=== PATIENT | female | born 1950 | race Caucasian/White ===

== ENCOUNTER → 2016-11-18 | Outpatient (CLI) | payer OTHER | LOC: FIMAGING 16:21 | PROVIDERS: ATTEND Physician Assistant | DX: J44.9 Chronic obstructive pulmonary disease, unspecified (principal); J40 Bronchitis, not specified as acute or chronic; J98.4 Other disorders of lung; Z87.891 Personal history of nicotine dependence ==

== ENCOUNTER 2017-01-20 05:51 | Inpatient (IN) | payer OTHER ==
[2017-01-20] MEDS ORDERED: PANTOPRAZOLE SODIUM 40 MG TAB PO PRN (05:55)
--- NOTE | 2017-01-20 05:55 | PDHPUP ---
History & Physical Update H&P update statement: This history and physical update is based on an assessment of the patient which was completed after admission or registration (within 24 hours), but prior to the surgery/procedure. H&P update: H&P reviewed & patient examined, no change in patient's condition since H&P completed
[2017-01-20] MEDS ORDERED: ceFAZolin 2 GM/DEXTROSE 100 ML IV ONE (06:00)
[2017-01-20] MEDS ORDERED: morphINE PF 5 MG/10 ML INJ IT ONE (06:00)
[2017-01-20] MEDS ORDERED: fentaNYL 100 MCG/2 ML INJ IT ONE (06:00)
[2017-01-20] MEDS ORDERED: THROMBIN (BOVINE) 5,000 UNIT VIAL TP ONE (06:20)
[2017-01-20] MEDS ORDERED: BUPIVACAINE/EPI 0.25% 30 ML SDV ONE (06:21)
[2017-01-20] MEDS ORDERED: BUPIVACAINE 0.25% 30 ML SDV ONE ×2 (06:21→06:22)
[2017-01-20] MEDS ORDERED: BACITRACIN 50,000 UNITS/10 ML SYR IRR ONE ×4 (06:22→10:28)
--- NOTE | 2017-01-20 06:22 | PDANEPAE ---
ANE History of Present Illness L2-S1 laminectomy and fusion, pain in lower back and legs. numbness in both feet ANE Past Medical History - Cardiovascular History Hx Hypertension: Yes Hx Arrhythmias: No Hx Chest Pain: No Hx Coronary Artery / Peripheral Vascular Disease: No Hx CHF / Valvular Disease: No Hx Palpitations: No - Pulmonary History Hx COPD: Yes Hx Asthma/Reactive Airway Disease: No Hx Recent Upper Respiratory Infection: No Hx Oxygen in Use at Home: No Hx Sleep Apnea: No Sleep Apnea Screening Result - Last Documented: Negative Pulmonary History Comment: MILD COPD DX'D RECENTLY, on Atrovent inhaler, used it last this am,. Bronchitis 2 months ago - Neurologic History Hx Cerebrovascular Accident: No Hx Seizures: No Hx Dementia: No - Endocrine History Hx Diabetes: No - Renal History Hx Renal Disorders: No Renal History Comment: URGENCY, LEAKING - Liver History Hx Hepatic Disorders: No Hepatic History Comment: CHOLECYSTECTOMY - Neurological & Psychiatric Hx Hx Neurological and Psychiatric Disorders: No - Cancer History Hx Cancer: Yes Cancer History Comment: UTERINE LESIONS - Congenital Disorder History Hx Congenital Disorders: No - GI History Hx Gastrointestinal Disorders: Yes Gastrointestinal History Comment: ACID REFLUX, Chron's disease x 5 years - Other Health History Other Health History: BRUISES EASILY - Chronic Pain History Chronic Pain: Yes (BACK PAIN) - Surgical History Prior Surgeries: CHOLECYSTECTOMY. EYE SURGERY. HYSTERECTOMY. TONSILLECTOMY. L ANKLE SURGERY ANE Review of Systems - Exercise capacity METS (RN): 4 METS ANE Patient History - Allergies Allergies/Adverse Reactions: adalimumab [From Humira] Allergy (Verified 01/20/17 06:23) Dyspnea varenicline [From Chantix] Allergy (Verified 01/20/17 06:23) - Home Medications Home Medications: Atenolol [Tenormin 50 mg (*)] 75 mg PO DAILY 01/05/17 [Last Taken Unknown] Budesonide [Budesonide EC] 3 mg PO TID 01/05/17 [Last Taken Unknown] Cholecalciferol Vit D3 [Vitamin D3 (*)] 500 units PO DAILY 01/05/17 [Last Taken Unknown] Etodolac [Etodolac ER] 500 mg PO BID 01/05/17 [Last Taken Unknown] Gabapentin [Neurontin 300 MG (*)] 600 mg PO TID 01/05/17 [Last Taken Unknown] Herbals/Supplements -Info Only 1 each PO DAILY 01/05/17 [Last Taken Unknown] Lisinopril [Zestril 40 mg (*)] 40 mg PO DAILY 01/05/17 [Last Taken Unknown] Pantoprazole Sodium [Protonix 40mg (*)] 40 mg PO DAILY PRN 01/05/17 [Last Taken Unknown] Raloxifene HCl [Evista 60mg (RX)] 60 mg PO DAILY 01/05/17 [Last Taken Unknown] amLODIPine BESYLATE [Norvasc 10 mg (*)] 10 mg PO DAILY 01/05/17 [Last Taken Unknown] traZODone [traZODONE 50MG (*)] 75 mg PO HS 01/05/17 [Last Taken Unknown] - Smoking Hx Smoking Status: Former smoker - Family Anes Hx Family Hx Anesthesia Complications: NEG ANE Labs/Vital Signs - Vital Signs Height: 157.5 cm Weight: 63.957 kg ANE Physical Exam - Airway Neck exam: FROM Mouth exam: dentures - Pulmonary Pulmonary: clear to auscultation - Cardiovascular Cardiovascular: regular rate and rhythym - ASA Status ASA Status: III
[2017-01-20] MEDS ORDERED: LIDOCAINE 1% 2 ML INJ ID PRN (06:25)
[2017-01-20] MEDS ORDERED: LR 1,000 ML IV ONE (06:25)
[2017-01-20] MEDS ORDERED: DEXAMETHASONE 10 MG/ML VIAL IVP ONE (06:48)
[2017-01-20] MEDS ORDERED: CITRATE DEXTROSE SOLN 500 ML BAG ONE (06:57)
[2017-01-20] MEDS ORDERED: CEFAZOLIN 2 GM/DEXTROSE/100 ML BAG IV ONE (07:06)
[2017-01-20] MEDS ORDERED: MIDAZOLAM 2 MG/2 ML VIAL IVP ONE (07:10)
[2017-01-20] MEDS ORDERED: MIDAZOLAM 2 MG/2 ML VIAL ONE (07:12)
[2017-01-20] MEDS ORDERED: fentaNYL 100 MCG/2 ML INJ ONE ×5 (07:13→09:50)
[2017-01-20] MEDS ORDERED: KETAMINE 100 MG/10 ML SYR ONE (07:13)
[2017-01-20] MEDS ORDERED: PROPOFOL/EMULSION 500 MG/50 ML BOTTLE IV ONE ×2 (07:13→08:44)
[2017-01-20] MEDS ORDERED: ROCURONIUM 50 MG/5 ML VIAL ONE (07:15)
[2017-01-20] MEDS ORDERED: PHENYLEPHRINE 10 MG/ML SDV ONE (07:18)
[2017-01-20] MEDS ORDERED: methylPREDNISolone SOD SUCC 125 MG/2 ML VIAL ONE (08:05)
[2017-01-20] MEDS ORDERED: TRANEXAMIC ACID 650 MG in NS 100 ML IV ONE (08:30)
[2017-01-20] MEDS ORDERED: epHEDrine SULFATE 10 MG/ML SYR ONE (08:50)
[2017-01-20] MEDS ORDERED: morphINE PF 5 MG/10 ML INJ ONE (09:50)
[2017-01-20] MEDS ORDERED: diphenhydrAMINE 25 MG CAP PO PRN (11:48)
[2017-01-20] MEDS ORDERED: HYDROmorphONE/DILAUDID 6 MG/30 ML PCA IV PRN (11:48)
[2017-01-20] MEDS ORDERED: LACTULOSE 20 GM/30 ML UDCUP PO PRN (11:48)
[2017-01-20] MEDS ORDERED: METHOCARBAMOL 750 MG TAB PO PRN (11:48)
[2017-01-20] MEDS ORDERED: MAGNESIUM HYDROXIDE 30 ML UDCUP PO PRN (11:48)
[2017-01-20] MEDS ORDERED: BISACODYL 10 MG SUPP PR PRN (11:48)
[2017-01-20] MEDS ORDERED: NALOXONE HCL 0.4 MG/ML INJ IVP PRN (11:48)
[2017-01-20] MEDS ORDERED: ONDANSETRON DISINTEGRATING 4 MG TAB PO PRN (11:48)
[2017-01-20] MEDS ORDERED: ONDANSETRON 4 MG/2 ML VIAL IVP PRN (11:48)
[2017-01-20] MEDS ORDERED: fentaNYL 100 MCG/2 ML INJ IVP PRN (11:55)
--- NOTE | 2017-01-20 11:59 | POSTANESTH ---
Post Anesthetic Evaluation Cardiovascular Status: Similar to Pre-Op Cond Respiratory Status: Similar to Pre-op Cond. Level of Consciousness/Mental Status: Can Participate in Eval Pain Control: Adequate, Prn Tx Ordered Nausea/Vomiting Control: Adequate, Prn Tx Ordered Complications Possibly Related to Anesthesia: None Noted
[2017-01-20] MEDS ORDERED: NS 1,000 ML IV SCH (12:00)
--- NOTE | 2017-01-20 12:18 | SOAPPROG ---
SOAP Progress Note Assessment/Plan: Assessment: 66 yo F sp L2-S1 TLIF Plan: stable PT/OT to 3N Kenny Barajas to fit LSO brace please call with neuro changes SORAIDA to thumbprint suction only. 01/20/17 12:15 Subjective: no back pain, no leg pian, no weakness. Objective: Vital Signs Temp Pulse Resp BP Pulse Ox 36.6 C 64 16 176/93 H 93 01/20/17 06:34 01/20/17 06:34 01/20/17 06:34 01/20/17 06:34 01/20/17 06:34 AAOx4, +FC PERRL, EOMI, no facial droop 5/5 + light touch c/D/I ICD10 Worksheet Patient Problems: Problems Problem Status Onset Fusion of spine of lumbar region Acute - ICD10 Problem Qualifiers (1) Fusion of spine of lumbar region
[2017-01-20] MEDS: LISINOPRIL 40 MG TAB PO SCH (13:02)
[2017-01-20] MEDS: GABAPENTIN 300 MG CAP PO SCH ×3 (13:02→21:15)
[2017-01-20] MEDS: CHOLECALCIFEROL VIT D3 1,000 UNITS TAB PO SCH (13:02)
[2017-01-20] MEDS: BUDESONIDE 3 MG EC CAP PO SCH ×3 (13:02→21:14)
[2017-01-20] MEDS: ATENOLOL 50 MG TAB PO SCH (13:02)
[2017-01-20] MEDS: ACETAMINOPHEN 500 MG TAB PO SCH ×2 (14:51→21:15)
[2017-01-20] MEDS: RALOXIFENE HCL 60 MG TAB PO SCH (14:51)
[2017-01-20] MEDS: POLYETHYLENE GLYCOL 3350 17 GM PKT PO SCH ×2 (15:55→21:28)
[2017-01-20] MEDS: ceFAZolin 2 GM/DEXTROSE 100 ML IV SCH ×2 (16:56→21:14)
[2017-01-20] MEDS: traZODone 50 MG TAB PO SCH (20:07)
[2017-01-20] MEDS: oxyCODONE IR 5 MG TAB PO PRN (20:08)
[2017-01-20] MEDS: SENNOSIDES/DOCUSATE SODIUM TAB PO SCH (20:08)
[2017-01-20] MEDS: morphINE SR 15 MG TAB PO SCH (20:08)
--- NOTE | 2017-01-20 22:38 | GOP ---
[f rep st] OPERATIVE REPORT DATE OF OPERATION: 01/20/2017 SURGEON: Scott Heredia MD NEUROSURGEON: Scott Heredia MD POSTAL SUPERINTENDENT: Rashel Lantigua. ANESTHESIA: General endotracheal. PREOPERATIVE DIAGNOSIS: Severe multilevel lumbar degenerative joint disease with severe degenerativ e lumbar scoliosis with critical spinal stenosis. Severe lateral recess impingement at L2-3, L3-4, L4-5, and L5-S1, as well as spinal central canal stenosis. Intractable low back pain and left great er than right lower extremity radicular and neurogenic claudication symptoms. Failed conservative c are. POSTOPERATIVE DIAGNOSIS: Severe multilevel lumbar degenerative joint disease with severe degenerati ve lumbar scoliosis with critical spinal stenosis. Severe lateral recess impingement at L2-3, L3-4, L4-5, and L5-S1, as well as spinal central canal stenosis. Intractable low back pain and left grea ter than right lower extremity radicular and neurogenic claudication symptoms. Failed conservative care. PROCEDURE PERFORMED: Left-sided L2-3, L3-4, L4-5, and L5-S1 far lateral transpedicular decompressio n with L2 through S1 posterior segmental (pedicle screw and axle device) fixation and posterolateral fusion with local autograft bone morphogenic protein and morselized allograft. L2-3, L3-4, L4-5, a nd L5-S1 posterior/transforaminal lumbar interbody fusion with 2 structural PEEK interbody spacers, local autograft and bone morphogenic protein at each level. Use of intraoperative microscopy, fluor oscopy, and computer volumetric stereotactic navigation, intraoperative neurophysiologic testing. I njection of intrathecal narcotic analgesics and subcutaneous and intramuscular local anesthesia for postoperative pain control. FINDINGS: ESTIMATED BLOOD LOSS: 450 cc. INDICATIONS: The patient is a 66-year-old woman with severe degenerative lumbar scoliosis with spin al stenosis and lateral recess/neural foraminal encroachment. She has intractable low back pain and left greater than right lower extremity radicular and neurogenic claudication symptoms. She has fa iled extensive conservative care and presents now for a multilevel surgical decompression and stabil ization. DESCRIPTION OF PROCEDURE: After informed consent was obtained, the patient was taken to the operati ng room and placed in the prone position on a Zaki table. The lumbosacral area was prepped and d raped in sterile fashion. After fluoroscopic localization of the correct levels, the subcutaneous a nd intramuscular tissues were infiltrated with local anesthesia. A midline linear incision was then created from approximately L2 through S1. This was carried down to the fascial layer, which was in cised using monopolar electrocautery and carried in a subperiosteal plane along the spinous processe s and lamina bilaterally. Intraoperative fluoroscopy was again utilized to verify the correct level . Following this, the dissection was carried out over the facet joints. After carefully dissecting the facet joints and lamina free of soft tissue, a double-action rongeur was utilized to create a f ar lateral trans-facet decompressions at the L2-3, L3-4, L4-5, and L5-S1 levels with complete remova l of the facet joint and unroofing the neural foramen at L2, L3, L4, L5, and S1. Following adequate decompression, the Deskarma neuronavigational system was brought in and 3 reconstructed images obtai tere and sent to the Deskar[facility] station. Using computer volumetric stereotactic navigation, pedicle scr ews were placed at L2, L3, L4, L5, and S1 bilaterally. Each individual screw was tested neurophysio logically with monopolar electric stimulation and interpretation of the potentials by the surgeon. The interspaces were then serially placed under distraction, first at L5-S1, than at L4-5, then at L 3-4, then at L2-3, during which time complete diskectomies were performed with preparation of the en dplates and placement of 2 structural PEEK interbody spacers, local autograft and bone morphogenic p rotein for L2-3, L3-4, L4-5, and L5-S1 posterior/transforaminal lumbar interbody fusions. This was performed with local autograft, bone morphogenic protein and 2 structural PEEKs at each level. The individual rods were then removed, and longer rods placed from L2 to S1 and a slight amount of compr ession placed across the interspaces in order to facilitate bony union and minimize the potential fo r posterior graft migration. The remaining lamina, facet joints, and transverse processes were then extensively decorticated, and the residual local autograft along with bone morphogenic protein and morselized allograft was placed out laterally for posterolateral fusion at the L2 through S1 levels. The wound was copiously irrigated with antibiotic irrigation. Meticulous hemostasis was achieved. 200 mcg of Duramorph along 50 mcg of fentanyl were injected intrathecally. The subcutaneous and i ntramuscular tissues were re-infiltrated with local anesthesia, and the wound was closed in a layere d fashion using interrupted Vicryl sutures followed by Steri-Strips on the skin. COMPLICATIONS: None. DISPOSITION: The patient was extubated and transferred to the recovery room in stable condition. /[id number]/MODL
[2017-01-21] MEDS: ACETAMINOPHEN 500 MG TAB PO SCH ×2 (04:56→13:12)
[2017-01-21] MEDS: oxyCODONE IR 5 MG TAB PO PRN (04:56)
[2017-01-21 05:19] LABS: % IMMATURE GRANULYOCYTES 0.9 % (0.0-1.1); ABSOLUTE IMMATURE GRANULOCYTES 0.16 10^3/uL (0.00-0.10); ADD DIFF? NO; ADD MORPH? NO; ADD SCAN? NO; ATYPICAL LYMPHOCYTE FLAG 10 (0-99); FRAGMENT RBC FLAG 0 (0-99); HEMATOCRIT 28.1 % (38.0-47.0); HEMOGLOBIN 9.1 g/dL (12.6-16.3); LEFT SHIFT FLG 40 (0-99); LIPEMIA HEMOLYSIS FLAG 80 (0-99); MEAN CELL HEMOGLOBIN 33.2 pg (27.9-34.1); MEAN CELL HEMOGLOBIN CONCENTR. 32.4 g/dL (32.4-36.7); MEAN CELL VOLUME 102.6 fL (81.5-99.8); MEAN PLATELET VOLUME 9.7 fL (8.7-11.7); PLATELET CLUMPS FLAG 0 (0-99); PLATELET COUNT 218 10^3/uL (150-400); RED BLOOD CELL COUNT 2.74 10^6/uL (4.18-5.33); RED CELL DISTRIBUTION WIDTH 11.9 % (11.5-15.2)
[2017-01-21 05:30] LABS: ANION GAP 6 mEq/L (8-16); CALCIUM 7.2 mg/dL (8.5-10.4); CARBON DIOXIDE 23 mEq/l (22-31); CHLORIDE 99 mEq/L (97-110); CREATININE 1.2 mg/dL (0.6-1.0); GLOMERULAR FILTRATION RATE 45; GLUCOSE 86 mg/dL (70-100); POTASSIUM 5.3 mEq/L (3.5-5.2); SODIUM 128 mEq/L (134-144)
[2017-01-21] MEDS: NS 500 ML IV SCH ×3 (08:00→14:46)
[2017-01-21] MEDS: GABAPENTIN 300 MG CAP PO SCH ×2 (09:05→17:34)
[2017-01-21] MEDS: BUDESONIDE 3 MG EC CAP PO SCH ×2 (09:05→17:34)
[2017-01-21] MEDS: ENOXAPARIN 40 MG/0.4 ML SYR SC SCH (09:05)
[2017-01-21] MEDS: CHOLECALCIFEROL VIT D3 1,000 UNITS TAB PO SCH (09:05)
[2017-01-21] MEDS: morphINE SR 15 MG TAB PO SCH (09:06)
[2017-01-21] MEDS: ATENOLOL 50 MG TAB PO SCH (09:06)
[2017-01-21] MEDS: LISINOPRIL 40 MG TAB PO SCH (09:07)
[2017-01-21] MEDS: POLYETHYLENE GLYCOL 3350 17 GM PKT PO SCH ×2 (09:07→17:55)
[2017-01-21] MEDS: RALOXIFENE HCL 60 MG TAB PO SCH (09:07)
[2017-01-21] MEDS: SENNOSIDES/DOCUSATE SODIUM TAB PO SCH (09:08)
--- NOTE | 2017-01-21 11:53 | SOAPPROG ---
SOAP Progress Note Assessment/Plan: Assessment: 66 yo female POD #1 s/p L2-S1 TLIF Low BP this AM, being bolused with NS neuro stable with improved sensation in feet Plan: Follow BP, H/H and Na repeat CBC and BMP @ 1400, she may need PRBCs if H/H drops PT/OT as tolerated LSO when out of bed. start salt tabs today Discussed with Dr. Abernathy 01/21/17 11:57 Subjective: Sitting up in bed this AM. Denies pain. States her preop symptoms are improved Does not feel ill or lightheaded Objective: Vital Signs Temp Pulse Resp BP Pulse Ox 36.5 C 55 L 12 78/44 L 92 01/21/17 07:36 01/21/17 07:36 01/21/17 07:36 01/21/17 09:42 01/21/17 07:36 Laboratory Results 01/21/17 04:40 01/21/17 04:40 01/20/17 01/21/17 01/22/17 05:59 05:59 05:59 Intake Total 2900 Output Total 930 100 Balance 1969 - Neuro: WRIGHT, Sens +LT Dressing: CDI SORAIDA: 100ml today ICD10 Worksheet Patient Problems: Problems Problem Status Onset Fusion of spine of lumbar region Acute
[2017-01-21] MEDS: HYDROCODONE/APAP 5/325 TAB PO PRN ×2 (13:09→17:34)
[2017-01-21] MEDS: SODIUM CHLORIDE 1,000 MG TAB PO SCH ×2 (13:09→17:34)
[2017-01-21 13:56] LABS: HEMATOCRIT 27.5 % (38.0-47.0); MEAN CELL HEMOGLOBIN 34.1 pg (27.9-34.1); MEAN CELL HEMOGLOBIN CONCENTR. 32.7 g/dL (32.4-36.7); MEAN CELL VOLUME 104.2 fL (81.5-99.8); RED BLOOD CELL COUNT 2.64 10^6/uL (4.18-5.33); RED CELL DISTRIBUTION WIDTH 12.1 % (11.5-15.2)
[2017-01-21 14:37] LABS: ANION GAP 9 mEq/L (8-16); CARBON DIOXIDE 20 mEq/l (22-31); CHLORIDE 96 mEq/L (97-110); CREATININE 1.6 mg/dL (0.6-1.0); GLOMERULAR FILTRATION RATE 32; GLUCOSE 97 mg/dL (70-100); SODIUM 125 mEq/L (134-144)
[2017-01-21] MEDS ORDERED: NS 1,000 ML IV ONE (16:30)
[2017-01-21] MEDS ORDERED: HYDROCORTISONE 100 MG/2 ML VIAL IVP ONE (16:31)
[2017-01-21 22:00] LABS: % IMMATURE GRANULYOCYTES 0.9 % (0.0-1.1); ABSOLUTE IMMATURE GRANULOCYTES 0.15 10^3/uL (0.00-0.10); ADD DIFF? NO; ADD MORPH? YES; ADD SCAN? NO; ATYPICAL LYMPHOCYTE FLAG 0 (0-99); FRAGMENT RBC FLAG 0 (0-99); HEMATOCRIT 21.3 % (38.0-47.0); LEFT SHIFT FLG 30 (0-99); LIPEMIA HEMOLYSIS FLAG 80 (0-99); MEAN CELL HEMOGLOBIN 33.7 pg (27.9-34.1); MEAN CELL HEMOGLOBIN CONCENTR. 31.5 g/dL (32.4-36.7); MEAN PLATELET VOLUME 9.5 fL (8.7-11.7); PLATELET CLUMPS FLAG 0 (0-99); PLATELET COUNT 148 10^3/uL (150-400); RED BLOOD CELL COUNT 1.99 10^6/uL (4.18-5.33); RED CELL DISTRIBUTION WIDTH 12.1 % (11.5-15.2)
[2017-01-21] MEDS ORDERED: ALTEPLASE 2 MG VIAL IVP PRN (22:00)
[2017-01-21] MEDS ORDERED: HYDROCORTISONE 100 MG/2 ML VIAL IVP SCH (22:00)
[2017-01-21 22:03] LABS: HEMOGLOBIN 6.7 g/dL (12.6-16.3)
[2017-01-21 22:34] LABS: ANION GAP 5 mEq/L (8-16); CREATININE 1.1 mg/dL (0.6-1.0); GLOMERULAR FILTRATION RATE 50; GLUCOSE 84 mg/dL (70-100); POTASSIUM 3.2 mEq/L (3.5-5.2); SODIUM 131 mEq/L (134-144)
[2017-01-21 22:36] LABS: MACROCYTES 1+; PLATELET ESTIMATE ADEQUATE (ADEQ)
[2017-01-21 22:37] LABS: CARBON DIOXIDE 14 mEq/l (22-31); CHLORIDE 112 mEq/L (97-110)
[2017-01-21 22:38] LABS: CALCIUM 4.2 mg/dL (8.5-10.4)
--- NOTE | 2017-01-21 22:51 | GCON ---
[f rep st] CONSULTATION INTERNAL MEDICINE CONSULTATION DATE OF CONSULTATION: 01/21/2017 REFERRING PHYSICIAN: Scott Heredia MD REASON FOR CONSULTATION: Hypotension. HISTORY OF PRESENT ILLNESS: This is a 66-year-old female, who has a history of a degenerative disk disease, with several epidural injections, but with worsening pain, who underwent decompression and fusion L2-S1. There was an estimated 450 cc of blood loss. She was doing well in the immediate pos toperative period, but yesterday afternoon started developing low blood pressures. This has continu ed until today. She has received 1500 cc of IV fluids so far, but blood pressure is still in the 70 s systolic. The patient herself is not having significant complaints. She says she is a little bit dizzy when she walks, but otherwise she is mostly complaining of back pain from the surgery. She d enies any chest pain or shortness of breath. The patient does have a history of Crohn disease and has been on oral budesonide for a very long mehul e. She has not taken systemic steroids recently. She has had 3 epidural injections in the past. REVIEW OF SYSTEMS: A 10-point review of systems was obtained, and other than as stated above was yomaira cowart. PAST MEDICAL HISTORY: 1. Crohn disease. 2. Degenerative disk disease status post recent surgery. 3. Hypertension, for which she is on 3 medications. 4. Osteoporosis. 5. GERD. MEDICATIONS: Reviewed. She has not received her antihypertensives today. SOCIAL HISTORY: She is a smoker, but quit 2 months ago for the surgery. FAMILY HISTORY: Reviewed. Noncontributory. PHYSICAL EXAMINATION: VITAL SIGNS: Afebrile. Blood pressure has been running in the 70s, with bird e blood pressures in the 60s systolic, essentially since yesterday afternoon. Heart rates in the 50 s. Oxygen saturation 92% on 3 L. GENERAL: The patient is well developed, in no apparent distress. HEENT: Nonicteric sclerae. Extraocular muscles intact. Slightly dry mucous membranes. NECK: S upple. No thyromegaly. LUNGS: Good effort. Clear to auscultation bilaterally. CARDIOVASCULAR: Regular rate and rhythm. No murmurs, gallops. ABDOMEN: Positive bowel sounds. Soft, nontender, n ondistended. No hepatosplenomegaly. EXTREMITIES: No clubbing, cyanosis, or edema. SKIN: Without rash. Warm, dry, and intact. NEURO: Alert and oriented x3. Moving all 4 extremities equally. P SYCH: Normal mood and affect. LABS: White blood cell count this morning 17 with a hemoglobin of 9. Hemoglobin has remained stabl e at 9 this afternoon. Interestingly, the white blood cell count was elevated prior to surgery on 0 01/17 at 18. Creatinine prior surgery was 0.7. This morning was 1.2 and is now 1.6. Sodium initial ly was 129 and now has come down to 125. ASSESSMENT: This is a 66-year-old female who is postoperative day #1, status post lumbar decompress ion and fusion, presenting with hypotension and worsening renal failure plan. 1. Hypotension. Probably multifactorial in causes. I am not sure if she took her antihypertensive yesterday morning, but she is on significant ones. There is probably an element of volume depletio n, but I am also considering adrenal insufficiency. She has been on budesonide for a long time, mina n though it is supposedly not absorbed. Although though budesonide is given as a topical therapy fo r Crohn disease, it is absorbed. The plan will be to give her a fluid bolus right now and a dose of hydrocortisone and see what her blood pressure does. Other considerations would be anemia secondar y to acute blood loss, but a repeat H and H seems to be stable. She is not exhibiting signs of seps is, although her white count is elevated, but interestingly it was elevated prior to her surgery. T his may be due to some systemic effects of her budesonide. However, we will get blood cultures and check a lactate to evaluate for sepsis. 2. Acute renal failure. The patient is not making much urine currently. I think this is due to he r hypotension. Will give another 1 L bolus right now and keep her on maintenance fluid. I am gerry monaco that with the steroids her blood pressure comes up and she begins to make urine. We will continue to monitor this very closely. She did have a Lozano early in the morning and then it has been remov ed. Her bladder scans have been not been showing any urinary retention currently. 3. Hyponatremia. Patient did have evidence of this prior to her surgery. Will check a urine sodiu m to further evaluate and continue to monitor as we hydrate. 4. History of hypertension. Will hold all of her medications. 5. History of Crohn's. The patient appears to be in remission. 6. Previous smoker, who quit 2 months ago. The patient is not on any home oxygen. Will continue w atch her oxygen status. The patient probably has an element of chronic obstructive pulmonary disease . Thank you for this consultation. We will follow along with you. /[id number]/MODL
[2017-01-21] MEDS ORDERED: PROTOCOL CALCIUM 1 DOSE IV PRN (23:14)
[2017-01-21] MEDS: NS 1,000 ML IV SCH (23:30)
[2017-01-21 23:49] LABS: HEMOGLOBIN 9.5 g/dL (12.6-16.3); MEAN CELL HEMOGLOBIN 34.1 pg (27.9-34.1); MEAN CELL HEMOGLOBIN CONCENTR. 32.8 g/dL (32.4-36.7); MEAN CELL VOLUME 103.9 fL (81.5-99.8); RED BLOOD CELL COUNT 2.79 10^6/uL (4.18-5.33); RED CELL DISTRIBUTION WIDTH 12.1 % (11.5-15.2)
[2017-01-22 00:05] LABS: ANION GAP 8 mEq/L (8-16); CALCIUM 6.5 mg/dL (8.5-10.4); CARBON DIOXIDE 18 mEq/l (22-31); CHLORIDE 100 mEq/L (97-110); CREATININE 1.5 mg/dL (0.6-1.0); GLOMERULAR FILTRATION RATE 35; GLUCOSE 123 mg/dL (70-100); POTASSIUM 5.1 mEq/L (3.5-5.2); SODIUM 126 mEq/L (134-144)
[2017-01-22] MEDS ORDERED: IOPAMIDOL (ISOVUE 370) 100 ML BTL IV ONE ×2 (00:30→00:55)
--- NOTE | 2017-01-22 00:32 | CPEKG ---
Heart Rate: 56 RR Interval: 1071 P-R Interval: 224 QRSD Interval: 80 QT Interval: 448 QTC Interval: 433 P Pringle: 69 QRS Pringle: 48 T Wave Pringle: 50 EKG Severity - ABNORMAL ECG - EKG Impression: SINUS RHYTHM EKG Impression: FIRST DEGREE AV BLOCK EKG Impression: agree with above Electronically Signed By: Gerardo Zuleta 22-Jan-2017 08:27:46
[2017-01-22] MEDS: NOREPINEPHRINE/NS 500 ML IV SCH ×3 (00:41→16:38)
[2017-01-22] MEDS ORDERED: NS 1,000 ML IV ONE (00:46)
[2017-01-22] MEDS: traZODone 50 MG TAB PO SCH ×2 (00:59→21:27)
[2017-01-22] MEDS: POLYETHYLENE GLYCOL 3350 17 GM PKT PO SCH ×4 (01:00→21:17)
[2017-01-22] MEDS: BUDESONIDE 3 MG EC CAP PO SCH (01:03)
[2017-01-22] MEDS: SENNOSIDES/DOCUSATE SODIUM TAB PO SCH ×3 (01:03→21:20)
[2017-01-22] MEDS: morphINE SR 15 MG TAB PO SCH ×3 (01:03→21:17)
[2017-01-22] MEDS: GABAPENTIN 300 MG CAP PO SCH ×4 (01:06→21:19)
[2017-01-22] MEDS: HYDROCORTISONE 100 MG/2 ML VIAL IVP SCH ×4 (01:06→21:28)
[2017-01-22] MEDS: ACETAMINOPHEN 500 MG TAB PO SCH ×4 (01:06→21:18)
[2017-01-22 02:57] LABS: COLOR YELLOW; LEUKOCYTE ESTERASE,URINE NEGATIVE (NEGATIVE); NITRITE,URINE NEGATIVE (NEGATIVE)
[2017-01-22 03:10] LABS: BACTERIA TRACE /hpf (NONE SEEN); MUCUS TRACE /lpf (NONE-1+)
[2017-01-22] MEDS ORDERED: VANCOMYCIN HCL/NORMAL SALINE 250 ML IV ONE (04:34)
[2017-01-22] MEDS ORDERED: NALOXONE HCL 0.4 MG/ML INJ IVP PRN (04:59)
--- NOTE | 2017-01-22 05:29 | HOSPPROG ---
Hospitalist Progress Note Assessment/Plan: Sign out regarding unstable patient transferring to ICU received from Dr. Carmichael. After arrival to ICU she became more hypoxic, sats only 89% on 15L. Pressors started for ongoing hypotension. Throughout all this, patient awake and alert with minimal complaints. Lungs CTA bilaterally. IV hydrocortisone given by Dr. Carmichael given chronic steroid use, but no improvement in BP. Initially my concern for acute PE was very high given her severe hypoxia with negative CXR. This would have been a very difficult problem given her recent spine surgery. CTA chest ordered STAT due to her unstable status. Concern for renal function with IV contrast as creatinine borderline. [place]berry risk/benefit ratio in favor of proceeding with CTA as definitive diagnosis of PE necessary given high risk nature of IV heparin or lytics in this patient. Given 1L bolus in conjunction with contrast. CTA negative for PE. Upper lobe ground glass - differential pulm edema vs. PNA. Patient making good urine after exam. Patient now persistently hypotensive and hypoxic. On levophed 9mcg. Etiology of decline remains unclear. Possible sepsis but seems atypical. No source obvious. Cultures sent and will start empiric abx, IV Vanco x1 and IV meropenum. Lactate normal and CVP 10. Check ECHO in am. Troponin negative. CC time 1 hour Objective: Vital Signs Temp Pulse Resp BP Pulse Ox 36.3 C 63 10 L 99/72 L 94 01/22/17 04:00 01/22/17 04:00 01/22/17 04:00 01/22/17 04:00 01/22/17 04:00 Laboratory Results 01/21/17 23:35 01/21/17 23:35 01/20/17 01/21/17 01/22/17 05:59 05:59 05:59 Intake Total 2900 5600 Output Total 930 670 Balance 1970 4930 ICD10 Worksheet Patient Problems: Problems Problem Status Onset Fusion of spine of lumbar region Acute
[2017-01-22 05:30] LABS: IONIZED CALCIUM 0.97 MMOL/L (1.12-1.30)
[2017-01-22 05:42] LABS: ADD DIFF? YES; ADD MORPH? NO; ADD SCAN? NO; ATYPICAL LYMPHOCYTE FLAG 0 (0-99); FRAGMENT RBC FLAG 0 (0-99); HEMATOCRIT 26.2 % (38.0-47.0); HEMOGLOBIN 8.5 g/dL (12.6-16.3); LEFT SHIFT FLG 30 (0-99); LIPEMIA HEMOLYSIS FLAG 80 (0-99); MEAN CELL HEMOGLOBIN 33.7 pg (27.9-34.1); MEAN CELL HEMOGLOBIN CONCENTR. 32.4 g/dL (32.4-36.7); MEAN PLATELET VOLUME 10.1 fL (8.7-11.7); PLATELET CLUMPS FLAG 0 (0-99); PLATELET COUNT 239 10^3/uL (150-400); RED BLOOD CELL COUNT 2.52 10^6/uL (4.18-5.33); RED CELL DISTRIBUTION WIDTH 11.9 % (11.5-15.2)
[2017-01-22 05:53] LABS: INR 1.02 (0.83-1.16); PROTIME(PATIENT) 13.3 SEC (12.0-15.0)
[2017-01-22 06:04] LABS: ALANINE AMINOTRANSFERASE 26 IU/L (9-52); ALKALINE PHOSPHATASE 52 IU/L (38-126); ANION GAP 4 mEq/L (8-16); ASPARTATE AMINOTRANSFERASE 42 IU/L (14-46); BILIRUBIN,TOTAL 0.2 mg/dL (0.1-1.4); BILIRUBIN-CONJUGATED 0.2 mg/dL (0.0-0.5); CARBON DIOXIDE 18 mEq/l (22-31); CHLORIDE 110 mEq/L (97-110); CREATININE 1.2 mg/dL (0.6-1.0); GLOMERULAR FILTRATION RATE 45; GLUCOSE 125 mg/dL (70-100); POTASSIUM 4.3 mEq/L (3.5-5.2); SODIUM 132 mEq/L (134-144); TOTAL PROTEIN 3.8 g/dL (6.3-8.2)
[2017-01-22 06:07] LABS: CALCIUM 5.9 mg/dL (8.5-10.4)
[2017-01-22 06:12] LABS: BASE EXCESS -9.9 mEq/L (-2.5-2.5); BICARBONATE 17 mEq/L (22-26); MEASURED OXYGEN SATURATION 95 % (92-95); PCO2 43 mmHg (34-38); PO2 77 mmHg (65-75); TCO2 18 mEq/L (23-27)
[2017-01-22] MEDS: MEROPENEM 1 GM in NS 100 ML IV SCH ×3 (06:34→21:32)
[2017-01-22 07:07] LABS: HYPOCHROMIA 1+; MACROCYTES 2+; PLATELET ESTIMATE ADEQUATE (ADEQ)
[2017-01-22] MEDS: NS 1,000 ML IV SCH (08:03)
[2017-01-22] MEDS ORDERED: CALCIUM GLUCONATE 50 ML IV ONE (08:26)
[2017-01-22] MEDS: CHOLECALCIFEROL VIT D3 1,000 UNITS TAB PO SCH (08:50)
[2017-01-22] MEDS: SODIUM CHLORIDE 1,000 MG TAB PO SCH ×3 (08:50→17:36)
[2017-01-22] MEDS ORDERED: ALBUMIN 5% 250 ML IV ONE (09:56)
--- NOTE | 2017-01-22 10:44 | SOAPPROG ---
SOAP Progress Note Assessment/Plan: SOAP Progress Note Assessment/Plan: Assessment: 66 yo female POD #2 s/p L2-S1 TLIF. Medical management deferred to ICU team. SHe continues on pressors for low BP, but appears quite well, H/H largely stable at 8.5/26 today, sodium 132 improving after several boluses of NS yesterday and salt tabs. WBC 29.05. Started on Merrem and Vanc. Plan: wound redressed today, appears saturated. dressing changes if continues to saturate. Hold in ICU until stable and appropriate for transfer back to floor. Follow BP, H/H and Na PT/OT as tolerated LSO when out of bed. continue SORAIDA drain, 300 out yesterday follow post op films when ready. start salt tabs today Discussed with Dr. Abernathy Subjective: Doing well, no lightheadedness, stable on feet. up in chair eating at time of exam Objective: NAD, VSS on pressors speech clear, cnii-xii grossly intact EOMI, PEARLA MAEx4, BLE 5/5= +LT JPx1 01/22/17 10:51 Objective: Vital Signs Temp Pulse Resp BP Pulse Ox 36.4 C 72 12 111/63 97 01/22/17 07:00 01/22/17 10:00 01/22/17 10:00 01/22/17 10:00 01/22/17 10:00 Laboratory Results 01/22/17 05:15 01/22/17 05:15 01/21/17 01/22/17 01/23/17 05:59 05:59 05:59 Intake Total 2900 6723 Output Total 930 1450 Balance 1970 5273 PT 13.3 SEC (12.0-15.0) 01/22/17 05:15 INR 1.02 (0.83-1.16) 01/22/17 05:15 ICD10 Worksheet Patient Problems: Problems Problem Status Onset Fusion of spine of lumbar region Acute
--- NOTE | 2017-01-22 12:07 | ECHO ---
[id number] + + [address] : : [place] [address] : : [phone] + + Adult Echocardiographic Report + -------+ :Name: CLAUDIO MCCORD LStudy Date: 01/22/2017 10:21 AM : : Hospital Admission Number: [id number] Locati on: 255: :: 1950 Gender: Female Height: 63 in : :Age: 66 yrs Race: WH Weight: 141 lb : :Reason For Study: Hypotension : : BSA: 1.7 meter s2 : :History: No previous : + -------+ MMode/2D Measurements \T\ Calculations IVSd: 0.91 cm LVIDd: 3.4 cm FS: 38.7 % LVOT diam: 1.6 cm LVPWd: 1.1 cm LVIDs: 2.1 cm EDV(Teich): LVOT area: 47.6 ml 2.0 cm2 ESV(Teich): 14.2 ml EF(Teich): 70.2 % LVLd ap4: 7.4 cm SV(MOD-sp4): EDV(MOD-sp4): 60.0 ml 78.0 ml LVLs ap4: 6.0 cm ESV(MOD-sp4): 18.0 ml EF(MOD-sp4): 76.9 % Normal Measurement Values: + + :LVIDd (3.5-5.7cm) IVSd (0.6-1.1cm) LVPWd (0.6-1.1cm) Aortic Root (2.0-3.7cm)Left Atrium (1.5-4.0cm): :LV Vol(d) (76-115ml) LV Vol(s) (29-48ml) Ejec Fraction (50-65%)PV Rick (0.6- 1.2m/s) TV Rick (0.4-1.0m/s) : :MV E Rick (0.8-1.0m/s)MV A Rick (0.3-1.0m/s)LVOT Rick (0.7-1.2m/s) Asc Ao Rick ( 0.9-1.8m/s) : + + Doppler Measurements \T\ Calculations MV E max rick: MV V2 mean: Ao mean PG: LV V1 max: 118.0 cm/sec 87.4 cm/sec 3.6 mmHg 99.7 cm/sec MV A max rick: MV mean PG: Ao V2 mean: LV V1 max P.0 cm/sec 3.4 mmHg 90.5 cm/sec 4.0 mmHg MV E/A: 1.5 MV V2 VTI: 40.0 cmAo V2 VTI: 31.2 cm LV V1 mean PG: MV dec time: MVA(VTI): 1.1 cm2 LORENZA(I,D): 1.4 cm2 1.7 mmHg 0.23 sec LV V1 mean: 58.7 cm/sec LV V1 VTI: 22.1 cm SV(LVOT): 43.3 ml PA V2 max: 84.2 cm/sec PA max P.8 mmHg Left Ventricle The left ventricle is normal in size. There is normal left ventricular wall thickness. Ejection Fraction = 70-75%. No regional wall motion abnormalities noted. Right Ventricle The right ventricle is normal in size and function. Atria The left atrial size is normal. Right atrial size is normal. Mitral Valve The mitral valve is normal. There is no mitral valve stenosis. There is trace mitral regurgitation. Tricuspid Valve The tricuspid valve is normal in structure and function. There is no tricuspid stenosis. There is trace tricuspid regurgitation. Right ventricular systolic pressure is normal. Aortic Valve The aortic valve is not well visualized. Mild Aortic Valve Calcification. There is no aortic stenosis. There is no aortic insufficiency. Pulmonic Valve The pulmonic valve is not well visualized. Pericardium/Pleural There is a fat pad seen. There is no pericardial effusion. Conclusion A complete two-dimensional transthoracic echocardiogram was performed (2D, M-mode, Doppler and color flow Doppler). Ejection Fraction = 70-75%. There is trace mitral regurgitation. There is trace tricuspid regurgitation. Right ventricular systolic pressure is normal. The aortic valve is not well visualized. Mild Aortic Valve Calcification No etiology for hypotension suggested by this study. Final Reading Physician: Diamond Orona signed on 01/22/2017 12:06 PM Ordering Physician: Maria D Cavazos Performed By: Arline Norris
--- NOTE | 2017-01-22 12:36 | HOSPPROG ---
Hospitalist Progress Note Assessment/Plan: # acute Hypotension- patient received fluid resuscitation and pressor support overnight - labs and physiology seem consistent w sepsis however no clear source -? possible aspiration PNA CTA chest(personally reviewed and interpreted) no pulmonary embolism bilateral upper lobe ground-glass attenuation query pneumonia -wean pressor support as able - continue IV fluids - continue empiric antibiotics - continue IV steroids - continue holding home blood pressure medicines # leukocytosis- WBC 29- blood cultures NGTD and urine bland- oxygen saturations 94% on 4 L - continue IV vancomycin and meropenem - monitor cultures # acute kidney injury- presumed secondary to hypoperfusion/hypovolemia- creatinine down to 1.2 this a.m. - continue IV fluids and pressure support # hyponatremia- sodium 125-> 132 with fluids - continue to monitor # prophylaxis- Lovenox on hold continue SCDs # diet as tolerated # disposition greater than 2 midnights the patient remains critically ill requiring IV pressure support Discussed the case with Pulmonary Critical Care will continue empirically treating for sepsis Subjective: Stable overnight Objective: Vital Signs Temp Pulse Resp BP Pulse Ox 36.4 C 72 10 L 115/63 94 01/22/17 07:00 01/22/17 12:00 01/22/17 12:00 01/22/17 12:00 01/22/17 12:00 Laboratory Results 01/22/17 05:15 01/22/17 05:15 01/21/17 01/22/17 01/23/17 05:59 05:59 05:59 Intake Total 2900 6723 Output Total 930 1450 500 Balance 1970 5273 -500 PT 13.3 SEC (12.0-15.0) 01/22/17 05:15 INR 1.02 (0.83-1.16) 01/22/17 05:15 - Physical Exam Constitutional: chronically ill appearing Eyes: anicteric sclera Ears, Nose, Mouth, Throat: moist mucous membranes Cardiovascular: regular rate and rhythym, systolic murmur Respiratory: no respiratory distress, inspiratory crackles Gastrointestinal: normoactive bowel sounds Genitourinary: no bladder fullness Skin: warm, normal color Musculoskeletal: No asymmetric calves Neurologic: AAOx3 Psychiatric: interacting appropriately, not anxious Lymph, Heme, Immunologic: no cervical LAD ICD10 Worksheet Patient Problems: Problems Problem Status Onset Fusion of spine of lumbar region Acute
[2017-01-22] MEDS: RALOXIFENE HCL 60 MG TAB PO SCH (13:15)
--- NOTE | 2017-01-22 13:41 | GCON ---
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 HISTORY OF PRESENT ILLNESS: This patient is an extremely pleasant, 66-year-old, white female with a past medical history of chronic back pain, Crohn disease, hypertension, gastroesophageal reflux dis ease, osteoporosis. She is a day postop after receiving a decompression and fusion of . She had a 450 cc blood loss during surgery. She was initially admitted to the floor and was subsequ ently transferred to the intensive care unit for hypotension. Workup included a CT scan of the ches t and IV fluids. The patient is sitting up in a chair and feeling markedly improved. She denies an y chest pain, pleuritic-type chest pain, or angina equivalent. No fever or night sweats. No nausea , vomiting, or diarrhea. Her pain is well controlled. PAST MEDICAL HISTORY: Significant for Crohn disease, hypertension, osteoporosis, gastroesophageal r eflux disease, and degenerative disk disease and mild COPD. PAST SURGICAL HISTORY: Again, she has recently undergone a decompression and fusion . ALLERGIES: Adalimumab and varenicline. SOCIAL HISTORY: Previous heavy smoker, quit 2 months ago. No significant alcohol use. Work Histor y: She is retired. She has recently moved to the [place] from [place]. She has excelle nt family support. PHYSICAL EXAM: VITAL SIGNS: Blood pressure is 106/74, pulse is 67, respirations are 10, temperatur e is 36.4, oxygen saturation 100% on 4 L. GENERAL: She is a mildly overweight but very pleasant, [age]-year-old, white female who is resting comfortably in no acute distress. HEENT: Eyes are T[place], EO [place]. Throat shows no erythema or tonsillar hypertrophy. NECK: Supple. There is no cervical adenop athy. HEART: Regular rate and rhythm without murmurs, rubs, gallops. LUNGS: Diminished breath so unds and a mild prolongation of expiratory phase but there is no wheeze. ABDOMEN: Soft, nontender. Bowel sounds are present in all 4 quadrants. EXTREMITIES: No clubbing, cyanosis, or edema. LABORATORIES: White count 29,000, hemoglobin of 8.5, hematocrit 26, MCV is 104, platelet count 239. INR 1.02. Arterial blood gas: pH 7.22, pCO2 of 43, pO2 of 77, bicarb 18, oxygen saturation 95%. Sodium 132, potassium 4.3, chloride 110, CO2 is 18, BUN 18, creatinine 1.2, glucose is 125. Urinal ysis is negative. CT angiogram of the chest shows no evidence of PE, but she has patchy ground-glass opacifications co nsistent with pulmonary edema versus pneumonia bilaterally in the upper lobes. Chest x-ray is clear. IMPRESSION: 1. Hypertension, etiology of which is unclear. Likely hypovolemia. Must take into consideration p ossible sepsis. 2. Metabolic acidosis. 3. Elevated white count. 4. Recent spine surgery. 5. History of hypertension. 6. History of Crohn disease. RECOMMENDATIONS: 1. Agree with IV fluids. Will add albumin to the mix to wean off pressors as tolerated. 2. Blood cultures are currently pending. 3. Agree with current antibiotic coverage. Currently on meropenem and she received a dose of vanco mycin. 4. Await cultures. 5. DVT and PE prophylaxis. 6. Stress ulcer prophylaxis. /[id number]/MODL
[2017-01-23 05:04] LABS: IONIZED CALCIUM 1.14 MMOL/L (1.12-1.30)
[2017-01-23 05:06] LABS: ADD DIFF? YES; ADD MORPH? NO; ADD SCAN? NO; ATYPICAL LYMPHOCYTE FLAG 0 (0-99); FRAGMENT RBC FLAG 0 (0-99); HEMOGLOBIN 10.8 g/dL (12.6-16.3); LEFT SHIFT FLG 30 (0-99); LIPEMIA HEMOLYSIS FLAG 80 (0-99); MEAN CELL HEMOGLOBIN 32.2 pg (27.9-34.1); MEAN CELL HEMOGLOBIN CONCENTR. 32.7 g/dL (32.4-36.7); MEAN CELL VOLUME 98.5 fL (81.5-99.8); MEAN PLATELET VOLUME 9.4 fL (8.7-11.7); PLATELET CLUMPS FLAG 10 (0-99); PLATELET COUNT 164 10^3/uL (150-400); RED BLOOD CELL COUNT 3.35 10^6/uL (4.18-5.33); RED CELL DISTRIBUTION WIDTH 15.5 % (11.5-15.2)
[2017-01-23 05:23] LABS: ANION GAP 5 mEq/L (8-16); CALCIUM 7.3 mg/dL (8.5-10.4); CARBON DIOXIDE 20 mEq/l (22-31); CHLORIDE 113 mEq/L (97-110); CREATININE 0.7 mg/dL (0.6-1.0); GLOMERULAR FILTRATION RATE > 60; GLUCOSE 109 mg/dL (70-100); POTASSIUM 4.7 mEq/L (3.5-5.2); SODIUM 138 mEq/L (134-144)
[2017-01-23 05:52] LABS: MACROCYTES 1+; MICROCYTES 1+
[2017-01-23 05:53] LABS: PLATELET ESTIMATE ADEQUATE (ADEQ)
[2017-01-23] MEDS: MEROPENEM 1 GM in NS 100 ML IV SCH ×3 (06:08→21:06)
[2017-01-23] MEDS: HYDROCORTISONE 100 MG/2 ML VIAL IVP SCH (06:09)
[2017-01-23] MEDS: ACETAMINOPHEN 500 MG TAB PO SCH ×3 (06:09→21:06)
[2017-01-23] MEDS ORDERED: IPRATROPIUM/ALBUTEROL 3 ML DEYVIAL IH PRN (08:29)
--- NOTE | 2017-01-23 08:36 | PDINTPN ---
Corporate Account Executive Progress Note Assessment/Plan: Assessment/Plan: * Shock-likely hypovolemic. Resolved * Status post spine surgery * Pain-well controlled * COPD-start patient's home medications * Hypertension * Anemia-status post transfusion * VTE prophylaxis * Stress ulcer prophylaxis * Disposition-okay floor Subjective: Sitting up in chair. Mildly breathless. Pain well controlled. Good appetite Objective: Vital Signs Temp Pulse Resp BP Pulse Ox 36.5 C 76 12 115/89 H 97 01/23/17 07:00 01/23/17 07:00 01/23/17 07:00 01/23/17 07:00 01/23/17 07:00 Laboratory Results 01/23/17 05:00 01/23/17 05:00 01/22/17 01/23/17 01/24/17 05:59 05:59 05:59 Intake Total 6723 4873 Output Total 1450 2130 Balance 5273 2743 PT 13.3 SEC (12.0-15.0) 01/22/17 05:15 INR 1.02 (0.83-1.16) 01/22/17 05:15 Physical Exam - Physical Exam General Appearance: alert, no apparent distress EENT: PERRL/EOMI, normal ENT inspection, pharynx normal, TMs normal Neck: non-tender, full range of motion, supple, normal inspection Respiratory: respiratory distress (Mild), prolonged expiration, No wheezing Cardiac/Chest: normal peripheral pulses, regular rate, rhythm Peripheral Pulses: 2+: carotid (R), carotid (L), femoral (R), femoral (L), dorsalis-pedis (R), dorsalis-pedis (L) Abdomen: normal bowel sounds, non-tender, soft Pelvic Exam: deferred Rectal: deferred Extremities: normal range of motion, non-tender, normal inspection, normal capillary refill, swelling (Upper extremity) Neuro/Psych: no motor/sensory deficits, alert, normal mood/affect, oriented x 3 ICD10 Worksheet Patient Problems: Problems Problem Status Onset Fusion of spine of lumbar region Acute
--- NOTE | 2017-01-23 08:38 | SOAPPROG ---
SOAP Progress Note Assessment/Plan: SOAP Progress Note Assessment/Plan: Assessment: 66 yo female POD #3 s/p L2-S1 TLIF. Medical management deferred to ICU team, however, she is largely improved after fluid resuscitation and 2 units PRBC's. OK for transfer to floor. abx per medical team. dressing is dry today Plan: dressing changes if saturated. OK for transfer to floor today Follow BP, H/H and Na, improved after transfusion and fluid PT/OT as tolerated LSO when out of bed. continue SORAIDA drain, 130 out yesterday follow post op films show hardware in good position. . continue salt tabs Discussed with Dr. Abernathy Subjective: continues to improve. no complaints numbness weakness this am. Objective: NAD, VSS speech clear, cnii-xii grossly intact EOMI, PEARLA MAEx4, BLE 5/5= +LT incision intact and dressed, dressing dry JPx1 01/23/17 08:47 01/23/17 08:50 Objective: Vital Signs Temp Pulse Resp BP Pulse Ox 36.5 C 76 12 115/89 H 97 01/23/17 07:00 01/23/17 07:00 01/23/17 07:00 01/23/17 07:00 01/23/17 07:00 Laboratory Results 01/23/17 05:00 01/23/17 05:00 01/22/17 01/23/17 01/24/17 05:59 05:59 05:59 Intake Total 6723 4873 Output Total 1450 2130 Balance 5273 2743 PT 13.3 SEC (12.0-15.0) 01/22/17 05:15 INR 1.02 (0.83-1.16) 01/22/17 05:15 ICD10 Worksheet Patient Problems: Problems Problem Status Onset Fusion of spine of lumbar region Acute
[2017-01-23] MEDS: GABAPENTIN 300 MG CAP PO SCH ×3 (09:11→21:06)
[2017-01-23] MEDS: SODIUM CHLORIDE 1,000 MG TAB PO SCH ×3 (09:11→17:03)
[2017-01-23] MEDS: CHOLECALCIFEROL VIT D3 1,000 UNITS TAB PO SCH (09:11)
[2017-01-23] MEDS: morphINE SR 15 MG TAB PO SCH ×2 (09:11→19:44)
[2017-01-23] MEDS: RALOXIFENE HCL 60 MG TAB PO SCH (09:11)
[2017-01-23] MEDS: ALBUTEROL 60 PUFFS/8 GM MDI IH PRN (09:13)
[2017-01-23] MEDS: POLYETHYLENE GLYCOL 3350 17 GM PKT PO SCH ×3 (09:16→19:45)
[2017-01-23] MEDS: SENNOSIDES/DOCUSATE SODIUM TAB PO SCH ×2 (09:16→19:44)
[2017-01-23] MEDS: IPRATROPIUM IH SCH ×3 (11:53→21:00)
--- NOTE | 2017-01-23 13:01 | HOSPPROG ---
Hospitalist Progress Note Assessment/Plan: # septic shock presumed 2/2 to pulmonary source- with AHRF and SRAVANTHI -severe hypotension responded well to fluid resuscitation and pressor support - VS now stable off pressors CTA chest-no pulmonary embolism w/ bilateral upper lobe ground-glass attenuation query aspiration pneumonia Telemetry (personally reviewed and interpreted) sinus rhythm 60-80s - weaned pressor support - decrease IVF as PO improves - continue empiric antibiotics - wean IV steroids - continue holding home blood pressure medicines # Acute hypoxic respiratory failure presumed secondary to aspiration pneumonia- patient with leukocytosis and bilateral upper lobe ground-glass infiltrates Oxygen saturation 98% on 4 L - blood cultures NGTD - continue empiric antibiotics # leukocytosis- WBC 29-> 19 - blood cultures NGTD and urine bland- - continue IV meropenem - monitor cultures # acute kidney injury- presumed secondary to hypoperfusion/hypovolemia- creatinine down to 0.7 this a.m. - can DC IV fluids on patient's intake is adequate # hyponatremia- sodium 125-> 138 with fluids - encourage p.o. intake - continue to monitor # bilateral upper lower extremity edema- suspect secondary to aggressive fluid resuscitation - encourage mobilization # L2-S1 TLIF - POD3# -management per Neurosurgery # prophylaxis- Lovenox on hold continue SCDs # diet as tolerated # disposition greater than 2 midnights the patient remains critically ill requiring IV pressure support Discussed the case with Pulmonary Critical Care will continue empirically treating for sepsis Subjective: bilateral arm swelling Objective: Vital Signs Temp Pulse Resp BP Pulse Ox 36.5 C 68 13 116/75 100 01/23/17 07:00 01/23/17 10:00 01/23/17 10:00 01/23/17 10:00 01/23/17 10:00 Laboratory Results 01/23/17 05:00 01/23/17 05:00 01/22/17 01/23/17 01/24/17 05:59 05:59 05:59 Intake Total 6723 4873 Output Total 1450 2130 100 Balance 5273 2743 -100 PT 13.3 SEC (12.0-15.0) 01/22/17 05:15 INR 1.02 (0.83-1.16) 01/22/17 05:15 - Physical Exam Constitutional: appears nourished Eyes: anicteric sclera Ears, Nose, Mouth, Throat: moist mucous membranes Cardiovascular: regular rate and rhythym, systolic murmur Respiratory: no respiratory distress, no rales or rhonchi Gastrointestinal: normoactive bowel sounds, soft, non-tender abdomen Genitourinary: no bladder fullness Skin: warm Musculoskeletal: other (bilateral UE and LE edema) Neurologic: AAOx3 Psychiatric: interacting appropriately, not anxious Lymph, Heme, Immunologic: no cervical LAD ICD10 Worksheet Patient Problems: Problems Problem Status Onset Fusion of spine of lumbar region Acute
[2017-01-23] MEDS: traZODone 50 MG TAB PO SCH (19:44)
[2017-01-24] MEDS: IPRATROPIUM IH SCH ×4 (05:27→21:23)
[2017-01-24] MEDS: MEROPENEM 1 GM in NS 100 ML IV SCH ×3 (06:08→21:27)
[2017-01-24] MEDS: ACETAMINOPHEN 500 MG TAB PO SCH ×3 (06:09→21:25)
[2017-01-24 06:26] LABS: IONIZED CALCIUM 1.17 MMOL/L (1.12-1.30)
[2017-01-24 06:27] LABS: HEMOGLOBIN 11.2 g/dL (12.6-16.3); MEAN CELL HEMOGLOBIN 32.3 pg (27.9-34.1); MEAN CELL HEMOGLOBIN CONCENTR. 32.9 g/dL (32.4-36.7); RED BLOOD CELL COUNT 3.47 10^6/uL (4.18-5.33); RED CELL DISTRIBUTION WIDTH 15.3 % (11.5-15.2)
[2017-01-24 06:42] LABS: ANION GAP 5 mEq/L (8-16); CALCIUM 8.1 mg/dL (8.5-10.4); CARBON DIOXIDE 23 mEq/l (22-31); CHLORIDE 112 mEq/L (97-110); CREATININE 0.5 mg/dL (0.6-1.0); GLOMERULAR FILTRATION RATE > 60; GLUCOSE 73 mg/dL (70-100); POTASSIUM 4.1 mEq/L (3.5-5.2); SODIUM 140 mEq/L (134-144)
--- NOTE | 2017-01-24 07:58 | NEUSURGPN ---
Date of Surgery: 01/20/17 Post Op Day: 4 Assessment/Plan: Assessment: 66 yo female POD #4 s/p L2-S1 TLIF Plan: -medical management deferred to IM team-appreciate their input -largely improved after fluid resuscitation and 2 units PRBC's but still dealing with BP and fluid overload -abx per medical team. -dressing is dry today -dressing changes if saturated. -following BP, H/H () and Na (140), improved after transfusion and fluids -PT/OT as tolerated -LSO when out of bed -ok to remove SORAIDA per Dr Abernathy -follow post op films show hardware in good position. . -continue salt tabs -discussed with Dr. Abernathy Subjective: Awake and alert. NAD. Eating/drinking and voiding. No toscano/neck/chest/abd or gu complaints. No f/c/n/v/d. Objective: NAD, VSS speech clear, cnii-xii grossly intact EOMI, PEARLA MAEx4, BLE 5/5= +LT incision intact and dressed, dressing dry JPx1-to be removed this am Neuro Check Frequency: per routine Urinary Catheter in Place: No - Physician Discussed Patient with DrBaron: Giovanna Neurosurgery Physical Exam - Vitals, I&O, Labs I and O 01/23/17 01/24/17 01/25/17 05:59 05:59 05:59 Intake Total 5873 2122 Output Total 2130 180 Balance 3743 1942 Weight 77.4 kg Intake: Oral (ml) 1200 1400 IV Intake (ml) 1447 50 IV Infused (ml) 1976 672 Meropenem 1 gm In Ns 100 110 ml @ 120 mls/hr IV Q8HRS VANESSA Rx#:[id number] Norepinephrine/Ns 500 ml 850 @ Titrate IV CONT VANESSA Rx# :[id number] Ns 1,000 ml @ 125 mls/hr 1126 562 IV CONT VANESSA Rx#: [id number] Packed Red Blood Cells ( 1250 ml) Output: Urine (ml) 2000 100 Bedside Commode 2000 100 SORAIDA Drain Output (ml) 130 80 Back 130 80 Other: Intake Quantity Yes Yes Sufficient Number of Voids Bedside Commode 1 1 Toilet 1 Number of Stools Bedside Commode 1 Vital Signs Temp Pulse Resp BP Pulse Ox 37 C 66 17 146/77 H 96 01/24/17 00:00 01/24/17 00:00 01/24/17 00:00 01/24/17 00:00 01/24/17 00:00 Laboratory Results 01/24/17 06:10 01/24/17 06:10 ICD10 Worksheet Patient Problems: Problems Problem Status Onset Fusion of spine of lumbar region Acute
[2017-01-24] MEDS: CHOLECALCIFEROL VIT D3 1,000 UNITS TAB PO SCH (08:32)
[2017-01-24] MEDS: GABAPENTIN 300 MG CAP PO SCH ×3 (08:32→21:27)
[2017-01-24] MEDS: RALOXIFENE HCL 60 MG TAB PO SCH (08:32)
[2017-01-24] MEDS: morphINE SR 15 MG TAB PO SCH ×2 (08:32→21:25)
[2017-01-24] MEDS: SODIUM CHLORIDE 1,000 MG TAB PO SCH ×3 (08:32→18:46)
[2017-01-24] MEDS: SENNOSIDES/DOCUSATE SODIUM TAB PO SCH ×2 (09:46→21:25)
[2017-01-24] MEDS: POLYETHYLENE GLYCOL 3350 17 GM PKT PO SCH ×3 (09:46→21:27)
[2017-01-24] MEDS: LISINOPRIL 40 MG TAB PO SCH ×2 (09:46→11:37)
[2017-01-24] MEDS: ALBUTEROL 60 PUFFS/8 GM MDI IH PRN (11:13)
--- NOTE | 2017-01-24 13:25 | HOSPPROG ---
Hospitalist Progress Note Assessment/Plan: # septic shock presumed 2/2 to pulmonary source- with AHRF and SRAVANTHI -severe hypotension responded well to fluid resuscitation and pressor support - VS now stable off pressors CTA chest-no pulmonary embolism w/ bilateral upper lobe ground-glass attenuation query aspiration pneumonia Telemetry (personally reviewed and interpreted) sinus rhythm 60-80s - weaned pressor support - dc IVF - continue empiric antibiotics - dc IV steroids # HTN - blood pressures are beginning to trend back up - SBP in 160's this am - restart lisinopril - will restart meds sequentially to avoid dropping BP again # Acute hypoxic respiratory failure presumed secondary to aspiration pneumonia- patient with leukocytosis and bilateral upper lobe ground-glass infiltrates Oxygen saturation 100% on 3 L - blood cultures NGTD - continue empiric antibiotics - wean O2 as able # leukocytosis- WBC 29-> 15 - blood cultures NGTD and urine bland- - continue IV meropenem - monitor cultures # acute kidney injury- presumed secondary to hypoperfusion/hypovolemia- creatinine down to 0.7 this a.m. - cont to follow # hyponatremia- sodium 125-> 140 with fluids - encourage p.o. intake - continue to monitor # bilateral upper lower extremity edema- suspect secondary to aggressive fluid resuscitation - encourage mobilization # L2-S1 TLIF - POD 3# -management per Neurosurgery # prophylaxis- Lovenox on hold continue SCDs # diet - regular # disposition greater than 2 midnights the patient remains critically ill requiring IV pressure support Discussed the case with RN - will restart BP meds one at a time Subjective: selling improved with mobility Objective: Vital Signs Temp Pulse Resp BP Pulse Ox 36.9 C 79 16 167/60 H 89 L 01/24/17 08:00 01/24/17 08:00 01/24/17 08:00 01/24/17 08:00 01/24/17 08:00 Laboratory Results 01/24/17 06:10 01/24/17 06:10 01/23/17 01/24/17 01/25/17 05:59 05:59 05:59 Intake Total 5873 2122 Output Total 2130 180 Balance 3743 1942 PT 13.3 SEC (12.0-15.0) 01/22/17 05:15 INR 1.02 (0.83-1.16) 01/22/17 05:15 - Physical Exam Constitutional: chronically ill appearing Eyes: anicteric sclera Ears, Nose, Mouth, Throat: moist mucous membranes Cardiovascular: regular rate and rhythym Respiratory: no respiratory distress, no rales or rhonchi Gastrointestinal: normoactive bowel sounds, soft, non-tender abdomen Genitourinary: no bladder fullness Skin: warm, normal color Musculoskeletal: No asymmetric calves Neurologic: AAOx3 Psychiatric: interacting appropriately, not anxious Lymph, Heme, Immunologic: no cervical LAD ICD10 Worksheet Patient Problems: Problems Problem Status Onset Fusion of spine of lumbar region Acute
[2017-01-24] MEDS ORDERED: BACITRACIN 50,000 UNITS/10 ML SYR IRR ONE (15:54)
[2017-01-24] MEDS ORDERED: BUPIVACAINE/EPI 0.25% 30 ML SDV ONE ×2 (15:54→17:28)
[2017-01-24] MEDS ORDERED: MIDAZOLAM 2 MG/2 ML VIAL IVP ONE (16:27)
--- NOTE | 2017-01-24 16:30 | PDANEPAE ---
ANE History of Present Illness s/pTLIF now with retained drained ANE Past Medical History - Cardiovascular History Hx Hypertension: Yes Hx Arrhythmias: No Hx Chest Pain: No Hx Coronary Artery / Peripheral Vascular Disease: No Hx CHF / Valvular Disease: No Hx Palpitations: No - Pulmonary History Hx COPD: Yes Hx Asthma/Reactive Airway Disease: No Hx Recent Upper Respiratory Infection: No Hx Oxygen in Use at Home: No Hx Sleep Apnea: No Sleep Apnea Screening Result - Last Documented: Negative Pulmonary History Comment: MILD COPD DX'D RECENTLY, on Atrovent inhaler, used it last this am,. Bronchitis 2 months ago - Neurologic History Hx Cerebrovascular Accident: No Hx Seizures: No Hx Dementia: No - Endocrine History Hx Diabetes: No - Renal History Hx Renal Disorders: No Renal History Comment: URGENCY, LEAKING - Liver History Hx Hepatic Disorders: No Hepatic History Comment: CHOLECYSTECTOMY - Neurological & Psychiatric Hx Hx Neurological and Psychiatric Disorders: No - Cancer History Hx Cancer: Yes Cancer History Comment: UTERINE LESIONS - Congenital Disorder History Hx Congenital Disorders: No - GI History Hx Gastrointestinal Disorders: Yes Gastrointestinal History Comment: ACID REFLUX, Chron's disease x 5 years - Other Health History Other Health History: BRUISES EASILY - Chronic Pain History Chronic Pain: Yes (BACK PAIN) - Surgical History Prior Surgeries: CHOLECYSTECTOMY. EYE SURGERY. HYSTERECTOMY. TONSILLECTOMY. L ANKLE SURGERY. TLIF ANE Review of Systems - Exercise capacity METS (RN): 4 METS ANE Patient History - Allergies Allergies/Adverse Reactions: adalimumab [From Humira] Allergy (Verified 01/20/17 06:23) Dyspnea varenicline [From Chantix] Allergy (Verified 01/20/17 06:23) - Home Medications Home Medications: Atenolol [Tenormin 50 mg (*)] 75 mg PO DAILY 01/05/17 [Last Taken 01/20/17 04:00 ] Budesonide [Budesonide EC] 3 mg PO TID 01/05/17 [Last Taken 01/19/17] Cholecalciferol Vit D3 [Vitamin D3 (*)] 500 units PO DAILY 01/05/17 [Last Taken 01/19/17] Etodolac [Etodolac ER] 500 mg PO BID 01/05/17 [Last Taken 01/18/17] Gabapentin [Neurontin 300 MG (*)] 600 mg PO TID 01/05/17 [Last Taken 01/19/17] Herbals/Supplements -Info Only 1 each PO DAILY 01/05/17 [Last Taken 01/19/17] Lisinopril [Zestril 40 mg (*)] 40 mg PO DAILY 01/05/17 [Last Taken 01/18/17] Pantoprazole Sodium [Protonix 40mg (*)] 40 mg PO DAILY PRN 01/05/17 [Last Taken 01/19/17] Raloxifene HCl [Evista 60mg (RX)] 60 mg PO DAILY 01/05/17 [Last Taken 01/19/17] amLODIPine BESYLATE [Norvasc 10 mg (*)] 10 mg PO DAILY 01/05/17 [Last Taken 06/26] traZODone [traZODONE 50MG (*)] 75 mg PO HS 01/05/17 [Last Taken 01/18/17] Ipratropium [Atrovent Hfa (*)] 2 puffs IH QID 01/20/17 [Last Taken 01/20/17] Loperamide HCl [Imodium 2 mg (*)] 2 - 4 mg PO DAILY PRN 01/20/17 [Last Taken Unknown] Albuterol [Proventil Inhaler HFA (*)] 1 - 2 puffs IH Q4H PRN 01/23/17 [Last Taken Unknown] - NPO status NPO Since - Liquids (Date): 01/24/17 NPO Since - Liquids (Time): 10:30 NPO Since - Solids (Date): 01/24/17 NPO Since - Solids (Time): 10:30 - Anes Hx Anes Hx: no prior problems - Smoking Hx Smoking Status: Former smoker - Alcohol Use Alcohol Use: Rarely - Family Anes Hx Family Hx Anesthesia Complications: NEG ANE Labs/Vital Signs - Labs Result Diagrams: 01/24/17 06:10 01/24/17 06:10 - Vital Signs Blood Pressure: 165/90 Heart Rate: 110 Respiratory Rate: 18 O2 Sat (%): 98 Height: 160.02 cm Weight: 77.4 kg ANE Physical Exam - Airway Mallampati Score: Class 2 Mouth exam: poor dentition - Pulmonary Pulmonary: no respiratory distress - Cardiovascular Cardiovascular: regular rate and rhythym - ASA Status ASA Status: III ANE Anesthesia Plan Anesthesia Plan: general endotracheal anesthesia (all questions answered)
[2017-01-24] MEDS ORDERED: PROPOFOL/EMULSION 500 MG/50 ML BOTTLE IV ONE (16:51)
[2017-01-24] MEDS ORDERED: REMIFENTANIL HCL 1 MG VIAL ONE (16:51)
[2017-01-24] MEDS ORDERED: LIDOCAINE 2% 100 MG/5 ML SYR ONE (16:54)
[2017-01-24] MEDS ORDERED: LIDOCAINE HCL 160 MG/4 ML LTA KIT TP ONE (16:55)
[2017-01-24] MEDS ORDERED: PHENYLEPHRINE HCL 100 MCG/ML SYR ONE (16:56)
[2017-01-24] MEDS ORDERED: ceFAZolin 1 GM VIAL ONE ×2 (17:17)
[2017-01-24] MEDS ORDERED: ONDANSETRON 4 MG/2 ML VIAL ONE (17:21)
[2017-01-24] MEDS ORDERED: DEXAMETHASONE 4 MG/ML VIAL ONE (17:21)
[2017-01-24] MEDS ORDERED: METOCLOPRAMIDE 10 MG/2 ML VIAL IVP PRN (17:26)
[2017-01-24] MEDS ORDERED: OXYCODONE/APAP 5/325 TAB PO PRN (17:26)
[2017-01-24] MEDS ORDERED: LR 500 ML IV PRN (17:26)
[2017-01-24] MEDS ORDERED: DEXAMETHASONE 4 MG/ML VIAL IVP PRN (17:26)
[2017-01-24] MEDS ORDERED: HYDROCODONE/APAP 5/325 TAB PO PRN (17:26)
[2017-01-24] MEDS ORDERED: PROMETHAZINE HCL 25 MG/ML INJ IVP PRN (17:26)
[2017-01-24] MEDS ORDERED: fentaNYL 100 MCG/2 ML INJ IVP PRN ×2 (17:26)
[2017-01-24] MEDS ORDERED: ACETAMINOPHEN 500 MG TAB PO PRN (17:26)
[2017-01-24] MEDS ORDERED: ONDANSETRON 4 MG/2 ML VIAL IVP PRN (17:26)
[2017-01-24] MEDS ORDERED: NALOXONE HCL 0.4 MG/ML INJ IVP PRN (17:26)
[2017-01-24] MEDS ORDERED: MEPERIDINE 25 MG/ML SYR IVP PRN (17:26)
--- NOTE | 2017-01-24 17:46 | SOAPPROG ---
SOAP Progress Note Assessment/Plan: Assessment: 66 yo F sp removal of retained SORAIDA drain Plan: stable to 3N lso brace when out of bed please call with neuro changes 01/20/17 12:15 01/24/17 17:45 Subjective: + back pain, no leg pain Objective: Vital Signs Temp Pulse Resp BP Pulse Ox 36.8 C 110 H 18 165/90 H 98 01/24/17 14:12 01/24/17 16:30 01/24/17 16:30 01/24/17 16:30 01/24/17 16:30 Laboratory Results 01/24/17 06:10 01/24/17 06:10 01/23/17 01/24/17 01/25/17 05:59 05:59 05:59 Intake Total 5873 2122 Output Total 2130 180 Balance 3743 1942 PT 13.3 SEC (12.0-15.0) 01/22/17 05:15 INR 1.02 (0.83-1.16) 01/22/17 05:15 somnolent PERRL, no facial droop MARCELLO x 4 + light touch ICD10 Worksheet Patient Problems: Problems Problem Status Onset Fusion of spine of lumbar region Acute - ICD10 Problem Qualifiers (1) Fusion of spine of lumbar region
[2017-01-24] MEDS: LABETALOL HCL 50 MG/10 ML SYR IVP PRN ×2 (17:58→18:18)
[2017-01-24] MEDS ORDERED: LABETALOL HCL 50 MG/10 ML SYR ONE (17:58)
--- NOTE | 2017-01-24 18:45 | POSTANESTH ---
Post Anesthetic Evaluation Cardiovascular Status: Normal, Stable Respiratory Status: Similar to Pre-op Cond., Tx Decrease in SpO2 (on O2 NC at 3/ l same as pre-op) Level of Consciousness/Mental Status: Can Participate in Eval Pain Control: Adequate, Prn Tx Ordered Nausea/Vomiting Control: Adequate, Prn Tx Ordered Complications Possibly Related to Anesthesia: None Noted
[2017-01-24] MEDS: oxyCODONE IR 5 MG TAB PO PRN (21:26)
[2017-01-24] MEDS: traZODone 50 MG TAB PO SCH (21:26)
[2017-01-25] MEDS: MEROPENEM 1 GM in NS 100 ML IV SCH (05:46)
[2017-01-25] MEDS: ACETAMINOPHEN 500 MG TAB PO SCH ×3 (05:47→21:57)
[2017-01-25] MEDS: IPRATROPIUM IH SCH ×4 (05:49→22:07)
[2017-01-25 06:01] LABS: HEMATOCRIT 36.2 % (38.0-47.0); MEAN CELL HEMOGLOBIN 32.7 pg (27.9-34.1); MEAN CELL HEMOGLOBIN CONCENTR. 33.1 g/dL (32.4-36.7); MEAN CELL VOLUME 98.6 fL (81.5-99.8); RED BLOOD CELL COUNT 3.67 10^6/uL (4.18-5.33); RED CELL DISTRIBUTION WIDTH 14.7 % (11.5-15.2)
[2017-01-25 06:10] LABS: IONIZED CALCIUM 1.19 MMOL/L (1.12-1.30)
--- NOTE | 2017-01-25 07:41 | NEUSURGPN ---
Date of Surgery: 01/20/17 Post Op Day: 5 Assessment/Plan: Assessment: 66 yo female POD #5 s/p L2-S1 TLIF, POD #1 s/p removal of retained drain tubing Plan: -medical management deferred to IM team-appreciate their input and care -largely improved after fluid resuscitation and 2 units PRBC's but still dealing with BP and fluid overload -abx per medical team -dressing is dry today -dressing changes if saturated -following BP improved after transfusion and fluids -PT/OT as tolerated -LSO when out of bed -SORAIDA in place -follow post op films show hardware in good position -continue salt tabs -discussed with Dr. Abernathy Subjective: No new complaints or concerns. No toscano/neck/chest/abd or gu complaints. No f/c/n /v/d. Pt states legs feel good. Objective: NAD, VSS speech clear, cnii-xii grossly intact EOMI, PEARLA MAEx4, BLE 5/5= +LT incision intact and dressed, dressing dry SORAIDA x [address] Neuro Check Frequency: per routine Urinary Catheter in Place: No - Physician Discussed Patient with DrBaron: Giovanna Neurosurgery Physical Exam - Vitals, I&O, Labs I and O 01/24/17 01/25/17 01/26/17 05:59 05:59 05:59 Intake Total 2122 1200 Output Total 180 1385 Balance 1942 -185 Weight 77.4 kg Intake: Oral (ml) 1400 350 IV Intake (ml) 50 700 IV Infused (ml) 672 150 Meropenem 1 gm In Ns 100 110 100 ml @ 120 mls/hr IV Q8HRS VANESSA Rx#:[id number] Ns 1,000 ml @ 125 mls/hr 562 IV CONT VANESSA Rx#: [id number] ceFAZolin 1 GM/DEXTROSE 50 50 ml @ 200 mls/hr IV Q8HRS VANESSA Rx#:[id number] Output: Urine (ml) 100 1200 Bedside Commode 100 1200 Estimated Blood Loss (ml) 5 SORAIDA Drain Output (ml) 80 180 Back 80 180 Other: Intake Quantity Yes Sufficient Number of Voids Bedside Commode 1 1 Toilet 1 Number of Stools Bedside Commode 1 Vital Signs Temp Pulse Resp BP Pulse Ox 36.9 C 88 16 143/97 H 94 01/25/17 04:00 01/25/17 04:00 01/25/17 05:53 01/25/17 06:18 01/25/17 05:53 Laboratory Results 01/25/17 05:45 01/24/17 06:10 ICD10 Worksheet Patient Problems: Problems Problem Status Onset Fusion of spine of lumbar region Acute
[2017-01-25] MEDS: SODIUM CHLORIDE 1,000 MG TAB PO SCH ×3 (08:11→16:16)
[2017-01-25] MEDS: morphINE SR 15 MG TAB PO SCH (08:11)
[2017-01-25] MEDS: CHOLECALCIFEROL VIT D3 1,000 UNITS TAB PO SCH (08:11)
[2017-01-25] MEDS: SENNOSIDES/DOCUSATE SODIUM TAB PO SCH ×2 (08:11→21:56)
[2017-01-25] MEDS: RALOXIFENE HCL 60 MG TAB PO SCH (08:11)
[2017-01-25] MEDS: POLYETHYLENE GLYCOL 3350 17 GM PKT PO SCH ×3 (08:11→21:43)
[2017-01-25] MEDS: GABAPENTIN 300 MG CAP PO SCH ×3 (08:11→21:56)
[2017-01-25] MEDS: LISINOPRIL 40 MG TAB PO SCH (08:11)
--- NOTE | 2017-01-25 10:31 | GOP ---
[f rep st] OPERATIVE REPORT DATE OF OPERATION: 01/24/2017 SURGEON: Scott Heredia MD PROCESS MECHANIC: Rashel Lantigua PA-C. ANESTHESIA: General endotracheal with local. PREOPERATIVE DIAGNOSIS: Retained drain fragment in lumbar wound. POSTOPERATIVE DIAGNOSIS: Retained drain fragment in lumbar wound. PROCEDURE PERFORMED: Removal of foreign body/retained piece of Zaki-Hudson drain. FINDINGS: ESTIMATED BLOOD LOSS: Trace. INDICATIONS: The patient is a 66-year-old woman, who underwent an extensive multilevel lumbar decom pression and fusion approximately 4 days ago, who was getting ready to be transferred to rehab, when the nurse pulled her drain and it broke off. She presents now for removal. DESCRIPTION OF PROCEDURE: After informed consent was obtained, patient was taken to the operating r oom and placed in the prone position on the Zaki table. The lumbosacral area was prepped and luis ped in a sterile fashion. After prior fluoroscopic localization of the drain fragment, the wound wa s carefully opened down to the fascial layer,, which was incised with scissors, and the drain was ea sily identified and removed. The wound was copiously irrigated with antibiotic irrigation and reclo sed in a layered fashion using interrupted Vicryl sutures, followed by Steri-Strips on the skin. No te, that a new drain was placed temporarily for drainage of any serosanguineous fluid build up that occurs from the surgery. COMPLICATIONS: None. DISPOSITION: The patient is currently in the process of being repositioned for extubation. /[id number]/MODL
--- NOTE | 2017-01-25 13:22 | HOSPPROG ---
Hospitalist Progress Note Assessment/Plan: # L2-S1 TLIF - POD 5# -retained drain piece removed surgically yesterday - patient without worsening sx post procedure patient is very groggy this am - cont IV abx - cont pain meds prn - recommend decrease/dc of scheduled MS Contin # HTN - blood pressures are back up - SBP in 170's this am - cont lisinopril - restart norvasc and atenolol today # Acute hypoxic respiratory failure presumed secondary to aspiration pneumonia- patient with leukocytosis and bilateral upper lobe ground-glass infiltrates Oxygen saturation 100% on 3 L - blood cultures NGTD - continue empiric antibiotics (meropenem # 4 days -now cefazolin day /) - wean O2 as able # leukocytosis- WBC 29-> 14 - blood cultures NGTD and urine bland- - continue IV cefazolin - monitor cultures # acute kidney injury- presumed secondary to hypoperfusion/hypovolemia- creatinine down to 0.5 this a.m. - cont to follow # hyponatremia- sodium 125-> 140 with fluids - encourage p.o. intake - continue to monitor # bilateral upper lower extremity edema- suspect secondary to aggressive fluid resuscitation - encourage mobilization # septic shock presumed 2/2 to pulmonary source- with AHRF and SRAVANTHI -severe hypotension responded well to fluid resuscitation and pressor support - VS now stable off pressors CTA chest-no pulmonary embolism w/ bilateral upper lobe ground-glass attenuation query aspiration pneumonia - weaned pressor support - stable # prophylaxis- cont Lovenox # diet - regular # disposition greater than 2 midnights the patient remains critically ill requiring IV pressure support Discussed the case with NSG will dc long acting Ms Contin 2/2 sedation Subjective: no pain Objective: Vital Signs Temp Pulse Resp BP Pulse Ox 36.9 C 79 15 173/111 H 93 01/25/17 11:40 01/25/17 12:14 01/25/17 12:14 01/25/17 11:40 01/25/17 12:14 Laboratory Results 01/25/17 05:45 01/24/17 06:10 01/24/17 01/25/17 01/26/17 05:59 05:59 05:59 Intake Total 2122 1200 Output Total 180 1385 Balance 1942 -185 PT 13.3 SEC (12.0-15.0) 01/22/17 05:15 INR 1.02 (0.83-1.16) 01/22/17 05:15 - Physical Exam Constitutional: appears nourished Eyes: anicteric sclera Ears, Nose, Mouth, Throat: moist mucous membranes Cardiovascular: regular rate and rhythym Respiratory: no respiratory distress Gastrointestinal: normoactive bowel sounds, soft, non-tender abdomen Genitourinary: no bladder fullness Skin: warm Musculoskeletal: No asymmetric calves Neurologic: other (sedated) Psychiatric: No agitated Lymph, Heme, Immunologic: no cervical LAD ICD10 Worksheet Patient Problems: Problems Problem Status Onset Fusion of spine of lumbar region Acute
[2017-01-25] MEDS: ATENOLOL 50 MG TAB PO SCH (13:41)
[2017-01-25] MEDS ORDERED: morphINE SR 30 MG TAB PO SCH (21:00)
[2017-01-25] MEDS: traZODone 50 MG TAB PO SCH (21:56)
[2017-01-25] MEDS: oxyCODONE IR 5 MG TAB PO PRN (21:57)
[2017-01-26] MEDS: oxyCODONE IR 5 MG TAB PO PRN ×2 (05:19→22:14)
[2017-01-26] MEDS: ACETAMINOPHEN 500 MG TAB PO SCH ×3 (05:22→22:17)
[2017-01-26] MEDS: IPRATROPIUM IH SCH (06:20)
--- NOTE | 2017-01-26 07:55 | SOAPPROG ---
SOAP Progress Note Assessment/Plan: Assessment: 66 yo female s/p L2-S1 TLIF on 01/20 doing well hiral functional Plan: activity as tolerated with assistance DC planning continue HIRAL drain 01/21/17 11:57 01/26/17 07:49 Subjective: asleep, wakes easily and states pain is well controlled denies weakness/tingling. Objective: Vital Signs Temp Pulse Resp BP Pulse Ox 36.5 C 78 14 148/84 H 93 01/26/17 07:43 01/26/17 07:43 01/26/17 07:43 01/26/17 07:43 01/26/17 07:43 Laboratory Results 01/25/17 05:45 01/24/17 06:10 01/25/17 01/26/17 01/27/17 05:59 05:59 05:59 Intake Total 1200 200 Output Total 1385 145 Balance -185 55 PT 13.3 SEC (12.0-15.0) 01/22/17 05:15 INR 1.02 (0.83-1.16) 01/22/17 05:15 Neuro: WRIGHT, Sens +Lt FC x4 dressing: CDI HIRAL: serosang with 30ml in bulb this AM ICD10 Worksheet Patient Problems: Problems Problem Status Onset Fusion of spine of lumbar region Acute
[2017-01-26] MEDS: RALOXIFENE HCL 60 MG TAB PO SCH (08:28)
[2017-01-26] MEDS: CHOLECALCIFEROL VIT D3 1,000 UNITS TAB PO SCH (08:28)
[2017-01-26] MEDS: GABAPENTIN 300 MG CAP PO SCH ×3 (08:28→22:13)
[2017-01-26] MEDS: ENOXAPARIN 40 MG/0.4 ML SYR SC SCH (08:28)
[2017-01-26] MEDS: ATENOLOL 50 MG TAB PO SCH (08:29)
[2017-01-26] MEDS: LISINOPRIL 40 MG TAB PO SCH (08:29)
[2017-01-26] MEDS: SODIUM CHLORIDE 1,000 MG TAB PO SCH ×3 (08:29→18:09)
[2017-01-26] MEDS: SENNOSIDES/DOCUSATE SODIUM TAB PO SCH ×2 (09:11→22:18)
[2017-01-26] MEDS: POLYETHYLENE GLYCOL 3350 17 GM PKT PO SCH ×3 (09:11→23:50)
--- NOTE | 2017-01-26 09:19 | HOSPPROG ---
Hospitalist Progress Note Assessment/Plan: Patient is a 66-year-old female who has a history of degenerative disc disease. She has had epidural injections in the past but presented with worsening pain. She subsequently underwent a decompression and fusion of L2-S1. Postoperatively she developed low blood pressures. She was seen evaluated by the hospitalist team to treat her hypotension. Today is my 1st encounter with the patient. Chart reviewed. # degenerative disc disease/ L2-S1 TLIF fusion on 01/20 -status post removal of drain fragment in lumbar wound on 01/24 - cont IV abx/Ancef - cont pain meds prn - long acting MS Contin discontinued due to sedation # acute blood loss anemia Was transfused 2 units of packed red blood cells during her hospital stay Hemoglobin and hematocrit are stable # HTN -blood pressure is 148/84 - lisinopril, Norvasc and atenolol #low TSH will need to get this f/u in OP setting when not acutely ill # metabolic acidosis Resolved # Acute hypoxic respiratory failure presumed secondary to aspiration pneumonia- -patient has COPD in addition/ scheduled duonebs -had been treated w Meropenem x 4 days/ on Cefazolin started on -Blood cx no growth -will get a chest xray for further evaluation # leukocytosis- WBC 29-> 14 - - continue IV cefazolin - blood cultures no growth # acute kidney injury- - cont to follow -creat is o.5 # hyponatremia- sodium 125-> 140 with fluids - salt tabs # bilateral upper lower extremity edema- -resolving # sepsis w septic shock presumed 2/2 to pulmonary source- with AHRF and SRAVANTHI - severe hypotension -CTA no PE -had been on pressors & fluid resusitation # prophylaxis- cont Lovenox # diet - regular # disposition per neurosurgery Subjective: Nallely is feeling well/ no complaints. Objective: Vital Signs Temp Pulse Resp BP Pulse Ox 36.5 C 78 14 148/84 H 93 01/26/17 07:43 01/26/17 07:43 01/26/17 07:43 01/26/17 07:43 01/26/17 07:43 Laboratory Results 01/25/17 05:45 01/24/17 06:10 01/25/17 01/26/17 01/27/17 05:59 05:59 05:59 Intake Total 1200 200 Output Total 1385 145 Balance -185 55 PT 13.3 SEC (12.0-15.0) 01/22/17 05:15 INR 1.02 (0.83-1.16) 01/22/17 05:15 - Physical Exam Constitutional: no apparent distress, appears nourished, not in pain Eyes: PERRL Ears, Nose, Mouth, Throat: hearing normal Cardiovascular: regular rate and rhythym Respiratory: no respiratory distress, reduced air movement Gastrointestinal: normoactive bowel sounds Skin: warm, No normal color (pale) Musculoskeletal: generalized weakness Neurologic: AAOx3 Psychiatric: interacting appropriately ICD10 Worksheet Patient Problems: Problems Problem Status Onset Fusion of spine of lumbar region Acute
[2017-01-26] MEDS: IPRATROPIUM/ALBUTEROL 3 ML DEYVIAL IH SCH ×2 (12:14→17:55)
[2017-01-26] MEDS: traZODone 50 MG TAB PO SCH (22:13)
[2017-01-27] MEDS: ACETAMINOPHEN 500 MG TAB PO SCH ×3 (05:43→21:52)
[2017-01-27] MEDS: IPRATROPIUM/ALBUTEROL 3 ML DEYVIAL IH SCH ×4 (06:00→17:03)
[2017-01-27 06:32] LABS: % IMMATURE GRANULYOCYTES 1.4 % (0.0-1.1); ABSOLUTE IMMATURE GRANULOCYTES 0.19 10^3/uL (0.00-0.10); ADD DIFF? NO; ADD MORPH? NO; ADD SCAN? NO; ATYPICAL LYMPHOCYTE FLAG 0 (0-99); FRAGMENT RBC FLAG 0 (0-99); HEMATOCRIT 35.3 % (38.0-47.0); HEMOGLOBIN 11.8 g/dL (12.6-16.3); LEFT SHIFT FLG 10 (0-99); LIPEMIA HEMOLYSIS FLAG 80 (0-99); MEAN CELL HEMOGLOBIN 32.1 pg (27.9-34.1); MEAN CELL HEMOGLOBIN CONCENTR. 33.4 g/dL (32.4-36.7); MEAN CELL VOLUME 95.9 fL (81.5-99.8); MEAN PLATELET VOLUME 9.5 fL (8.7-11.7); PLATELET CLUMPS FLAG 0 (0-99); PLATELET COUNT 172 10^3/uL (150-400); RED BLOOD CELL COUNT 3.68 10^6/uL (4.18-5.33); RED CELL DISTRIBUTION WIDTH 13.9 % (11.5-15.2)
[2017-01-27 06:36] LABS: ALANINE AMINOTRANSFERASE 28 IU/L (9-52); ALBUMIN 2.3 g/dL (3.5-5.0); ALKALINE PHOSPHATASE 67 IU/L (38-126); ANION GAP 7 mEq/L (8-16); ASPARTATE AMINOTRANSFERASE 25 IU/L (14-46); BILIRUBIN,TOTAL 0.6 mg/dL (0.1-1.4); CALCIUM 8.3 mg/dL (8.5-10.4); CARBON DIOXIDE 32 mEq/l (22-31); CHLORIDE 94 mEq/L (97-110); CREATININE 0.5 mg/dL (0.6-1.0); GLOMERULAR FILTRATION RATE > 60; GLUCOSE 65 mg/dL (70-100); POTASSIUM 3.3 mEq/L (3.5-5.2); SODIUM 133 mEq/L (134-144); TOTAL PROTEIN 4.4 g/dL (6.3-8.2)
[2017-01-27] MEDS: oxyCODONE IR 5 MG TAB PO PRN ×3 (06:36→20:38)
--- NOTE | 2017-01-27 07:38 | SOAPPROG ---
SOAP Progress Note Assessment/Plan: Assessment: 66 yo F POD #3 removal of retained SORAIDA drain and POD #7 L2-S1 TLIF Plan: stable and doing well overall PT/OT, patient may need rehab lso brace when out of bed will remove SORAIDA today scd/nhi/lovenox for dvt prophylaxis appreciate IM input with medical issues, getting lasix today for peripheral edema please call with neuro changes discussed with Dr Abernathy 01/20/17 12:15 01/24/17 17:45 01/27/17 07:34 01/27/17 07:38 Subjective: back pain improving, no leg pain, no headaches Objective: Vital Signs Temp Pulse Resp BP Pulse Ox 36.9 C 82 17 177/100 H 95 01/27/17 03:34 01/27/17 03:34 01/27/17 03:34 01/27/17 03:34 01/27/17 03:34 Microbiology 01/21/17 18:06 Blood Culture - Final Blood 01/21/17 17:50 Blood Culture - Final Blood Laboratory Results 01/27/17 06:00 01/27/17 06:00 01/26/17 01/27/17 01/28/17 05:59 05:59 05:59 Intake Total 200 100 Output Total 145 Balance 55 100 PT 13.3 SEC (12.0-15.0) 01/22/17 05:15 INR 1.02 (0.83-1.16) 01/22/17 05:15 AAOX4, +FC PERRL, EOMI, no facial droop 5/5 + light touch C/D/I ICD10 Worksheet Patient Problems: Problems Problem Status Onset Fusion of spine of lumbar region Acute - ICD10 Problem Qualifiers (1) Fusion of spine of lumbar region
[2017-01-27] MEDS ORDERED: FUROSEMIDE 20 MG/2 ML VIAL IVP ONE (08:00)
[2017-01-27] MEDS: GABAPENTIN 300 MG CAP PO SCH ×3 (08:56→21:52)
[2017-01-27] MEDS: SODIUM CHLORIDE 1,000 MG TAB PO SCH ×2 (08:56→14:03)
[2017-01-27] MEDS: CHOLECALCIFEROL VIT D3 1,000 UNITS TAB PO SCH (08:58)
[2017-01-27] MEDS: ENOXAPARIN 40 MG/0.4 ML SYR SC SCH (09:00)
[2017-01-27] MEDS: ATENOLOL 50 MG TAB PO SCH ×2 (09:00→20:37)
[2017-01-27] MEDS: LISINOPRIL 40 MG TAB PO SCH (10:26)
[2017-01-27] MEDS: SENNOSIDES/DOCUSATE SODIUM TAB PO SCH ×2 (10:28→20:39)
[2017-01-27] MEDS: POLYETHYLENE GLYCOL 3350 17 GM PKT PO SCH ×3 (10:28→21:53)
[2017-01-27] MEDS: RALOXIFENE HCL 60 MG TAB PO SCH (10:28)
[2017-01-27] MEDS ORDERED: PROTOCOL POTASSIUM 1 DOSE MISC PRN (11:02)
--- NOTE | 2017-01-27 11:12 | HOSPPROG ---
Hospitalist Progress Note Assessment/Plan: Patient is a 66-year-old female who has a history of degenerative disc disease. She has had epidural injections in the past but presented with worsening pain. She subsequently underwent a decompression and fusion of L2-S1. Postoperatively she developed low blood pressures. She was seen evaluated by the hospitalist team to treat her hypotension. # degenerative disc disease/ L2-S1 TLIF fusion on 01/20 -status post removal of drain fragment in lumbar wound on 01/24 - cont IV abx/Ancef - cont pain meds prn - long acting MS Contin discontinued due to sedation # acute blood loss anemia Was transfused 2 units of packed red blood cells during her hospital stay Hemoglobin and hematocrit are stable # HTN -blood pressure is 164/93 - lisinopril, Norvasc and atenolol #low TSH will need to get this f/u in OP setting when not acutely ill # metabolic acidosis Resolved #hypokalemia added k protocol # Acute hypoxic respiratory failure initially presumed secondary to aspiration pneumonia- -this is likely r/t being fluid overloaded -patient has COPD in addition/ scheduled duonebs -had been treated w Meropenem x 4 days/ on Cefazolin started on -Blood cx no growth -given dose of lasix this a.m. with significant improvement -now on room air # leukocytosis- WBC 29-> 14 - - continue IV cefazolin - blood cultures no growth -patient said she has chronic high wbc counts due to Crohns -reviewed her labs prior to this admit/ and wbc was elevated # acute kidney injury- - cont to follow -creat is o.5 # hyponatremia- sodium 125-> 140 with fluids - salt tabs - these should be dc as soon as possible due to ongoing edema - will add ensure /encouraged her to avoid water and to drink this instead # bilateral upper lower extremity edema- -resolving # sepsis w septic shock presumed 2/2 to pulmonary source- with AHRF and SRAVANTHI - severe hypotension -CTA no PE -had been on pressors & fluid resusitation # prophylaxis- cont Lovenox # diet - regular # disposition per neurosurgery Subjective: Nallely is feeling much improved today. Objective: Vital Signs Temp Pulse Resp BP Pulse Ox 36.3 C 87 14 164/93 H 92 01/27/17 07:56 01/27/17 10:39 01/27/17 10:39 01/27/17 07:56 01/27/17 10:39 Microbiology 01/21/17 18:06 Blood Culture - Final Blood 01/21/17 17:50 Blood Culture - Final Blood Laboratory Results 01/27/17 06:00 01/27/17 06:00 01/26/17 01/27/17 01/28/17 05:59 05:59 05:59 Intake Total 200 100 Output Total 145 Balance 55 100 PT 13.3 SEC (12.0-15.0) 01/22/17 05:15 INR 1.02 (0.83-1.16) 01/22/17 05:15 - Physical Exam Constitutional: no apparent distress, appears nourished, not in pain Eyes: PERRL Ears, Nose, Mouth, Throat: hearing normal Cardiovascular: regular rate and rhythym Respiratory: no respiratory distress, reduced air movement (bibasilar) Gastrointestinal: normoactive bowel sounds Skin: warm, No normal color (pale) Musculoskeletal: generalized weakness Neurologic: AAOx3 Psychiatric: interacting appropriately, not anxious ICD10 Worksheet Patient Problems: Problems Problem Status Onset Fusion of spine of lumbar region Acute
[2017-01-27] MEDS ORDERED: POTASSIUM CL 10 MEQ TAB PO ONE ×2 (12:42→20:16)
[2017-01-27] MEDS: METHOCARBAMOL 750 MG TAB PO PRN (13:13)
[2017-01-27 19:53] LABS: POTASSIUM 3.3 mEq/L (3.5-5.2)
[2017-01-27] MEDS: traZODone 50 MG TAB PO SCH (20:38)
[2017-01-27] MEDS ORDERED: RALOXIFENE HCL 60 MG TAB PO SCH (21:00)
[2017-01-27] MEDS ORDERED: LISINOPRIL 40 MG TAB PO SCH (21:00)
[2017-01-28] MEDS: oxyCODONE IR 5 MG TAB PO PRN ×3 (04:21→13:01)
[2017-01-28] MEDS: IPRATROPIUM/ALBUTEROL 3 ML DEYVIAL IH SCH ×3 (04:27→09:20)
[2017-01-28 04:50] LABS: ANION GAP 8 mEq/L (8-16); CARBON DIOXIDE 33 mEq/l (22-31); CHLORIDE 93 mEq/L (97-110); CREATININE 0.5 mg/dL (0.6-1.0); GLOMERULAR FILTRATION RATE > 60; GLUCOSE 82 mg/dL (70-100); POTASSIUM 3.6 mEq/L (3.5-5.2); SODIUM 134 mEq/L (134-144)
[2017-01-28] MEDS: ACETAMINOPHEN 500 MG TAB PO SCH ×2 (05:58→12:55)
--- NOTE | 2017-01-28 08:06 | SOAPPROG ---
SOAP Progress Note Assessment/Plan: Assessment: 66 yo female s/p L2-S1 TLIF on 01/20 doing well Plan: activity as tolerated with assistance transfer to rehab today if medicine agrees 01/28/17 08:06 Subjective: awake, alert, pain well controlled, Pt is mobile and doing very well Objective: Vital Signs Temp Pulse Resp BP Pulse Ox 36.9 C 74 16 162/95 H 89 L 01/28/17 03:59 01/28/17 03:59 01/28/17 03:59 01/28/17 03:59 01/28/17 03:59 Laboratory Results 01/27/17 06:00 01/28/17 04:15 01/27/17 01/28/17 01/29/17 05:59 05:59 05:59 Intake Total 100 381 Output Total 600 Balance 100 -219 PT 13.3 SEC (12.0-15.0) 01/22/17 05:15 INR 1.02 (0.83-1.16) 01/22/17 05:15 Neuro: WRIGHT, sens +LT ambulatory incision: CDI ICD10 Worksheet Patient Problems: Problems Problem Status Onset Fusion of spine of lumbar region Acute
--- NOTE | 2017-01-28 08:09 | PDIAF ---
- Diagnosis Diagnosis: lumar DJD/stenosis Code Status: Full Code - Medication Management Discharge Medications: Medications to Continue on Transfer Atenolol [Tenormin 50 mg (*)] 75 mg PO BID 01/05/17 [Last Taken 01/20/17 04:00] Budesonide [Budesonide EC] 3 mg PO TID 01/05/17 [Last Taken 01/19/17] Cholecalciferol Vit D3 [Vitamin D3 (*)] 500 units PO DAILY 01/05/17 [Last Taken 01/19/17] Gabapentin [Neurontin 300 MG (*)] 600 mg PO TID 01/05/17 [Last Taken 01/19/17] Herbals/Supplements -Info Only 1 each PO DAILY 01/05/17 [Last Taken 01/19/17] Lisinopril [Zestril 40 mg (*)] 40 mg PO HS 01/05/17 [Last Taken 01/18/17] Pantoprazole Sodium [Protonix 40mg (*)] 40 mg PO DAILY PRN 01/05/17 [Last Taken 01/19/17] Raloxifene HCl [Evista 60mg (RX)] 60 mg PO HS 01/05/17 [Last Taken 01/19/17] amLODIPine BESYLATE [Norvasc 10 mg (*)] 10 mg PO DAILY 01/05/17 [Last Taken 06/26] traZODone [traZODONE 50MG (*)] 75 mg PO HS 01/05/17 [Last Taken 01/18/17] Ipratropium [Atrovent Hfa (*)] 2 puffs IH QID 01/20/17 [Last Taken 01/20/17] Loperamide HCl [Imodium 2 mg (*)] 2 - 4 mg PO DAILY PRN 01/20/17 [Last Taken Unknown] Albuterol [Proventil Inhaler HFA (*)] 1 - 2 puffs IH Q4H PRN 01/23/17 [Last Taken Unknown] Etodolac [ETODOLAC] 500 mg PO BIDMEAL 01/27/17 [Last Taken Unknown] Discharge Medications: Refer to the Discharge Home Medication list for PRN reason. - Orders Services needed: Physical Therapy, Occupational Therapy [place]: Not applicable Wound Care Instructions: check incision daily, notify [facility] of any drainage, redness or increased pain, signs/symptoms of infection Sutures/Selena Site: steri strips in place. Activity/Weight Bearing Restrictions: No bending, twisting or lifting over 10lbs. Wear LSO when out of bed - Follow Up Care Current Providers and Referrals: Benita Redman PA [Primary Care Provider] - Scott Heredia MD [Medical Doctor] -
[2017-01-28 08:21] VITALS: BP 166/90; TEMP 98.6
[2017-01-28] MEDS: ENOXAPARIN 40 MG/0.4 ML SYR SC SCH (08:59)
[2017-01-28] MEDS: GABAPENTIN 300 MG CAP PO SCH (08:59)
[2017-01-28] MEDS: CHOLECALCIFEROL VIT D3 1,000 UNITS TAB PO SCH (08:59)
[2017-01-28] MEDS: METHOCARBAMOL 750 MG TAB PO PRN (08:59)
[2017-01-28] MEDS: ATENOLOL 50 MG TAB PO SCH (09:00)
[2017-01-28] MEDS: POLYETHYLENE GLYCOL 3350 17 GM PKT PO SCH (09:09)
[2017-01-28] MEDS: SENNOSIDES/DOCUSATE SODIUM TAB PO SCH (09:09)
[2017-01-28 09:29] VITALS: PULSE 77; RESP 16; O2SAT 95
[2017-01-28] MEDS ORDERED: POTASSIUM CL 10 MEQ TAB PO ONE ×2 (09:32→13:00)
--- NOTE | 2017-01-28 12:25 | PDIAF ---
- Diagnosis Diagnosis: lumar DJD/stenosis Code Status: Full Code - Medication Management Discharge Medications: Medications to Continue on Transfer Atenolol [Tenormin 50 mg (*)] 75 mg PO BID 01/05/17 [Last Taken 01/20/17 04:00] Budesonide [Budesonide EC] 3 mg PO TID 01/05/17 [Last Taken 01/19/17] Cholecalciferol Vit D3 [Vitamin D3 (*)] 500 units PO DAILY 01/05/17 [Last Taken 01/19/17] Gabapentin [Neurontin 300 MG (*)] 600 mg PO TID 01/05/17 [Last Taken 01/19/17] Herbals/Supplements -Info Only 1 each PO DAILY 01/05/17 [Last Taken 01/19/17] Lisinopril [Zestril 40 mg (*)] 40 mg PO HS 01/05/17 [Last Taken 01/18/17] Pantoprazole Sodium [Protonix 40mg (*)] 40 mg PO DAILY PRN 01/05/17 [Last Taken 01/19/17] Raloxifene HCl [Evista 60mg (RX)] 60 mg PO HS 01/05/17 [Last Taken 01/19/17] amLODIPine BESYLATE [Norvasc 10 mg (*)] 10 mg PO DAILY 01/05/17 [Last Taken 06/26] traZODone [traZODONE 50MG (*)] 75 mg PO HS 01/05/17 [Last Taken 01/18/17] Ipratropium [Atrovent Hfa (*)] 2 puffs IH QID 01/20/17 [Last Taken 01/20/17] Loperamide HCl [Imodium 2 mg (*)] 2 - 4 mg PO DAILY PRN 01/20/17 [Last Taken Unknown] Albuterol [Proventil Inhaler HFA (*)] 1 - 2 puffs IH Q4H PRN 01/23/17 [Last Taken Unknown] Etodolac [ETODOLAC] 500 mg PO BIDMEAL 01/27/17 [Last Taken Unknown] Discharge Medications: Refer to the Discharge Home Medication list for PRN reason. - Orders Services needed: Physical Therapy, Occupational Therapy [place]: Not applicable Wound Care Instructions: check incision daily, notify [facility] of any drainage, redness or increased pain, signs/symptoms of infection Sutures/Selena Site: steri strips in place. Activity/Weight Bearing Restrictions: No bending, twisting or lifting over 10lbs. Wear LSO when out of bed - Labs/Radiology BMP Date: 01/31/17 - Follow Up Care Current Providers and Referrals: Benita Redman PA [Primary Care Provider] - Scott Heredia MD [Medical Doctor] -
--- NOTE | 2017-01-28 12:35 | HOSPPROG ---
Hospitalist Progress Note Assessment/Plan: Patient having swelling/ will hold salt tabs/ recheck Na in a.m. Original Note: Hospitalist Progress Note Assessment/Plan: Patient is a 66-year-old female who has a history of degenerative disc disease. She has had epidural injections in the past but presented with worsening pain. She subsequently underwent a decompression and fusion of L2-S1. Postoperatively she developed low blood pressures. She was seen evaluated by the hospitalist team to treat her hypotension. First encounter, chart reviewed. D/W Philipp Burrell. # degenerative disc disease/ L2-S1 TLIF fusion on 01/20 -status post removal of drain fragment in lumbar wound on 01/24 - cont IV abx/Ancef - cont pain meds prn - long acting MS Contin discontinued due to sedation # acute blood loss anemia Was transfused 2 units of packed red blood cells during her hospital stay Hemoglobin and hematocrit are stable # HTN -blood pressure is 164/93 - lisinopril, Norvasc and atenolol #low TSH will need to get this f/u in OP setting when not acutely ill # metabolic acidosis Resolved #hypokalemia replaced # Acute hypoxic respiratory failure initially presumed secondary to aspiration pneumonia- -this is likely r/t being fluid overloaded -patient has COPD in addition/ scheduled duonebs -had been treated w Meropenem x 4 days/ then Cefazolin started on 01/24/17 -Blood cx no growth -given lasix with significant improvement -now on room air # leukocytosis- WBC 29-> 14 - - DC IV cefazolin - blood cultures no growth -patient said she has chronic high wbc counts due to Crohns -reviewed her labs prior to this admit/ and wbc was elevated # acute kidney injury- - cont to follow -creat is o.5 # hyponatremia- sodium 125-> 140 with fluids - salt tabs DC - recheck NA at [facility] - ensure /encouraged her to avoid water and to drink this instead # bilateral upper lower extremity edema- -resolving # sepsis w septic shock presumed 2/2 to pulmonary source- with AHRF and SRAVANTHI - severe hypotension -CTA no PE -had been on pressors & fluid resusitation # prophylaxis- cont Lovenox # diet - regular # disposition to [facility] Subjective: Up in the chair. Feels well. Pain controlled. Less swelling today. Objective: Vital Signs Temp Pulse Resp BP Pulse Ox 37.0 C 77 16 166/90 H 95 01/28/17 08:00 01/28/17 09:24 01/28/17 09:24 01/28/17 09:00 01/28/17 09:24 Laboratory Results 01/27/17 06:00 01/28/17 04:15 01/27/17 01/28/17 01/29/17 05:59 05:59 05:59 Intake Total 100 381 Output Total 600 Balance 100 -219 PT 13.3 SEC (12.0-15.0) 01/22/17 05:15 INR 1.02 (0.83-1.16) 01/22/17 05:15 - Physical Exam Constitutional: no apparent distress, appears nourished, not in pain Eyes: PERRL, anicteric sclera, EOMI Ears, Nose, Mouth, Throat: moist mucous membranes, hearing normal, ears appear normal Cardiovascular: regular rate and rhythym, edema, No JVD Respiratory: no respiratory distress, no rales or rhonchi, reduced air movement Gastrointestinal: normoactive bowel sounds, No tenderness, No ascites Skin: warm, normal color, No erythema Musculoskeletal: pain with ROM, muscular tenderness, generalized weakness Neurologic: AAOx3 Psychiatric: interacting appropriately, not anxious, not encephalopathic, thought process linear ICD10 Worksheet Patient Problems: Problems Problem Status Onset Fusion of spine of lumbar region Acute
== END 2017-01-28 14:49 | DRG 459 ==
LOC: F3N 05:51 → F2N 01-21 22:48 → F3N 01-24 01:21
PROVIDERS: ADMIT Neurological Surgery; ATTEND Neurological Surgery
PROC: 8E0WXBZ Computer Assisted Procedure of Trunk Region (ICD-10-PCS; principal; 2017-01-20 07:15)
PROC: 0SG10AJ Fusion of 2 or more Lumbar Vertebral Joints with Interbody Fusion Device, Posterior Approach, Anterior Column, Open Approach (ICD-10-PCS; principal; 2017-01-20 07:15)
PROC: 0SG30AJ Fusion of Lumbosacral Joint with Interbody Fusion Device, Posterior Approach, Anterior Column, Open Approach (ICD-10-PCS; principal; 2017-01-20 07:15)
PROC: 4A1004G Monitoring of Central Nervous Electrical Activity, Intraoperative, Open Approach (ICD-10-PCS; principal; 2017-01-20 07:15)
PROC: 0ST20ZZ Resection of Lumbar Vertebral Disc, Open Approach (ICD-10-PCS; principal; 2017-01-20 07:15)
PROC: 02HV33Z Insertion of Infusion Device into Superior Vena Cava, Percutaneous Approach (ICD-10-PCS; 2017-01-21)
PROC: 30233N1 Transfusion of Nonautologous Red Blood Cells into Peripheral Vein, Percutaneous Approach (ICD-10-PCS; 2017-01-22)
PROC: 0JC70ZZ Extirpation of Matter from Back Subcutaneous Tissue and Fascia, Open Approach (ICD-10-PCS; 2017-01-24)
DX: M51.36 Other intervertebral disc degeneration, lumbar region (principal); T85.698A Other mechanical complication of other specified internal prosthetic devices, implants and grafts, initial encounter; A41.9 Sepsis, unspecified organism; J69.0 Pneumonitis due to inhalation of food and vomit; J96.01 Acute respiratory failure with hypoxia; R65.21 Severe sepsis with septic shock; E87.2 Acidosis; E87.1 Hypo-osmolality and hyponatremia; N17.9 Acute kidney failure, unspecified; D62 Acute posthemorrhagic anemia; M41.86 Other forms of scoliosis, lumbar region; M48.06 Spinal stenosis, lumbar region; I10 Essential (primary) hypertension; K21.9 Gastro-esophageal reflux disease without esophagitis; M81.0 Age-related osteoporosis without current pathological fracture; J44.9 Chronic obstructive pulmonary disease, unspecified; I95.81 Postprocedural hypotension; Z87.891 Personal history of nicotine dependence
CPT/HCPCS: 97110-GP; 97116-GP; 97161-GP; 97165-GO; 97530-GP; 97535-GO; C1713; C1751; C1762; G8978-GP-CK; G8979-GP-CI; G8987-GO-CK; G8988-GO-CI; G8989-GO-CI; J0610; J0690; J1100; J1650; J1940; J2001; J2185; J2250; J2274; J2370; J2405; J2704; J2997; J3010; J3370; J7060; P9016; P9041; Q9967

== ENCOUNTER 2017-02-27 06:58 | Inpatient (IN) | payer OTHER ==
--- NOTE | 2017-02-27 07:17 | EDPHY ---
HPI/HX/ROS/PE/MDM Narrative: CHIEF COMPLAINT: Somnolence, Hearing Loss. HPI: The patient is a 66 y/o female arriving with her son for evaluation of somnolence onset 2 days ago and worsening hearing loss in the past 24 hours. She has a medical history that includes Crohn's, arthritis, and a spinal fusion 01/25/2017, for which she is currently taking pain medication. Over the last 2 days her son noticed increasing sleepiness, difficulty waking up, and a lack of appetite. Her son reports that she has been somewhat incoherent for the last day and was short of breath this morning. She has continued to complain of lower back pain at home and upon assessment. Her son denies vomiting, recent trauma, fever, or coughing. History primarily obtained from son, the patient did not remark on medical history. REVIEW OF SYSTEMS: Aside from elements discussed in the HPI, a comprehensive 10-point review of systems was reviewed and is negative. PMH: Crohn's, hearing loss, arthritis, hysterectomy, spinal fusion surgery. Neurologist is Dr. Heredia. SOCIAL HISTORY: Son is at bedside. Quit smoking 3 months ago per son. Retired and lives in [facility]. PHYSICAL EXAM: General:Patient is somnolent, in no acute distress, SpO2 61% in triage. ENT:Eyes are normal to inspection. ENT inspection normal. Neck: Normal inspection. Full range of motion. Respiratory:No respiratory distress. Bilateral rales. Cardiovascular: Regular rate and rhythm. Strong peripheral pulses. Normal cap refill. Abdomen:The abdomen is nontender to palpation. There are no peritoneal signs. Back: Normal to inspection. No tenderness to palpation. Skin: Normal color. No rash. Warm and dry. Extremities: 2+ pedal edema bilaterally otherwise extremities are normal in appearance. Neuro: Somnolent but able to sit up with assistance. Moving all extremities. ED Course: 66y/o female presents with a 2 day history of somnolence and developed apparent shortness of breath this morning. She awakes to loud verbal stimuli on exam and has bilateral rales upon auscultation. Bilateral pedal edema noted. She is afebrile, and has an SpO2 of 82% on room air during exam. Plan for IV, labs, EKG , head CT, and chest X-ray. The 12 lead EKG was interpreted by myself. Sinus rhythm, rate 92. First degree AV block. See hard copy and/or "tracemaster" electronic copy for interpretation. Troponin elevated at 0.341. BNP elevated at 8610. Chest X-ray shows CHF. Head CT negative per Dr. Sommer, Radiologist. 0822: Spoke with Dr. Moody, hospitalist. She accepts admission for CHF. MDM: This patient presents with increased somnolence and hypoxia. Her labs and physical exam are consistent with new-onset severe CHF. As such she requires admission for further workup and treatment. I see no signs of ACS, PTX, PE, PNA or sepsis. - Data Points Imaging Results: Imaging Impressions Head CT 02/27/17 07:25 Impression: There is no acute intracranial abnormality identified on this unenhanced CT evaluation. If there is further clinical concern regarding the patient's symptoms, MR imaging is suggested, if not otherwise contraindicated. Findings were discussed with Moses Dalton MD at 8:10, on 02/27/2017. Chest X-Ray 02/27/17 08:01 Impression: Cardiomegaly with pulmonary vascular congestion and mild interstitial edema with left lower lobe pleural-parenchymal consolidation. Imaging: Discussed imaging studies w/ call circuit worker Radiologist, I viewed and interpreted images myself Laboratory Results: Laboratory Results 02/27/17 07:20 02/27/17 07:20 02/27/17 02/27/17 07:20 07:20 WBC 16.31 10^3/uL H 10^3/uL (3.80-9.50) RBC 3.62 10^6/uL L 10^6/uL (4.18-5.33) Hgb 11.4 g/dL L g/dL (12.6-16.3) Hct 34.9 % L % (38.0-47.0) MCV 96.4 fL fL (81.5-99.8) MCH 31.5 pg pg (27.9-34.1) MCHC 32.7 g/dL g/dL (32.4-36.7) RDW 14.4 % % (11.5-15.2) Plt Count 262 10^3/uL 10^3/uL (150-400) MPV 9.6 fL fL (8.7-11.7) Neut % (Auto) 81.3 % H % (39.3-74.2) Lymph % (Auto) 10.8 % L % (15.0-45.0) [place] % (Auto) 4.6 % % (4.5-13.0) Eos % (Auto) 2.3 % % (0.6-7.6) Baso % (Auto) 0.4 % % (0.3-1.7) Nucleat RBC Rel Count 0.0 % % (0.0-0.2) Absolute Neuts (auto) 13.26 10^3/uL H 10^3/uL (1.70-6.50) Absolute Lymphs (auto) 1.76 10^3/uL 10^3/uL (1.00-3.00) Absolute Monos (auto) 0.75 10^3/uL 10^3/uL (0.30-0.80) Absolute Eos (auto) 0.38 10^3/uL 10^3/uL (0.03-0.40) Absolute Basos (auto) 0.07 10^3/uL 10^3/uL (0.02-0.10) Absolute Nucleated RBC 0.00 10^3/uL 10^3/uL (0-0.01) Immature Gran % 0.6 % % (0.0-1.1) Immature Gran # 0.09 10^3/uL 10^3/uL (0.00-0.10) Sodium 130 mEq/L L mEq/L (134-144) Potassium 3.8 mEq/L mEq/L (3.5-5.2) Chloride 91 mEq/L L mEq/L (97-110) Carbon Dioxide 28 mEq/l mEq/l (22-31) Anion Gap 11 mEq/L mEq/L (8-16) BUN 17 mg/dL mg/dL (7-23) Creatinine 0.9 mg/dL mg/dL (0.6-1.0) Estimated GFR > 60 Glucose 88 mg/dL mg/dL (70-100) Calcium 8.6 mg/dL mg/dL (8.5-10.4) Total Bilirubin 0.7 mg/dL mg/dL (0.1-1.4) Conjugated Bilirubin 0.5 mg/dL mg/dL (0.0-0.5) Unconjugated Bilirubin 0.2 mg/dL mg/dL (0.0-1.1) AST 20 IU/L IU/L (14-46) ALT 31 IU/L IU/L (9-52) Alkaline Phosphatase 114 IU/L IU/L (38-126) Troponin I 0.341 ng/mL H ng/mL (0.000-0.034) NT-Pro-B Natriuret Pep 8610 pg/mL H pg/mL (0-125) Total Protein 5.6 g/dL L g/dL (6.3-8.2) Albumin 3.2 g/dL L g/dL (3.5-5.0) General Time Seen by Provider: 02/27/17 07:09 Initial Vital Signs: Initial Vital Signs Temperature (C) 36.8 C 02/27/17 07:03 Heart Rate 81 02/27/17 07:03 Respiratory Rate 18 02/27/17 07:03 Blood Pressure 149/83 H 02/27/17 07:03 O2 Sat (%) 82 L 02/27/17 07:03 O2 Delivery Mode Room Air O2 (L/minute) 5 Allergies/Adverse Reactions: adalimumab [From Humira] Allergy (Verified 02/27/17 07:02) Dyspnea varenicline [From Chantix] Allergy (Verified 02/27/17 07:02) Home Medications: Medication Instructions Recorded Atenolol [Tenormin 50 mg (*)] 75 mg PO BID 01/05/17 Budesonide [Budesonide EC] 3 mg PO TID 01/05/17 Cholecalciferol Vit D3 [Vitamin D3 500 units PO DAILY 01/05/17 (*)] Gabapentin [Neurontin 300 MG (*)] 600 mg PO TID 01/05/17 Herbals/Supplements -Info Only 1 each PO DAILY 01/05/17 Lisinopril [Zestril 40 mg (*)] 40 mg PO HS 01/05/17 Pantoprazole Sodium [Protonix 40mg 40 mg PO DAILY PRN 01/05/17 (*)] Raloxifene HCl [Evista] 60 mg PO HS 01/05/17 amLODIPine BESYLATE [Norvasc 10 mg 10 mg PO DAILY 01/05/17 (*)] Ipratropium [Atrovent Hfa (*)] 2 puffs IH QID 01/20/17 Loperamide HCl [Imodium 2 mg (*)] 2 - 4 mg PO DAILY PRN 01/20/17 Albuterol [Proventil Inhaler HFA 1 - 2 puffs IH Q4H PRN 01/23/17 (*)] Etodolac [ETODOLAC] 500 mg PO BIDMEAL 01/27/17 Methocarbamol [Robaxin 750 mg (*)] 750 mg PO TID PRN #60 tab 01/28/17 oxyCODONE IR [Oxycodone Ir (*)] 5 - 10 mg PO Q4HRS PRN #60 tab 01/28/17 Furosemide [Lasix 20 MG (*)] 20 mg PO BIDDIUR 02/27/17 traZODone [traZODONE 50MG (*)] 50 mg PO HS 02/27/17 Departure - Departure Disposition: [facility] Inpatient Acute Clinical Impression: Somnolence, Hypoxemia CHF (congestive heart failure) Qualifiers: Congestive heart failure type: unspecified congestive heart failure type Congestive heart failure chronicity: unspecified congestive heart failure chronicity Qualified Code(s): I50.9 - Heart failure, unspecified Condition: Fair Report Scribed for: Moses Dalton Report Scribed by: Connie Ho Date of Report: 02/27/17 Time of Report: 07:13 Physician Review and Approval Statement: Portions of this note were transcribed by an ED scribe. I personally performed the history, physical exam, and medical decision making; and confirm the accuracy of the information in the transcribed note.
--- NOTE | 2017-02-27 07:25 | CPEKG ---
Heart Rate: 92 RR Interval: 652 P-R Interval: 244 QRSD Interval: 86 QT Interval: 384 QTC Interval: 476 P [place]: 34 QRS [place]: 54 T Wave [place]: 40 EKG Severity - ABNORMAL ECG - EKG Impression: SINUS RHYTHM EKG Impression: FIRST DEGREE AV BLOCK Preliminary Awaiting MD Review
[2017-02-27 07:30] LABS: % IMMATURE GRANULYOCYTES 0.6 % (0.0-1.1); ABSOLUTE IMMATURE GRANULOCYTES 0.09 10^3/uL (0.00-0.10); ADD DIFF? NO; ADD MORPH? NO; ADD SCAN? NO; ATYPICAL LYMPHOCYTE FLAG 10 (0-99); FRAGMENT RBC FLAG 0 (0-99); HEMATOCRIT 34.9 % (38.0-47.0); HEMOGLOBIN 11.4 g/dL (12.6-16.3); LEFT SHIFT FLG 0 (0-99); LIPEMIA HEMOLYSIS FLAG 80 (0-99); MEAN CELL HEMOGLOBIN 31.5 pg (27.9-34.1); MEAN CELL HEMOGLOBIN CONCENTR. 32.7 g/dL (32.4-36.7); MEAN CELL VOLUME 96.4 fL (81.5-99.8); MEAN PLATELET VOLUME 9.6 fL (8.7-11.7); PLATELET CLUMPS FLAG 10 (0-99); PLATELET COUNT 262 10^3/uL (150-400); RED BLOOD CELL COUNT 3.62 10^6/uL (4.18-5.33); RED CELL DISTRIBUTION WIDTH 14.4 % (11.5-15.2)
[2017-02-27 07:39] LABS: ALANINE AMINOTRANSFERASE 31 IU/L (9-52); ALBUMIN 3.2 g/dL (3.5-5.0); ALKALINE PHOSPHATASE 114 IU/L (38-126); ANION GAP 11 mEq/L (8-16); ASPARTATE AMINOTRANSFERASE 20 IU/L (14-46); BILIRUBIN,TOTAL 0.7 mg/dL (0.1-1.4); BILIRUBIN-CONJUGATED 0.5 mg/dL (0.0-0.5); BILIRUBIN-UNCONJUGATED 0.2 mg/dL (0.0-1.1); CALCIUM 8.6 mg/dL (8.5-10.4); CARBON DIOXIDE 28 mEq/l (22-31); CHLORIDE 91 mEq/L (97-110); CREATININE 0.9 mg/dL (0.6-1.0); GLOMERULAR FILTRATION RATE > 60; GLUCOSE 88 mg/dL (70-100); POTASSIUM 3.8 mEq/L (3.5-5.2); SODIUM 130 mEq/L (134-144); TOTAL PROTEIN 5.6 g/dL (6.3-8.2)
[2017-02-27 07:51] LABS: TROPONIN I 0.341 ng/mL (0.000-0.034)
[2017-02-27] MEDS ORDERED: ACETAMINOPHEN 325 MG TAB PO PRN (08:24)
[2017-02-27] MEDS ORDERED: ONDANSETRON DISINTEGRATING 4 MG TAB PO PRN (08:24)
[2017-02-27] MEDS ORDERED: ONDANSETRON 4 MG/2 ML VIAL IVP PRN (08:24)
[2017-02-27] MEDS ORDERED: oxyCODONE IR 5 MG TAB PO PRN (09:58)
[2017-02-27] MEDS: FUROSEMIDE 40 MG/4 ML VIAL IVP SCH ×2 (10:25→16:14)
--- NOTE | 2017-02-27 11:02 | GHP ---
[f rep st] HISTORY AND PHYSICAL DATE OF ADMISSION: 02/27/2017 CHIEF COMPLAINT: Somnolence, hypoxic respiratory failure, CHF, elevated troponin. HPI: This is a 66-year-old female with profound hearing loss, COPD, former tobacco abuse having quit recently, recent spinal fusion surgery for sciatica who presents today with increased somnolence over the past 2 days and possibly worsening hearing loss. History is obtained from her by writing on a white board. In the ED it was mentioned that her son was present for the interview but currently he is not with her. From speaking with Dr. Dalton, it was reported that she has been bed-bound and somnolent for the past 2 days. On the day of admission, she was very short of breath and somewhat incoherent. She continues to note lower back pain even since her surgery. It was noted that she denied any vomiting, fever, falls or other trauma. She has been noting peripheral edema which she reports has been fairly chronic even prior to her surgery. Her oxygen saturation was 61% on day of admission. Currently it is corrected with of 3-5 L/minute of oxygen by nasal cannula up to 94%. REVIEW OF SYSTEMS: As per HPI. A complete 10-point review of systems was obtained previously. PAST MEDICAL HISTORY: 1. Crohn's. 2. Hearing loss. 3. Osteoarthritis. 4. Osteoporosis. 5. History of hysterectomy. 6. History of spinal fusion L2 through S1 in January. 7. Chronic obstructive pulmonary disease. 8. Hypertension. SOCIAL HISTORY: She quit smoking 3 months ago. It is reported that she has only occasional alcohol intake. She lives in [place]. PHYSICAL EXAMINATION: VITAL SIGNS: BP of 162/86, heart rate 79, respirations 20, O2 saturation 92% on 3 L/minute. Temperature of 98.4. GENERAL: She is a very pleasant female, no apparent distress. HEENT: Eyes are without scleral icterus. Ears without obvious deformity. Mucous membranes moist. HEART: Regular rate and rhythm. Distant heart sounds. LUNGS: Anterior obrien are clear to auscultation. ABDOMEN: Soft, nontender, nondistended. Normoactive bowel sounds. SKIN: Warm and dry. There is 1 to 2+ edema on the peripheral extremities. : No Lozano present. PSYCHIATRIC: The patient appears calm and cooperative throughout exam. NEURO: No focal deficits detected. LAB DATA: CBC with WBC 16.31, hemoglobin 11.4, hematocrit 34.9, platelet count of 262. BMP: Sodium 130, potassium 3.8, chloride 91, CO2 28, BUN 17, creatinine 0.9, glucose of 88. Troponin 0.341 with NT proBNP of 8610. A 12 lead ECG, personally interpreted, demonstrates sinus rhythm with a slow transition, diffuse ST-T wave abnormalities. First degree AV block. Chest x-ray reviewed shows a cardiomegaly with pulmonary vascular congestion, suggestive of CHF. CT noncontrast of head from today shows no evidence of acute injury. I have spoken and reviewed care with Dr. Dalton. IMPRESSION AND PLAN: The patient is a 66-year-old female with a history of degenerative disk disease, COPD, hearing loss, who was recently admitted to [facility] for an L2 through S1 decompression and fusion. She is now being readmitted for profound hypoxia, worsening somnolence and possibly worsening hearing. 1. Somnolence. The patient is awake and alert through this admission. Potentially her somnolence is related to her hypoxia with an O2 saturation of 61 % on arrival versus medications. We will change her Robaxin and narcotics to PRN scheduling. 2. Acute hypoxic respiratory failure. She was treated for possible aspiration pneumonia at her last admission. She was also treated for COPD with scheduled DuoNebs. We will plan for RT evaluation while she is here. Given this profound hypoxia now, a repeat echo is being obtained to rule out a significant wall motion abnormality that could be causing heart failure and therefore the respiratory failure. Dr. Weems of cardiology will also be evaluating patient. 3. Leukocytosis. This was actually present with her last admission. It was as high as 29,000, now has trended to 16,000. 4. Hyponatremia. Likely this is close to her baseline as her sodiums have been between 125 through 140 at her last admission. 5. Bilateral lower extremity edema. Likely due to congestive heart failure. She has been ordered IV Lasix for further treatment of this. 6. Hearing loss. Unclear etiology and also unclear chronicity. This was reviewed with Dr. Cortez. We will add Prednisone. 7. Hypertension. She has known hypertension. Her blood pressure is quite elevated in the emergency setting. We will trend and also continue her home medications. 8. Elevated troponin. Query if this is demand ischemia from profound hypoxia. She certainly has risk factors for CAD. We are awaiting cardiology evaluation. 9. Length of stay: I anticipate that she will be at least greater than 48 hours given the acuity of new issue with hypoxia, heart failure with an elevated BNP and pulmonary edema on her chest x-ray. She also has an elevated troponin concerning for acute coronary syndrome. 9. Deep venous thrombosis prophylaxis. She will be put on mechanical prophylaxis in case invasive cardiology testing needs to be undertaken today. /[id number]/MODL MTDD
[2017-02-27] MEDS ORDERED: ALBUTEROL 60 PUFFS/8 GM MDI IH PRN (11:18)
[2017-02-27] MEDS ORDERED: PANTOPRAZOLE SODIUM 40 MG TAB PO PRN (11:18)
[2017-02-27] MEDS ORDERED: ALBUTEROL 200 PUFFS/18 GM MDI IH PRN (12:03)
[2017-02-27] MEDS: IPRATROPIUM HFA INHALER IH SCH ×4 (12:14→21:53)
--- NOTE | 2017-02-27 12:36 | ECHO ---
[id number] + + [address] : : [place] [address] : : [phone] + + Adult Echocardiographic Report + -------+ :Name: CLAUDIO MCCORD LStudy Date: 02/27/2017 11:19 AM : : Hospital Admission Number: [id number] Locati on: 205: :: 1950 Gender: Female Height: 63 in : :Age: 66 yrs Race: WH Weight: 140 lb : :Reason For Study: SOB, elevated BNP, elevated troponin : : BSA: 1.7 meter s2 : + -------+ MMode/2D Measurements \T\ Calculations IVSd: 1.1 cm LVIDd: 3.4 cm FS: 30.8 % LVOT diam: 1.8 cm LVPWd: 0.90 cm LVIDs: 2.3 cm EDV(Teich): LVOT area: 46.5 ml 2.5 cm2 ESV(Teich): 18.8 ml EF(Teich): 59.5 % LVLd ap4: 7.6 cm SV(MOD-sp4): EDV(MOD-sp4): 46.0 ml 63.0 ml LVLs ap4: 5.8 cm ESV(MOD-sp4): 17.0 ml EF(MOD-sp4): 73.0 % Normal Measurement Values: + + :LVIDd (3.5-5.7cm) IVSd (0.6-1.1cm) LVPWd (0.6-1.1cm) Aortic Root (2.0-3.7cm)Left Atrium (1.5-4.0cm): :LV Vol(d) (76-115ml) LV Vol(s) (29-48ml) Ejec Fraction (50-65%)PV Rick (0.6- 1.2m/s) TV Rick (0.4-1.0m/s) : :MV E Rick (0.8-1.0m/s)MV A Rick (0.3-1.0m/s)LVOT Rick (0.7-1.2m/s) Asc Ao Rick ( 0.9-1.8m/s) : + + Doppler Measurements \T\ Calculations MV E max rick: MV V2 max: Ao mean PG: LV V1 mean P.5 cm/sec 121.9 cm/sec 4.4 mmHg 1.8 mmHg MV A max rick: MV max P.9 mmHg Ao V2 mean: LV V1 mean: 85.9 cm/sec MV V2 mean: 98.8 cm/sec 62.8 cm/sec MV E/A: 1.4 67.9 cm/sec Ao V2 VTI: 29.9 cmLV V1 VTI: 19.7 cm MV dec time: MV mean PG: LORENZA(I,D): 1.6 cm2 0.19 sec 2.2 mmHg MV V2 VTI: 30.4 cm MVA(VTI): 1.6 cm2 SV(LVOT): 48.7 ml TR max rick: 270.3 cm/sec TR max P.2 mmHg RAP systole: 15.0 mmHg RVSP(TR): 44.2 mmHg Left Ventricle The left ventricle is normal in size and function. There is normal left ventricular wall thickness. Ejection Fraction = 65-70%. No regional wall motion abnormalities noted. Right Ventricle The right ventricle is mildly dilated. The right ventricular systolic function is mildly reduced. Atria The left atrial size is normal. Right atrial size is normal. The interatrial septum is intact with no evidence for an atrial septal defect. Mitral Valve The mitral valve is normal in structure and function. There is mild mitral annular calcification. There is no mitral valve stenosis. There is trace mitral regurgitation. Tricuspid Valve The tricuspid valve is normal in structure and function. There is no tricuspid stenosis. There is mild tricuspid regurgitation. Right ventricular systolic pressure is 44mmHg. Aortic Valve The aortic valve is normal in structure and function. Mild Aortic Valve Calcification. There is no aortic stenosis. There is no aortic insufficiency. Pulmonic Valve The pulmonic valve is not well visualized. There is no pulmonic valvular regurgitation. Great Vessels The aortic root is normal size. Pericardium/Pleural There is a fat pad seen. There is no pericardial effusion. Conclusion A complete two-dimensional transthoracic echocardiogram was performed (2D, M-mode, Doppler and color flow Doppler). The left ventricle is normal in size and function. Ejection Fraction = 65-70%. The right ventricle is mildly dilated. The right ventricular systolic function is mildly reduced. Mild Aortic Valve Calcification There is mild mitral annular calcification. There is trace mitral regurgitation. There is mild tricuspid regurgitation. Right ventricular systolic pressure is 44mmHg. Final Reading Physician: Diamond Goode signed on 02/27/2017 12:34 PM Ordering Physician: Angelica Thomas Performed By: Arline Norris
[2017-02-27] MEDS: GABAPENTIN 300 MG CAP PO SCH ×3 (12:50→21:09)
[2017-02-27] MEDS ORDERED: METHOCARBAMOL 750 MG TAB PO PRN (13:12)
[2017-02-27] MEDS ORDERED: predniSONE 20 MG TAB PO ONE (14:59)
--- NOTE | 2017-02-27 15:21 | GCON ---
[f rep st] CONSULTATION CARDIOLOGY CONSULTATION DATE OF CONSULTATION: 02/27/2017 REFERRING PHYSICIAN: Celena Moody MD REASON FOR CONSULTATION: 1. Hypoxia. 2. New diagnosis of congestive heart failure. 3. Elevated troponin. HISTORY: The patient is a 66-year-old female with a history of COPD, osteoarthritis, and a recent spinal fusion surgery in January. She was recuperating from her surgery, and it is reported that over the past 2 days she has been very somnolent and occasionally incoherent. She is on opioid pain medications at home. Because of these issues, she was brought to the hospital and was initially found to be markedly hypoxic with an O2 saturation of 61%. This was corrected with nasal cannula oxygen. Of note, she also developed an acute, profound hearing loss, which she reports was present after waking up from a nap on Tuesday. This complicates the history-taking process since all questions have to be written out on a dry erase board. She denies any chest pain or palpitations. She has no prior cardiac history. As part of her initial evaluation, a BNP level was found to be significantly elevated at 8610. Troponin levels have come back at 0.341 and 0.259. Her chest x-ray demonstrated pulmonary vascular congestion and some interstitial edema. She does have a component of mild lower extremity edema which is apparently somewhat chronic. PAST MEDICAL HISTORY: 1. Hypertension. 2. COPD. 3. Osteoporosis and osteoarthritis. 4. Crohn disease. 5. Surgical history including her recent lumbar spine procedure. 6. She has also undergone a hysterectomy. FAMILY HISTORY: Noncontributory. MEDICATIONS: Her home medications consist of oxycodone, furosemide 20 mg twice daily, trazodone, atenolol 75 mg twice daily, lisinopril 40 mg daily, Atrovent, Neurontin, Etodolac, budesonide, Evista, Protonix, Robaxin, Imodium, and amlodipine. ALLERGIES: Humira and Chantix. SOCIAL HISTORY: She is single. She has been a long-time smoker, but stopped approximately 3 months ago to reduce perioperative risks at the time of her spinal surgery in January. Alcohol consumption is not excessive. REVIEW OF SYSTEMS: A 10-point review of systems is reported as negative in the record. PHYSICAL EXAMINATION: VITAL SIGNS: Heart rate in the 70s with sinus rhythm on the monitor. Blood pressure 122/67. GENERAL: A well-developed, well- nourished woman, in no acute distress. She cannot hear and communication is through the use of a dry erase board. HEAD AND NECK: No scleral icterus. Mucous membranes moist. NECK: Carotid pulses 2+ without bruits. There is no JVD. CHEST: Lung obrien with bilateral rales at least 1/3 up. No wheezes. HEART: Regular rate and rhythm with a normal S1 and S2. There is no murmur or gallop. ABDOMEN: Soft, nondistended, nontender with normal bowel sounds. EXTREMITIES: 1 to 2+ pulses. She has 1+ edema. LABORATORY STUDIES: Troponin levels and BNP as outlined in the H and P. Sodium 130 potassium 3.8, BUN and creatinine 17 and 0.9. CBC demonstrates a white blood cell count of 16.3 with hemoglobin and hematocrit of 11.4 and 34.9, platelet count is 262,000. Her ECG demonstrates normal sinus rhythm with a 1st degree A-V block. She has somewhat low voltages in the limb leads. There are no Q-waves or ischemic changes. Her echocardiogram demonstrates normal left ventricular size and function. Ejection fraction is 65-70%. The right ventricle is mildly dilated with slightly reduced systolic function. She has mild aortic valve calcification without stenosis or regurgitation. She has mild mitral annular calcification with trace regurgitation. She has mild tricuspid regurgitation and her estimated PA systolic pressure is 44 mmHg. IMPRESSION: This is a 66-year-old woman who presents with somnolence and altered mental status, who was found to be markedly hypoxic. She does have a history of chronic obstructive pulmonary disease. She also reported some shortness of breath in the days prior to her hospitalization. Her current evaluation reveals evidence for a component of congestive heart failure based on her physical examination, chest x-ray, and BNP. She has normal left ventricular systolic function. Diastolic dysfunction was noted on her echocardiogram. She likely has a component of chronic diastolic congestive heart failure related to her hypertension. I do not know how adequately her blood pressure has been controlled at home. She is on 3 antihypertensive agents and her blood pressure is okay at this time. She is receiving intravenous Lasix in place of her usual oral dosing. Her troponin is mildly elevated, likely secondary to myocardial oxygen supply/demand mismatch in the setting of her congestive heart failure. RECOMMENDATIONS: I would continue with intravenous Lasix for diuresis. Monitor for control of her hypertension. Consideration should be given to an assessment for coronary ischemia prior to discharge. /[id number]/MODL MTDD
[2017-02-27] MEDS ORDERED: METHOCARBAMOL 750 MG TAB PO SCH (16:00)
[2017-02-27] MEDS: BUDESONIDE 3 MG EC CAP PO SCH ×2 (16:22→21:09)
[2017-02-27] MEDS: RALOXIFENE HCL 60 MG TAB PO SCH (21:09)
[2017-02-27] MEDS: traZODone 50 MG TAB PO SCH (21:09)
[2017-02-27] MEDS: LISINOPRIL 40 MG TAB PO SCH (21:09)
[2017-02-27 21:37] LABS: COLOR PALE YELLOW; LEUKOCYTE ESTERASE,URINE NEGATIVE (NEGATIVE); NITRITE,URINE NEGATIVE (NEGATIVE)
[2017-02-28] MEDS: IPRATROPIUM HFA INHALER IH SCH ×4 (05:54→20:21)
[2017-02-28] MEDS: predniSONE 20 MG TAB PO SCH (07:57)
[2017-02-28] MEDS: BUDESONIDE 3 MG EC CAP PO SCH ×3 (07:57→20:15)
[2017-02-28] MEDS: FUROSEMIDE 40 MG/4 ML VIAL IVP SCH ×2 (07:57→15:09)
[2017-02-28] MEDS: GABAPENTIN 300 MG CAP PO SCH ×3 (07:57→20:15)
[2017-02-28] MEDS: CHOLECALCIFEROL VIT D3 1,000 UNITS TAB PO SCH (07:58)
[2017-02-28 10:20] LABS: % IMMATURE GRANULYOCYTES 0.5 % (0.0-1.1); ABSOLUTE IMMATURE GRANULOCYTES 0.05 10^3/uL (0.00-0.10); ADD DIFF? NO; ADD MORPH? NO; ADD SCAN? NO; ATYPICAL LYMPHOCYTE FLAG 10 (0-99); FRAGMENT RBC FLAG 0 (0-99); HEMATOCRIT 34.7 % (38.0-47.0); HEMOGLOBIN 11.5 g/dL (12.6-16.3); LEFT SHIFT FLG 0 (0-99); LIPEMIA HEMOLYSIS FLAG 80 (0-99); MEAN CELL HEMOGLOBIN CONCENTR. 33.1 g/dL (32.4-36.7); MEAN CELL VOLUME 93.5 fL (81.5-99.8); MEAN PLATELET VOLUME 9.5 fL (8.7-11.7); PLATELET CLUMPS FLAG 10 (0-99); PLATELET COUNT 290 10^3/uL (150-400); RED BLOOD CELL COUNT 3.71 10^6/uL (4.18-5.33); RED CELL DISTRIBUTION WIDTH 13.9 % (11.5-15.2)
--- NOTE | 2017-02-28 10:47 | PDCARPN ---
Cardiology Progress Note Chief Complaint: Patient reports shortness of breath continues, but improvement. Reports continued to unable to hear. Assessment/Plan: Assessment: 66-year-old female with significant past history that includes hypertension, COPD, osteoporosis and osteoarthritis, Crohn's disease, recent lumbar spine procedure. Admitted yesterday for confusion lethargy, found to be hypoxic on emergency department admission with initial oxygen saturation of 61%, predicted with oxygen therapy. Patient has been on narcotic therapy for pain management due to recent back surgery. Noted to have elevated BNP on admission of 8610, troponin of 0.341. She has also says suffering from acute hearing loss. Echocardiogram done 02/28/2017 showing normal LV systolic function with EF of 65 % to 70%, RV was mildly dilated, RV systolic function mildly reduced mild aortic valve calcification, mild mitral annular calcification, trace MR mild TR , RVSP was estimated at 44 mm Hg, per Dr. Weems, some diastolic dysfunction was noted. She reports no history of chest pressure or pain. Today, patient's troponins levels have been trending downward to 0.205, she denies of any chest pressure or pain, reports shortness of breath is improved. Physical examination noted rales on both lower lobes. Peripheral edema with her family has improved. She has had close to 3 L output, and 2 kilos weight loss overnight. Continuous cardiac monitoring shows sinus rhythm with occasional PVC, no malignant arrhythmias noted. Patient continue to be dealing with hearing loss, she has been started on prednisone read by hospitalist services yesterday. Plan: 1. Acute on chronic diastolic heart failure: Patient with significant diuresis with Lasix dosage, continue have her rales in the bases, mild JVD, continue on current IV Lasix dose of 40 mg twice daily. No significant elevation of BUN or creatinine done since yesterday, continue to monitor. BMP in AM, daily weight and I and O monitoring 2. Hypertension: Blood pressure mildly elevated but improving on Lasix therapy , she has been resumed on home dose of lisinopril yesterday. Will restart home atenolol. Holding home amlodipine. Continue monitor 3. Acute hypoxia: Noted in setting with narcotic use for pain management post back surgery. improvement oxygen therapy, pulmonary toilet, decrease narcotic intake and diuretic. 4. Hyponatremia: Sodium 130 today, unchanged, continue to monitor. Repeat BMP in am, if worsen consider fluid restriction. 5. Elevated troponin: Patient reports no chest pain, no wall motion abnormalities noted on echocardiogram. Potentially due to demand ischemia from hypoxia on admission. Will plan for her to have a Emi MPI study done tomorrow for further evaluation. Restart home atenolol, start on aspirin therapy. 6. Hearing loss: Patient has history of mild hearing loss, but has became significantly worse the on hospital admission. But she has been started on prednisone by hospitalist services. If no improvement, consideration having ENT evaluation. 02/28/17 10:47 Subjective: Patient denies of any chest pressure or pain, reports shortness of breath has improved peripheral edema has also improved. Denies of any palpitations, lightheadedness. Reports really no significant change in loss of hearing. Patient communicating by rodriguez or. Reviewed/Discussed With: family (Patient son), hospitalist (Dr Ponce), other ( Dr Duarte) Objective: Vital Signs (8 Hrs) Temp Pulse Resp BP Pulse Ox 02/28/17 08:00 37.1 C 70 12 138/90 H 91 L 02/28/17 05:55 75 14 95 02/28/17 04:00 36.8 C 82 18 143/88 H 98 Intake/Output (24 Hrs) 02/27/17 02/28/17 03/01/17 05:59 05:59 05:59 Intake Total 620 Output Total 3175 500 Balance -2555 -500 Intake: Oral (ml) 620 Output: Urine (ml) 3175 500 Toilet 3175 500 Other: Weight 63.9 kg 61.2 kg Result Diagrams: 02/28/17 10:05 02/28/17 10:05 Cardiac Labs: Cardiac Lab Results (72 Hrs) 02/27/17 02/27/17 18:00 12:54 Troponin I 0.205 H 0.259 H - Physical Exam Constitutional: healthy appearing, no apparent distress Ears, Nose, Mouth, Throat: moist mucous membranes Cardiovascular: regular rate and rhythm, no gallops, systolic murmur (1/6 over left sternal border), jugular vein distention (4-5 cm above sternal notch at 45 degree angle), pulses symmetric bilat, No diastolic murmur, No carotid bruit Peripheral Pulses: 1+: dorsalis-pedis (R), dorsalis-pedis (L), 2+: carotid (R), carotid (L) Respiratory: other (Upper lobes clear, rales noted in bases bilateral, no accessory muscle use, no intercostal muscle retraction noted, no wheezing.) Gastrointestinal: normoactive bowel sounds Skin: warm, No no edema (+1 to 2 peripheral edema bilateral lower extremities to knees.) Neurologic: AAOx3 Psychiatric: cooperative, following commands ICD10 Worksheet Patient Problems: Problems Problem Status Onset Fusion of spine of lumbar region Acute CHF (congestive heart failure) Acute Somnolence Acute Hypoxemia Acute
[2017-02-28 11:23] LABS: ALANINE AMINOTRANSFERASE 24 IU/L (9-52); ALBUMIN 2.9 g/dL (3.5-5.0); ALKALINE PHOSPHATASE 108 IU/L (38-126); ANION GAP 9 mEq/L (8-16); ASPARTATE AMINOTRANSFERASE 17 IU/L (14-46); BILIRUBIN,TOTAL 0.6 mg/dL (0.1-1.4); CALCIUM 8.7 mg/dL (8.5-10.4); CARBON DIOXIDE 30 mEq/l (22-31); CHLORIDE 91 mEq/L (97-110); CREATININE 0.7 mg/dL (0.6-1.0); GLOMERULAR FILTRATION RATE > 60; GLUCOSE 97 mg/dL (70-100); SODIUM 130 mEq/L (134-144); TOTAL PROTEIN 5.6 g/dL (6.3-8.2)
[2017-02-28] MEDS: ASPIRIN 81 MG CHEWABLE TAB PO SCH (13:42)
--- NOTE | 2017-02-28 14:17 | HOSPPROG ---
Hospitalist Progress Note Assessment/Plan: Assessment: 66-year-old female presents with acute hypoxic respiratory failure and acute encephalopathy in the setting of acute diastolic congestive heart failure exacerbation Plan: 1. Acute hypoxic respiratory failure. Evidenced by SpO2 of 61% on room air rendering cognitive changes, the setting of shortness of breath, secondary to CHF exacerbation and concomitant narcotic use for back pain -required up to 5 L nasal cannula, currently weaned to 3 L nasal cannula 2. Acute encephalopathy. Evidenced by global brain dysfunction characterized as somnolence for 2 days, which is an acute change from her baseline level of cognitive function, most likely secondary to combination of hypoxia as well as narcotic medications, Robaxin -holding narcotic medications if able -treated hypoxia -currently cognitively intact, using signage board affectively 3. Diastolic congestive heart failure exacerbation. Acute, new problem this provider, further workup is indicated. Evidenced by pulmonary edema on chest x- ray, personally interpreted, elevated BNP of 8600, crackles still present on exam, continues to require 3 L nasal cannula oxygen -elevated troponin levels most likely secondary to cardiac strain, placing patient at high risk of worsening morbidity and/or mortality -discussed with Willie Prabhakar from Cardiology, he recommends ongoing use of IV diuretics, currently on Lasix 40 mg twice daily -echocardiogram demonstrating diastolic dysfunction -continue monitor daily weights and strict I&Os 4. Hypertension. Continue home medications 5. Deafness. Acute, new problem this provider, further workup indicated. Unclear etiology, patient is hard of hearing at baseline, but this has progressed total deafness, improving slightly after receiving prednisone yesterday -continue prednisone -will get otoscope and evaluate patient's ear drums bilaterally -if no easily identifiable cause is identified, will get ear nose and throat consultation 6. Hyponatremia. Acute, most likely secondary to renal hypoperfusion in the setting of CHF, continue diuresis and monitor Diet. Cardiac Prophylaxis. High risk patient, Lovenox 40 Code. Do not resuscitate Disposition. Most likely require assisted facility Subjective: Patient reports that her hearing is slightly improved today Objective: Vital Signs Temp Pulse Resp BP Pulse Ox 37.1 C 70 12 138/90 H 91 L 02/28/17 08:00 02/28/17 08:00 02/28/17 08:00 02/28/17 08:00 02/28/17 08:00 Laboratory Results 02/28/17 10:05 02/28/17 10:05 02/27/17 02/28/17 03/01/17 05:59 05:59 05:59 Intake Total 620 Output Total 8173 500 Balance -2555 -500 - Physical Exam Constitutional: no apparent distress, not in pain, chronically ill appearing, obese, No uncomfortable Ears, Nose, Mouth, Throat: other (Completely deaf) Cardiovascular: regular rate and rhythym, no murmur, rub, or gallop, edema (1+ bilateral lower extremity), No irregularly irregular, No tachycardia Respiratory: reduced air movement (Bilateral bases), inspiratory crackles ( Bilateral bases), No expiratory wheeze, No bronchial breath sounds Gastrointestinal: normoactive bowel sounds, soft, non-tender abdomen, no palpable masses, No guarding, No distension Neurologic: AAOx3, sensation intact bilaterally, No weakness (Motor strength 5/ 5 bilateral lower extremity) Psychiatric: not anxious, thought process linear, flat affect, No agitated ICD10 Worksheet Patient Problems: Problems Problem Status Onset Fusion of spine of lumbar region Acute CHF (congestive heart failure) Acute Somnolence Acute Hypoxemia Acute
[2017-02-28] MEDS: RALOXIFENE HCL 60 MG TAB PO SCH (20:13)
[2017-02-28] MEDS: traZODone 50 MG TAB PO SCH (20:15)
[2017-02-28] MEDS: LISINOPRIL 40 MG TAB PO SCH (20:15)
[2017-02-28] MEDS: ATENOLOL 50 MG TAB PO SCH (20:17)
[2017-03-01 04:10] LABS: % IMMATURE GRANULYOCYTES 0.4 % (0.0-1.1); ABSOLUTE IMMATURE GRANULOCYTES 0.04 10^3/uL (0.00-0.10); ADD DIFF? NO; ADD MORPH? NO; ADD SCAN? NO; ATYPICAL LYMPHOCYTE FLAG 20 (0-99); FRAGMENT RBC FLAG 0 (0-99); HEMATOCRIT 33.5 % (38.0-47.0); HEMOGLOBIN 11.1 g/dL (12.6-16.3); LEFT SHIFT FLG 0 (0-99); LIPEMIA HEMOLYSIS FLAG 80 (0-99); MEAN CELL HEMOGLOBIN 31.4 pg (27.9-34.1); MEAN CELL HEMOGLOBIN CONCENTR. 33.1 g/dL (32.4-36.7); MEAN CELL VOLUME 94.6 fL (81.5-99.8); MEAN PLATELET VOLUME 9.5 fL (8.7-11.7); PLATELET CLUMPS FLAG 0 (0-99); PLATELET COUNT 276 10^3/uL (150-400); RED BLOOD CELL COUNT 3.54 10^6/uL (4.18-5.33); RED CELL DISTRIBUTION WIDTH 13.9 % (11.5-15.2)
[2017-03-01 04:56] LABS: ANION GAP 8 mEq/L (8-16); CALCIUM 8.6 mg/dL (8.5-10.4); CARBON DIOXIDE 32 mEq/l (22-31); CHLORIDE 93 mEq/L (97-110); CREATININE 0.6 mg/dL (0.6-1.0); GLOMERULAR FILTRATION RATE > 60; GLUCOSE 94 mg/dL (70-100); POTASSIUM 3.5 mEq/L (3.5-5.2); SODIUM 133 mEq/L (134-144)
[2017-03-01] MEDS: IPRATROPIUM HFA INHALER IH SCH ×4 (05:06→22:08)
[2017-03-01] MEDS ORDERED: POTASSIUM CL 20 MEQ TAB PO ONE (08:29)
[2017-03-01] MEDS ORDERED: REGADENOSON 0.4 MG/5 ML SYR IVP ONE (09:51)
[2017-03-01] MEDS: predniSONE 20 MG TAB PO SCH ×2 (10:42→10:46)
[2017-03-01] MEDS: FUROSEMIDE 40 MG/4 ML VIAL IVP SCH (10:43)
[2017-03-01] MEDS: ATENOLOL 50 MG TAB PO SCH ×2 (10:43→21:55)
[2017-03-01] MEDS: CHOLECALCIFEROL VIT D3 1,000 UNITS TAB PO SCH (10:43)
[2017-03-01] MEDS: GABAPENTIN 300 MG CAP PO SCH ×3 (10:43→21:55)
[2017-03-01] MEDS: BUDESONIDE 3 MG EC CAP PO SCH ×3 (10:44→21:55)
[2017-03-01] MEDS: ASPIRIN 81 MG CHEWABLE TAB PO SCH (10:44)
[2017-03-01] MEDS: POTASSIUM CL 20 MEQ TAB PO SCH (10:45)
--- NOTE | 2017-03-01 11:23 | CPR ---
[f rep st] NONINVASIVE CARDIAC PROCEDURE REPORT PROCEDURE: Lexiscan injection of Lexiscan myocardial perfusion imaging study. SUPERVISING FIELD MARKETING SPECIALIST: Erwin Duarte MD. INDICATION FOR PROCEDURE: Elevated troponin, hypoxia, diastolic heart failure. PRE: After obtaining informed consent and assuring the patient's n.p.o. status of caffeine for grea ter than 12 hours, the patient was placed on electrocardiogram, initial EKG showing sinus rhythm, no rmal axis, no acute ST or T-wave abnormalities. The patient denied any chest pain, shortness of jaqueline ath, or symptoms suggesting of ischemia. Initial blood pressure 152/84, saturation 98%. INJECTION: The patient was given Lexiscan slow IV push, followed by nuclear isotope. Patient repor nih no symptoms post injection but was noted to have developed first-degree AV block with MN interva l of 212, no other significant EKG changes, mildly dropping blood pressure down to 126/80 within 1 m inute post injection. Saturation remained stable at 98%. Within 5 minutes, EKG remained unchanged, blood pressure returned back to pre injection at 154/80. The patient remained asymptomatic. No ch est pain or symptoms suggestive of ischemia. Vital signs were stable. IMPRESSION: 66-year-old female, admitted to the hospital with diastolic heart failure, hypoxia, and noted elevated troponins that were on downward decline with no history of chest pain or pressure, u ndergoing Lexiscan myocardial perfusion imaging study for evaluation for cardiac ischemia. Tolerate d Lexiscan injection with no significant changes in electrocardiogram, no symptoms post injection, v ital signs stable. She will finish post-stress myocardial perfusion imaging in nuclear medicine at this time. /[id number]/MODL
--- NOTE | 2017-03-01 13:19 | PDCARPN ---
Cardiology Progress Note Chief Complaint: Patient's major complaint today is ongoing lower back pain at recent surgical incision site. Assessment/Plan: Assessment: 66-year-old female with significant past history that includes hypertension, COPD, osteoporosis and osteoarthritis, Crohn's disease, recent lumbar spine procedure. Admitted 02/27 for confusion lethargy, found to be hypoxic on emergency department admission with initial oxygen saturation of 61%, predicted with oxygen therapy. Patient has been on narcotic therapy for pain management due to recent back surgery. Noted to have elevated BNP on admission of 8610, troponin of 0.341. She has also been suffering from acute hearing loss. Echocardiogram done 02/28/2017 showing normal LV systolic function with EF of 65 % to 70%, RV was mildly dilated, RV systolic function mildly reduced mild aortic valve calcification, mild mitral annular calcification, trace MR mild TR , RVSP was estimated at 44 mm Hg, per Dr. Weems, some diastolic dysfunction was noted. She reports no history of chest pressure or pain. Today, patient reports shortness of breath is in improved. Her weight is down a another 1.5 to 2 kilos, a gross output of 1700 in last 24 hours. Blood pressure more elevated today with systolic blood pressure up to 174 mm Hg, patient denies of any chest pressure, pain, or symptoms suggesting ischemia. MPI study done, results are pending. Patient reports hearing loss improved today. Spoke to Dr. Ponce of hospital services, with consideration of ENT seen patient before discharge. Sodium level improved to 133, chloride of 293. Peripheral edema has improved, jugular vein elevation 4 cm above sternal notch at 45 degree angles. Patient does desaturate when taking off of oxygen therapy down to mid 80s. Plan: 1. Acute on chronic diastolic heart failure: Patient's weight is down close to for have to 5 kilos since started on IV diuresis. Peripheral edema improved. Patient reports improvement in shortness of breath. Lungs with no rales at this time. Will transitioned over to oral Lasix, 40 mg PO BID. Blood pressure elevated today. 2. Hypertension: patient's systolic blood pressure up to 170 mm Hg despite being on IV Lasix, lisinopril, and restarting on home dose of atenolol. Will restart her on Norvasc, but with ongoing diuresis, will start a lower dose, 5 mg p.o. q.day. 3. Acute hypoxia: Noted in setting with narcotic use for pain management post back surgery. improvement oxygen therapy, pulmonary toilet, decrease narcotic intake and diuretic. Will continue on oxygen therapy, potentially patient may need at home oxygen. 4. Hyponatremia: Sodium improved to 133 today, continue monitoring with diuresis. 5. Elevated troponin: Patient reports no chest pain, no wall motion abnormalities noted on echocardiogram. Potentially due to demand ischemia from hypoxia on admission. Patient has been restarted on aspirin therapy in beta-rica. She has underwent a Emi MPI study, with no significant EKG changes with injection. Imaging results pending. 6. Hearing loss: Patient has history of mild hearing loss, but has became significantly worse the on hospital admission. Started on prednisone by hospitalist services, today patient reports mild improvement in hearing. Have discussed with Dr. Ponce. Consideration of ENT consultation. 03/01/17 13:11 Subjective: Patient denies of any chest pressure or pain, reports improvement in dyspnea exertion shortness of breath, denies of any palpitations, lightheadedness, orthopnea, near-syncope, or syncopal Reviewed/Discussed With: family (Patient Son), hospitalist (Dr Ponce), other ( Dr Duarte) Objective: Vital Signs (8 Hrs) Temp Pulse Resp BP Pulse Ox 03/01/17 11:46 67 15 92 03/01/17 11:28 36.7 C 68 14 155/88 H 93 03/01/17 08:00 36.7 C 66 16 174/92 H 91 L Intake/Output (24 Hrs) 02/28/17 03/01/17 03/02/17 05:59 05:59 05:59 Intake Total 620 765 Output Total 3175 2500 400 Balance -2555 -1735 -400 Intake: Oral (ml) 620 765 Output: Urine (ml) 3175 2500 400 Toilet 3175 2500 400 Other: Weight 63.9 kg 58.7 kg Intake Quantity Yes Sufficient Number of Voids Toilet 2 1 Result Diagrams: 03/01/17 03:52 03/01/17 03:52 Cardiac Labs: Cardiac Lab Results (72 Hrs) 02/27/17 02/27/17 18:00 12:54 Troponin I 0.205 H 0.259 H - Physical Exam Constitutional: WDWN, no apparent distress Ears, Nose, Mouth, Throat: moist mucous membranes Cardiovascular: regular rate and rhythm, systolic murmur ( 1/6 along left sternal border.), jugular vein distention ( 4 cm above sternal notch at 45 degree angle), pulses symmetric bilat Peripheral Pulses: 1+: dorsalis-pedis (R), dorsalis-pedis (L), 2+: carotid (R), carotid (L) Respiratory: other ( lungs are clear, but diminished in bases bilateral. No rhonchi, rales, or wheezing noted. No accessary muscle use, no intercostal muscle retraction noted.) Gastrointestinal: normoactive bowel sounds Skin: warm, No no edema ( Trace pedal edema bilateral lower extremities) Neurologic: AAOx3 Psychiatric: cooperative, interactive, following commands ICD10 Worksheet Patient Problems: Problems Problem Status Onset Fusion of spine of lumbar region Acute CHF (congestive heart failure) Acute Somnolence Acute Hypoxemia Acute
[2017-03-01] MEDS: FUROSEMIDE 40 MG TAB PO SCH (16:13)
--- NOTE | 2017-03-01 17:10 | SOAPPROG ---
[facility] Progress Note Assessment/Plan: Assessment: Acute SSNHL AU - audio in clinic showed a severe to profound SNHL AU. Type A tymps. Rec prednisone 6o mg taper over 2 weeks, likely should be on GERD mgmt while on this. I typically recommend taking the full day's dose qam with breakfast. Shoudl f/u with me in 2 weeks for new audio. Also rec MRI IAC w/wo contrast. Should do lab work up including ESR, RPR, VDRL, RA, JANIE, HSP-70 antibody. This would potentially indicate an autoimmune cause for her loss. Also has vascular issues which can contribute. Likely will not find a cause. Call with other questions. Full dictation pending Plan: 03/01/17 17:00 Subjective: seen today, full dictation pending Objective: Vital Signs Temp Pulse Resp BP Pulse Ox 36.8 C 61 16 136/82 H 92 03/01/17 16:00 03/01/17 16:00 03/01/17 16:00 03/01/17 16:00 03/01/17 16:00 Laboratory Results 03/01/17 03:52 03/01/17 03:52 02/28/17 03/01/17 03/02/17 05:59 05:59 05:59 Intake Total 620 765 Output Total 9057 6958 556 Balance -2555 -1735 -400 ICD10 Worksheet Patient Problems: Problems Problem Status Onset CHF (congestive heart failure) Acute Hypoxemia Acute Somnolence Acute Fusion of spine of lumbar region Acute
[2017-03-01] MEDS ORDERED: predniSONE 20 MG TAB PO ONE (18:05)
--- NOTE | 2017-03-01 18:11 | HOSPPROG ---
Hospitalist Progress Note Assessment/Plan: Assessment: 66-year-old female presents with acute hypoxic respiratory failure and acute encephalopathy in the setting of acute diastolic congestive heart failure exacerbation c/b acute bilateral hearing loss Plan: 1. Acute hypoxic respiratory failure. Evidenced by SpO2 of 61% on room air rendering cognitive changes, the setting of shortness of breath, secondary to CHF exacerbation and concomitant narcotic use for back pain -required up to 5 L nasal cannula, currently weaned to 3 L nasal cannula, SpO2 85% on room air challenge today 2. Acute encephalopathy. Evidenced by global brain dysfunction characterized as somnolence for 2 days, which is an acute change from her baseline level of cognitive function, most likely secondary to combination of hypoxia as well as narcotic medications, Robaxin -holding narcotic medications if able -treated hypoxia -currently cognitively intact, using signage board affectively 3. Diastolic congestive heart failure exacerbation. Acute, evidenced by pulmonary edema on chest x-ray, personally interpreted, elevated BNP of 8600, crackles still present on exam, continues to require 2 L nasal cannula oxygen -elevated troponin levels most likely secondary to cardiac strain, placing patient at high risk of worsening morbidity and/or mortality -discussed with Willie Prabhakar from Cardiology, we both agree that she is ready for PO lasix trial, will start w/ 40mg bid -continue monitor daily weights and strict I&Os -net neg 5kg LOS 4. Hypertension. Continue home medications, added back norvasc 5 daily 5. Bilateral hearing loss. Acute, new problem this provider, further workup indicated. Elizabeth, d/w Dr. Solomon, she has confirmed loss on auditory testing in clinic today -get MRI IAC -get rheum labs as this could be related to auto-immune condition (Crohn's on budesonide) -increase to pred 60mg and 2 week taper 6. Hyponatremia. Acute, most likely secondary to renal hypoperfusion in the setting of CHF, continue diuresis and monitor Diet. Cardiac Prophylaxis. High risk patient, Lovenox 40 Code. Do not resuscitate Disposition. ADD 03/02, pending stabilization of above Subjective: reports less SOB w/ ambulation Objective: Vital Signs Temp Pulse Resp BP Pulse Ox 36.8 C 61 16 136/82 H 92 03/01/17 16:00 03/01/17 16:00 03/01/17 16:00 03/01/17 16:00 03/01/17 16:00 Laboratory Results 03/01/17 03:52 03/01/17 03:52 02/28/17 03/01/17 03/02/17 05:59 05:59 05:59 Intake Total 620 765 350 Output Total 3178 4214 400 Balance -2555 -1735 -50 - Physical Exam Constitutional: no apparent distress, not in pain, chronically ill appearing, No uncomfortable Ears, Nose, Mouth, Throat: other (deaf) Cardiovascular: systolic murmur (I/ at RSB), No irregularly irregular, No tachycardia, No edema Respiratory: inspiratory crackles (faint in bases), No reduced air movement, No expiratory wheeze, No bronchial breath sounds Gastrointestinal: normoactive bowel sounds, soft, non-tender abdomen, no palpable masses Neurologic: AAOx3, sensation intact bilaterally, No weakness, No facial droop Psychiatric: interacting appropriately, not anxious, not encephalopathic, thought process linear ICD10 Worksheet Patient Problems: Problems Problem Status Onset CHF (congestive heart failure) Acute Hypoxemia Acute Somnolence Acute Fusion of spine of lumbar region Acute
--- NOTE | 2017-03-01 20:20 | GCON ---
[f rep st] CONSULTATION DATE OF CONSULTATION: 02/27/2017 CHIEF COMPLAINT: Hearing loss. HISTORY OF PRESENT ILLNESS: This is a pleasant 66-year-old woman, who has a history of COPD, former tobacco abuse, and recent spinal fusion surgery, who presented on Tuesday with some somnolence and what sounds like hearing loss since waking up on Tuesday. Her son states that she went to bed Tuesday night and when he woke her up on Tuesday, she seemed somewhat confused and could not really hear her. They brought her to the ER and she was somewhat short of breath as well as slightly incoherent. She had low oxygen saturation of 61% on the day of admission, and it was corrected with 3-5 L of oxygen by nasal cannula up to the mid s. She is currently being worked up for potential CHF. She also had an elevated troponin and has been working with RT. From my standpoint, it sounds like she had some hearing loss initially when she woke up. Her son states that she might have had a little bit of mild hearing loss prior to this, but nothing like she has right now. She was started on 40 mg of prednisone on Tuesday and has had 2 doses, and they state that it may be a little bit better today but it is still significantly worse than it has been in the past. She denies any vertigo. She denies any true constant tinnitus but does state that she has a little bit of sound in her ears intermittently. She also complains of a fullness or pressure on both sides like she needs to get them unplugged. She has not had any recent colds. No head trauma, recent falls , or other significant events. She did have spinal fusion surgery about a month ago. She also has a history of rheumatoid arthritis as well as Crohn disease, COPD, and hypertension. SOCIAL HISTORY: She quit smoking 3 months ago prior to her spinal surgery. PHYSICAL EXAM: AFVSS GENERAL: She is awake, alert, in no apparent distress. She is having obvious difficulty hearing and most of the communication is via a white board, which we can write on. HEENT: Exam of the ear canal shows a clear ear canal bilaterally with an intact TM and no overt middle ear effusion. Nose is clear, although has a lot of crusting and dryness. She has a nasal cannula in place. Tongue is mobile and midline. Palate elevates symmetrically. She has had a previous tonsillectomy. NECK: No lymphadenopathy or masses. NEUROLOGIC: Shows cranial nerves 2-12 that are grossly intact, House-Brackmann grade 1 bilaterally and symmetric, and sensation intact bilaterally as well. Eyes show pupils that are equal, round, and reactive to light. Extraocular movements are intact bilaterally. RESPIRATORY: She is saturating in the mid 90s on nasal cannula. AUDIO: Severe to profound SNHL AU, asymmetry, wosre on the L. WRS poor R, CNT L. Type A tymps. ASSESSMENT AND PLAN: This is a patient with a slightly odd history of some somnolence and acute hypoxic respiratory failure and an acute loss of hearing bilaterally. I explained to the patient that it is not uncommon to have a sudden sensorineural hearing loss on 1 side, but it is significantly uncommon to have it on both sides. Sometimes, this can be related to an autoimmune issue and per her report she does have rheumatoid arthritis, so potentially this could be related. Either way, the treatment would be to start with a 60 mg dose of prednisone and taper this down over 2 weeks. I would like to repeat her hearing test 2 weeks from today. She was able to come over the clinic today for a hearing test and this showed a severe hearing loss on the right and a fyfsma-na-yojiwjgn hearing loss on the left side. She had type A tympanograms bilaterally and word recognition score was 4% on the right and it was not able to be tested on the left. Although, when I talked to her through the headphone, she was able to understand me more than I would expect. Speech awareness threshold was 65 dB for the right and 70 for the left. I also think that doing some other lab workup would be beneficial as well as doing an MRI of her internal auditory canals. Lab workup should include a full autoimmune panel , rheumatoid factor, JANIE, CRP and ESR, and HSP-70. I also think she needs the MRI of the IACs with and without contrast, prior to going home if possible. At this point, if there is no other overt or significant changes, she is welcome to go home from my standpoint with the steroids. She was given our card to follow up with me in 2 weeks as well as to get a hearing test at the same time. Thank you for the consultation and call if you have any other questions. /[id number]/MODL MTDD
[2017-03-01] MEDS ORDERED: GADOBUTROL 10 ML VIAL IVP ONE (20:32)
[2017-03-01] MEDS: RALOXIFENE HCL 60 MG TAB PO SCH (21:55)
[2017-03-01] MEDS: LISINOPRIL 40 MG TAB PO SCH (21:55)
[2017-03-01] MEDS: traZODone 50 MG TAB PO SCH (21:55)
[2017-03-02 05:04] LABS: % IMMATURE GRANULYOCYTES 0.6 % (0.0-1.1); ABSOLUTE IMMATURE GRANULOCYTES 0.04 10^3/uL (0.00-0.10); ADD DIFF? NO; ADD MORPH? NO; ADD SCAN? NO; ATYPICAL LYMPHOCYTE FLAG 20 (0-99); FRAGMENT RBC FLAG 0 (0-99); HEMATOCRIT 37.5 % (38.0-47.0); HEMOGLOBIN 12.2 g/dL (12.6-16.3); LEFT SHIFT FLG 0 (0-99); LIPEMIA HEMOLYSIS FLAG 80 (0-99); MEAN CELL HEMOGLOBIN 31.1 pg (27.9-34.1); MEAN CELL HEMOGLOBIN CONCENTR. 32.5 g/dL (32.4-36.7); MEAN CELL VOLUME 95.7 fL (81.5-99.8); MEAN PLATELET VOLUME 9.7 fL (8.7-11.7); PLATELET CLUMPS FLAG 0 (0-99); PLATELET COUNT 314 10^3/uL (150-400); RED BLOOD CELL COUNT 3.92 10^6/uL (4.18-5.33)
[2017-03-02 05:17] LABS: ANION GAP 11 mEq/L (8-16); CALCIUM 8.7 mg/dL (8.5-10.4); CARBON DIOXIDE 31 mEq/l (22-31); CHLORIDE 94 mEq/L (97-110); CREATININE 0.7 mg/dL (0.6-1.0); GLOMERULAR FILTRATION RATE > 60; GLUCOSE 103 mg/dL (70-100); POTASSIUM 4.2 mEq/L (3.5-5.2); SODIUM 136 mEq/L (134-144)
[2017-03-02] MEDS: IPRATROPIUM HFA INHALER IH SCH ×2 (05:27→11:52)
[2017-03-02] MEDS: BUDESONIDE 3 MG EC CAP PO SCH (07:38)
[2017-03-02] MEDS: ATENOLOL 50 MG TAB PO SCH (07:39)
[2017-03-02] MEDS: GABAPENTIN 300 MG CAP PO SCH (07:39)
[2017-03-02] MEDS: POTASSIUM CL 20 MEQ TAB PO SCH (07:39)
[2017-03-02] MEDS: FUROSEMIDE 40 MG TAB PO SCH (07:39)
[2017-03-02] MEDS: ASPIRIN 81 MG CHEWABLE TAB PO SCH (07:40)
[2017-03-02] MEDS: CHOLECALCIFEROL VIT D3 1,000 UNITS TAB PO SCH (07:40)
[2017-03-02] MEDS ORDERED: amLODIPine BESYLATE 5 MG TAB PO SCH (09:00)
[2017-03-02] MEDS ORDERED: predniSONE 20 MG TAB PO SCH (09:00)
[2017-03-02 09:18] VITALS: BP 172/87; TEMP 98.3
--- NOTE | 2017-03-02 11:46 | PDHOMEO2F ---
Home Oxygen Face to Face Home Orders: I certify that a physician or a nurse practitioner or physician's assistant pastry chef has had a [id number] encounter with this patient on the date of this order due to the diagnosis listed, which relates to the primary reason the patient requires home oxygen. Alternative treatments have been tried, or considered, and deemed ineffective. It is anticipated that supplemental oxygen will result in improvement with treatment. Home oxygen qualifying diagnosis: Diastolic Congestive Heart Failure SpO2 on room air (%): 82% Frequency of home oxygen needed: continuous Home oxygen liters per minute: 3 Home oxygen delivery device: nasal cannula Concentrator: Yes E-tanks for mobility and back up: Yes If ordering portable O2, is the patient mobile in the home?: Yes I certify that, based on these findings, the home oxygen is medically necessary for this patient for the following length of time. Length of time home oxygen needed: 1 month
[2017-03-02 11:51] VITALS: PULSE 62; RESP 15; O2SAT 84
--- NOTE | 2017-03-02 11:57 | PDIAF ---
- Diagnosis Diagnosis: Diastolic CHF, Bilateral Hearing Loss Code Status: Do Not Resuscitate - Medication Management Discharge Medications: Medications to Continue on Transfer Atenolol [Tenormin 50 mg (*)] 75 mg PO BID 01/05/17 [Last Taken 01/20/17 04:00] Budesonide [Budesonide EC] 3 mg PO TID 01/05/17 [Last Taken 01/19/17] Cholecalciferol Vit D3 [Vitamin D3 (*)] 500 units PO DAILY 01/05/17 [Last Taken 01/19/17] Gabapentin [Neurontin 300 MG (*)] 600 mg PO TID 01/05/17 [Last Taken 01/19/17] Herbals/Supplements -Info Only 1 each PO DAILY 01/05/17 [Last Taken 01/19/17] Lisinopril [Zestril 40 mg (*)] 40 mg PO HS 01/05/17 [Last Taken 01/18/17] Pantoprazole Sodium [Protonix 40mg (*)] 40 mg PO DAILY PRN 01/05/17 [Last Taken 01/19/17] Raloxifene HCl [Evista] 60 mg PO HS 01/05/17 [Last Taken 01/19/17] Ipratropium [Atrovent Hfa (*)] 2 puffs IH QID 01/20/17 [Last Taken 01/20/17] Loperamide HCl [Imodium 2 mg (*)] 2 - 4 mg PO DAILY PRN 01/20/17 [Last Taken Unknown] Albuterol [Proventil Inhaler HFA (*)] 1 - 2 puffs IH Q4H PRN 01/23/17 [Last Taken Unknown] Etodolac [ETODOLAC] 500 mg PO BIDMEAL 01/27/17 [Last Taken Unknown] Methocarbamol [Robaxin 750 mg (*)] 750 mg PO TID PRN #60 tab 01/28/17 [Last Taken Unknown] traZODone [traZODONE 50MG (*)] 50 mg PO HS 02/27/17 [Last Taken Unknown] Acetaminophen [Tylenol 325mg (*)] 650 mg PO Q4HRS PRN #0 tab 03/02/17 [Last Taken Unknown] Aspirin [Aspirin 81mg (*)] 81 mg PO DAILY #30 tab.chew 03/02/17 [Last Taken Unknown] Furosemide [Lasix 40 MG (*)] 40 mg PO BID@0900,1500 #60 tab 03/02/17 [Last Taken Unknown] Potassium Cl [Klor-Con 10 meq (RX)] 10 meq PO DAILY #30 tab 03/02/17 [Last Taken Unknown] amLODIPine BESYLATE [Norvasc 5 mg (*)] 5 mg PO DAILY #30 tab 03/02/17 [Last Taken Unknown] oxyCODONE IR [Oxycodone Ir (*)] 5 mg PO Q4HRS PRN #60 tab 03/02/17 [Last Taken Unknown] predniSONE 60 mg PO DAILY #30 tablet 03/02/17 [Last Taken Unknown] Storyboard Artist Antibiotics: NA Discharge Medications: Refer to the Discharge Home Medication list for PRN reason. PICC Care - Routine: N/A - Orders Services needed: Home Care, Registered Nurse Home Care Face to Face: I certify that this patient was under my care and that I had the required [id number] encounter meeting the encounter requirements on the discharge day. My findings support the fact that the patient is homebound as defined in CMS Chapter 7 Medicare Benefits Manual 30.1.1, The condition of the patient is such that there exists a normal inability to leave home and consequently, leaving home would require a considerable and taxing effort. Oxygen: 3LPM Diet Recommendation: cardiac -low fat low salt Weigh Patient: daily Lozano: Not applicable Activity/Weight Bearing Restrictions: as tolerated - Labs/Radiology BMP Date: 03/07/17 Call or Fax Lab and Imaging Results to: Dr. Duarte - Follow Up Care Current Providers and Referrals: Benita Redman PA [Primary Care Provider] - As per Instructions Erwin Duarte MD [Medical Doctor] - 3-5 days (please contact for follow-up appointment )
--- NOTE | 2017-03-02 12:06 | PDDCSUM ---
Discharge Summary Discharge Summary: DISCHARGE SUMMARY FOLLOW-UP ITEMS: Repeat creatinine BUN and lytes on Tuesday Rheumatologic labs pending at time of discharge DATE OF ADMISSION: 02/27/2017 DATE OF DISCHARGE: 03/02/2017 DISCHARGE DIAGNOSES: 1. Acute hypoxic respiratory failure 2. Acute encephalopathy 3. Acute diastolic congestive heart failure exacerbation 4. Chronic hypertension 5. Bilateral acute hearing loss 6. Acute hyponatremia CONSULTATIONS: Cardiology, ear nose and throat by Dr. Solomon PROCEDURES / IMAGING: Nuclear medicine stress test demonstrating no evidence of ischemia, MRI demonstrating no evidence of inner ear malignancy CHIEF COMPLAINT: Acute encephalopathy, somnolent SUBJECTIVE: Patient is feeling well at time of discharge, she continues to have difficulty hearing PHYSICAL EXAM ON DISCHARGE: Systolic blood pressure is 120-170, heart rate 60, satting 82% on room air, response 3 L nasal cannula, net even overnight but net-5.5 kg length of stay, no inspiratory crackles in the bilateral bases, no lower extremity edema, patient continues to have significant bilateral deafness, she is able to read and respond verbally appropriately LABS ON DISCHARGE: Creatinine 0.7, potassium 4.2, serum sodium 136, white blood count 7100, hemoglobin 12.2 HOSPITAL COURSE BY PROBLEM: 1. Acute hypoxic respiratory failure. Evidenced by SpO2 of 61% on room air rendering cognitive changes, shortness of breath, secondary to CHF exacerbation and concomitant narcotic use for back pain. She required up to 5 L nasal cannula and was able to be weaned to 3 L nasal cannula prior to discharge. She will require ongoing supplemental oxygen at discharge, reassessment the outpatient setting. 2. Acute encephalopathy. Evidenced by global brain dysfunction characterized as somnolence for 2 days, which was an acute change from her baseline level of cognitive functioning, most likely secondary to a combination of hypoxia as well as narcotic medications and Robaxin. The patient's hypoxia was treated appropriately and her cognitive status improved after treatment. She did receive oxycodone and Robaxin during this hospitalization for symptomatic control of her back pain, and did not experience recurrent encephalopathy. She will continue using his medications at home as needed, but I have recommended dose reduction in the oxycodone 5 mg q.4 hours as needed. 3. Acute diastolic congestive heart failure exacerbation. Evidenced by pulmonary edema on chest x-ray with an elevated BNP of 8600, diastolic dysfunction on echo, and no evidence of myocardial ischemia on nuclear medicine stress test. Her troponin level was elevated on presentation, rendering her high risk for morbidity and/or worsening mortality. Consequently, a low-dose aspirin was recommended and will be continued for CAD prevention. Will utilize IV Lasix for diuresis, we transitioned her to oral Lasix 40 mg twice daily prior to discharge, to ensure that she could remain net even on this dosage. This is an increase from her previous home dosage of 20 mg twice daily. She will be discharged home on 40 twice daily with supplemental potassium 4. Chronic hypertension. Reduced patient's home antihypertensive medications while she is being actively diuresed, resumed them but with Norvasc at a lower dosage, notably 5 mg daily. 5. Bilateral acute hearing loss. Patient was seen in consultation by Ear Nose and Throat physician Dr. Socorro Solomon, and she underwent auditory testing in the clinic which confirmed bilateral deficits. She also had an MRI performed which demonstrated no intra auditory canal pathology. She also had inflammatory lab sent which were pending at time of discharge. Is unclear whether patient's condition is related to her autoimmune condition of Crohn's disease. Dr. Socorro Solomon recommended steroid burst and taper with 60 mg daily tapered over 2 weeks. The patient will follow up in their clinic in 2 weeks for reassessment. The patient is currently interacting well with a writing board DISCHARGE MEDICATIONS: Please see official discharge medication reconciliation sheet in chart , prednisone 60 mg taper over 2 weeks, Lasix 40 mg twice daily, potassium chloride 10 mEq daily, reduction in amlodipine to 5 mg daily. DISCHARGE INSTRUCTIONS: Please follow up with [facility] next week and have labs performed prior to clinic appointment, please follow up with Dr. Socorro Solomon in 2 weeks. TIME SPENT: Greater than 30 minutes were spent on direct patient care, as well as discharge planning and preparation.
--- NOTE | 2017-03-02 12:09 | PDIAF ---
- Diagnosis Diagnosis: Diastolic CHF, Bilateral Hearing Loss Code Status: Do Not Resuscitate - Medication Management Discharge Medications: Medications to Continue on Transfer Atenolol [Tenormin 50 mg (*)] 75 mg PO BID 01/05/17 [Last Taken 01/20/17 04:00] Budesonide [Budesonide EC] 3 mg PO TID 01/05/17 [Last Taken 01/19/17] Cholecalciferol Vit D3 [Vitamin D3 (*)] 500 units PO DAILY 01/05/17 [Last Taken 01/19/17] Gabapentin [Neurontin 300 MG (*)] 600 mg PO TID 01/05/17 [Last Taken 01/19/17] Herbals/Supplements -Info Only 1 each PO DAILY 01/05/17 [Last Taken 01/19/17] Lisinopril [Zestril 40 mg (*)] 40 mg PO HS 01/05/17 [Last Taken 01/18/17] Pantoprazole Sodium [Protonix 40mg (*)] 40 mg PO DAILY PRN 01/05/17 [Last Taken 01/19/17] Raloxifene HCl [Evista] 60 mg PO HS 01/05/17 [Last Taken 01/19/17] Ipratropium [Atrovent Hfa (*)] 2 puffs IH QID 01/20/17 [Last Taken 01/20/17] Loperamide HCl [Imodium 2 mg (*)] 2 - 4 mg PO DAILY PRN 01/20/17 [Last Taken Unknown] Albuterol [Proventil Inhaler HFA (*)] 1 - 2 puffs IH Q4H PRN 01/23/17 [Last Taken Unknown] Etodolac [ETODOLAC] 500 mg PO BIDMEAL 01/27/17 [Last Taken Unknown] Methocarbamol [Robaxin 750 mg (*)] 750 mg PO TID PRN #60 tab 01/28/17 [Last Taken Unknown] traZODone [traZODONE 50MG (*)] 50 mg PO HS 02/27/17 [Last Taken Unknown] Acetaminophen [Tylenol 325mg (*)] 650 mg PO Q4HRS PRN #0 tab 03/02/17 [Last Taken Unknown] Aspirin [Aspirin 81mg (*)] 81 mg PO DAILY #30 tab.chew 03/02/17 [Last Taken Unknown] Furosemide [Lasix 40 MG (*)] 40 mg PO BID@0900,1500 #60 tab 03/02/17 [Last Taken Unknown] Potassium Cl [Klor-Con 10 meq (RX)] 10 meq PO DAILY #30 tab 03/02/17 [Last Taken Unknown] amLODIPine BESYLATE [Norvasc 5 mg (*)] 5 mg PO DAILY #30 tab 03/02/17 [Last Taken Unknown] oxyCODONE IR [Oxycodone Ir (*)] 5 mg PO Q4HRS PRN #60 tab 03/02/17 [Last Taken Unknown] predniSONE 60 mg PO DAILY #30 tablet 03/02/17 [Last Taken Unknown] Dining Car Steward Antibiotics: NA Discharge Medications: Refer to the Discharge Home Medication list for PRN reason. PICC Care - Routine: N/A - Orders Services needed: Home Care, Registered Nurse Home Care Face to Face: I certify that this patient was under my care and that I had the required [id number] encounter meeting the encounter requirements on the discharge day. My findings support the fact that the patient is homebound as defined in CMS Chapter 7 Medicare Benefits Manual 30.1.1, The condition of the patient is such that there exists a normal inability to leave home and consequently, leaving home would require a considerable and taxing effort. Oxygen: 3LPM Diet Recommendation: cardiac -low fat low salt Weigh Patient: daily Lozano: Not applicable Activity/Weight Bearing Restrictions: as tolerated - Labs/Radiology BMP Date: 03/07/17 Call or Fax Lab and Imaging Results to: Dr. Duarte - Follow Up Care Current Providers and Referrals: Benita Redman PA [Primary Care Provider] - As per Instructions Erwin Duarte MD [Medical Doctor] - (Follow up With Janee ARAMBULA on 2016 at 3 pm) Socorro Solomon MD [Medical Doctor] - follow up in 2 weeks
== END 2017-03-02 13:23 | disposition home health service (06) | DRG 291 ==
LOC: F2W 09:36
PROVIDERS: ADMIT Family Medicine; ATTEND Internal Medicine
DX: I11.0 Hypertensive heart disease with heart failure (principal); I50.33 Acute on chronic diastolic (congestive) heart failure; J96.01 Acute respiratory failure with hypoxia; G93.49 Other encephalopathy; E87.1 Hypo-osmolality and hyponatremia; H91.93 Unspecified hearing loss, bilateral; T40.605A Adverse effect of unspecified narcotics, initial encounter; T48.4X5A Adverse effect of expectorants, initial encounter; J44.9 Chronic obstructive pulmonary disease, unspecified; M81.0 Age-related osteoporosis without current pathological fracture; Z98.1 Arthrodesis status; Z87.891 Personal history of nicotine dependence
CPT/HCPCS: A9500; A9585; J1940; J2785

== ENCOUNTER → 2017-05-10 | Outpatient (CLI) | payer OTHER | LOC: FIMAGING 12:35 | PROVIDERS: ATTEND Physician Assistant Surgical | DX: Z98.1 Arthrodesis status (principal) ==

== ENCOUNTER → 2018-03-02 | Outpatient (CLI) | payer OTHER | LOC: FIMAGING 14:00 | PROVIDERS: ATTEND Physician Assistant | DX: J40 Bronchitis, not specified as acute or chronic (principal); J32.9 Chronic sinusitis, unspecified; L08.9 Local infection of the skin and subcutaneous tissue, unspecified ==

== ENCOUNTER → 2018-05-24 | Outpatient (CLI) | payer OTHER | LOC: CIMAGING 12:47 | PROVIDERS: ATTEND Physician Assistant Surgical | DX: R60.0 Localized edema (principal); L97.821 Non-pressure chronic ulcer of other part of left lower leg limited to breakdown of skin | CPT/HCPCS: 93971-PO ==

== ENCOUNTER 2018-07-06 10:42 | Inpatient (IN) | payer OTHER ==
[2018-07-06] MEDS ORDERED: ONDANSETRON 4 MG/2 ML VIAL IVP PRN ×2 (11:08→18:23)
--- NOTE | 2018-07-06 11:18 | PDGENHP ---
History and Physical History and Physical: CC: Sent for admission from the wound Care Clinic by Dr. Lopes because of failure to heal bilateral leg wounds after ongoing care at wound clinic HISTORY: This patient had apparently a fall in February of this year sustaining some skin wounds to both legs. Since that time she has had open ulcerated wounds and has been working with doctors Franck and Moses at the Wound Care Clinic on a regular basis. Despite this she has been having worsening trouble with the wounds which are not healing. For this reason she is sent to the hospital today for admission for ongoing inpatient wound care. She at 1 point was felt to possibly have infection in these wounds and was treated with some antibiotic but she is not on antibiotic at this time. She is not having any fever symptoms and does not notice significant drainage from the wounds. The wounds however quite painful. Because of ongoing pain with these wounds this staff the wound care clinic have prescribed her oxycodone 5 mg to use every 4 hr. She has used these intermittently but has used up her last oxycodone as of yesterday. She has not had any pain medicine since yesterday afternoon and is feeling quite a bit of pain right now. She does have chronic heart and lung issues but has not noticed significant swelling in the legs lately. ROS: Some chronic bowel symptoms are very mild from her Crohn's disease. A comprehensive 10 system review revealed no other significant findings PAST MEDICAL HISTORY: COPD Hypertension Chronic leg wounds Left ankle bone surgery with bone graft and chronic hardware in place CHF Chronic pain Crohn's disease on active therapy with budesonide GERD Uterine cancer Spinal stenosis Hyponatremia Osteoarthritis Tobacco dependence Cholecystectomy Hysterectomy Spine surgery FAMILY MEDICAL HISTORY: No relevant illnesses and relatives that she is aware of SOCIAL HISTORY: Single Former smoker quit in 2017 Minimal alcohol MEDICATIONS: The patients list has been reconciled by our clinical pharmacist in the EMR. I have reviewed the list and ordered appropriate medicines. 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: Examination: General: alert, oriented, good mentation, relaxed Skin: warm, dry, good color, no rash HEENT: normal Neck: no mass or jvd Resps: relaxed Lungs: clear breath sounds Heart: regular, no murmur Abdomen: soft, nondistended, nontender, +BS, no mass Upper Extremities: normal Lower Extremities: no edema, warm No Bleeding or bruising Neurologic: normal speech/language, normal supervisor fitting, no focal weakness IV site: looks normal LABORATORY DATA: I have ordered CBC and chemistry but they are currently pending RADIOLOGY STUDIES: None at this time She did about 6 weeks ago have a Doppler ultrasound of legs with no DVT ASSESSMENT: * ongoing chronic bilateral leg wounds nonhealing in the outpatient setting despite regular care at outpatient wound care clinic * uncontrolled hypertension * I suspect this may be due to uncontrolled pain as she ran out of her oxycodone yesterday and has not taken any pain medicine today * Will treat her pain 1st and see where her blood pressure ends up but may need further blood pressure medication * ongoing intermittent tobacco abuse after formally quitting cigarettes * Cigarettes will clearly aggravate her difficulties healing these wounds and I have reviewed this with her in detail today * Tobacco cessation counseling will need to be ongoing * COPD currently stable * Chronic CHF appears currently stable * chronic Crohn's disease on therapy * chronic pain syndrome * history of uterine cancer PLANS: * Inpatient admission for wound care * Wound care will be directed by Dr. Lopes and the wound care nurses * Resume her oxycodone at this time follow her pain response and her blood pressure response; adjust treatment for these as indicated * Continue her usual medicines for COPD, CHF, Crohn's disease * DVT prophylaxis measures ordered * Tobacco cessation counseling I have reviewed the patient's case in detail with Dawn Bergman of the wound care nursing service I have reviewed the patient's past medical records as part of this assessment, including previous hospital admission records, outpatient wound care records, outpatient imaging
[2018-07-06] MEDS ORDERED: PANTOPRAZOLE SODIUM 40 MG TAB PO PRN (12:36)
[2018-07-06] MEDS ORDERED: ALBUTEROL 60 PUFFS/8 GM MDI IH PRN (12:36)
[2018-07-06] MEDS ORDERED: IPRATROPIUM HFA INHALER IH PRN (12:36)
[2018-07-06] MEDS ORDERED: LOPERAMIDE HCL 2 MG CAP PO PRN (12:36)
[2018-07-06 12:56] LABS: PLATELET COUNT 471 10^3/uL (150-400)
[2018-07-06] MEDS: traMADol 50 MG TAB PO PRN ×2 (12:58→23:44)
[2018-07-06] MEDS: METHOCARBAMOL 750 MG TAB PO PRN (12:58)
[2018-07-06] MEDS: predniSONE 20 MG TAB PO SCH (13:55)
--- NOTE | 2018-07-06 14:08 | WOCRNPDOC ---
JOEL Advanced Assessment Note - Skin Integrity Problem, Advanced Assess Left Lower Lateral Leg Dressing Type: ABD Pad, Steve, Mepitel Dressing Description: Clean/Dry, Intact Exudate Amount: Minimal Exudate Characteristic(s): Serosanguinous Integumentary Issue Intervention: Dressing Changed Stacia Wound Tissue: Erythema, Painful/Tender Wound Bed Color: Brown, Yellow Wound Bed Constitution: Adhered Slough (100%), Loose Slough Wound Edges: Irregular Site Odor: Moderate, Musky, Pungent Site Measurement - Head-to-Toe Length X Width X Depth (cm): 5x6x0.3 Skin Integrity Problem Comment: Cleaned with ns and gauze. Attempted to touch wound bed with q tip but patient could not tolerate any manipulation. Wound bed is a mix of loose and adhered slough. Left mepitel on wound. Covered mepitel with moist gauze and wrapped with kerlix. Foot and ankle have some erythema which patient reports is normal for her. Left Posterior Lower Leg Dressing Type: ABD Pad, Steve, Mepitel Dressing Description: Clean/Dry, Intact Exudate Amount: Minimal Exudate Characteristic(s): Serosanguinous Integumentary Issue Intervention: Dressing Changed Stacia Wound Tissue: Erythema, Painful/Tender Wound Bed Color: Brown, Yellow Wound Bed Constitution: Adhered Slough (100%), Loose Slough Wound Edges: Irregular Site Odor: Moderate, Musky, Pungent Site Measurement - Head-to-Toe Length X Width X Depth (cm): 6.4x6.1x0.3 Right Lower Medial Leg Dressing Type: ABD Pad, Steve, Mepitel Dressing Description: Clean/Dry, Intact Exudate Amount: Minimal Exudate Characteristic(s): Serosanguinous Integumentary Issue Intervention: Dressing Changed Stacia Wound Tissue: Erythema, Painful/Tender Wound Bed Color: Brown, Yellow Wound Bed Constitution: Adhered Slough (100%), Loose Slough Wound Edges: Irregular, Thick Site Odor: Moderate, Musky, Pungent Site Measurement - Head-to-Toe Length X Width X Depth (cm): 6.8x5.4x0.5 Skin Integrity Problem Comment: Deep full thickness wound. Tendon may be exposed when necrosis is removed. Wound is exquisitely painful and no manipulation can be tolerated by patient. Patient is tearful and expresses "I will do anything to fix these wounds. I cant live like this anymore". Wounds need debridement, but patient cannot tolerate bedside debridement. Enzymatic debridement will take too long as the wounds are large and 100% slough. Biologic debridement is an option, and patient is in accord with this, but would prolong patient's stay. There is too much slough for autolytic debridement. Recommend surgical debridement with possible vac placement. Will discuss with Dr. Lopes. Education completed with patient about wound vac. Written education provided as well. Patient verbaizes understanding. Wound care will follow.
--- NOTE | 2018-07-06 15:36 | PDGENHP ---
History and Physical - Chief Complaint BLE ulcers - History of Present Illness Patient well known to me from [facility]. Briefly, has been treated for some time now for BLE injuries. Initially were small and over time have actually gotten larger. Since treating her, I have taken biopsies which were largely under- whelming and have had her on high dose steroids. She comes into the [facility] today c/ o more pain, R>L. Denies fevers but clearly is worse despite the wounds actually looking better. History Information - Allergies/Home Medication List Allergies/Adverse Reactions: adalimumab [From Humira] Allergy (Verified 07/06/18 14:41) Dyspnea varenicline [From Chantix] Allergy (Verified 07/06/18 14:41) Home Medications: Atenolol [Tenormin 50 mg (*)] 75 mg PO BID 01/05/17 [Last Taken 07/06/18] Budesonide [Budesonide EC] 3 mg PO TID 01/05/17 [Last Taken 07/06/18] Cholecalciferol Vit D3 [Vitamin D3 (*)] 1,000 units PO DAILY 01/05/17 [Last Taken 07/06/18] Gabapentin [Neurontin 300 MG (*)] 600 mg PO TID 01/05/17 [Last Taken 07/06/18] Herbals/Supplements -Info Only 1 each PO DAILY 01/05/17 [Last Taken 01/19/17] Lisinopril [Zestril 40 mg (*)] 40 mg PO HS 01/05/17 [Last Taken 07/05/18] Pantoprazole Sodium [Protonix 40mg (*)] 40 mg PO DAILY PRN 01/05/17 [Last Taken 01/19/17] Raloxifene HCl [Evista] 60 mg PO SA 01/05/17 [Last Taken 2 Weeks Ago ~06/22/18] Ipratropium [Atrovent Hfa (*)] 2 puffs IH QID PRN 01/20/17 [Last Taken 01/20/17] Loperamide HCl [Imodium 2 mg (*)] 2 - 4 mg PO DAILY PRN 01/20/17 [Last Taken Unknown] Albuterol [Proventil Inhaler HFA (*)] 1 - 2 puffs IH Q4H PRN 01/23/17 [Last Taken 07/06/18] Etodolac [ETODOLAC] 500 mg PO BIDMEAL 01/27/17 [Last Taken 07/06/18] traZODone [traZODONE 50MG (*)] 75 mg PO HS 02/27/17 [Last Taken 07/05/18] Aspirin [Aspirin 81mg (*)] 81 mg PO HS 07/06/18 [Last Taken 07/05/18] predniSONE 40 mg PO DAILY 07/06/18 [Last Taken 07/05/18] I have personally reviewed and updated: family history, medical history, social history, surgical history Past Medical History: Crohns, 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 - Social History Smoking Status: Current some day smoker Review of Systems Review of Systems: ROS: 10pt was reviewed & negative except for what was stated in HPI & below Physical Exam Physical Exam: Temp Pulse Resp BP Pulse Ox 36.8 C 65 18 180/99 H 91 L 07/06/18 15:23 07/06/18 15:23 07/06/18 15:23 07/06/18 15:23 07/06/18 15:23 Constitutional: appears nourished, not in pain, uncomfortable Eyes: PERRL, anicteric sclera, EOMI Ears, Nose, Mouth, Throat: moist mucous membranes, hearing normal, ears appear normal, no oral mucosal ulcers Cardiovascular: regular rate and rhythym, no murmur, rub, or gallop, No edema Respiratory: no respiratory distress, no rales or rhonchi, clear to auscultation Gastrointestinal: normoactive bowel sounds, soft, non-tender abdomen, no palpable masses Genitourinary: no bladder fullness, no bladder tenderness Skin: other (has ulcers on both lower extremities. Actually has posterior wound on the right along with anterior. Minimal surrounding erythema. ), No mottled Musculoskeletal: full muscle strength, no muscle tenderness, normal joint ROM, no joint effusions Psychiatric: interacting appropriately, not anxious, not encephalopathic, thought process linear Lymph, Heme, Immunologic: no cervical LAD, no supraclavicular LAD Lab Data & Imaging Review 07/06/18 12:42 07/06/18 12:42 WBC 25.92 10^3/uL (3.80-9.50) H 07/06/18 12:42 RBC 4.61 10^6/uL (4.18-5.33) 07/06/18 12:42 Hgb 14.4 g/dL (12.6-16.3) 07/06/18 12:42 Hct 41.3 % (38.0-47.0) 07/06/18 12:42 MCV 89.6 fL (81.5-99.8) 07/06/18 12:42 MCH 31.2 pg (27.9-34.1) 07/06/18 12:42 MCHC 34.9 g/dL (32.4-36.7) 07/06/18 12:42 RDW 14.0 % (11.5-15.2) 07/06/18 12:42 Plt Count 471 10^3/uL (150-400) H 07/06/18 12:42 MPV 8.7 fL (8.7-11.7) 07/06/18 12:42 Neut % (Auto) 82.2 % (39.3-74.2) H 07/06/18 12:42 Lymph % (Auto) 11.4 % (15.0-45.0) L 07/06/18 12:42 Schley % (Auto) 5.5 % (4.5-13.0) 07/06/18 12:42 Eos % (Auto) 0.0 % (0.6-7.6) L 07/06/18 12:42 Baso % (Auto) 0.1 % (0.3-1.7) L 07/06/18 12:42 Nucleat RBC Rel Count 0.0 % (0.0-0.2) 07/06/18 12:42 Absolute Neuts (auto) 21.31 10^3/uL (1.70-6.50) H 07/06/18 12:42 Absolute Lymphs (auto) 2.95 10^3/uL (1.00-3.00) 07/06/18 12:42 Absolute Monos (auto) 1.43 10^3/uL (0.30-0.80) H 07/06/18 12:42 Absolute Eos (auto) 0.00 10^3/uL (0.03-0.40) L 07/06/18 12:42 Absolute Basos (auto) 0.03 10^3/uL (0.02-0.10) 07/06/18 12:42 Absolute Nucleated RBC 0.00 10^3/uL (0-0.01) 07/06/18 12:42 Immature Gran % 0.8 % (0.0-1.1) 07/06/18 12:42 Immature Gran # 0.21 10^3/uL (0.00-0.10) H 07/06/18 12:42 RBC/WBC/PLT Morphology TNP 07/06/18 12:42 Platelet Estimate TNP 07/06/18 12:42 Sodium 128 mEq/L (135-145) L 07/06/18 12:42 Potassium 3.9 mEq/L (3.5-5.2) 07/06/18 12:42 Chloride 92 mEq/L (97-110) L 07/06/18 12:42 Carbon Dioxide 27 mEq/l (22-31) 07/06/18 12:42 Anion Gap 9 mEq/L (6-14) 07/06/18 12:42 BUN 15 mg/dL (7-23) 07/06/18 12:42 Creatinine 0.7 mg/dL (0.6-1.0) 07/06/18 12:42 Estimated GFR > 60 07/06/18 12:42 Glucose 81 mg/dL (70-100) 07/06/18 12:42 Calcium 9.0 mg/dL (8.5-10.4) 07/06/18 12:42 Assessment & Plan Assessment: BLE ulcers, pain Plan: patient really wont tolerate much in the clinic. Every dressing we have applied she has taken off for some reason or another and she cannot tolerate any compression which I think would help immensely. Plan will be for admission, continue steroids, start abx. Will likely need OR for debridement as she cant really tolerate anything else.
--- NOTE | 2018-07-06 16:08 | ASMTCMCOM ---
CM Note CM Note Notes: Pt admitted from wound clinic, she has bilateral leg wounds that are failing to heal. Sx will likely take her to OR for debridement. Dc needs unclear, CM w/f. DC Plan: TBD Date Signed: 07/06/2018 04:07 PM Electronically Signed By:Anu Hawk RN
[2018-07-06] MEDS: GABAPENTIN 300 MG CAP PO SCH ×2 (16:33→20:13)
[2018-07-06] MEDS: BUDESONIDE 3 MG EC CAP PO SCH ×2 (16:33→20:13)
[2018-07-06] MEDS: oxyCODONE IR 5 MG TAB PO PRN ×2 (16:39→20:12)
--- NOTE | 2018-07-06 16:42 | PDMN ---
Medical Necessity Medical necessity: Pt meets IP criteria as of 07/06/2018 per and [facility] ( [facility]); est los > 2 mn for ongoing tx and management of bilateral lower extremity wounds that have failed OP tx; requiring wound care consult, planned surgical debridement, pain control, and IV ABX. Comorbid COPD and CHF.
[2018-07-06] MEDS ORDERED: BUPIVACAINE 0.5% 30 ML SDV ONE (17:04)
[2018-07-06] MEDS ORDERED: POLYMYXIN B SULFATE 500,000 UNIT/10 ML SYR IRR ONE (17:04)
[2018-07-06] MEDS ORDERED: BACITRACIN 50,000 UNITS/10 ML SYR IRR ONE (17:04)
[2018-07-06] MEDS ORDERED: LIDOCAINE HCL 4% TOPICAL SOLN 50ML TP PRN (17:06)
--- NOTE | 2018-07-06 17:07 | PDANEPAE ---
ANE History of Present Illness lower extremity wounds here for debridement ANE Past Medical History - Cardiovascular History Hx Hypertension: Yes Hx Arrhythmias: No Hx Chest Pain: No Hx Coronary Artery / Peripheral Vascular Disease: No Hx CHF / Valvular Disease: Yes Hx Palpitations: No - Pulmonary History Hx COPD: Yes Hx Asthma/Reactive Airway Disease: No Hx Recent Upper Respiratory Infection: No Hx Oxygen in Use at Home: Yes O2 in Use at Home (L/minute): 1 Hx Sleep Apnea: No Sleep Apnea Screening Result - Last Documented: Negative Pulmonary History Comment: MILD COPD DX'D RECENTLY, on Atrovent inhaler, used it last this am,. Bronchitis 2 months ago - Neurologic History Hx Cerebrovascular Accident: No Hx Seizures: No Hx Dementia: No - Endocrine History Hx Diabetes: No - Renal History Hx Renal Disorders: No Renal History Comment: URGENCY, LEAKING - Liver History Hx Hepatic Disorders: No Hepatic History Comment: CHOLECYSTECTOMY - Neurological & Psychiatric Hx Hx Neurological and Psychiatric Disorders: No - Cancer History Hx Cancer: Yes Cancer History Comment: UTERINE LESIONS - Congenital Disorder History Hx Congenital Disorders: No - GI History Hx Gastrointestinal Disorders: Yes Gastrointestinal History Comment: ACID REFLUX, Chron's disease x 5 years - Other Health History Other Health History: BRUISES EASILY - Chronic Pain History Chronic Pain: Yes (BACK PAIN) - Surgical History Prior Surgeries: CHOLECYSTECTOMY. EYE SURGERY. HYSTERECTOMY. TONSILLECTOMY. L ANKLE SURGERY. TLIF ANE Review of Systems Review of Systems: - Exercise capacity METS (RN): 4 METS ANE Patient History - Allergies Allergies/Adverse Reactions: adalimumab [From Humira] Allergy (Verified 07/06/18 14:41) Dyspnea varenicline [From Chantix] Allergy (Verified 07/06/18 14:41) - Home Medications Home Medications: Atenolol [Tenormin 50 mg (*)] 75 mg PO BID 01/05/17 [Last Taken 07/06/18] Budesonide [Budesonide EC] 3 mg PO TID 01/05/17 [Last Taken 07/06/18] Cholecalciferol Vit D3 [Vitamin D3 (*)] 1,000 units PO DAILY 01/05/17 [Last Taken 07/06/18] Gabapentin [Neurontin 300 MG (*)] 600 mg PO TID 01/05/17 [Last Taken 07/06/18] Herbals/Supplements -Info Only 1 each PO DAILY 01/05/17 [Last Taken 01/19/17] Lisinopril [Zestril 40 mg (*)] 40 mg PO HS 01/05/17 [Last Taken 07/05/18] Pantoprazole Sodium [Protonix 40mg (*)] 40 mg PO DAILY PRN 01/05/17 [Last Taken 01/19/17] Raloxifene HCl [Evista] 60 mg PO SA 01/05/17 [Last Taken 2 Weeks Ago ~06/22/18] Ipratropium [Atrovent Hfa (*)] 2 puffs IH QID PRN 01/20/17 [Last Taken 01/20/17] Loperamide HCl [Imodium 2 mg (*)] 2 - 4 mg PO DAILY PRN 01/20/17 [Last Taken Unknown] Albuterol [Proventil Inhaler HFA (*)] 1 - 2 puffs IH Q4H PRN 01/23/17 [Last Taken 07/06/18] Etodolac [ETODOLAC] 500 mg PO BIDMEAL 01/27/17 [Last Taken 07/06/18] traZODone [traZODONE 50MG (*)] 75 mg PO HS 02/27/17 [Last Taken 07/05/18] Aspirin [Aspirin 81mg (*)] 81 mg PO HS 07/06/18 [Last Taken 07/05/18] predniSONE 40 mg PO DAILY 07/06/18 [Last Taken 07/05/18] - NPO status NPO Since - Liquids (Date): 07/06/18 NPO Since - Liquids (Time): 14:00 NPO Since - Solids (Date): 07/06/18 NPO Since - Solids (Time): 10:00 - Anes Hx Anes Hx: no prior problems - Smoking Hx Smoking Status: Current some day smoker - Alcohol Use Alcohol Use: Occasionally - Family Anes Hx Family Anes Hx: none Family Hx Anesthesia Complications: NEG ANE Labs/Vital Signs - Labs Result Diagrams: 07/06/18 12:42 07/06/18 12:42 - Vital Signs Blood Pressure: 180/99 Heart Rate: 65 Respiratory Rate: 18 O2 Sat (%): 91 Height: 162.56 cm Weight: 53.569 kg ANE Physical Exam - Airway Neck exam: FROM Mallampati Score: Class 1 Mouth exam: poor dentition Mouth image: 1 - last remaining teeth - Pulmonary Pulmonary: no respiratory distress - Cardiovascular Cardiovascular: regular rate and rhythym - ASA Status ASA Status: III ANE Anesthesia Plan Anesthesia Plan: GA w LMA
[2018-07-06] MEDS ORDERED: LR 1,000 ML IV ONE (17:09)
[2018-07-06] MEDS ORDERED: MIDAZOLAM 2 MG/2 ML VIAL IVP ONE ×2 (17:13→17:15)
[2018-07-06] MEDS ORDERED: fentaNYL 100 MCG/2 ML INJ ONE ×2 (17:15→18:40)
[2018-07-06] MEDS ORDERED: PROPOFOL 200 MG/20 ML VIAL ONE (17:15)
[2018-07-06] MEDS ORDERED: LIDOCAINE 2% 100 MG/5 ML SYR ONE (17:18)
[2018-07-06] MEDS ORDERED: KETAMINE 200 MG/20 ML VIAL ONE (17:55)
[2018-07-06] MEDS ORDERED: ETODOLAC 500 MG PO SCH (18:00)
[2018-07-06] MEDS ORDERED: DEXAMETHASONE 4 MG/ML VIAL ONE (18:01)
[2018-07-06] MEDS ORDERED: ONDANSETRON 4 MG/2 ML VIAL ONE (18:01)
[2018-07-06] MEDS ORDERED: HYDROmorphONE/DILAUDID 1 MG/ML INJ IVP PRN (18:22)
[2018-07-06] MEDS ORDERED: PROMETHAZINE HCL 25 MG/ML INJ IVP PRN (18:23)
[2018-07-06] MEDS ORDERED: ACETAMINOPHEN 500 MG TAB PO PRN (18:23)
[2018-07-06] MEDS ORDERED: oxyCODONE IR 5 MG TAB PO PRN (18:23)
[2018-07-06] MEDS ORDERED: HYDROmorphONE/DILAUDID 2 MG/ML INJ IVP PRN (18:23)
[2018-07-06] MEDS ORDERED: HYDROCODONE/APAP 5/325 TAB PO PRN (18:23)
[2018-07-06] MEDS ORDERED: NALOXONE HCL 0.4 MG/ML INJ IVP PRN (18:23)
--- NOTE | 2018-07-06 18:27 | POSTOPPROG ---
Post Op Note Date of Operation: 07/06/18 Surgeon: Israel Lopes Anesthesiologist: Velma Anesthesia: GET(General Endotracheal) Pre-op Diagnosis: bilateral lower extremity wounds Post-op Diagnosis: same Procedure: I&D c VAC placement to RLE Findings: see below Inf/Abcess present in the surg proc area at time of surgery?: No EBL: Minimal Drains: Wound Vac Specimen(s): wound measurements RLE anterior: 7x5.5x0.4cm, tracks down to bone LLE anterior: 5x5x0.2cm to soft tissue LLE posterior: 6x3x0.2cm down to tendon
--- NOTE | 2018-07-06 18:29 | POSTANESTH ---
Post Anesthetic Evaluation Cardiovascular Status: Normal, Stable, Similar to Pre-Op Cond Respiratory Status: Normal, Stable, Similar to Pre-op Cond. Level of Consciousness/Mental Status: Moderately Sleepy Pain Control: Adequate, Prn Tx Ordered Nausea/Vomiting Control: Adequate, Prn Tx Ordered Complications Possibly Related to Anesthesia: None Noted
[2018-07-06] MEDS: fentaNYL 100 MCG/2 ML INJ IVP PRN ×2 (18:42→18:52)
[2018-07-06] MEDS ORDERED: LABETALOL HCL 5 MG/ML 20 ML MDV ONE (18:48)
[2018-07-06] MEDS: LABETALOL HCL 5 MG/ML 20 ML MDV IVP PRN ×2 (18:49→19:12)
[2018-07-06] MEDS ORDERED: hydrALAZINE 20 MG/ML VIAL IVP PRN (18:59)
[2018-07-06] MEDS: ASPIRIN 81 MG CHEWABLE TAB PO SCH (20:12)
[2018-07-06] MEDS: LISINOPRIL 40 MG TAB PO SCH (20:12)
[2018-07-06] MEDS: MELATONIN 3 MG TAB PO SCH (20:12)
[2018-07-06] MEDS: traZODone 50 MG TAB PO SCH (20:13)
[2018-07-06] MEDS: ATENOLOL 50 MG TAB PO SCH (20:13)
--- NOTE | 2018-07-07 00:24 | GOP ---
DATE OF OPERATION: 07/06/2018 SURGEON: Israel Lopes MD PC TECH: None. ANESTHESIA: General endotracheal. ANESTHESIOLOGIST: Dr. Junior Carreon. PREOPERATIVE DIAGNOSIS: Bilateral lower extremity chronic wounds. POSTOPERATIVE DIAGNOSIS: Bilateral lower extremity chronic wounds. PROCEDURE PERFORMED: Incision and drainage of bilateral lower extremity wounds with VAC placement to right lower extremity. Right lower extremity anterior wound measured 7 x 5.5 x 0.4 cm and tracked d own to the anterior tibia bone. Left lower extremity anterior wound measured 5 x 5 x 0.2 cm and trac ked down to soft tissue. Left lower extremity posterior wound measured 6 x 3 x 0.2 cm and tracked do wn to tendon. All of the necrotic tissue was successfully debrided. FINDINGS: Again, wound on the right lower extremity tracked down to bone. On the posterior left low er extremity, it tracked down to tendon. All necrotic tissue was removed and a VAC was placed to the deepest wound in the right lower extremity. SPECIMENS: None. ESTIMATED BLOOD LOSS: 10 cc. DESCRIPTION OF PROCEDURE: The patient was greeted in the preoperative suite. Once again, risks, azeb efits, and alternatives were discussed. Consent was signed. She was then brought back to the operat maryanne suite, placed on the OR table in supine position. After all anesthesia machines including SCDs w ere on and functioning, [employer] time-out was performed. After successful induction of general anesthesia, the patient's lower extremities were prepped and draped in typical sterile fa shion. I commenced the procedure by turning my attention first toward the left lower extremity, whic h again tracked down to soft tissue. I sharply debrided this, removing all necrotic tissue down to h ealing subcutaneous tissue. Hemostasis was achieved with electrocautery and direct pressure. I then turned my attention toward the posterior of the left lower extremity just above the ankle. The woun d here tracked down to tendon. Again, all necrotic tissue was debrided. Hemostasis was again achiev ed with gentle pressure. I turned my attention then toward the right lower extremity. This wound wa s the deepest and it tracked down all the way to the tibia bone. Again, all of the necrotic tissue w as debrided sharply. Hemostasis was achieved with gentle pressure. After this was done, I krupa lares shaped and placed a wound VAC to suction on the right lower extremity without any leaks. Prior t o placing the dressings, I did infiltrate the area with 0.5% Marcaine plain for a field block. The l eft lower extremity both wounds were covered with an Adaptic Touch gauze and a gentle pressure dressi ng was placed. The patient was then extubated in the operative suite and taken to the PACU in satisf actory condition. DRAINS: None. COUNTS: All counts were reported as correct x2. /[id number]/MODL
[2018-07-07] MEDS: oxyCODONE IR 5 MG TAB PO PRN ×4 (04:32→20:24)
[2018-07-07] MEDS: KETOROLAC 15 MG/1 ML SDV IVP SCH ×3 (05:45→20:27)
[2018-07-07 06:11] LABS: PLATELET COUNT 377 10^3/uL (150-400)
[2018-07-07] MEDS: ATENOLOL 50 MG TAB PO SCH ×2 (09:17→20:25)
[2018-07-07] MEDS: GABAPENTIN 300 MG CAP PO SCH ×3 (09:18→20:24)
[2018-07-07] MEDS: BUDESONIDE 3 MG EC CAP PO SCH ×3 (09:19→20:24)
[2018-07-07] MEDS: CHOLECALCIFEROL VIT D3 1,000 UNITS TAB PO SCH (09:20)
[2018-07-07] MEDS: predniSONE 20 MG TAB PO SCH (09:20)
[2018-07-07] MEDS: amLODIPine BESYLATE 5 MG TAB PO SCH (09:20)
[2018-07-07] MEDS: ENOXAPARIN 40 MG/0.4 ML SYR SC SCH (09:24)
[2018-07-07] MEDS: HYDROmorphONE/DILAUDID 1 MG/ML INJ IVP PRN ×3 (11:13→16:34)
--- NOTE | 2018-07-07 15:44 | SOAPPROG ---
SOAP Progress Note Assessment/Plan: Assessment: 68yo F s/p BLE debridement - RLE: VAC in place, looks good. pain is minimal - LLE: dressing taken down, tissue is clean and hemostatic. Dressing takedown was quite painful - RN to change daily over the weekend. Will likely need VAC to posterior LLE in future. Plan: 07/07/18 15:42 Subjective: feels better Objective: Vital Signs Temp Pulse Resp BP Pulse Ox 37.1 C 66 18 140/81 H 96 07/07/18 12:00 07/07/18 12:00 07/07/18 12:00 07/07/18 12:00 07/07/18 12:00 Laboratory Results 07/07/18 05:19 07/07/18 05:19 07/06/18 07/07/18 07/08/18 05:59 05:59 05:59 Intake Total 1250 Output Total 125 Balance 1125 ICD10 Worksheet Patient Problems: Problems Problem Status Onset CHF (congestive heart failure) Acute Chronic venous insufficiency Acute Contusion of leg, left Acute Fusion of spine of lumbar region Acute Hypoxemia Acute Laceration of knee, left Acute Skin tear of left lower leg without complication Acute Somnolence Acute
[2018-07-07] MEDS: LIDOCAINE HCL 4% TOPICAL SOLN 50ML TP PRN (16:33)
--- NOTE | 2018-07-07 17:59 | WOCRNPDOC ---
JOEL Advanced Assessment Note - Skin Integrity Problem, Advanced Assess Left Lower Lateral Leg Dressing Type: Adaptic, Coban, Steve Dressing Description: Clean/Dry, Intact Exudate Amount: Minimal Exudate Characteristic(s): Sanguinous Integumentary Issue Intervention: Dressing Changed, Skin Tissue Substitute Application Stacia Wound Tissue: Erythema (stacia wound only), Painful/Tender Wound Bed Color: Red, Yellow, White Wound Bed Constitution: Smooth Tissue (30%), Red/[place] - Non Granular Tissue (20% ), Adhered Slough (10%), Fascia (40%) Wound Edges: Attached, Irregular Site Measurement - Head-to-Toe Length X Width X Depth (cm): 5.2x5.2x0.8 Skin Integrity Problem Comment: Patient has extreme pain with manipulation in both left leg wounds. Lidocaine 4% was used before taking down the dressings and before application of new dressing. Best course of care for this wound and the wound on the back of the leg is a wound vac. Vac to suction without leaks. Discussed this with Dr. Ghosh and Dr. Lopes made aware. Amniofill 250 mg skin tissue substitute applied to wound bed after cleaning wound with ns and gauze. Skin prep and mastisol applied stacia wound and then black foam applied to wound bed. This wound was bridged to posterior wound and the bridge dressing suction was placed in between the two over drape. Trac pad was placed below the patient's left knee. She tolerated the procedure fairly well with 0.5 of dilaudid. Next dressing change for this wound is 07/12. Left Posterior Lower Leg Dressing Type: Adaptic, Coban, Steve Dressing Description: Clean/Dry, Intact Exudate Amount: Minimal Exudate Characteristic(s): Sanguinous Integumentary Issue Intervention: Dressing Changed, Skin Tissue Substitute Application Stacia Wound Tissue: Erythema (stacia wound only) Wound Bed Color: [place], Yellow Wound Bed Constitution: Red/[place] - Non Granular Tissue (50%), Tendon (30%; achilles), Adhered Slough (20%) Wound Edges: Attached, Irregular Site Measurement - Head-to-Toe Length X Width X Depth (cm): 4.9x5.9x1 Skin Integrity Problem Comment: Reviewed patient's history and wound care [facility] Deep full thickness wound with exposed tendon. Patient in tears with pain with any touching or dressing manipulation. Patient seemed surprised at the extent of the wound and the exposure of her tendon. Educated patient on the dire need for her to allow wound care to both debride the wounds mechanically if need be and for the patient to be compliant with all wound care recommendations, including compression for her LEVD. Patient verbalizes understanding. Patient's sister, brother and son were also in room and included in the conversation and education. There is concern for the hardware in her left ankle becoming colonized if infection ensues. Lidocaine 4% was used before taking down the dressings and before application of new dressing. Best course of care for this wound is a wound vac, and although it is difficult to have two machines (with vac on right leg as well) and two sets of tubing there are really no better wound care options. Amniofill 250 mg skin tissue substitute applied to wound bed after cleaning wound with ns and gauze. Skin prep and mastisol applied stacia wound and then mepitel Ag+ was used to cover tendon. Finally black foam was applied to the wound bed. This wound was bridged to lateral wound and the bridge dressing suction was placed in between the two over foam/drape. Patient tolerated the procedure fairly well with 0.5 of dilaudid. Next dressing change for this wound is 07/12. Luli MUNIZ in room and assisted with all care.
--- NOTE | 2018-07-07 18:16 | HOSPPROG ---
Hospitalist Progress Note Assessment/Plan: DIAGNOSES: * ongoing chronic bilateral leg wounds nonhealing in the outpatient setting despite regular care at outpatient wound care clinic * Status post surgical debridement of 2 wounds on right leg in and 1 on left leg today by Dr. Lopes * Needing ongoing wound care, wound vacs being placed today by wound care nurse * Patient has had significant issues with compliance with her wound dressings on appliances at home, encouraged her to have better compliance with the treatment * Has recent ankle brachial index that looks good and currently good bleeding from her wounds, low suspicion for arterial insufficiency as a factor * Pain of her wounds much improved today after surgery * uncontrolled hypertension * Much better with surgery and better pain control after that; suspect this is the cause of the higher blood pressures yesterday * hyponatremia at near euvolemia by exam * Not on any diuretics or other medications that would seem to cause this * Will need urine studies to determine etiology better * Will begin treating this at present * ongoing intermittent tobacco abuse after formally quitting cigarettes * Cigarettes will clearly aggravate her difficulties healing these wounds and I have reviewed this with her in detail today * Tobacco cessation counseling will need to be ongoing * COPD currently stable * Chronic CHF appears currently stable * chronic Crohn's disease on budesonide * history of uterine cancer PLANS: * Ongoing wound care * Follow blood pressures closely * Continued tobacco counseling * Check urine sodium and osmolality * Begin oral fluid restriction until that labs back * Follow sodium here for response I reviewed in detail today with Dr. Israel Lopes and with Margaux Bergman of the wound care service SUBJECTIVE: Patient with much less pain today Eating well No dyspnea, no fever symptoms OBJECTIVE Vitals reviewed: Notably improved blood pressures, no fever otherwise stable Exam: alert oriented skin warm dry color ok resps not labored lungs clear BSs heart regular abd soft nondistended nontender, bowel sounds present limbs warm, no edema I examined the patient's wounds today after surgery with the wound care nurse team. The wounds are very clean without evidence of infection or necrosis. On the right leg the anterior medial Wound is down to bone, the posterior down to Achilles tendon The left leg wound was dressed had wound VAC in place before I had a chance to see it today, but again there is no evidence of cellulitis and photograph shown to me by the nurses shows no evidence of necrosis or other concerning issues other than the depth of the wound iv site ok Lab data: White count improved at 21,000 Sodium slightly lower today at 127 but otherwise stable Chem panel Objective: Vital Signs Temp Pulse Resp BP Pulse Ox 36.5 C 80 18 140/81 H 94 07/07/18 15:48 07/07/18 15:48 07/07/18 15:48 07/07/18 15:48 07/07/18 15:48 Laboratory Results 07/07/18 05:19 07/07/18 05:19 07/06/18 07/07/18 07/08/18 06:59 06:59 06:59 Intake Total 1250 Output Total 125 Balance 1125 - Time Spent With Patient Time Spent with Patient: greater than 35 minutes Time Spent with Patient: Greater than 35 minutes spent on this patients care, greater than 50% of time spent counseling, educating, and coordinating care regarding the above mentioned plan. ICD10 Worksheet Patient Problems: Problems Problem Status Onset CHF (congestive heart failure) Acute Chronic venous insufficiency Acute Contusion of leg, left Acute Fusion of spine of lumbar region Acute Hypoxemia Acute Laceration of knee, left Acute Skin tear of left lower leg without complication Acute Somnolence Acute
[2018-07-07] MEDS ORDERED: SIMETHICONE DROPS 30 ML BOTTLE PO PRN (19:51)
[2018-07-07] MEDS: SIMETHICONE 80 MG TAB CHEW PO PRN (20:24)
[2018-07-07] MEDS: ASPIRIN 81 MG CHEWABLE TAB PO SCH (20:24)
[2018-07-07] MEDS: traZODone 50 MG TAB PO SCH (20:24)
[2018-07-07] MEDS: LISINOPRIL 40 MG TAB PO SCH (20:25)
[2018-07-07] MEDS: MELATONIN 3 MG TAB PO SCH (20:25)
[2018-07-08] MEDS: oxyCODONE IR 5 MG TAB PO PRN ×4 (02:34→20:07)
[2018-07-08] MEDS: HYDROmorphONE/DILAUDID 1 MG/ML INJ IVP PRN (04:21)
[2018-07-08] MEDS: traMADol 50 MG TAB PO PRN ×3 (05:47→18:07)
[2018-07-08] MEDS: KETOROLAC 15 MG/1 ML SDV IVP SCH ×3 (05:47→21:22)
[2018-07-08] MEDS: METHOCARBAMOL 750 MG TAB PO PRN ×3 (07:37→19:32)
[2018-07-08] MEDS: predniSONE 20 MG TAB PO SCH ×2 (08:00→13:37)
[2018-07-08] MEDS: ATENOLOL 50 MG TAB PO SCH ×2 (08:00→21:24)
[2018-07-08] MEDS: CHOLECALCIFEROL VIT D3 1,000 UNITS TAB PO SCH (08:00)
[2018-07-08] MEDS: amLODIPine BESYLATE 5 MG TAB PO SCH (08:00)
[2018-07-08] MEDS: ENOXAPARIN 40 MG/0.4 ML SYR SC SCH (08:01)
[2018-07-08] MEDS: GABAPENTIN 300 MG CAP PO SCH ×3 (08:01→21:23)
[2018-07-08] MEDS: BUDESONIDE 3 MG EC CAP PO SCH ×3 (08:01→21:23)
[2018-07-08] MEDS: SIMETHICONE 80 MG TAB CHEW PO PRN ×2 (10:16→17:24)
[2018-07-08] MEDS: RALOXIFENE HCL 60 MG TAB PO SCH (12:01)
--- NOTE | 2018-07-08 12:32 | SOAPPROG ---
SOAP Progress Note Assessment/Plan: Assessment: s/p debridement lower extremity wounds and vac placement by Dr. Lopes. Vacs to suction I am available if needed Plan: 07/08/18 12:32 Objective: Vital Signs Temp Pulse Resp BP Pulse Ox 36.6 C 64 16 167/77 H 96 07/08/18 12:00 07/08/18 12:00 07/08/18 12:00 07/08/18 12:00 07/08/18 12:00 Laboratory Results 07/07/18 05:19 07/08/18 05:40 07/07/18 07/08/18 07/09/18 05:59 05:59 05:59 Intake Total 1250 320 Output Total 125 300 Balance 1125 320 -300 ICD10 Worksheet Patient Problems: Problems Problem Status Onset CHF (congestive heart failure) Acute Chronic venous insufficiency Acute Contusion of leg, left Acute Fusion of spine of lumbar region Acute Hypoxemia Acute Laceration of knee, left Acute Skin tear of left lower leg without complication Acute Somnolence Acute
--- NOTE | 2018-07-08 12:52 | HOSPPROG ---
Hospitalist Progress Note Assessment/Plan: * ongoing chronic bilateral leg wounds nonhealing in the outpatient setting despite regular care at outpatient wound care clinic * Status post surgical debridement of 2 wounds on right leg in and 1 on left leg by Dr. Lopes * Needing ongoing wound care, wound vacs being placed today by wound care nurse * Patient has had significant issues with compliance with her wound dressings on appliances at home, encouraged her to have better compliance with the treatment * Has recent ankle brachial index that looks good and currently good bleeding from her wounds, low suspicion for arterial insufficiency as a factor * Pain of her wounds much improved today after surgery * uncontrolled hypertension * Much better with surgery and better pain control after that; suspect this is the cause of the higher blood pressures yesterday * hyponatremia at near euvolemia by exam * urine na suggests dry * dc fluid restriction * ongoing intermittent tobacco abuse after formally quitting cigarettes * Cigarettes will clearly aggravate her difficulties healing these wounds and I have reviewed this with her in detail today * Tobacco cessation counseling will need to be ongoing * COPD currently stable * Chronic CHF appears currently stable * chronic Crohn's disease on budesonide * started on prednisone a week ago to help crohn's - mild improvement * will wean down prednisone over 2 dys and stop - in order to optimize wound healing * history of uterine cancer Subjective: no new complaints Objective: Vital Signs Temp Pulse Resp BP Pulse Ox 36.6 C 64 16 167/77 H 96 07/08/18 12:00 07/08/18 12:00 07/08/18 12:00 07/08/18 12:00 07/08/18 12:00 Laboratory Results 07/07/18 05:19 07/08/18 05:40 07/07/18 07/08/18 07/09/18 05:59 05:59 05:59 Intake Total 1250 320 Output Total 125 300 Balance 1125 320 -300 - Physical Exam Constitutional: no apparent distress, appears nourished, not in pain Eyes: anicteric sclera, EOMI Ears, Nose, Mouth, Throat: moist mucous membranes Cardiovascular: regular rate and rhythym Respiratory: no respiratory distress, reduced air movement Skin: warm, other (wound vac in place bilateral shins) Neurologic: AAOx3 ICD10 Worksheet Patient Problems: Problems Problem Status Onset CHF (congestive heart failure) Acute Chronic venous insufficiency Acute Contusion of leg, left Acute Fusion of spine of lumbar region Acute Hypoxemia Acute Laceration of knee, left Acute Skin tear of left lower leg without complication Acute Somnolence Acute
--- NOTE | 2018-07-08 16:55 | ASMTCMCOM ---
CM Note CM Note Notes: Pt has had bilateral wound vacs placed on legs. DC needs unlcear, pt has been independent but unsure how long she will need the wound vacs. Next vac change is scheduled for 07/12/18. CM w/f DC Plan: TBD Date Signed: 07/08/2018 04:55 PM Electronically Signed By:Anu Hawk RN
[2018-07-08] MEDS: LISINOPRIL 40 MG TAB PO SCH (21:23)
[2018-07-08] MEDS: MELATONIN 3 MG TAB PO SCH (21:23)
[2018-07-08] MEDS: ASPIRIN 81 MG CHEWABLE TAB PO SCH (21:23)
[2018-07-08] MEDS: traZODone 50 MG TAB PO SCH (21:23)
[2018-07-09] MEDS: oxyCODONE IR 5 MG TAB PO PRN ×5 (02:29→20:08)
[2018-07-09] MEDS: METHOCARBAMOL 750 MG TAB PO PRN ×4 (02:32→21:15)
[2018-07-09] MEDS: HYDROmorphONE/DILAUDID 1 MG/ML INJ IVP PRN ×3 (03:30→13:51)
[2018-07-09] MEDS: KETOROLAC 15 MG/1 ML SDV IVP SCH ×3 (05:59→21:10)
[2018-07-09] MEDS: SIMETHICONE 80 MG TAB CHEW PO PRN ×2 (06:31→21:14)
[2018-07-09] MEDS: GABAPENTIN 300 MG CAP PO SCH ×3 (09:08→21:10)
[2018-07-09] MEDS: BUDESONIDE 3 MG EC CAP PO SCH ×3 (09:08→21:15)
[2018-07-09] MEDS: ATENOLOL 50 MG TAB PO SCH ×2 (09:08→21:15)
[2018-07-09] MEDS: ENOXAPARIN 40 MG/0.4 ML SYR SC SCH (09:09)
[2018-07-09] MEDS: CHOLECALCIFEROL VIT D3 1,000 UNITS TAB PO SCH (09:09)
[2018-07-09] MEDS: predniSONE 20 MG TAB PO SCH (09:09)
[2018-07-09] MEDS: amLODIPine BESYLATE 5 MG TAB PO SCH (09:09)
--- NOTE | 2018-07-09 10:45 | SOAPPROG ---
SOAP Progress Note Assessment/Plan: Assessment: s/p debridement lower extremity wounds and vac placement by Dr. Lopes. Vacs to suction - will change on Tue - epifix under I removed some dressing where moisture was under the drape I am available if needed Plan: 07/08/18 12:32 07/09/18 10:44 Objective: Vital Signs Temp Pulse Resp BP Pulse Ox 37.2 C 59 L 14 189/87 H 93 07/09/18 07:58 07/09/18 09:08 07/09/18 07:58 07/09/18 09:09 07/09/18 07:58 Laboratory Results 07/07/18 05:19 07/08/18 05:40 07/08/18 07/09/18 07/10/18 05:59 05:59 05:59 Intake Total 320 1075 200 Output Total 900 100 Balance 320 175 100 ICD10 Worksheet Patient Problems: Problems Problem Status Onset CHF (congestive heart failure) Acute Chronic venous insufficiency Acute Contusion of leg, left Acute Fusion of spine of lumbar region Acute Hypoxemia Acute Laceration of knee, left Acute Skin tear of left lower leg without complication Acute Somnolence Acute
--- NOTE | 2018-07-09 11:46 | HOSPPROG ---
Hospitalist Progress Note Assessment/Plan: * ongoing chronic bilateral leg wounds nonhealing in the outpatient setting despite regular care at outpatient wound care clinic * Status post surgical debridement of 2 wounds on right leg in and 1 on left leg by Dr. Lopes * Needing ongoing wound care, wound vacs being placed today by wound care nurse * Patient has had significant issues with compliance with her wound dressings on appliances at home, encouraged her to have better compliance with the treatment * Has recent ankle brachial index that looks good and currently good bleeding from her wounds, low suspicion for arterial insufficiency as a factor * Pain of her wounds much improved today after surgery * uncontrolled hypertension * Much better with surgery and better pain control after that; suspect this is the cause of the higher blood pressures yesterday * hyponatremia at near euvolemia by exam * urine na suggests dry * dc fluid restriction * ongoing intermittent tobacco abuse after formally quitting cigarettes * Cigarettes will clearly aggravate her difficulties healing these wounds and I have reviewed this with her in detail today * Tobacco cessation counseling will need to be ongoing * COPD currently stable * Chronic CHF appears currently stable * chronic Crohn's disease on budesonide * started on prednisone a week ago to help crohn's - mild improvement * will wean down prednisone over 2 days and stop - in order to optimize wound healing * history of uterine cancer Subjective: some pain oernight but no new complaints Objective: Vital Signs Temp Pulse Resp BP Pulse Ox 37.2 C 59 L 14 189/87 H 93 07/09/18 07:58 07/09/18 09:08 07/09/18 07:58 07/09/18 09:09 07/09/18 07:58 Laboratory Results 07/07/18 05:19 07/08/18 05:40 07/08/18 07/09/18 07/10/18 05:59 05:59 05:59 Intake Total 320 1075 200 Output Total 900 100 Balance 320 175 100 - Physical Exam Constitutional: no apparent distress, appears nourished, not in pain Eyes: anicteric sclera, EOMI Ears, Nose, Mouth, Throat: moist mucous membranes Respiratory: no respiratory distress Skin: warm, other (wound vac in place. some erythema around site) Neurologic: AAOx3 ICD10 Worksheet Patient Problems: Problems Problem Status Onset CHF (congestive heart failure) Acute Chronic venous insufficiency Acute Contusion of leg, left Acute Fusion of spine of lumbar region Acute Hypoxemia Acute Laceration of knee, left Acute Skin tear of left lower leg without complication Acute Somnolence Acute
[2018-07-09] MEDS: traMADol 50 MG TAB PO PRN (18:30)
[2018-07-09] MEDS: ASPIRIN 81 MG CHEWABLE TAB PO SCH (21:10)
[2018-07-09] MEDS: LISINOPRIL 40 MG TAB PO SCH (21:11)
[2018-07-09] MEDS: MELATONIN 3 MG TAB PO SCH (21:14)
[2018-07-09] MEDS: traZODone 50 MG TAB PO SCH (21:14)
[2018-07-10] MEDS: HYDROmorphONE/DILAUDID 1 MG/ML INJ IVP PRN ×2 (00:23→10:28)
[2018-07-10] MEDS: oxyCODONE IR 5 MG TAB PO PRN ×4 (03:19→17:54)
[2018-07-10 05:03] LABS: PLATELET COUNT 240 10^3/uL (150-400)
[2018-07-10] MEDS: KETOROLAC 15 MG/1 ML SDV IVP SCH ×3 (05:33→20:55)
[2018-07-10] MEDS ORDERED: NS 1,000 ML IV SCH (06:00)
[2018-07-10] MEDS: traMADol 50 MG TAB PO PRN ×3 (06:21→14:41)
[2018-07-10] MEDS: GABAPENTIN 300 MG CAP PO SCH ×3 (09:17→20:56)
[2018-07-10] MEDS: BUDESONIDE 3 MG EC CAP PO SCH ×3 (09:18→20:56)
[2018-07-10] MEDS: ATENOLOL 50 MG TAB PO SCH ×2 (09:18→20:57)
[2018-07-10] MEDS: amLODIPine BESYLATE 5 MG TAB PO SCH (09:20)
[2018-07-10] MEDS: CHOLECALCIFEROL VIT D3 1,000 UNITS TAB PO SCH (09:20)
[2018-07-10] MEDS: ENOXAPARIN 40 MG/0.4 ML SYR SC SCH (09:22)
[2018-07-10] MEDS: METHOCARBAMOL 750 MG TAB PO PRN ×3 (09:33→17:54)
[2018-07-10] MEDS: ACETAMINOPHEN 325 MG TAB PO PRN ×2 (09:34→15:55)
[2018-07-10] MEDS: LIDOCAINE HCL 4% TOPICAL SOLN 50ML TP PRN (10:33)
--- NOTE | 2018-07-10 11:29 | SOAPPROG ---
SOAP Progress Note Assessment/Plan: Assessment: 68yo F s/p BLE debridement - RLE: VAC in place, I was present for takedown today. Site is clean, there is some medial dependent erythema. Good bleeding in the central portion. - LLE: VAC in place to both ant and post, pain much better here, next change - Dispo: discussed issues with going home. Ideally would be candidate for SNF, she is hesitant but wants whats best. Will likely be here until Tuesday for next change. Can make ultimate dispo plans at that time. Depending on how the anterior wounds heal, will likely need skin grafts. for posterior wound where the Achilles is exposed, she may need a tissue flap to heal this, will depend how the wound progresses with VAC Plan: 07/07/18 15:42 07/10/18 11:26 Subjective: feels better, pain is a little better Objective: Vital Signs Temp Pulse Resp BP Pulse Ox 36.8 C 54 L 14 107/60 99 07/10/18 11:18 07/10/18 11:18 07/10/18 11:18 07/10/18 11:18 07/10/18 11:18 Laboratory Results 07/10/18 04:45 07/10/18 09:05 07/09/18 07/10/18 07/11/18 05:59 05:59 05:59 Intake Total 1075 980 250 Output Total 900 425 Balance 175 555 250 ICD10 Worksheet Patient Problems: Problems Problem Status Onset CHF (congestive heart failure) Acute Chronic venous insufficiency Acute Contusion of leg, left Acute Fusion of spine of lumbar region Acute Hypoxemia Acute Laceration of knee, left Acute Skin tear of left lower leg without complication Acute Somnolence Acute
--- NOTE | 2018-07-10 11:38 | WOCRNPDOC ---
WOCRN Advanced Assessment Note - Skin Integrity Problem, Advanced Assess Right Lower Medial Leg Dressing Type: Black Vac Foam, Wound Vac Dressing Description: Clean/Dry, Intact Exudate Amount: Minimal Exudate Characteristic(s): Sanguinous Integumentary Issue Intervention: Dressing Changed Lucy Wound Tissue: Erythema (to 5 cm along inferior wound margin) Wound Bed Constitution: Smooth Tissue (60%), Adhered Slough (40%) Wound Edges: Attached, Irregular Site Odor: None Site Measurement - Head-to-Toe Length X Width X Depth (cm): 6.7x6.5x0.3 Skin Integrity Problem Comment: Patient tolerated procedure exceptionally well with 8 ml of 4% liquid lidocaine in black foam. Patient had IV pain medication as well but possibly will not need that on Tuesday. The wound bed was cleaned with ns and gauze. There was some bleeding but very little granulation was noted. Small are of bone palpable near inferior lateral portion of the wound. Dr. Lopes visualized wound. Skin prep was applied lucy wound and then 100 mg of amniofill skin tissue substitute was applied to wound bed. This was covered with adaptic touch and then small black simplace foam was applied. This was after picture framing of the lucy wound skin with drape. Vac suction was restarted at -125 mm Hg continuous and there were no leaks noted. Next vac change for this wound is Friday 07/14. Norah JIMENEZ was in room for care.
--- NOTE | 2018-07-10 14:45 | HOSPPROG ---
Hospitalist Progress Note Assessment/Plan: Nallely Martinez is a 68 y/o woman who was sent from the wound care clinic due to failure to heal bilateral leg wounds, first encounter, chart reviewed. * ongoing chronic bilateral leg wounds nonhealing in the outpatient setting despite regular care at outpatient wound care clinic * Status post surgical debridement of 2 wounds on right leg in and 1 on left leg by Dr. Lopes * Needing ongoing wound care, wound vacs in place (bilaterally) * Has recent ankle brachial index that looks good and currently good bleeding from her wounds, low suspicion for arterial insufficiency as a factor *pain due to the above * will leave IV Dilaudid for dressing changes * patient request her oxy dose be increased temporally *constipation * bowel protocol * ask issues w gas (simethicone ordered) * uncontrolled hypertension * resolved * hyponatremia at near euvolemia by exam * urine na suggests dry * dc fluid restriction * was getting IV fluids -she is motivated to increase her solute intake * ongoing intermittent tobacco abuse after formally quitting cigarettes * Tobacco cessation recommended * COPD currently stable * Chronic CHF * appears currently stable * chronic Crohn's disease on budesonide * had been treated w prednisone to help crohn's - mild improvement * history of uterine cancer *Plan: bowel protocol, dc fluids, recheck labs in a.m. Subjective: Nallely has no complaints except her pain can get worse at times. Objective: Vital Signs Temp Pulse Resp BP Pulse Ox 36.8 C 54 L 14 107/60 99 07/10/18 11:18 07/10/18 11:18 07/10/18 11:18 07/10/18 11:18 07/10/18 11:18 Laboratory Results 07/10/18 04:45 07/10/18 09:05 07/09/18 07/10/18 07/11/18 05:59 05:59 05:59 Intake Total 1075 980 250 Output Total 900 425 Balance 175 555 250 - Physical Exam Constitutional: chronically ill appearing, uncomfortable Eyes: PERRL Ears, Nose, Mouth, Throat: hard of hearing Cardiovascular: regular rate and rhythym Respiratory: no respiratory distress, reduced air movement (mid lobes down) Skin: warm, other (bilateral wound vacs to lower legs) Musculoskeletal: generalized weakness Neurologic: AAOx3 Psychiatric: interacting appropriately ICD10 Worksheet Patient Problems: Problems Problem Status Onset CHF (congestive heart failure) Acute Chronic venous insufficiency Acute Contusion of leg, left Acute Fusion of spine of lumbar region Acute Hypoxemia Acute Laceration of knee, left Acute Skin tear of left lower leg without complication Acute Somnolence Acute
[2018-07-10] MEDS ORDERED: LACTULOSE 20 GM/30 ML UDCUP PO PRN (16:31)
[2018-07-10] MEDS ORDERED: MAGNESIUM HYDROXIDE 30 ML UDCUP PO PRN (16:31)
[2018-07-10] MEDS ORDERED: BISACODYL 10 MG SUPP PR PRN (16:31)
[2018-07-10] MEDS: ASPIRIN 81 MG CHEWABLE TAB PO SCH (20:56)
[2018-07-10] MEDS: MELATONIN 3 MG TAB PO SCH (20:56)
[2018-07-10] MEDS: traZODone 50 MG TAB PO SCH (20:56)
[2018-07-10] MEDS: LISINOPRIL 40 MG TAB PO SCH (20:56)
[2018-07-10] MEDS: SENNOSIDES/DOCUSATE SODIUM TAB PO SCH (20:57)
[2018-07-11] MEDS: oxyCODONE IR 5 MG TAB PO PRN ×5 (03:51→22:58)
[2018-07-11] MEDS: METHOCARBAMOL 750 MG TAB PO PRN (04:57)
[2018-07-11] MEDS: KETOROLAC 15 MG/1 ML SDV IVP SCH ×2 (04:57→14:26)
[2018-07-11] MEDS: GABAPENTIN 300 MG CAP PO SCH ×3 (08:35→21:11)
[2018-07-11] MEDS: ATENOLOL 50 MG TAB PO SCH ×2 (08:36→23:49)
[2018-07-11] MEDS: BUDESONIDE 3 MG EC CAP PO SCH ×3 (08:37→21:11)
[2018-07-11] MEDS: CHOLECALCIFEROL VIT D3 1,000 UNITS TAB PO SCH (08:37)
[2018-07-11] MEDS: amLODIPine BESYLATE 5 MG TAB PO SCH (08:39)
[2018-07-11] MEDS: SENNOSIDES/DOCUSATE SODIUM TAB PO SCH ×2 (08:39→23:49)
[2018-07-11] MEDS: ENOXAPARIN 40 MG/0.4 ML SYR SC SCH (08:40)
[2018-07-11] MEDS: POLYETHYLENE GLYCOL 3350 17 GM PKT PO SCH (08:41)
--- NOTE | 2018-07-11 12:12 | ASMTCMCOM ---
CM Note CM Note Notes: CM met w/ pt and sister Thien (P#: [phone]) for dispo planning. Pt is confused today. PT is recommending SNF. CM provided Thien w/ the senior blue book. Thien reports that pt has been to a SNF in the past but could not recall the name. Thien would like a referral sent to [facility]. Thien reports that pts son Eamon (P#: [phone]) is very involved in pts care. CM called Eamon and he reports that she was previously at [facility] and had a good experience. Eamon would like a referral sent there. CM to follow. Plan: SNF Date Signed: 07/11/2018 12:12 PM Electronically Signed By:FELIPE Degroot
[2018-07-11 13:23] LABS: PLATELET COUNT 283 10^3/uL (150-400)
[2018-07-11] MEDS: PANTOPRAZOLE SODIUM 40 MG VIAL IVP SCH (14:22)
--- NOTE | 2018-07-11 15:47 | HOSPPROG ---
Hospitalist Progress Note Assessment/Plan: 68 year old female with pmh of crohns, chronic lower extremity wounds, admitted for wound care. Today had large black bowel movement and H/H dropped 10 points since admission. * ongoing chronic bilateral leg wounds nonhealing in the outpatient setting despite regular care at outpatient wound care clinic Status post surgical debridement of 2 wounds on right leg in and 1 on left leg by Dr. Lopes Needing ongoing wound care, wound vacs being placed today by wound care nurse Patient has had significant issues with compliance with her wound dressings on appliances at home, encouraged her to have better compliance with the treatment * uncontrolled hypertension Much better with surgery and better pain control after that; suspect this is the cause of the higher blood pressures yesterday *Hyponatremia- Fluids discontinued yesterday, and Na dropped back down. Patient looks hypovolemic, and is not taking adequate pO -restart IV sodiun GI bleed- Patient has history of crohsn and had a large black BM this morning. H /H dropped acute. I discussed her case with the blood donor recruiter supervisor GI doctor who recommneded NPO, IV PPI, and they will plan on EGD in am unless patient acutely worsens. * ongoing intermittent tobacco abuse after formally quitting cigarettes Cigarettes will clearly aggravate her difficulties healing these wounds and I have reviewed this with her in detail today Tobacco cessation counseling will need to be ongoing * COPD currently stable * Chronic CHF appears currently stable * chronic Crohn's disease on budesonide started on prednisone a week ago to help crohn's - mild improvement will wean down prednisone over 2 days and stop - in order to optimize wound healing * history of uterine cancer PPX- No SCDs, No heparin Fluids- restart IV saline Lytes- Hyponatremia Nutrition- NPO Cor- Full Dispo-inpatient for acute GI bleed, lower extremity wounds, hyponatremia Subjective: patient lethargic. No acute complaints. Objective: Vital Signs Temp Pulse Resp BP Pulse Ox 36.6 C 79 18 89/73 L 93 07/11/18 15:33 07/11/18 15:33 07/11/18 15:33 07/11/18 15:33 07/11/18 15:33 Laboratory Results 07/11/18 12:33 07/11/18 05:13 07/10/18 07/11/18 07/12/18 05:59 05:59 05:59 Intake Total 980 1000 Output Total 425 200 Balance 555 800 - Physical Exam Constitutional: no apparent distress, appears nourished, not in pain Eyes: PERRL, anicteric sclera, EOMI Ears, Nose, Mouth, Throat: moist mucous membranes, hearing normal, ears appear normal, no oral mucosal ulcers Cardiovascular: regular rate and rhythym, no murmur, rub, or gallop Respiratory: no respiratory distress, no rales or rhonchi, clear to auscultation Gastrointestinal: normoactive bowel sounds, soft, non-tender abdomen, no palpable masses Genitourinary: no bladder fullness, no bladder tenderness, no renal bruits Skin: no rashes or abrasions, no fluctuance, no induration Musculoskeletal: full muscle strength, no muscle tenderness, normal joint ROM, other Neurologic: AAOx3, sensation intact bilaterally Psychiatric: interacting appropriately, not anxious, not encephalopathic, thought process linear Lymph, Heme, Immunologic: no cervical LAD, no supraclavicular LAD ICD10 Worksheet Patient Problems: Problems Problem Status Onset CHF (congestive heart failure) Acute Chronic venous insufficiency Acute Contusion of leg, left Acute Fusion of spine of lumbar region Acute Hypoxemia Acute Laceration of knee, left Acute Skin tear of left lower leg without complication Acute Somnolence Acute
[2018-07-11] MEDS: NS 1,000 ML IV SCH (19:36)
[2018-07-11] MEDS: traZODone 50 MG TAB PO SCH (21:11)
[2018-07-11] MEDS: MELATONIN 3 MG TAB PO SCH (21:11)
[2018-07-11] MEDS: HYDROmorphONE/DILAUDID 1 MG/ML INJ IVP PRN (21:42)
[2018-07-11] MEDS: LISINOPRIL 40 MG TAB PO SCH (23:49)
[2018-07-12] MEDS: PANTOPRAZOLE SODIUM 40 MG VIAL IVP SCH ×3 (01:37→21:29)
[2018-07-12] MEDS: oxyCODONE IR 5 MG TAB PO PRN ×5 (03:08→22:02)
[2018-07-12] MEDS: NS 1,000 ML IV SCH (03:10)
--- NOTE | 2018-07-12 09:06 | PDANEPAE ---
ANE History of Present Illness here for EGD to f/u on GIB and anemia ANE Past Medical History - Cardiovascular History Hx Hypertension: Yes Hx Arrhythmias: No Hx Chest Pain: No Hx Coronary Artery / Peripheral Vascular Disease: No Hx CHF / Valvular Disease: Yes Hx Palpitations: No - Pulmonary History Hx COPD: Yes Hx Asthma/Reactive Airway Disease: No Hx Recent Upper Respiratory Infection: No Hx Oxygen in Use at Home: Yes O2 in Use at Home (L/minute): 1 Hx Sleep Apnea: No Sleep Apnea Screening Result - Last Documented: Negative Pulmonary History Comment: MILD COPD DX'D RECENTLY, on Atrovent inhaler, used it last this am,. Bronchitis 2 months ago - Neurologic History Hx Cerebrovascular Accident: No Hx Seizures: No Hx Dementia: No - Endocrine History Hx Diabetes: No - Renal History Hx Renal Disorders: No Renal History Comment: URGENCY, LEAKING - Liver History Hx Hepatic Disorders: No Hepatic History Comment: CHOLECYSTECTOMY - Neurological & Psychiatric Hx Hx Neurological and Psychiatric Disorders: No - Cancer History Hx Cancer: Yes Cancer History Comment: UTERINE LESIONS - Congenital Disorder History Hx Congenital Disorders: No - GI History Hx Gastrointestinal Disorders: Yes Gastrointestinal History Comment: ACID REFLUX, Chron's disease x 5 years - Other Health History Other Health History: BRUISES EASILY - Chronic Pain History Chronic Pain: Yes (BACK PAIN) - Surgical History Prior Surgeries: CHOLECYSTECTOMY. EYE SURGERY. HYSTERECTOMY. TONSILLECTOMY. L ANKLE SURGERY. TLIF ANE Review of Systems Review of Systems: - Exercise capacity METS (RN): 4 METS ANE Patient History - Allergies Allergies/Adverse Reactions: adalimumab [From Humira] Allergy (Verified 07/06/18 14:41) Dyspnea varenicline [From Chantix] Allergy (Verified 07/06/18 14:41) - Home Medications Home Medications: Atenolol [Tenormin 50 mg (*)] 75 mg PO BID 01/05/17 [Last Taken 07/06/18] Budesonide [Budesonide EC] 3 mg PO TID 01/05/17 [Last Taken 07/06/18] Cholecalciferol Vit D3 [Vitamin D3 (*)] 1,000 units PO DAILY 01/05/17 [Last Taken 07/06/18] Gabapentin [Neurontin 300 MG (*)] 600 mg PO TID 01/05/17 [Last Taken 07/06/18] Herbals/Supplements -Info Only 1 each PO DAILY 01/05/17 [Last Taken 01/19/17] Lisinopril [Zestril 40 mg (*)] 40 mg PO HS 01/05/17 [Last Taken 07/05/18] Pantoprazole Sodium [Protonix 40mg (*)] 40 mg PO DAILY PRN 01/05/17 [Last Taken 01/19/17] Raloxifene HCl [Evista] 60 mg PO SA 01/05/17 [Last Taken 2 Weeks Ago ~06/22/18] Ipratropium [Atrovent Hfa (*)] 2 puffs IH QID PRN 01/20/17 [Last Taken 01/20/17] Loperamide HCl [Imodium 2 mg (*)] 2 - 4 mg PO DAILY PRN 01/20/17 [Last Taken Unknown] Albuterol [Proventil Inhaler HFA (*)] 1 - 2 puffs IH Q4H PRN 01/23/17 [Last Taken 07/06/18] Etodolac [ETODOLAC] 500 mg PO BIDMEAL 01/27/17 [Last Taken 07/06/18] traZODone [traZODONE 50MG (*)] 75 mg PO HS 02/27/17 [Last Taken 07/05/18] Aspirin [Aspirin 81mg (*)] 81 mg PO HS 07/06/18 [Last Taken 07/05/18] predniSONE 40 mg PO DAILY 07/06/18 [Last Taken 07/05/18] - NPO status NPO Since - Liquids (Date): 07/11/18 NPO Since - Liquids (Time): 12:00 NPO Since - Solids (Date): 07/11/18 NPO Since - Solids (Time): 12:00 - Smoking Hx Smoking Status: Current some day smoker - Alcohol Use Alcohol Use: Occasionally - Family Anes Hx Family Hx Anesthesia Complications: NEG ANE Labs/Vital Signs - Labs Result Diagrams: 07/12/18 04:32 07/12/18 04:32 - Vital Signs Blood Pressure: 134/94 Heart Rate: 98 Respiratory Rate: 14 O2 Sat (%): 97 Height: 162.56 cm Weight: 53.569 kg ANE Physical Exam - Airway Neck exam: FROM Mallampati Score: Class 2 Mouth exam: normal dental/mouth exam - Pulmonary Pulmonary: no respiratory distress - Cardiovascular Cardiovascular: regular rate and rhythym - ASA Status ASA Status: III (mildly sedated with narcotics due to pain, able to consent) ANE Anesthesia Plan Anesthesia Plan: GA with mask Total IV Anesthesia: Yes
[2018-07-12] MEDS ORDERED: HYDROmorphONE/DILAUDID 2 MG/ML INJ ONE (09:37)
[2018-07-12] MEDS ORDERED: LR 1,000 ML IV ONE (09:44)
[2018-07-12] MEDS ORDERED: HYDROmorphONE/DILAUDID 2 MG/ML INJ IVP ONE (09:45)
[2018-07-12] MEDS ORDERED: PROPOFOL 200 MG/20 ML VIAL ONE (09:59)
[2018-07-12] MEDS ORDERED: fentaNYL 100 MCG/2 ML INJ ONE (10:16)
[2018-07-12] MEDS ORDERED: fentaNYL 100 MCG/2 ML INJ IVP PRN (10:21)
[2018-07-12] MEDS ORDERED: LABETALOL HCL 5 MG/ML 20 ML MDV IVP PRN (10:21)
[2018-07-12] MEDS ORDERED: PROMETHAZINE HCL 25 MG/ML INJ IVP PRN (10:21)
[2018-07-12] MEDS ORDERED: MEPERIDINE 25 MG/0.5 ML AMP IVP PRN (10:21)
[2018-07-12] MEDS ORDERED: NALOXONE HCL 0.4 MG/ML INJ IVP PRN (10:21)
[2018-07-12] MEDS ORDERED: LR 500 ML IV PRN (10:21)
[2018-07-12] MEDS ORDERED: HYDROmorphONE/DILAUDID 2 MG/ML INJ IVP PRN (10:21)
--- NOTE | 2018-07-12 10:26 | GIREPORT ---
[facility] Surgical Services - Endoscopy Department Patient Name: Nallely Martinez Procedure Date: 07/12/2018 9:58 AM Patient Type: Inpatient Attending MD/ ER Physician: Mattie Baker MD Procedure: Upper GI endoscopy Indications: Acute post hemorrhagic anemia, Melena Providers: Mattie Baker MD Medicines: See the Anesthesia note for documentation of the administered medicatio ns Complications: No immediate complications. Description of Procedure: After obtaining informed consent, the endoscope was passed under direct vision. Throughout the procedure, the patient's blood pressure, pulse, and oxygen saturations were monitored continuously. The Endoscope was intro duced through the mouth, and advanced to the fourth part of duodenum. The upp er GI endoscopy was accomplished without difficulty. The patient tolerated th e procedure well. Findings: The examined esophagus was normal. Diffuse mild inflammation characterized by congestion (edema) and eryth kimberlee was found in the gastric antrum. Biopsies were taken with a cold forcep s for histology. One non-bleeding cratered gastric ulcer with pigmented material was fou nd in the prepyloric region of the stomach. The lesion was 20 mm in largest dimension. Biopsies were taken with a cold forceps for histology. The examined duodenum was normal. Estimated Blood Loss: Estimated blood loss: none. Post Op Diagnosis: - Normal esophagus. - Gastritis. Biopsied. - Non-bleeding gastric ulcer with pigmented material. Biopsied. No obvi ous source of bleeding to target endoscopic therapy. Entire ulcer bed was inflammed and pigmented. High risk for rebleeding or perforation. - Normal examined duodenum. Recommendation: - Return patient to hospital josue for ongoing care. - Use a proton pump inhibitor IV BID. - Clear liquid diet. - No ibuprofen, naproxen, or other non-steroidal anti-inflammatory drug s. - Stop steroid therapies (ok to continue entocort). - Perform an H. pylori serology. - Rebleed risk high (~25% or more). If has rebleed symptoms would consi myles repeat EGD, although given depth/breadth of ulcer bed surgical (large a nadja to treat endoscopically) or IR guided therapy may be needed. Attending Participation: I personally performed the entire procedure. Mattie Baker MD Mattie Baker MD 07/12/2018 10:25:32 AM This report has been signed electronicallyDaus MD Olivia Number of Addenda: 0 Note Initiated On: 07/12/2018 9:58 AM [email or web address]
--- NOTE | 2018-07-12 10:30 | SUROPNOTE ---
[facility] Operative Report - Surgery BRIEF EGD NOTE Indication: melena, anemia Medication: per anesthesia Complications: none acutely Findings: 1. Normal esophagus 2. Mild gastritis - bx'd 3. 2cm, catered, deep, pre-pyloric ulcer - entire ulcer bed was friable and ominous in appearance - no active bleeding - no clear endoscopic target, and given breadth of ulcer, perforation.bleeding risk to apply therapy to entire bed, no endotherapy was applied - margin of ulcer biopsied 4. normal duodenum IMPRESSION/RECS: 1. MELENA - from gastric ulcer - ulcer is deep, risk of rebleed and perf is high - endoscopically consistent with NSAID induced ulcer, but IBD ulcer also possible given hx of Crohns - STOP all NSAIDs - STOP prednisone (not clearly needed for IBD at this time) - IV PPI BID - check h.pylori status - restrict diet to clears for now, in case of rebleeding - if has evidence of rebleeding, would plan repeat EGD (although fear that surgical or IR guided therapy could be needed in that eventuality) - will follow, call with questions
--- NOTE | 2018-07-12 10:31 | POSTANESTH ---
Post Anesthetic Evaluation Cardiovascular Status: Normal, Stable Respiratory Status: Normal, Stable Level of Consciousness/Mental Status: Can Participate in Eval Pain Control: Adequate, Prn Tx Ordered Nausea/Vomiting Control: Adequate, Prn Tx Ordered Complications Possibly Related to Anesthesia: None Noted (At baseline status and comfortable)
[2018-07-12] MEDS: LIDOCAINE HCL 4% TOPICAL SOLN 50ML TP PRN (12:13)
[2018-07-12] MEDS: HYDROmorphONE/DILAUDID 1 MG/ML INJ IVP PRN (12:13)
--- NOTE | 2018-07-12 13:05 | WOCRNPDOC ---
WOCRN Advanced Assessment Note - Skin Integrity Problem, Advanced Assess Left Lower Lateral Leg Dressing Type: Black Vac Foam, Wound Vac Dressing Description: Clean/Dry, Intact Exudate Amount: Minimal Exudate Characteristic(s): Sanguinous Integumentary Issue Intervention: Dressing Changed Lucy Wound Tissue: Painful/Tender Wound Bed Constitution: Granulation Tissue (10%), Adhered Slough (90%) Wound Edges: Attached, Irregular Skin Integrity Problem Comment: Cleaned with ns and gauze. 4% liquid lidocaine to wound beds. Patient also recieved 0.5 IV dilaudid and was writhing in pain and crying throughout the entire procedure. Wound bed with little improvement/ minimal granulation since previous dressing change. Biopad collagen applied to lateral wound bed then covered with medium simplace black foam. Patient's son is in room for dressing change. This wound was connected with black foam to posterior wound and set to suction below the patient's lateral knee. Left Posterior Lower Leg Dressing Type: Black Vac Foam, Contact Layer, Wound Vac Dressing Description: Clean/Dry, Intact Exudate Amount: Minimal Exudate Characteristic(s): Sanguinous Integumentary Issue Intervention: Dressing Changed Lucy Wound Tissue: Painful/Tender Wound Bed Constitution: Granulation Tissue (35%), Tendon (10%), Adhered Slough ( 55%) Wound Edges: Attached, Irregular Skin Integrity Problem Comment: Tendon appears to have some coverage compared to previous assessment on Tuesday, however in general wound is not healing well. There are small areas of granulation but overall the wound is mostly slough/ necrotic. Cleaned wound bed with ns and gauze. Skin prep and drape to lucy wound skin. Biopad collagen applied to cover tendon, then adaptic touch contact layer placed over the collagen to keep it in place and protect tendon from foam. Entire wound bed covered with medium black simplace foam. The wound was bridged to anterior wound and set to suction at -125 mm Hg continuous with no leaks. Arianna MUNIZ in room for care. Next vac change for all wounds is Friday 07/14. Dr. Lopes notified of findings.
[2018-07-12] MEDS: amLODIPine BESYLATE 5 MG TAB PO SCH (13:08)
[2018-07-12] MEDS: GABAPENTIN 300 MG CAP PO SCH ×3 (13:08→21:30)
[2018-07-12] MEDS: ATENOLOL 50 MG TAB PO SCH ×2 (13:09→21:31)
[2018-07-12] MEDS: CHOLECALCIFEROL VIT D3 1,000 UNITS TAB PO SCH (13:09)
[2018-07-12] MEDS: POLYETHYLENE GLYCOL 3350 17 GM PKT PO SCH (13:37)
[2018-07-12] MEDS: SENNOSIDES/DOCUSATE SODIUM TAB PO SCH ×2 (13:37→21:31)
--- NOTE | 2018-07-12 13:44 | HOSPPROG ---
Hospitalist Progress Note Assessment/Plan: 68 year old female with pmh of crohns, chronic lower extremity wounds, admitted for wound care. Yesterday had large black bowel movement and H/H dropped 10 points since admission. Today to EGD GI bleed- melena yesterday and this morning. Required transfusion overnight. H/ H stable today. Had EGD, with report showing fairly large ulceration. GI recommends IV PPI BID, no more oral steroids, continue entecort. Will monitor H/ H. * ongoing chronic bilateral leg wounds nonhealing in the outpatient setting despite regular care at outpatient wound care clinic Status post surgical debridement of 2 wounds on right leg in and 1 on left leg by Dr. Lopes Needing ongoing wound care, wound vacs being placed today by wound care nurse Patient has had significant issues with compliance with her wound dressings on appliances at home, encouraged her to have better compliance with the treatment * uncontrolled hypertension Normotensive, monitor in setting of bleed. Treat PRN *Hyponatremia- Fluids discontinued and serum sodium dropped. back on IVNS and sodium improving. patient not taking good PO. Will continue IVS and repeat Na in am. * ongoing intermittent tobacco abuse after formally quitting cigarettes Cigarettes will clearly aggravate her difficulties healing these wounds and I have reviewed this with her in detail today Tobacco cessation counseling will need to be ongoing * COPD currently stable * Chronic CHF appears currently stable * chronic Crohn's disease on budesonide started on prednisone a week ago, then developed GI bleed. No more oral steroids , she is high risk of rebleed. * history of uterine cancer PPX- No SCDs, No heparin Fluids- restart IV saline Lytes- Hyponatremia Nutrition- NPO Cor- Full Dispo-inpatient for acute GI bleed, lower extremity wounds, hyponatremia Subjective: patient feeling somewhat better today. No ab pain. small black BM this morning. Legs hurt. Objective: Vital Signs Temp Pulse Resp BP Pulse Ox 36.9 C 91 16 116/70 99 07/12/18 11:27 07/12/18 11:27 07/12/18 11:27 07/12/18 11:27 07/12/18 11:27 Laboratory Results 07/12/18 04:32 07/12/18 04:32 07/11/18 07/12/18 07/13/18 05:59 05:59 05:59 Intake Total 1000 755 Output Total 200 800 Balance 800 -45 - Physical Exam Constitutional: no apparent distress, appears nourished, not in pain Eyes: PERRL, anicteric sclera, EOMI Ears, Nose, Mouth, Throat: moist mucous membranes, hearing normal, ears appear normal, no oral mucosal ulcers Cardiovascular: regular rate and rhythym, no murmur, rub, or gallop Respiratory: no respiratory distress, no rales or rhonchi, clear to auscultation Gastrointestinal: normoactive bowel sounds, soft, non-tender abdomen, no palpable masses Genitourinary: no bladder fullness, no bladder tenderness, no renal bruits Skin: no induration, other (wound vacs in place on legs. ) Musculoskeletal: full muscle strength, no muscle tenderness, normal joint ROM Neurologic: AAOx3, sensation intact bilaterally Psychiatric: interacting appropriately, not anxious, not encephalopathic, thought process linear Lymph, Heme, Immunologic: no cervical LAD, no supraclavicular LAD ICD10 Worksheet Patient Problems: Problems Problem Status Onset CHF (congestive heart failure) Acute Chronic venous insufficiency Acute Contusion of leg, left Acute Fusion of spine of lumbar region Acute Hypoxemia Acute Laceration of knee, left Acute Skin tear of left lower leg without complication Acute Somnolence Acute
[2018-07-12] MEDS: BUDESONIDE 3 MG EC CAP PO SCH ×3 (14:32→21:30)
--- NOTE | 2018-07-12 19:54 | GCON ---
INPATIENT CONSULTATION NOTE REQUESTING PHYSICIAN: REASON FOR CONSULTATION: Melena. HISTORY OF PRESENT ILLNESS: Briefly, the patient is a 68-year-old female who was admitted on July 06 for the evaluation of poorly healing wounds. During her hospital stay, it was noted that her blood counts were gradually falling. Yesterday, she had a large, black bowel movement. Therefore, there was concern about GI bleeding as a source of her trending hematocrits. She reports no prior history of ulcers, although admits to an underlying history of inflammatory bowel disease. She describes having Crohn disease. She admits to having multiple upper and lower endoscopies to the workup of that. She does not recall the details of her disease very well. She is followed by a grocery caddy in [place] and is currently taking budesonide long- term. She cannot recall if she has been on any other Crohn's medicines although does report that she may have had an allergy to one of them. (I note in her allergies an allergy to Humira). She reports no nausea or vomiting. She has had no bright red blood. She reports that during her hospital stay, she has been eating, but with a reduced appetite. She admits to no prior history of acute GI bleeding. She does take nonsteroidal therapies regularly. She is currently also on prednisone. PAST MEDICAL HISTORY: Includes COPD, hypertension, chronic leg wounds, ankle injury, CHF, chronic pain, Crohn disease, heartburn, uterine cancer, spinal stenosis, osteoarthritis, cholecystectomy, hysterectomy, spine surgery. FAMILY HISTORY: Negative for inflammatory bowel disease. SOCIAL HISTORY: She is a former smoker, quit approximately 2 years ago. She drinks alcohol rarely. She does not use drugs. CURRENT MEDICATIONS: Tylenol, albuterol, Norvasc, Tenormin, Dulcolax, Anticort , vitamin D, Neurontin, Dilaudid, Atrovent, lactulose, lidocaine, Zestril, Imodium, Ativan, milk of magnesia, melatonin, Robaxin, Zofran, oxycodone, Protonix, MiraLAX, Evista, Senokot, simethicone, Ultram, trazodone. ALLERGIES: Chantix and Humira. REVIEW OF SYSTEMS: A complete 10-point review was undertaken with the patient and is negative except for those details described in the history of present illness. PHYSICAL EXAM: GENERAL: This is an elderly female in no apparent distress. HEENT: Her pupils are equal, round, reactive to light and accommodation. Her sclerae are nonicteric. Her oropharynx is clear. NECK: Supple without lymphadenopathy. HEART: Regular without murmur. ABDOMEN: Soft, nontender with normoactive bowel sounds. EXTREMITIES: Free of cyanosis, clubbing, and edema. NEURO: Grossly nonfocal. SKIN: Warm and dry. She has bilateral wound VAC's over the lower extremities. PSYCH: Reveals normal mood and affect. MUSCULOSKELETAL: Her joints show no arthritis. LABORATORY TESTING: Hematocrit today of 23.3, on admission it was 41.3. Hemoglobin today of 8.0, on admission it was 14.4. White count today of 26.27, on admission it was 25.92. Of note during this same period of time, she is approximately 1 L positive with regard to hydration. Sodium of 133, potassium of 3.9, chloride of 103, bicarb of 25, BUN of 47, creatinine of 0.7. IMPRESSION/RECOMMENDATIONS: The patient has developed an anemia during her hospital stay. This has been associated with large black stool as well as an elevated BUN over creatinine ratio. Given her longstanding use of nonsteroidal therapies, I am concerned about the possibility of peptic ulcer disease. The differential diagnosis could also include inflammatory bowel disease related bleeding. She has little in the way of diarrhea or abdominal pain, making inflammatory bowel disease flaring somewhat less likely. At this time, I recommend she remain n.p.o. on a proton pump inhibitor. We will proceed with an endoscopic evaluation. Pending the results of upper endoscopy, we could consider colonoscopy or small bowel imaging. Crohn disease. She does not appear to have very significant Crohn disease symptoms. It is reasonable to consider discontinuation of her oral prednisone and continuation of budesonide. A long-term Crohn's management plan may need to be refined. She has a GI doctor in the [facility]. She may need to change to a local GI doctor pending her desire. We can follow up this issue as an outpatient. /[id number]/MODL MTDD
[2018-07-12] MEDS: traZODone 50 MG TAB PO SCH (21:29)
[2018-07-12] MEDS: MELATONIN 3 MG TAB PO SCH (21:30)
[2018-07-12] MEDS: LISINOPRIL 40 MG TAB PO SCH (21:31)
[2018-07-13] MEDS: METHOCARBAMOL 750 MG TAB PO PRN ×3 (00:08→21:24)
[2018-07-13] MEDS: oxyCODONE IR 5 MG TAB PO PRN ×4 (04:32→19:59)
[2018-07-13 05:28] LABS: PLATELET COUNT 217 10^3/uL (150-400)
--- NOTE | 2018-07-13 08:27 | SOAPPROG ---
[facility] Progress Note Assessment/Plan: Assessment: 1. GI BLEED - large gastric ulcer - suspect NSAID induced - h.pylori ab negative - BUN down, H/H stable, but low - somewhat high risk for rebleeding and perforation given endoscopic appearance - would continue IV PPI BID until reliably taking po, and then change to po ppi bid with qhs h2b - NO NSAIDs - if has rebleeding, will need to consider re-EGD vs Ir vs surgery - ok to advance diet 2. Crohns? - ok to continue budesonide 9mg/d, this has only minimal systemic steroid effect (although is also of uncertain maintenance benefit in IBD) - no evidence of active IBD based on symptoms - doubt gastric ulcer is IBD, although this is possible - will need f/u of this issue as oupt - apparently has GI MD already, although has moved to [place] and may need to transition? - will sign off, call with questions 07/13/18 08:27 Subjective: CC: GI bleed S: hungry no fever ongoing leg and hip pain no nausea mild GERD no diarrhea Objective: Vital Signs Temp Pulse Resp BP Pulse Ox 37.1 C 94 18 135/87 H 88 L 07/13/18 04:00 07/13/18 08:00 07/13/18 08:00 07/13/18 04:00 07/13/18 08:00 Laboratory Results 07/13/18 05:20 07/13/18 05:20 07/12/18 07/13/18 07/14/18 05:59 05:59 05:59 Intake Total 1255 Output Total 800 Balance 455 Laboratory Tests 07/10/18 07/11/18 07/11/18 04:45 05:13 12:33 Hgb 9.2 L 7.2 L Hct 27.5 L 21.5 L BUN 57 H Creatinine 0.9 H. pylori IgG Antibody 07/11/18 07/11/18 07/12/18 19:50 19:50 04:32 Hgb 7.3 L 8.0 L Hct 21.5 L 23.3 L BUN 54 H Creatinine 0.7 H. pylori IgG Antibody 07/12/18 07/12/18 07/13/18 04:32 04:32 05:20 Hgb 7.4 L Hct 21.4 L BUN 47 H Creatinine 0.7 H. pylori IgG Antibody NEGATIVE 07/13/18 05:20 Hgb Hct BUN 16 Creatinine 0.6 H. pylori IgG Antibody Physical Exam - Physical Exam General Appearance: alert, no apparent distress Respiratory: lungs clear, normal breath sounds Cardiac/Chest: normal peripheral pulses, regular rate, rhythm Abdomen: normal bowel sounds, non-tender, soft, No guarding, No rebound Skin: other (wounds noted) Extremities: normal range of motion, No pedal edema Neuro/Psych: no motor/sensory deficits ICD10 Worksheet Patient Problems: Problems Problem Status Onset CHF (congestive heart failure) Acute Chronic venous insufficiency Acute Contusion of leg, left Acute Fusion of spine of lumbar region Acute Hypoxemia Acute Laceration of knee, left Acute Skin tear of left lower leg without complication Acute Somnolence Acute
[2018-07-13] MEDS: SENNOSIDES/DOCUSATE SODIUM TAB PO SCH ×2 (09:19→21:25)
[2018-07-13] MEDS: GABAPENTIN 300 MG CAP PO SCH ×3 (09:19→21:24)
[2018-07-13] MEDS: PANTOPRAZOLE SODIUM 40 MG VIAL IVP SCH ×2 (09:19→21:24)
[2018-07-13] MEDS: CHOLECALCIFEROL VIT D3 1,000 UNITS TAB PO SCH (09:19)
[2018-07-13] MEDS: BUDESONIDE 3 MG EC CAP PO SCH ×3 (09:19→21:24)
[2018-07-13] MEDS: ATENOLOL 50 MG TAB PO SCH ×2 (09:20→21:25)
[2018-07-13] MEDS: POLYETHYLENE GLYCOL 3350 17 GM PKT PO SCH (09:20)
[2018-07-13] MEDS: amLODIPine BESYLATE 5 MG TAB PO SCH (09:20)
--- NOTE | 2018-07-13 13:23 | HOSPPROG ---
Hospitalist Progress Note Assessment/Plan: 68 year old female with pmh of crohns, chronic lower extremity wounds, admitted for wound care. Had upper GI bleed, EGD showed large ulceration GI bleed- H/H stable today. Had EGD, with report showing fairly large ulceration. GI recommends IV PPI BID, no more oral steroids, or nsaids. continue entecort. When taking better PO transition to PO PPI Bid with H2 rica HS. Will monitor H/H. * ongoing chronic bilateral leg wounds nonhealing in the outpatient setting despite regular care at outpatient wound care clinic Status post surgical debridement of 2 wounds on right leg in and 1 on left leg by Dr. Lopes Needing ongoing wound care, wound vacs being placed today by wound care nurse Patient has had significant issues with compliance with her wound dressings on appliances at home, encouraged her to have better compliance with the treatment * uncontrolled hypertension Normotensive, monitor in setting of bleed. Treat PRN *Hyponatremia- Fluids discontinued and serum sodium dropped. started back on IVNS but not sure if she actually got it, was not running when I saw her this morning. She is still not taking adequate PO. advanced diet today asked nurse to restart fluids and will recheck Na in am. * ongoing intermittent tobacco abuse after formally quitting cigarettes Cigarettes will clearly aggravate her difficulties healing these wounds and I have reviewed this with her in detail today Tobacco cessation counseling will need to be ongoing * COPD currently stable * Chronic CHF appears currently stable * chronic Crohn's disease on budesonide started on prednisone a week ago, then developed GI bleed. No more oral steroids , or nsaids. she is high risk of rebleed. * history of uterine cancer PPX- No SCDs, No heparin Fluids- restart IV saline Lytes- Hyponatremia Nutrition- NPO Cor- Full Dispo-inpatient for acute GI bleed, lower extremity wounds, hyponatremia Subjective: patient somewhat better this morning. Still with pain in her legs. Objective: Vital Signs Temp Pulse Resp BP Pulse Ox 36.5 C 98 20 145/88 H 98 07/13/18 11:38 07/13/18 11:38 07/13/18 11:38 07/13/18 11:38 07/13/18 11:38 Laboratory Results 07/13/18 05:20 07/13/18 05:20 07/12/18 07/13/18 07/14/18 05:59 05:59 05:59 Intake Total 1255 Output Total 800 Balance 455 - Physical Exam Constitutional: no apparent distress, appears nourished, not in pain Eyes: PERRL, anicteric sclera, EOMI Ears, Nose, Mouth, Throat: moist mucous membranes, hearing normal, ears appear normal, no oral mucosal ulcers Cardiovascular: regular rate and rhythym, no murmur, rub, or gallop Respiratory: no respiratory distress, no rales or rhonchi, clear to auscultation Gastrointestinal: normoactive bowel sounds, soft, non-tender abdomen, no palpable masses Genitourinary: no bladder fullness, no bladder tenderness, no renal bruits Skin: no rashes or abrasions, no fluctuance, no induration Musculoskeletal: full muscle strength, no muscle tenderness, normal joint ROM Neurologic: AAOx3, sensation intact bilaterally Psychiatric: interacting appropriately, not anxious, not encephalopathic, thought process linear Lymph, Heme, Immunologic: no cervical LAD, no supraclavicular LAD ICD10 Worksheet Patient Problems: Problems Problem Status Onset CHF (congestive heart failure) Acute Chronic venous insufficiency Acute Contusion of leg, left Acute Fusion of spine of lumbar region Acute Hypoxemia Acute Laceration of knee, left Acute Skin tear of left lower leg without complication Acute Somnolence Acute
[2018-07-13] MEDS ORDERED: NS 500 ML IV ONE (16:09)
[2018-07-13] MEDS: ACETAMINOPHEN 325 MG TAB PO PRN (16:14)
--- NOTE | 2018-07-13 16:26 | ASMTCMCOM ---
CM Note CM Note Notes: Met with pt's son Alex, to discuss preference for SNF. Son states pt has been a [facility] before and they are leaning towards that facility, [facility] 2nd choice, CM sent updated notes, dc date still unclear. DC Plan: SNF/ [facility] Date Signed: 07/13/2018 04:25 PM Electronically Signed By:Anu Hawk RN
--- NOTE | 2018-07-13 16:51 | SOAPPROG ---
SO[facility] Progress Note Assessment/Plan: Assessment: 68yo F s/p BLE debridement - things got better initially, now worse. There is some surrounding erythema, and they are markedly tender. - still thinkinh pyoderma but Bx was negative and appearance isnt classical. Have asked Dr Baird of ID to weigh in. Will likely need rheum as well given how these progressed despite pretty high dose steroids - will eval tomorrow iwth VAC change. Still may need repeat debridement Plan: 07/07/18 15:42 07/10/18 11:26 07/13/18 16:49 Subjective: tired, febrile Objective: Vital Signs Temp Pulse Resp BP Pulse Ox 37.7 C 105 H 18 113/63 93 07/13/18 16:11 07/13/18 15:21 07/13/18 15:21 07/13/18 15:21 07/13/18 15:21 Laboratory Results 07/13/18 05:20 07/13/18 05:20 07/12/18 07/13/18 07/14/18 05:59 05:59 05:59 Intake Total 1255 Output Total 800 Balance 455 ICD10 Worksheet Patient Problems: Problems Problem Status Onset CHF (congestive heart failure) Acute Chronic venous insufficiency Acute Contusion of leg, left Acute Fusion of spine of lumbar region Acute Hypoxemia Acute Laceration of knee, left Acute Skin tear of left lower leg without complication Acute Somnolence Acute
--- NOTE | 2018-07-13 17:19 | PDCONSULT ---
Manager Of Data Note: #Painful B LE ulcerations which are increasing in size, initially precipitated by trauma 4+ months ago. Now associated surrounding erythema, fever c/w cellulitis. Doubt infection cause of failure to heal overall. Would consider pyoderma gangrenosum, vasculitis, ulcers associated with cryoglobulinemia. Although I could not palpate pulses today due to LE pain, other providers document good LE pulses, seems to make ischemic ulcers less likely. PG seems high on ddx although pictures of ulcers were reviewed did not have typical heaped up appearance centrally but borders of wound were irregular + crohn's which supports PG. Lack of response to steroids and neg bx does not completely r/o PG. --start cefazolin for cellulitis as past wound cx MSSA and clinically appear most c/w staph and strep --send ANCA, JANIE, HCV Ab work up etiology of ulcerations --although not clearly ischemic, longstanding tobacco and EtOH use, consider definitive assessment of arterial system. Venous ulcerations seem less likely due to level of pain and lack of swelling #Leukocytosis: present to various degrees since 01/2017, difficult to completely attribute to steroids, will continue to monitor, may have to consider more extensive w/u with CT # Systolic Murmur: reviewed ECHO 02/2017, EF okay, minor valve abn. May need to consider repeating ECHO in light of overall poor healing. INFECTIOUS DISEASE CONSULTATION Chief complaint: worsening BLE cellulitis with non-healing ulcers Referring MD: Dr. Lopes Source of history: Chart, patient and son History of present illness: 68 year-old female, with PMHx including eczema, Crohns disease, COPD, etoh and tobacco dependence, and HTN whos BLE dates wounds date back to 02/15/18 s/p fall sustaining multiple skin tears. On evaluation she states, I have been in so much pain, it is just ridiculous to ask. Provides that the BLE pain has gotten progressively worse since initially injury in February. She notes that her right leg hurts more than her left. Her son notes that this is unusual and that she usually complains that her left leg hurts more than her right. Reports associated pain of bilateral ankles with movement, constipation, and weight loss. Her wounds have continued to progress despite management in wound healing center. Had a biopsy obtained in June with pathology report showing inflammation, no cancer. Was started on Prednisone 40 mg on 06/29/18 with minimal change in ulcers. Unclear courses of antibiotics. Admitted on the for ongoing management of her wounds. She underwent debridement on the 06 of July. Hospital course complicated by GI bleed approx on 07/12/17 with gastric ulcer seen on esophagogastroduodenoscopy who recommended DC systemic steroids. Denies similar hx of lower extremity ulcers in the past, noting that this is the first occurrence. Is able to tolerate food. Prior to admission pt had been smoking and taking x2-3 drinks a day. No diarrhea currently. 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 PMHx: COPD, Crohn's disease, diverticulosis, uterine cancer, GERD, HTN, hyponatremia, osteoarthritis, spinal stenosis SHx: hysterectomy 1982, cholecystectomy; L2-S1 TLIF 2017 Family hx: breast cancer Social hx: Etoh use, at least 2 daily, smokes cigarettes. Used to work in [employer] and rode horses all her life. Allergies: 3 Allergy/AdvReac Type Severity Reaction Status Date / Time adalimumab [From Humira] Allergy Dyspnea Verified 07/06/18 14:41 varenicline [From Chantix] Allergy Verified 07/06/18 14:41 Chantix allergy and Humira allergy Medications: 3 Generic Name Dose Route Start Last Admin Trade Name Freq PRN Reason Stop Dose Admin Acetaminophen 650 mg 07/06/18 11:08 07/13/18 16:14 Tylenol PO 01/02/19 11:07 650 mg Q6 PRN Administration Pain, Mild/Fever, Can Take PO Albuterol 2 puffs 07/06/18 12:36 Proventil Inhaler IH 01/02/19 12:35 Q4H PRN Short of Breath/Dyspnea Amlodipine Besylate 5 mg 07/07/18 09:00 07/13/18 09:20 Norvasc PO 01/03/19 08:59 Not Given DAILY [facility] Atenolol 75 mg 07/06/18 21:00 07/13/18 09:20 Tenormin PO 01/02/19 20:59 Not Given BID VANESSA Bisacodyl 10 mg 07/10/18 16:31 Dulcolax Rectal [place] 01/06/19 16:30 DAILY PRN Constipation Protocol Budesonide 3 mg 07/06/18 16:00 07/13/18 16:15 Entocort Ec PO 01/02/19 15:59 3 mg TID VANESSA Administration Cholecalciferol 1,000 units 07/07/18 09:00 07/13/18 09:19 Vitamin D PO 01/03/19 08:59 1,000 units DAILY VANESSA Administration Gabapentin 600 mg 07/06/18 16:00 07/13/18 16:15 Neurontin PO 01/02/19 15:59 600 mg TID VANESSA Administration Hydromorphone HCl 0.25 - 0.5 mg 07/07/18 05:37 07/12/18 12:13 Dilaudid IVP 07/16/18 18:21 0.5 mg Q2H PRN Administration use only for wound vac changes Sodium Chloride 1,000 mls @ 75 mls/hr 07/11/18 12:15 07/12/18 03:10 Ns IV 01/07/19 12:14 1,000 mls CONT VANESSA Administration Cefazolin Sodium/Dextrose 100 mls @ 200 mls/hr 07/13/18 18:00 Ancef IV 08/12/18 17:59 Q8H VANESSA Protocol Ipratropium G[place]mith 2 puffs 07/06/18 12:36 07/08/18 11:14 Atrovent Hfa IH 01/02/19 12:35 2 puffs QID PRN Administration Short of Breath/Dyspnea Lactulose 20 gm 07/10/18 16:31 Cephulac PO 01/06/19 16:30 TID PRN Constipation Protocol Lidocaine HCl 25 ml 07/06/18 17:30 07/12/18 12:13 Lidocaine Hcl 4% Topical Solution TP 01/02/19 17:05 25 ml PRN PRN Administration DRESSING CHANGES Lisinopril 40 mg 07/06/18 21:00 07/12/18 21:31 Zestril PO 01/02/19 20:59 Not Given HS VANESSA Loperamide HCl 2 mg 07/06/18 12:36 Imodium PO 01/02/19 12:35 DAILY PRN Diarrhea/Loose Stools Lorazepam 0.5 mg 07/11/18 23:31 Ativan Injection IVP 01/07/19 23:30 Q6HRS PRN Spasms Magnesium Hydroxide 30 ml 07/10/18 16:31 Milk Of Magnesia PO 01/06/19 16:30 DAILY PRN Constipation Protocol Melatonin 3 mg 07/06/18 21:00 07/12/18 21:30 Melatonin PO 01/02/19 20:59 3 mg HS VANESSA Administration Methocarbamol 750 mg 07/06/18 12:36 07/13/18 09:37 Robaxin PO 01/02/19 12:35 750 mg TID PRN Administration Spasms Ondansetron HCl 4 mg 07/06/18 11:08 Zofran IVP 01/02/19 11:07 Q4 PRN Nausea/Vomiting, Can't Take PO Oxycodone HCl 5 - 10 mg 07/10/18 16:33 07/13/18 14:36 Oxycodone Ir PO 07/16/18 12:35 10 mg Q3 PRN Administration Pain, Severe Able to Take PO Pantoprazole Sodium 40 mg 07/06/18 12:36 Protonix PO 01/02/19 12:35 DAILY PRN Reflux Pantoprazole Sodium 40 mg 07/11/18 14:15 07/13/18 09:19 Protonix IVP 01/07/19 14:14 40 mg BID VANESSA Administration Polyethylene Glycol 17 gm 07/11/18 09:00 07/13/18 09:20 Miralax PO 01/07/19 08:59 Not Given DAILY VANESSA Protocol Raloxifene HCl 60 mg 07/08/18 12:36 07/08/18 12:01 Evista PO 01/04/19 12:35 60 mg SA VANESSA Administration Senna/Docusate Sodium 1 - 2 tab 07/10/18 21:00 07/13/18 09:19 Senokot-S PO 01/06/19 20:59 2 tab BID VANESSA Administration Protocol Simethicone 40 mg 07/07/18 20:16 07/09/18 21:14 Mylicon PO 01/03/19 20:15 40 mg Q6 PRN Administration GAS Tramadol HCl 50 mg 07/06/18 12:38 07/10/18 14:41 Ultram PO 01/02/19 12:37 50 mg Q6HRS PRN Administration Pain, Moderate Able to Take PO Trazodone HCl 75 mg 07/06/18 21:00 07/12/18 21:29 Trazodone PO 01/02/19 20:59 75 mg HS VANESSA Administration ROS: 10 systems were reviewed and negative with the exception of the elements mentioned in the HPI. Vitals: 3 Temp Pulse Resp BP Pulse Ox 37.7 C 105 H 18 113/63 93 07/13/18 16:11 07/13/18 15:21 07/13/18 15:21 07/13/18 15:21 07/13/18 15:21 3 O2 (L/minute) 1 Physical exam: General: Thin, well-developed, in some distress, easily agitated HEENT: No scleral icterus, conjunctival injection. Oropharynx shows dry mucous membranes. Edentulous. Hard of hearing. Neck: supple, trachea midline Chest: Decreased breath sounds to auscultation. Respiratory effort is normal. Is on 1L of O2. Cardiovascular: Regular rate rhythm with 2/6 systolic murmur, no rubs or gallops. Prominent veins of BLEs. 1+ BLE edema. Abdomen: Soft, nontender, nondistended. No splenomegaly or hepatomegaly. Musculoskeletal: Wound vac over left posterior calf ulcer. Left lateral ulcer with dressing in place. Wound vac over right lower medial page with surrounding erythema. Erythema of BLE ascends up to mid-page. Extremely tender to palpation. Unable to asses dorsalis pedis pulse due to tenderness. Appears cellulitic. Skin: Normal color, no rash. Neurologic: AAOx3, moving all 4 extremities. Laboratory results: 3 WBC 21.18 10^3/uL (3.80-9.50) H 07/13/18 05:20 RBC 2.35 10^6/uL (4.18-5.33) L 07/13/18 05:20 Hgb 7.4 g/dL (12.6-16.3) L 07/13/18 05:20 Hct 21.4 % (38.0-47.0) L 07/13/18 05:20 MCV 91.1 fL (81.5-99.8) 07/13/18 05:20 MCH 31.5 pg (27.9-34.1) 07/13/18 05:20 MCHC 34.6 g/dL (32.4-36.7) 07/13/18 05:20 RDW 17.9 % (11.5-15.2) H 07/13/18 05:20 Plt Count 217 10^3/uL (150-400) 07/13/18 05:20 MPV 9.6 fL (8.7-11.7) 07/13/18 05:20 Neut % (Auto) 87.7 % (39.3-74.2) H 07/13/18 05:20 Lymph % (Auto) 6.4 % (15.0-45.0) L 07/13/18 05:20 Mclennan % (Auto) 4.7 % (4.5-13.0) 07/13/18 05:20 Eos % (Auto) 0.3 % (0.6-7.6) L 07/13/18 05:20 Baso % (Auto) 0.1 % (0.3-1.7) L 07/13/18 05:20 Nucleat RBC Rel Count 0.0 % (0.0-0.2) 07/13/18 05:20 Absolute Neuts (auto) 18.59 10^3/uL (1.70-6.50) H 07/13/18 05:20 Absolute Lymphs (auto) 1.35 10^3/uL (1.00-3.00) 07/13/18 05:20 Absolute Monos (auto) 1.00 10^3/uL (0.30-0.80) H 07/13/18 05:20 Absolute Eos (auto) 0.06 10^3/uL (0.03-0.40) 07/13/18 05:20 Absolute Basos (auto) 0.02 10^3/uL (0.02-0.10) 07/13/18 05:20 Absolute Nucleated RBC 0.00 10^3/uL (0-0.01) 07/13/18 05:20 Immature Gran % 0.8 % (0.0-1.1) 07/13/18 05:20 Seg Neutrophils % 90.1 % 07/11/18 12:33 Band Neutrophils % 1.0 % 07/11/18 12:33 Lymphocytes % 7.9 % 07/11/18 12:33 Monocytes % 1.0 % 07/11/18 12:33 Eosinophils % 0.0 % 07/11/18 12:33 Basophils % 0.0 % 07/11/18 12:33 Metamyelocytes % 0.0 % 07/11/18 12:33 Myelocytes % 0.0 % 07/11/18 12:33 Promyelocytes % 0.0 % 07/11/18 12:33 Blast Cells % 0.0 % 07/11/18 12:33 Immature Gran # 0.16 10^3/uL (0.00-0.10) H 07/13/18 05:20 Absolute Seg Neuts 28.22 10^3/uL (1.70-6.50) H 07/11/18 12:33 Absolute Band Neuts 0.31 10^3/uL (0.00-0.70) 07/11/18 12:33 Absolute Lymphocytes 2.47 10^3/uL (1.00-3.00) 07/11/18 12:33 Absolute Monocytes 0.31 10^3/uL (0.30-0.80) 07/11/18 12:33 Absolute Eosinophils 0.00 10^3/uL (0.03-0.40) L 07/11/18 12:33 Absolute Basophils 0.00 10^3/uL (0.02-0.10) L 07/11/18 12:33 Absolute Metamyelocyte 0.00 10^3/mL (0.00-0.00) 07/11/18 12:33 Absolute Myelocytes 0.00 10^3/mL (0.00-0.00) 07/11/18 12:33 Absolute Promyelocytes 0.00 10^3/uL (0.00-0.00) 07/11/18 12:33 Absolute Plasma Cells 0.00 10^3/uL (0.00-0.00) 07/11/18 12:33 Nucleated RBCs 0 /100 WBC (0-0) 07/11/18 12:33 RBC/WBC/PLT Morphology TNP 07/06/18 12:42 Hypersegmented Neuts 2+ H 07/11/18 12:33 Absolute Blast Cells 0.00 10^3/uL (0.00-0.00) 07/11/18 12:33 Plasma Cells % 0.0 % 07/11/18 12:33 Platelet Estimate ADEQUATE (ADEQ) 07/11/18 12:33 Polychromasia 2+ H 07/11/18 12:33 Hypochromasia 1+ H 07/11/18 12:33 Smear Review By Fly HARMAN MD 07/11/18 12:33 ABG Lactic Acid Cancelled 07/13/18 17:15 VBG Lactic Acid 1.2 mmol/L (0.7-2.1) 07/13/18 17:15 Sodium 132 mEq/L (135-145) L 07/13/18 05:20 Potassium 4.0 mEq/L (3.5-5.2) 07/13/18 05:20 Chloride 105 mEq/L (97-110) 07/13/18 05:20 Carbon Dioxide 26 mEq/l (22-31) 07/13/18 05:20 Anion Gap 1 mEq/L (6-14) L 07/13/18 05:20 BUN 16 mg/dL (7-23) 07/13/18 05:20 Creatinine 0.6 mg/dL (0.6-1.0) 07/13/18 05:20 Estimated GFR > 60 07/13/18 05:20 Glucose 94 mg/dL (70-100) 07/13/18 05:20 Serum Osmolality 276 mosmo/kg (280-297) L 07/07/18 05:19 Calcium 7.6 mg/dL (8.5-10.4) L 07/13/18 05:20 Total Bilirubin 0.6 mg/dL (0.1-1.4) 07/13/18 05:20 AST 13 IU/L (14-46) L 07/13/18 05:20 ALT 24 IU/L (9-52) 07/13/18 05:20 Alkaline Phosphatase 44 IU/L (38-126) 07/13/18 05:20 Total Protein 4.3 g/dL (6.3-8.2) L 07/13/18 05:20 Albumin 2.3 g/dL (3.5-5.0) L 07/13/18 05:20 Urine Color FLORINA 07/13/18 17:00 Urine Appearance MODERATELY TURBID 07/13/18 17:00 Urine pH 5.0 (5.0-7.5) 07/13/18 17:00 Ur Specific [place] 1.020 (1.002-1.030) 07/13/18 17:00 Urine Protein 1+ (NEGATIVE) H 07/13/18 17:00 Urine Ketones 1+ (NEGATIVE) H 07/13/18 17:00 Urine Blood 2+ (NEGATIVE) H 07/13/18 17:00 Urine Nitrate POSITIVE (NEGATIVE) H 07/13/18 17:00 Urine Bilirubin NEGATIVE (NEGATIVE) 07/13/18 17:00 Urine Urobilinogen 4.0 EU (0.2-1.0) H 07/13/18 17:00 Ur Leukocyte Esterase 3+ (NEGATIVE) H 07/13/18 17:00 Urine RBC 3-5 /hpf (0-3) H 07/13/18 17:00 Urine WBC 25-50 /hpf (0-3) H 07/13/18 17:00 Ur Epithelial Cells 1+ /lpf (NONE-1+) 07/13/18 17:00 Urine Bacteria TRACE /hpf (NONE SEEN) H 07/13/18 17:00 Urine Osmolality 603 mosmo/kg (300-900) 07/11/18 13:30 Ur Random Sodium < 5 mEq/L (30-90) L 07/11/18 13:30 Urine Glucose NEGATIVE (NEGATIVE) 07/13/18 17:00 Stool Occult Bld Scrn POSITIVE (NEGATIVE) H 07/11/18 17:50 H. pylori IgG Antibody NEGATIVE (NEG) 07/12/18 04:32 Patient ABO/Rh A POSITIVE 07/11/18 15:00 Antibody Screen NEGATIVE 07/11/18 15:00 Crossmatch IS Only See Detail 07/11/18 15:00 CRP 161 Microbiology: 03/02/18 Knee swab impression grew, 4+ Pseudomonas aeruginosa, susceptible to meropenem ELÍAS = 0.5. 06/05/18 Ankle swab grew, 2+ MSSA. 07/13/18 Blood cx (2) pending results. Imaging studies: 05/24/18 Extremity venous study, negative for DVT. 02/09/18 L-knee XRay 3V impression: 1) Joint effusion with no acute osseous findings. 2) Extensive anterior soft tissue swelling. 3) Atherosclerosis. 07/12/17 Pathology: Gastric mucosal biopsies x2 (ulcer margin antrum) noted for chronic inflammation. Gastric mucosal biopsies x2 (antrum) shows no inflammatory rxn or H. pylori organisms. Scribe attestation: I, Piper Taylor, am scribing for, and in the presence of, Roseline Baird MD IRoseline MD, personally performed the services described in this documentation, as scribed by Piper Taylor in my presence, and it is both accurate and complete. Greater than 70 minutes spent on this patients care, greater than 50% of time spent counseling, educating, and coordinating care regarding the above mentioned plan.
[2018-07-13] MEDS: ceFAZolin 2 GM/DEXTROSE 100 ML IV SCH (18:29)
[2018-07-13] MEDS: NS 1,000 ML IV SCH (18:35)
[2018-07-13 20:29] LABS: HEPATITIS C ANTIBODY TOTAL NEGATIVE (NEGATIVE)
[2018-07-13] MEDS: MELATONIN 3 MG TAB PO SCH (21:24)
[2018-07-13] MEDS: traMADol 50 MG TAB PO PRN (21:24)
[2018-07-13] MEDS: traZODone 50 MG TAB PO SCH (21:24)
[2018-07-13] MEDS: LISINOPRIL 40 MG TAB PO SCH (21:25)
[2018-07-14] MEDS: ceFAZolin 2 GM/DEXTROSE 100 ML IV SCH ×3 (01:06→17:08)
[2018-07-14] MEDS: oxyCODONE IR 5 MG TAB PO PRN ×4 (07:10→20:03)
[2018-07-14] MEDS: ATENOLOL 50 MG TAB PO SCH ×2 (09:40→20:20)
[2018-07-14] MEDS: SENNOSIDES/DOCUSATE SODIUM TAB PO SCH ×2 (09:40→20:20)
[2018-07-14] MEDS: METHOCARBAMOL 750 MG TAB PO PRN ×3 (09:40→20:20)
[2018-07-14] MEDS: amLODIPine BESYLATE 5 MG TAB PO SCH (09:40)
[2018-07-14] MEDS: BUDESONIDE 3 MG EC CAP PO SCH ×3 (09:41→21:37)
[2018-07-14] MEDS: POLYETHYLENE GLYCOL 3350 17 GM PKT PO SCH (09:41)
[2018-07-14] MEDS: GABAPENTIN 300 MG CAP PO SCH ×3 (09:41→21:37)
[2018-07-14] MEDS: PANTOPRAZOLE SODIUM 40 MG VIAL IVP SCH (09:43)
[2018-07-14 10:18] LABS: PLATELET COUNT 234 10^3/uL (150-400)
[2018-07-14] MEDS: CHOLECALCIFEROL VIT D3 1,000 UNITS TAB PO SCH (10:35)
--- NOTE | 2018-07-14 12:53 | HOSPPROG ---
Hospitalist Progress Note Assessment/Plan: 68 year old female with pmh of crohns, chronic lower extremity wounds, admitted for wound care. Had upper GI bleed, resolved. now managing wounds, possible infection, hyponatremia * ongoing chronic bilateral leg wounds nonhealing in the outpatient setting despite regular care at outpatient wound care clinic -debrided by Dr. Lopes. -continue wound care -spike fever yesterday and became mildly tachy. Blood cultures reviewed today and shows 1 bottle positive for Group a strep. -ID consulted overnight -started on ancef GI bleed- Resolved. Likely due to steroids and nsaidds H/H stable today. Had EGD , with report showing fairly large ulceration. GI recommends IV PPI BID, no more oral steroids, or nsaids. continue entecort. When taking better PO transition to PO PPI Bid with H2 rica HS. Will monitor H/H. * uncontrolled hypertension Normotensive, monitor in setting of bleed. Treat PRN *Hyponatremia- Fluids discontinued and serum sodium dropped. patient states she feels better today and will drink more fluids, take more PO. repeat serum sodium in am. * ongoing intermittent tobacco abuse after formally quitting cigarettes Cigarettes will clearly aggravate her difficulties healing these wounds and I have reviewed this with her in detail today Tobacco cessation counseling will need to be ongoing * COPD currently stable * Chronic CHF appears currently stable * chronic Crohn's disease on budesonide started on prednisone a week ago, then developed GI bleed. No more oral steroids , or nsaids. she is high risk of rebleed. -contiune budesonide entecort * history of uterine cancer PPX- No SCDs, restart heparin bid Fluids- restart IV saline Lytes- Hyponatremia Nutrition- NPO Cor- Full Dispo-remain inpatient for wounds, possible bacteremia Subjective: patient says she feels very good today. family agrees. she says her appetite is better today as well. Objective: Vital Signs Temp Pulse Resp BP Pulse Ox 37.0 C 68 14 146/86 H 98 07/14/18 11:29 07/14/18 11:28 07/14/18 11:28 07/14/18 11:28 07/14/18 11:28 Microbiology 07/13/18 17:04 Blood Panel (PCR) - Final Blood Strep Pyogenes Group A Laboratory Results 07/14/18 10:13 07/14/18 10:13 07/13/18 07/14/18 07/15/18 05:59 05:59 05:59 Intake Total 1255 2170 Output Total 800 800 Balance 455 1370 - Physical Exam Constitutional: no apparent distress, appears nourished, not in pain Eyes: PERRL, anicteric sclera, EOMI Ears, Nose, Mouth, Throat: moist mucous membranes, hearing normal, ears appear normal, no oral mucosal ulcers Cardiovascular: regular rate and rhythym, no murmur, rub, or gallop Respiratory: no respiratory distress, no rales or rhonchi, clear to auscultation Gastrointestinal: normoactive bowel sounds, soft, non-tender abdomen, no palpable masses Genitourinary: no bladder fullness, no bladder tenderness, no renal bruits Skin: no rashes or abrasions, no fluctuance, no induration Musculoskeletal: full muscle strength, no muscle tenderness, normal joint ROM, other (wound vac in place on calf of both legs. with scant drainage. ) Neurologic: AAOx3, sensation intact bilaterally Psychiatric: interacting appropriately, not anxious, not encephalopathic, thought process linear Lymph, Heme, Immunologic: no cervical LAD, no supraclavicular LAD ICD10 Worksheet Patient Problems: Problems Problem Status Onset CHF (congestive heart failure) Acute Chronic venous insufficiency Acute Contusion of leg, left Acute Fusion of spine of lumbar region Acute Hypoxemia Acute Laceration of knee, left Acute Skin tear of left lower leg without complication Acute Somnolence Acute
[2018-07-14] MEDS: HYDROmorphONE/DILAUDID 1 MG/ML INJ IVP PRN (13:01)
--- NOTE | 2018-07-14 14:49 | WOCRNPDOC ---
WOCRN Advanced Assessment Note - Skin Integrity Problem, Advanced Assess Left Lower Lateral Leg Dressing Type: Black Vac Foam, Wound Vac Dressing Description: Clean/Dry, Intact Closure Description: Not Approximated Exudate Amount: Minimal Exudate Color: Reddish/Yellow Exudate Characteristic(s): Serosanguinous Integumentary Issue Intervention: Dressing Changed Stacia Wound Tissue: Erythema, Painful/Tender Stacia Wound Swelling: Mild Wound Bed Color: Red, Yellow, White Wound Bed Constitution: Red/[place] - Non Granular Tissue (10%), Tendon (10%), Adhered Slough (80%) Wound Edges: Well Defined Skin Integrity Problem Comment: FLAVIO Bravo premedicated patient for vac change. Dr. Lopes and I each took down a dressing. This is my first encounter with this wound, but based on the documentation, it appears to have less slough that earlier in the week and more granulation tissue. Wound beds cleaned with NS and gauze. Topical lidocaine soaked gauze placed over wound beds. Skin prep applied to stacia-wound skin and draped. One small black simplace foam placed to fit wound bed and bridged to just below patient's knee. Wound vac set to suction at -125mmHg with good seal achieved. Patient tolerated the procedure well. Wound care will round again on Tuesday for next vac change. Left Posterior Lower Leg Dressing Type: Black Vac Foam, Mepitel, Wound Vac Dressing Description: Clean/Dry, Intact Closure Description: Not Approximated Exudate Amount: Minimal Exudate Color: Reddish/Yellow Exudate Characteristic(s): Serosanguinous Integumentary Issue Intervention: Dressing Changed Stacia Wound Tissue: Erythema, Intact, Painful/Tender Stacia Wound Swelling: Mild Wound Bed Color: Red, Yellow Wound Bed Constitution: Granulation Tissue, Adhered Slough Wound Edges: Well Defined Skin Integrity Problem Comment: Wound beds cleaned with NS and gauze. Topical lidocaine soaked gauze placed over wound beds. Skin prep applied to stacia-wound skin and draped. Adaptic touch placed in wound over exposed tendon. One small black simplace foam placed to fit wound bed and bridged to just below the patient's knee. Wound vac set to suction at -125mmHg with good seal achieved. Patient tolerated the procedure well. Wound care will round again on Tuesday for next vac change. Right Lower Medial Leg Dressing Type: Black Vac Foam, Wound Vac Dressing Description: Clean/Dry, Intact Closure Description: Not Approximated Exudate Amount: Moderate Exudate Color: Reddish/Yellow Exudate Characteristic(s): Serosanguinous Integumentary Issue Intervention: Dressing Changed Stacia Wound Tissue: Erythema, Painful/Tender Stacia Wound Swelling: Mild Wound Bed Color: Red, Yellow Wound Bed Constitution: Granulation Tissue (20%), Adhered Slough (80%) Wound Edges: Attached, Well Defined Skin Integrity Problem Comment: Wound beds cleaned with NS and gauze. Topical lidocaine soaked gauze placed over wound beds. Skin prep applied to stacia-wound skin and draped. One small black simplace foam placed to fit wound bed. Wound vac set to suction at -125mmHg with good seal achieved. Patient tolerated the procedure well. Wound care will round again on Tuesday for next vac change.
--- NOTE | 2018-07-14 16:05 | PCMIDPN ---
Assessment/Plan: Assessment: Bilateral lower extremity wounds on anterior shins. Patient was seen initially by me in February with a simple skin tear distal to the left knee. This has fully healed. Instead her current issues are bilateral mid page ulcers that have worsened steadily with debridement. Her pain level is over the top and she is unable to tolerate any touching of her legs or feet. Severe hearing loss complicates conversation. Reviewed pathology from early June of the edge of [address] Kwasi Vázquez. There is no vasculitis seen. The metaplastic bone formation is not indicative of calciphylaxis. Pathology results remain nonspecific. 1 suggestion would be to look at a CT runoff of the arterial tree of lower extremities to rule out whether this is ischemic in nature. Plan: 1. Continue IV cefazolin empirically. 2. Follow up on pending laboratory values. 3. Consider CT abdomen pelvis with runoff to lower extremities. Subjective: Patient is laying in her hospital bed. She is in significant pain in her lower extremities. She prohibits me from touching her legs or feet. Fever yesterday. Objective: Cefazolin # 2 Vital Signs Temp Pulse Resp BP Pulse Ox 37.0 C 68 14 146/86 H 98 07/14/18 11:29 07/14/18 11:28 07/14/18 11:28 07/14/18 11:28 07/14/18 11:28 Microbiology 07/13/18 17:04 Blood Panel (PCR) - Final Blood Strep Pyogenes Group A Laboratory Results 07/14/18 10:13 07/14/18 10:13 07/13/18 07/14/18 07/15/18 05:59 05:59 05:59 Intake Total 1255 2170 Output Total 800 800 Balance 455 1370 C-Reactive Protein 161.6 mg/L (<10.0) H 07/13/18 17:04 - Physical Exam General Appearance: WD/WN, apparent distress, thin, non-toxic Respiratory: lungs clear, normal breath sounds, No respiratory distress Cardiac/Chest: regular rate, rhythm, No tachycardia Extremities: inflammation, swelling, erythema, No non-tender, No normal inspection Skin: normal color, warm/dry, No rash Neuro/Psych: alert, normal mood/affect, oriented x 3 ICD10 Worksheet Patient Problems: Problems Problem Status Onset CHF (congestive heart failure) Acute Chronic venous insufficiency Acute Contusion of leg, left Acute Fusion of spine of lumbar region Acute Hypoxemia Acute Laceration of knee, left Acute Skin tear of left lower leg without complication Acute Somnolence Acute
--- NOTE | 2018-07-14 16:06 | SOAPPROG ---
SOAP Progress Note Assessment/Plan: Assessment: 68yo F s/p BLE debridement - was present for VAC change today. Erythema appears improved from previous, probably from abx - took down ngoc VACs, beds have some slough but actually much more granulation than I anticipated and was happy with how they looked - plan to cont VACS, if continue to granulate, could be candidate for STSG in future. Today was promising though Plan: 07/07/18 15:42 07/10/18 11:26 07/13/18 16:49 07/14/18 16:05 Subjective: Pt is more alert today Objective: Vital Signs Temp Pulse Resp BP Pulse Ox 37.0 C 68 14 146/86 H 98 07/14/18 11:29 07/14/18 11:28 07/14/18 11:28 07/14/18 11:28 07/14/18 11:28 Microbiology 07/13/18 17:04 Blood Panel (PCR) - Final Blood Strep Pyogenes Group A Laboratory Results 07/14/18 10:13 07/14/18 10:13 07/13/18 07/14/18 07/15/18 05:59 05:59 05:59 Intake Total 1255 2170 Output Total 800 800 Balance 455 1370 ICD10 Worksheet Patient Problems: Problems Problem Status Onset CHF (congestive heart failure) Acute Chronic venous insufficiency Acute Contusion of leg, left Acute Fusion of spine of lumbar region Acute Hypoxemia Acute Laceration of knee, left Acute Skin tear of left lower leg without complication Acute Somnolence Acute
[2018-07-14] MEDS: NS 1,000 ML IV SCH (17:08)
[2018-07-14] MEDS: traMADol 50 MG TAB PO PRN (20:03)
[2018-07-14] MEDS: PANTOPRAZOLE SODIUM 40 MG TAB PO SCH (20:20)
[2018-07-14] MEDS: LISINOPRIL 40 MG TAB PO SCH (20:20)
[2018-07-14] MEDS: traZODone 50 MG TAB PO SCH (20:20)
[2018-07-14] MEDS: MELATONIN 3 MG TAB PO SCH (20:20)
[2018-07-14] MEDS: LORazepam 2 MG/ML INJ IVP PRN (22:45)
[2018-07-15] MEDS: ceFAZolin 2 GM/DEXTROSE 100 ML IV SCH ×3 (02:05→17:27)
[2018-07-15] MEDS: oxyCODONE IR 5 MG TAB PO PRN ×5 (02:19→20:04)
[2018-07-15] MEDS: NS 1,000 ML IV SCH (04:22)
[2018-07-15] MEDS: traMADol 50 MG TAB PO PRN ×2 (04:23→14:09)
[2018-07-15 05:50] LABS: PLATELET COUNT 228 10^3/uL (150-400)
[2018-07-15] MEDS: LORazepam 2 MG/ML INJ IVP PRN (06:03)
[2018-07-15] MEDS: METHOCARBAMOL 750 MG TAB PO PRN ×2 (07:27→12:17)
[2018-07-15] MEDS: HYDROmorphONE/DILAUDID 1 MG/ML INJ IVP PRN (08:05)
[2018-07-15] MEDS: ATENOLOL 50 MG TAB PO SCH ×2 (08:49→20:40)
[2018-07-15] MEDS: CHOLECALCIFEROL VIT D3 1,000 UNITS TAB PO SCH (08:50)
[2018-07-15] MEDS: PANTOPRAZOLE SODIUM 40 MG TAB PO SCH ×2 (08:50→21:04)
[2018-07-15] MEDS: BUDESONIDE 3 MG EC CAP PO SCH ×3 (08:50→21:04)
[2018-07-15] MEDS: amLODIPine BESYLATE 5 MG TAB PO SCH (08:50)
[2018-07-15] MEDS: GABAPENTIN 300 MG CAP PO SCH ×3 (08:50→21:04)
[2018-07-15] MEDS: POLYETHYLENE GLYCOL 3350 17 GM PKT PO SCH (09:27)
[2018-07-15] MEDS: SENNOSIDES/DOCUSATE SODIUM TAB PO SCH ×2 (09:28→20:40)
[2018-07-15] MEDS: RALOXIFENE HCL 60 MG TAB PO SCH (12:17)
--- NOTE | 2018-07-15 13:05 | SOAPPROG ---
SOAP Progress Note Assessment/Plan: Assessment: 68-year-old female with bilateral lower extremity wounds/ she has excellent pedal pulses the wounds appear to be suspicious for pyoderma gangrenosa/I do not see a biopsy results Presently on wet to dry dressing changes on the right and wound VAC on the left/ may need surgical debridement on the right and biopsy Also has consistent the GI bleed with following hematocrit/ known to have 2 cm gastric ulcer which may require surgical resection/follow-up endoscopy or colonoscopy this week end Complains of lot of pain and difficult to examine Chest clear/cor regular rhythm/abdomen soft nontender/extremities full distal pulses and bilateral lower extremity ulcers Plan: Continue dressing changes/await endoscopy or results 07/15/18 13:01 Objective: Vital Signs Temp Pulse Resp BP Pulse Ox 36.6 C 64 16 113/64 96 07/15/18 12:14 07/15/18 12:14 07/15/18 12:14 07/15/18 12:14 07/15/18 12:14 Microbiology 07/13/18 17:04 Blood Panel (PCR) - Final Blood Strep Pyogenes Group A Laboratory Results 07/15/18 10:30 07/15/18 10:30 07/14/18 07/15/18 07/16/18 05:59 05:59 05:59 Intake Total 2170 550 Output Total 800 300 200 Balance 1370 250 -200 ICD10 Worksheet Patient Problems: Problems Problem Status Onset CHF (congestive heart failure) Acute Chronic venous insufficiency Acute Contusion of leg, left Acute Fusion of spine of lumbar region Acute Hypoxemia Acute Laceration of knee, left Acute Skin tear of left lower leg without complication Acute Somnolence Acute
--- NOTE | 2018-07-15 13:33 | PCMIDPN ---
Assessment/Plan: Assessment: Bilateral lower extremity wounds on anterior shins. Patient was seen initially by me in February with a simple skin tear distal to the left knee. This has fully healed. Instead her current issues are bilateral mid page ulcers that have worsened steadily with debridement. Her pain level is improved today. Severe hearing loss complicates conversation. Group a strep in the wounds on culture. Covered with IV cefazolin. Reviewed pathology from early June of the edge of [address] Kwasi Vázquez. There is no vasculitis seen. The metaplastic bone formation is not indicative of calciphylaxis. Pathology results remain nonspecific. ABIs and examination do not support this being an arterial problem. Plan: 1. Continue IV cefazolin. 2. Follow up on pending laboratory values. 07/15/18 13:31 Subjective: Patient is sitting up in a chair in her hospital room. She is visiting with family. She reports her pain is somewhat better this afternoon. Denies fevers or chills. Objective: Cefazolin # 3 Vital Signs Temp Pulse Resp BP Pulse Ox 36.6 C 64 16 113/64 96 07/15/18 12:14 07/15/18 12:14 07/15/18 12:14 07/15/18 12:14 07/15/18 12:14 Microbiology 07/13/18 17:04 Blood Panel (PCR) - Final Blood Strep Pyogenes Group A Laboratory Results 07/15/18 10:30 07/15/18 10:30 07/14/18 07/15/18 07/16/18 05:59 05:59 05:59 Intake Total 2170 550 Output Total 800 300 200 Balance 1370 250 -200 C-Reactive Protein 161.6 mg/L (<10.0) H 07/13/18 17:04 - Physical Exam General Appearance: WD/WN, alert, no apparent distress, thin Respiratory: lungs clear, normal breath sounds, No respiratory distress Cardiac/Chest: regular rate, rhythm, No tachycardia Extremities: No non-tender, No normal inspection Skin: normal color, warm/dry, No rash Neuro/Psych: alert, normal mood/affect, oriented x 3 ICD10 Worksheet Patient Problems: Problems Problem Status Onset CHF (congestive heart failure) Acute Chronic venous insufficiency Acute Contusion of leg, left Acute Fusion of spine of lumbar region Acute Hypoxemia Acute Laceration of knee, left Acute Skin tear of left lower leg without complication Acute Somnolence Acute
--- NOTE | 2018-07-15 13:56 | HOSPPROG ---
Hospitalist Progress Note Assessment/Plan: 68 year old female with pmh of crohns, chronic lower extremity wounds, admitted for wound care. now anemic with GI bleed. * ongoing chronic bilateral leg wounds nonhealing in the outpatient setting. question of possible pyoderma. Wound vac placed -debrided by Dr. Lopes. -continue wound care -surgery following, continue wound care, abx Group A strep bacteremia- spiked fever on 07/13 and blood cultures grew out strep pyogenes. ID consulted and on ancef -continue ancef -Wound care to lower extremities -ID following, GI bleed- initial bleed on 07/11 and had egd on 07/12 which showed fairly large ulceration. Started on IV PPI BID and was doing well, but then again last night Hct dropped and patient with anemia of 12/27 requiring transfusion and dark stools. Likely due to steroids and nsaidds. Gi reconsulted and will scope in am unless patient decompensates. -follow H/H closely -NPO at PR -IV PPI BID -EGD in am * uncontrolled hypertension Normotensive, monitor in setting of bleed. Treat PRN *Hyponatremia- Fluids discontinued and serum sodium dropped. patient states she feels better today and will drink more fluids, take more PO. repeat serum sodium in am. * ongoing intermittent tobacco abuse after formally quitting cigarettes Cigarettes will clearly aggravate her difficulties healing these wounds and I have reviewed this with her in detail today Tobacco cessation counseling will need to be ongoing * COPD currently stable * Chronic CHF appears currently stable * chronic Crohn's disease on budesonide started on prednisone a week ago, then developed GI bleed. No more oral steroids , or nsaids. she is high risk of rebleed. -contiune budesonide entecort * history of uterine cancer PPX- No SCDs, restart heparin bid Fluids- restart IV saline Lytes- Hyponatremia Nutrition- NPO Cor- Full Dispo-remain inpatient for wounds, GAS infection, gi bleed, anemia Subjective: patient extremily hard of hearing. no severe, pain. Objective: Vital Signs Temp Pulse Resp BP Pulse Ox 36.6 C 64 16 113/64 96 07/15/18 12:14 07/15/18 12:14 07/15/18 12:14 07/15/18 12:14 07/15/18 12:14 Microbiology 07/13/18 17:04 Blood Panel (PCR) - Final Blood Strep Pyogenes Group A Laboratory Results 07/15/18 10:30 07/15/18 10:30 07/14/18 07/15/18 07/16/18 05:59 05:59 05:59 Intake Total 2170 550 Output Total 800 300 200 Balance 1370 250 -200 - Physical Exam Constitutional: no apparent distress, appears nourished, not in pain Eyes: PERRL, anicteric sclera, EOMI Ears, Nose, Mouth, Throat: moist mucous membranes, hearing normal, ears appear normal, no oral mucosal ulcers Cardiovascular: regular rate and rhythym, no murmur, rub, or gallop Respiratory: no respiratory distress, no rales or rhonchi, clear to auscultation Gastrointestinal: normoactive bowel sounds, soft, non-tender abdomen, no palpable masses Genitourinary: no bladder fullness, no bladder tenderness, no renal bruits Skin: no rashes or abrasions, no fluctuance, no induration Musculoskeletal: other (bilateral lower extremity wounds, one with wound vac. scant drainage. bilateral lower extremities are erythematous. ) Neurologic: AAOx3, sensation intact bilaterally Psychiatric: interacting appropriately, not anxious, not encephalopathic, thought process linear Lymph, Heme, Immunologic: no cervical LAD, no supraclavicular LAD ICD10 Worksheet Patient Problems: Problems Problem Status Onset CHF (congestive heart failure) Acute Chronic venous insufficiency Acute Contusion of leg, left Acute Fusion of spine of lumbar region Acute Hypoxemia Acute Laceration of knee, left Acute Skin tear of left lower leg without complication Acute Somnolence Acute
[2018-07-15] MEDS: LISINOPRIL 40 MG TAB PO SCH (20:40)
[2018-07-15] MEDS: MELATONIN 3 MG TAB PO SCH (21:04)
[2018-07-15] MEDS: traZODone 50 MG TAB PO SCH (21:04)
[2018-07-16] MEDS: ceFAZolin 2 GM/DEXTROSE 100 ML IV SCH ×3 (01:20→16:59)
[2018-07-16] MEDS: oxyCODONE IR 5 MG TAB PO PRN ×6 (01:22→22:10)
[2018-07-16] MEDS ORDERED: LR 1,000 ML IV ONE ×2 (07:17→07:38)
[2018-07-16 07:25] LABS: PLATELET COUNT 278 10^3/uL (150-400)
[2018-07-16] MEDS ORDERED: PROPOFOL 200 MG/20 ML VIAL ONE (07:54)
[2018-07-16] MEDS ORDERED: LIDOCAINE 2% 100 MG/5 ML SYR ONE (07:54)
--- NOTE | 2018-07-16 08:03 | PDANEPAE ---
ANE History of Present Illness EGD ANE Past Medical History - Cardiovascular History Hx Hypertension: Yes Hx Arrhythmias: No Hx Chest Pain: No Hx Coronary Artery / Peripheral Vascular Disease: No Hx CHF / Valvular Disease: Yes Hx Palpitations: No - Pulmonary History Hx COPD: Yes Hx Asthma/Reactive Airway Disease: No Hx Recent Upper Respiratory Infection: No Hx Oxygen in Use at Home: Yes O2 in Use at Home (L/minute): 1 Hx Sleep Apnea: No Sleep Apnea Screening Result - Last Documented: Negative Pulmonary History Comment: MILD COPD DX'D RECENTLY, on Atrovent inhaler, used it last this am,. Bronchitis 2 months ago - Neurologic History Hx Cerebrovascular Accident: No Hx Seizures: No Hx Dementia: No - Endocrine History Hx Diabetes: No - Renal History Hx Renal Disorders: No Renal History Comment: URGENCY, LEAKING - Liver History Hx Hepatic Disorders: No Hepatic History Comment: CHOLECYSTECTOMY - Neurological & Psychiatric Hx Hx Neurological and Psychiatric Disorders: No - Cancer History Hx Cancer: Yes Cancer History Comment: UTERINE LESIONS - Congenital Disorder History Hx Congenital Disorders: No - GI History Hx Gastrointestinal Disorders: Yes Gastrointestinal History Comment: ACID REFLUX, Chron's disease x 5 years - Other Health History Other Health History: BRUISES EASILY - Chronic Pain History Chronic Pain: Yes (BACK PAIN) - Surgical History Prior Surgeries: CHOLECYSTECTOMY. EYE SURGERY. HYSTERECTOMY. TONSILLECTOMY. L ANKLE SURGERY. TLIF ANE Review of Systems Review of systems is: negative Review of Systems: - Exercise capacity METS (RN): 4 METS ANE Patient History - Allergies Allergies/Adverse Reactions: adalimumab [From Humira] Allergy (Verified 07/06/18 14:41) Dyspnea varenicline [From Chantix] Allergy (Verified 07/06/18 14:41) - Home Medications Home medications: home medication list seen and reviewed Home Medications: Atenolol [Tenormin 50 mg (*)] 75 mg PO BID 01/05/17 [Last Taken 07/06/18] Budesonide [Budesonide EC] 3 mg PO TID 01/05/17 [Last Taken 07/06/18] Cholecalciferol Vit D3 [Vitamin D3 (*)] 1,000 units PO DAILY 01/05/17 [Last Taken 07/06/18] Gabapentin [Neurontin 300 MG (*)] 600 mg PO TID 01/05/17 [Last Taken 07/06/18] Herbals/Supplements -Info Only 1 each PO DAILY 01/05/17 [Last Taken 01/19/17] Lisinopril [Zestril 40 mg (*)] 40 mg PO HS 01/05/17 [Last Taken 07/05/18] Pantoprazole Sodium [Protonix 40mg (*)] 40 mg PO DAILY PRN 01/05/17 [Last Taken 01/19/17] Raloxifene HCl [Evista] 60 mg PO SA 01/05/17 [Last Taken 2 Weeks Ago ~06/22/18] Ipratropium [Atrovent Hfa (*)] 2 puffs IH QID PRN 01/20/17 [Last Taken 01/20/17] Loperamide HCl [Imodium 2 mg (*)] 2 - 4 mg PO DAILY PRN 01/20/17 [Last Taken Unknown] Albuterol [Proventil Inhaler HFA (*)] 1 - 2 puffs IH Q4H PRN 01/23/17 [Last Taken 07/06/18] Etodolac [ETODOLAC] 500 mg PO BIDMEAL 01/27/17 [Last Taken 07/06/18] traZODone [traZODONE 50MG (*)] 75 mg PO HS 02/27/17 [Last Taken 07/05/18] Aspirin [Aspirin 81mg (*)] 81 mg PO HS 07/06/18 [Last Taken 07/05/18] predniSONE 40 mg PO DAILY 07/06/18 [Last Taken 07/05/18] - NPO status NPO Status: no food or drink >8 hours NPO Since - Liquids (Date): 07/16/18 NPO Since - Liquids (Time): 00:00 NPO Since - Solids (Date): 07/16/18 NPO Since - Solids (Time): 00:00 - Anes Hx Anes Hx: no prior problems - Smoking Hx Smoking Status: Current some day smoker - Alcohol Use Alcohol Use: Occasionally - Family Anes Hx Family Anes Hx: none Family Hx Anesthesia Complications: NEG ANE Labs/Vital Signs - Labs Result Diagrams: 07/16/18 07:12 07/16/18 07:12 - Vital Signs Vital Signs: reviewed preoperatively; see RN documention for details Blood Pressure: 127/83 Heart Rate: 68 Respiratory Rate: 16 O2 Sat (%): 94 Height: 162.56 cm Weight: 53.569 kg ANE Physical Exam - Airway Neck exam: FROM Mallampati Score: Class 1 Mouth exam: dentures - Pulmonary Pulmonary: expiratory wheeze - Cardiovascular Cardiovascular: regular rate and rhythym - ASA Status ASA Status: III ANE Anesthesia Plan Total IV Anesthesia: Yes
[2018-07-16] MEDS ORDERED: ONDANSETRON 4 MG/2 ML VIAL IVP PRN (08:16)
[2018-07-16] MEDS ORDERED: NALOXONE HCL 0.4 MG/ML INJ IVP PRN (08:16)
[2018-07-16] MEDS ORDERED: DEXAMETHASONE 4 MG/ML VIAL IVP PRN (08:16)
[2018-07-16] MEDS ORDERED: fentaNYL 100 MCG/2 ML INJ IVP PRN (08:16)
[2018-07-16] MEDS ORDERED: ALBUTEROL 3 ML DEYVIAL IH PRN (08:16)
[2018-07-16] MEDS ORDERED: fentaNYL 100 MCG/2 ML INJ ONE (08:39)
--- NOTE | 2018-07-16 08:45 | POSTANESTH ---
Post Anesthetic Evaluation Cardiovascular Status: Similar to Pre-Op Cond Respiratory Status: Similar to Pre-op Cond. Level of Consciousness/Mental Status: Can Participate in Eval, Mildly Sleepy, Arousable Pain Control: Adequate, Prn Tx Ordered Nausea/Vomiting Control: Adequate, Prn Tx Ordered Complications Possibly Related to Anesthesia: None Noted
[2018-07-16] MEDS: METHOCARBAMOL 750 MG TAB PO PRN ×3 (09:11→20:57)
[2018-07-16] MEDS: PANTOPRAZOLE SODIUM 40 MG TAB PO SCH ×2 (09:12→20:57)
[2018-07-16] MEDS: SENNOSIDES/DOCUSATE SODIUM TAB PO SCH ×2 (09:12→20:55)
[2018-07-16] MEDS: ATENOLOL 50 MG TAB PO SCH ×2 (09:12→20:57)
[2018-07-16] MEDS: GABAPENTIN 300 MG CAP PO SCH ×3 (09:12→20:56)
[2018-07-16] MEDS: CHOLECALCIFEROL VIT D3 1,000 UNITS TAB PO SCH (09:12)
[2018-07-16] MEDS: BUDESONIDE 3 MG EC CAP PO SCH ×3 (09:12→20:55)
[2018-07-16] MEDS: amLODIPine BESYLATE 5 MG TAB PO SCH (09:13)
[2018-07-16] MEDS: POLYETHYLENE GLYCOL 3350 17 GM PKT PO SCH (09:28)
--- NOTE | 2018-07-16 09:49 | GIREPORT ---
[facility] Surgical Services - Endoscopy Department Patient Name: Nallely Martinez Procedure Date: 07/16/2018 7:40 AM Patient Type: Inpatient Attending MD/ ER Physician: Kirk Rider MD Procedure: Upper GI endoscopy Indications: Acute post hemorrhagic anemia, Melena, Suspected acute peptic ulcer wit h hemorrhage Patient Profile: 68 year old female with a gastric ulcer with hemorrhage s/p EGD present s for evaluation of continued melana/post hemorrhagic anemia. Providers: Kirk Rider MD Medicines: Monitored Anesthesia Care Complications: No immediate complications. Description of Procedure: After obtaining informed consent, the endoscope was passed under direct vision. Throughout the procedure, the patient's blood pressure, pulse, and oxygen saturations were monitored continuously. The Endoscope was intro duced through the mouth, and advanced to the second part of duodenum. [facility] GI endoscopy was accomplished without difficulty. The patient tolerated e procedure well. Findings: The examined esophagus was normal. A hiatal hernia was present. Patchy moderately erythematous mucosa was found in the entire examined stomach. One cratered gastric ulcer with no stigmata of bleeding was found in th e prepyloric region of the stomach. The lesion was 20 mm in largest dimen lanny. No stigmata of recent bleed noted. No visible vessel/clot etc. The examined duodenum was normal. Estimated Blood Loss: Estimated blood loss: none. Post Op Diagnosis: - Normal esophagus. - Hiatal hernia. - Erythematous mucosa in the stomach. - Gastric ulcer with no stigmata of bleeding. - Normal examined duodenum. - No specimens collected. - No blood noted during examination. - Etiology? Suspect old blood with hydration. No signs of active GIB. Recommendation: - Return patient to hospital [facility] for ongoing care. - Advance diet as tolerated. - Continue present medications. - Use a proton pump inhibitor PO BID. - Needs repeat EGD in 8 weeks. - No NSAIDs. - GI will sign off. Thank you for the consultation! - Thank you for allowing me to participate in the care of your patient. Attending Participation: I personally performed the entire procedure. Kirk Rider MD Kirk Rider MD 07/16/2018 9:49:11 AM This report has been signed electronicallyKirk Rider MD Number of Addenda: 0 Note Initiated On: 07/16/2018 7:40 AM [email or web address]
[2018-07-16] MEDS: traMADol 50 MG TAB PO PRN (11:53)
[2018-07-16] MEDS: NS 1,000 ML IV SCH (11:54)
[2018-07-16] MEDS: HYDROmorphONE/DILAUDID 1 MG/ML INJ IVP PRN (13:34)
--- NOTE | 2018-07-16 15:24 | HOSPPROG ---
Hospitalist Progress Note Assessment/Plan: 68 year old female with pmh of crohns, chronic lower extremity wounds, admitted for wound care. now anemic with GI bleed. * ongoing chronic bilateral leg wounds nonhealing in the outpatient setting. question of possible pyoderma. Wound vac placed -debrided by Dr. Lopes. -continue wound care -surgery following, continue wound care, abx Group A strep bacteremia- spiked fever on 07/13 and blood cultures grew out strep pyogenes. ID consulted and on ancef -continue ancef -Wound care to lower extremities -ID following, GI bleed-Scope today with large cratered ulceration but no evidence of new or recent bleed. No new recs from GI. initial bleed on 07/11 and had egd on 07/12 which showed fairly large ulceration. On PPI BID. No more nsaids or systemic steroids. -follow H/H closely -adat -IV PPI BID -no nsaids, or prednisone * uncontrolled hypertension Normotensive, monitor in setting of bleed. Treat PRN *Hyponatremia- patient with poor solute intake. Consider adding salt tabs if it drops but seems to remain about 132. * COPD currently stable * Chronic CHF appears currently stable * chronic Crohn's disease on budesonide started on prednisone a week ago, then developed GI bleed. No more oral steroids , or nsaids. she is high risk of rebleed. -contiune budesonide entecort * history of uterine cancer PPX- No SCDs, restart heparin bid Fluids- restart IV saline Lytes- Hyponatremia Nutrition- NPO Cor- Full Dispo-remain inpatient for wounds, GAS infection, anemia Subjective: in good spirits today. pain seems better. Objective: Vital Signs Temp Pulse Resp BP Pulse Ox 37.0 C 70 14 117/69 94 07/16/18 12:00 07/16/18 12:00 07/16/18 12:00 07/16/18 12:00 07/16/18 12:00 Microbiology 07/13/18 17:04 Blood Panel (PCR) - Final Blood Strep Pyogenes Group A Laboratory Results 07/16/18 07:12 07/16/18 07:12 07/15/18 07/16/18 07/17/18 05:59 05:59 05:59 Intake Total 550 388 Output Total 300 600 Balance 250 -600 388 - Physical Exam Constitutional: no apparent distress, appears nourished, not in pain Eyes: PERRL, anicteric sclera, EOMI Ears, Nose, Mouth, Throat: moist mucous membranes, hearing normal, ears appear normal, no oral mucosal ulcers Cardiovascular: regular rate and rhythym, no murmur, rub, or gallop Respiratory: no respiratory distress, no rales or rhonchi, clear to auscultation Gastrointestinal: normoactive bowel sounds, soft, non-tender abdomen, no palpable masses Genitourinary: no bladder fullness, no bladder tenderness, no renal bruits Skin: no rashes or abrasions, no fluctuance, no induration Musculoskeletal: other (wound vac in place on left and right lower extremity bandaged. erythema noted to lower extremities bilaterally) Neurologic: AAOx3, sensation intact bilaterally Psychiatric: interacting appropriately, not anxious, not encephalopathic, thought process linear Lymph, Heme, Immunologic: no cervical LAD, no supraclavicular LAD ICD10 Worksheet Patient Problems: Problems Problem Status Onset CHF (congestive heart failure) Acute Chronic venous insufficiency Acute Contusion of leg, left Acute Fusion of spine of lumbar region Acute Hypoxemia Acute Laceration of knee, left Acute Skin tear of left lower leg without complication Acute Somnolence Acute
--- NOTE | 2018-07-16 16:59 | ASMTCMCOM ---
CM Note CM Note Notes: CM discussed with FLAVIO Bravo. Patient to have wound vac changed tomorrow. Patient underwent EGD today for evaluation of GI bleed. CM to follow. D/C Plan: /[facility] Date Signed: 07/16/2018 04:58 PM Electronically Signed By:Gracy Reeves
[2018-07-16] MEDS: LISINOPRIL 40 MG TAB PO SCH (20:56)
[2018-07-16] MEDS: MELATONIN 3 MG TAB PO SCH (20:56)
[2018-07-16] MEDS: traZODone 50 MG TAB PO SCH (20:58)
[2018-07-17] MEDS: NS 1,000 ML IV SCH ×2 (01:20→15:18)
[2018-07-17] MEDS: ceFAZolin 2 GM/DEXTROSE 100 ML IV SCH ×3 (01:20→17:36)
--- NOTE | 2018-07-17 02:52 | SOAPPROG ---
SOAP Progress Note Assessment/Plan: Assessment: 68-year-old female with bilateral lower extremity wounds/ she has excellent pedal pulses the wounds appear to be suspicious for pyoderma gangrenosa/I do not see a biopsy results Presently on wet to dry dressing changes on the right and wound VAC on the left/ may need surgical debridement on the right and biopsy Also has consistent the GI bleed with following hematocrit/ known to have 2 cm gastric ulcer which may require surgical resection/follow-up endoscopy or colonoscopy this week end Complains of lot of pain and difficult to examine Chest clear/cor regular rhythm/abdomen soft nontender/extremities full distal pulses and bilateral lower extremity ulcers Plan: Continue dressing changes/await endoscopy or results 07/15/18 13:01 07/17/18 02:51 WOUNDS UNCHANGED/ EGD TODAY STABLE, NONBLEEDING ULCER/ AFEBRILE/ STILL LOTS OF PAIN Objective: Vital Signs Temp Pulse Resp BP Pulse Ox 37.2 C 70 18 121/66 H 99 07/16/18 23:51 07/16/18 23:51 07/16/18 23:51 07/16/18 23:51 07/16/18 23:51 Microbiology 07/13/18 17:04 Blood Panel (PCR) - Final Blood Strep Pyogenes Group A Laboratory Results 07/16/18 07:12 07/16/18 07:12 07/15/18 07/16/18 07/17/18 05:59 05:59 05:59 Intake Total 550 388 Output Total 300 600 300 Balance 250 -600 88 ICD10 Worksheet Patient Problems: Problems Problem Status Onset CHF (congestive heart failure) Acute Chronic venous insufficiency Acute Contusion of leg, left Acute Fusion of spine of lumbar region Acute Hypoxemia Acute Laceration of knee, left Acute Skin tear of left lower leg without complication Acute Somnolence Acute
[2018-07-17] MEDS: oxyCODONE IR 5 MG TAB PO PRN ×6 (03:37→21:41)
[2018-07-17 06:30] LABS: PLATELET COUNT 284 10^3/uL (150-400)
[2018-07-17] MEDS: GABAPENTIN 300 MG CAP PO SCH ×3 (08:18→21:34)
[2018-07-17] MEDS: BUDESONIDE 3 MG EC CAP PO SCH ×3 (08:19→21:34)
[2018-07-17] MEDS: SENNOSIDES/DOCUSATE SODIUM TAB PO SCH ×2 (08:19→21:33)
[2018-07-17] MEDS: ATENOLOL 50 MG TAB PO SCH ×2 (08:20→21:35)
[2018-07-17] MEDS: amLODIPine BESYLATE 5 MG TAB PO SCH (08:20)
[2018-07-17] MEDS: CHOLECALCIFEROL VIT D3 1,000 UNITS TAB PO SCH (08:20)
[2018-07-17] MEDS: PANTOPRAZOLE SODIUM 40 MG TAB PO SCH ×2 (08:20→21:34)
[2018-07-17] MEDS: POLYETHYLENE GLYCOL 3350 17 GM PKT PO SCH (09:15)
[2018-07-17] MEDS: traMADol 50 MG TAB PO PRN ×2 (10:42→20:09)
[2018-07-17] MEDS: HYDROmorphONE/DILAUDID 1 MG/ML INJ IVP PRN (12:04)
--- NOTE | 2018-07-17 12:59 | SOAPPROG ---
SOAP Progress Note Assessment/Plan: Assessment: 68yo F s/p BLE debridement - was present again for dressing change, she tolerated it better than any previous. The wound beds still have some slough but the posterior L side is granulating better than I could have expected. - Still need to strongly consider Pyoderma, has failed steroids. Will see if cant get rheum to give recommendations - Hb continues to drift, hasnt passed any large bloody BMS - pain is better today. Plan: 07/07/18 15:42 07/10/18 11:26 07/13/18 16:49 07/14/18 16:05 07/17/18 12:57 Subjective: pain is better, she is in good spirits Objective: Vital Signs Temp Pulse Resp BP Pulse Ox 37.0 C 71 16 136/75 H 97 07/17/18 07:26 07/17/18 07:26 07/17/18 07:26 07/17/18 07:26 07/17/18 07:26 Microbiology 07/13/18 17:04 Blood Panel (PCR) - Final Blood Strep Pyogenes Group A Laboratory Results 07/17/18 05:00 07/17/18 05:00 07/16/18 07/17/18 07/18/18 05:59 05:59 05:59 Intake Total 1488 Output Total 600 610 250 Balance -600 878 -250 ICD10 Worksheet Patient Problems: Problems Problem Status Onset CHF (congestive heart failure) Acute Chronic venous insufficiency Acute Contusion of leg, left Acute Fusion of spine of lumbar region Acute Hypoxemia Acute Laceration of knee, left Acute Skin tear of left lower leg without complication Acute Somnolence Acute
--- NOTE | 2018-07-17 14:31 | WOCRNPDOC ---
WOCRN Advanced Assessment Note - Skin Integrity Problem, Advanced Assess Right Lower Medial Leg Dressing Type: ABD Pad, Gauze, Kerlix Dressing Description: Clean/Dry, Intact Closure Description: Not Approximated Exudate Amount: Moderate Exudate Color: Reddish/Yellow Exudate Characteristic(s): Serosanguinous Integumentary Issue Intervention: Dressing Applied (wound vac) Stacia Wound Tissue: Erythema, Swollen, Taught, Thin, Painful/Tender Stacia Wound Swelling: Severe Wound Bed Color: Red, Yellow Wound Bed Constitution: Granulation Tissue (buds of granulation), Adhered Slough (95%) Wound Edges: Irregular Site Odor: Slight Site Measurement - Head-to-Toe Length X Width X Depth (cm): 9x7.2x0.4 Skin Integrity Problem Comment: Patient in bed for dressing change. Dr. Lopes and amphibian crewmember Sadie Salvador in room for care. Discussed patient plan of care with FLAVIO Martinez, and patient was pre-medicated for dressing change. Wound is related to trauma injury and has been non-healing. Wound vac placed on 07/14/18 failed, and floor RN had placed wet to dry dressing. Gauze was adhered to wound bed. Saline applied to gauze to loosen, and dressing removed. Wound is quite painful to patient, with significant erythema and edema extending from just below the knee to the patient's foot. Wound bed cleaned with normal saline and patted dry with gauze. Skin prep applied to stacia wound. Drape applied to stacia wound. Medium simplace black foam x 1 piece applied to wound bed, and covered with drape. Wound vac set to suction at -125mmHg with no leaks, alarms, or problems. Wound care will round again Tuesday. Left Posterior Lower Leg Dressing Type: Adaptic Touch, Black Vac Foam, Wound Vac Dressing Description: Clean/Dry, Intact Closure Description: Not Approximated Exudate Amount: Moderate Exudate Characteristic(s): Serosanguinous Integumentary Issue Intervention: Dressing Changed Stacia Wound Tissue: Erythema, Swollen, Painful/Tender Stacia Wound Swelling: Moderate Wound Bed Color: Red, Yellow, White Wound Bed Constitution: Granulation Tissue (30%), Red/Faucett - Non Granular Tissue (30%), Tendon, Adhered Slough (30%) Wound Edges: Irregular Site Odor: Moderate, Pungent Site Measurement - Head-to-Toe Length X Width X Depth (cm): 5.6x6.3x exposed tendon Skin Integrity Problem Comment: Wound bed cleaned with normal saline and patted dry with gauze. Wound is quite painful for the patient, but she was able to hold up her leg for dressing change. Skin prep applied to periwound, then periwound covered with drape. Adaptic touch applied over exposed tendon. Black foam x1 piece from bridge dressing applied to wound bed, and covered with drape. This dressing is connected to the left lateral leg wound dressing with 1 additional piece of black simplace foam used as a bridge dressing over drape. Wound vac set to -125mmHg with no leaks, alarms, or problems. Wound care will round again on Tuesday. Left Lower Lateral Leg Dressing Type: Black Vac Foam, Wound Vac Dressing Description: Clean/Dry, Intact Closure Description: Not Approximated Exudate Amount: Moderate Exudate Color: Reddish/Yellow Exudate Characteristic(s): Serosanguinous Integumentary Issue Intervention: Dressing Changed Stacia Wound Tissue: Erythema, Swollen, Painful/Tender Stacia Wound Swelling: Moderate Wound Bed Color: Faucett, Red, Yellow Wound Bed Constitution: Granulation Tissue (20%), Red/Faucett - Non Granular Tissue (20%), Adhered Slough (60%), Fascia Site Measurement - Head-to-Toe Length X Width X Depth (cm): 6x5.3x0.4 Skin Integrity Problem Comment: Wound bed cleaned with normal saline and gently patted dry with gauze. Wound has adhered slough over a large portion of the wound, and mostly covers the area where exposed fascia had been during prior assessment on 07/07 with Dawn PIRES. Skin prep applied to periwound, and drape applied periwound.Large piece of bridge dressing foam x1 applied to wound bed, and bridged to posterior wound vac dressing. Entire dressing covered with drape, and wound vac set to -125mmHg with no alarms, leaks, or problems. Wound care will round again on Tuesday. Sacrum Pressure Injury Dressing Type: Mepilex Border Dressing Description: Clean/Dry, Intact Closure Description: Not Approximated Exudate Amount: Scant Exudate Color: Reddish/Yellow Exudate Characteristic(s): Serosanguinous Integumentary Issue Intervention: Visualized Under Dressing Stacia Wound Tissue: Erythema, Non-blanching, Swollen, Denuded, Painful/Tender Stacia Wound Swelling: Mild Wound Bed Color: Faucett, Red, Yellow Wound Bed Constitution: Red/Faucett - Non Granular Tissue, Adhered Slough Site Measurement - Head-to-Toe Length X Width X Depth (cm): medial low sacrum 1.2x0.2x slough. right sacrum 0.7x0.4x0.2 and 0.3x0.3x0.2, area approximately 1.5x1. left sacrum several openings, largest 0.4x0.3x0.2, area approximately 1.2x1.2 Pressure Injury Stage: Unstageable Pressure Injury Present on Admit: No Skin Integrity Problem Comment: Patient has several hospital acquired pressure injuries to sacrum ranging from partial thickness to possible full thickness, with the medial sacral wound covered with adhered slough. Periwound skin has purplish-maroon tint to it, possibly indicating a DTI that has begun to devolve. Wounds appear distinctly in shape and pattern of underlying bone. Wound care will follow. Upper Sacrum Pressure Injury Dressing Type: Mepilex Border Dressing Description: Clean/Dry, Intact Closure Description: Not Approximated Exudate Amount: Scant Exudate Color: Reddish/Yellow Exudate Characteristic(s): Serosanguinous Integumentary Issue Intervention: Visualized Under Dressing Stacia Wound Tissue: Erythema, Non-blanching, Swollen, Denuded, Painful/Tender Stacia Wound Swelling: Mild Wound Bed Color: Faucett, Red Site Measurement - Head-to-Toe Length X Width X Depth (cm): medial upper sacrum 0.4.x.4x0.1. right upper sacrum 1.5x1x0.2 Pressure Injury Stage: Stage 2 Pressure Injury Present on Admit: No Skin Integrity Problem Comment: Hospital acquired pressure injury to upper sacrum, predominately on the right side. Wound appears in shape and pattern of underlying bone, sacrum or possibly low lumbar. Wound extends over midline and to the right upper sacrum, with partial thickness openings. Wound care will follow. Right Ischial Tuberosity Pressure Injury Dressing Type: Mepilex Border Dressing Description: Clean/Dry, Intact Exudate Amount: Scant Exudate Color: Reddish/Yellow Exudate Characteristic(s): Serosanguinous Integumentary Issue Intervention: Visualized Under Dressing Stacia Wound Tissue: Erythema, Non-blanching, Swollen, Denuded, Thin, Painful/ Tender Stacia Wound Swelling: Mild Wound Bed Color: Faucett, Red Wound Bed Constitution: Red/Faucett - Non Granular Tissue Site Measurement - Head-to-Toe Length X Width X Depth (cm): 0.5x0.5x0.3 Pressure Injury Stage: Stage 3 Pressure Injury Present on Admit: No Skin Integrity Problem Comment: Hospital acquired pressure injury to right ischium, within larger area approximately [id number] extending over gluteal cleft approximately 1cm to the left. Patient has multiple pressure injuries, with friction and moisture components likely. Patient stated that she noticed that her bottom was tender, but did not know how severe the injuries were. Education provided to patient re: offloading and movement to reduce risk for more injuries and to increase blood flow. Periwound skin has purplish-maroon tint to it, possibly indicating a large DTI covering entire sacral area as well as ischial tuberosities, and wound area may continue to devolve further. Wound care will follow.
--- NOTE | 2018-07-17 14:45 | HOSPPROG ---
Hospitalist Progress Note Assessment/Plan: 68 year old female with pmh of crohns, chronic lower extremity wounds, admitted for wound care. developed MSSA bacteremia, and then a GI bleed. Scoped with large non bleeding ulcer. * ongoing chronic bilateral leg wounds nonhealing in the outpatient setting. question of possible pyoderma. Wound vac placed. GI consulted today for consideration of biologic medication for pyoderma/IBD -debrided by Dr. Lopes. -continue wound care -surgery following, continue wound care, abx -GI to see today and make recommendations on possible biologic treatment for possible pyoderma Group A strep bacteremia- spiked fever on 07/13 and blood cultures grew out strep pyogenes. ID consulted and on ancef -continue ancef -Wound care to lower extremities -ID following, Anemia- EGD twice for acute Hct drops. both times non bleeding large cratered ulceration, 2mm. High risk of rebleed. Hct continues to trend down but patient has a good reticulocyte count and is making RBCs, suspect she is oozing and will continue to need transfusions. -follow H/H closely -adat -Po PPI BID -no nsaids, or prednisone * uncontrolled hypertension Normotensive, monitor in setting of bleed. Treat PRN *Hyponatremia- patient with poor solute intake. Consider adding salt tabs if it drops but seems to remain about 132. * COPD currently stable * Chronic CHF appears currently stable * chronic Crohn's disease on budesonide- patient is allergic to humira. Was on prednisone but developed severe gi bleed, requiring transfusion. GI recommended no further treatment with systemic steroids due to bleeding risk. -GI re-consulted today to evaluate for possible biologic treatment for IBD and pyoderma. -contiune budesonide entecort * history of uterine cancer PPX- No SCDs, restart heparin bid Fluids- restart IV saline Lytes- Hyponatremia Nutrition- regular diet Cor- Full Dispo-remain inpatient for wounds, GAS infection, anemia, IBD Subjective: patient feels good today. eating well, pain less in legs. Objective: Vital Signs Temp Pulse Resp BP Pulse Ox 36.7 C 94 16 149/96 H 91 L 07/17/18 12:00 07/17/18 12:00 07/17/18 12:00 07/17/18 12:00 07/17/18 12:00 Microbiology 07/13/18 17:04 Blood Panel (PCR) - Final Blood Strep Pyogenes Group A Laboratory Results 07/17/18 05:00 07/17/18 05:00 07/16/18 07/17/18 07/18/18 05:59 05:59 05:59 Intake Total 1488 Output Total 600 610 550 Balance -600 658 -550 - Physical Exam Constitutional: no apparent distress, appears nourished, not in pain Eyes: PERRL, anicteric sclera, EOMI Ears, Nose, Mouth, Throat: moist mucous membranes, ears appear normal, no oral mucosal ulcers, hard of hearing Cardiovascular: regular rate and rhythym, no murmur, rub, or gallop Respiratory: no respiratory distress, no rales or rhonchi, clear to auscultation Gastrointestinal: normoactive bowel sounds, soft, non-tender abdomen, no palpable masses Genitourinary: no bladder fullness, no bladder tenderness, no renal bruits Skin: no rashes or abrasions, no fluctuance, no induration Musculoskeletal: normal joint ROM, generalized weakness, other (left lower extremity with wound vac, left with kerlex. mild erythema to lower extremities) Neurologic: AAOx3, sensation intact bilaterally Psychiatric: interacting appropriately, not anxious, not encephalopathic, thought process linear Lymph, Heme, Immunologic: no cervical LAD, no supraclavicular LAD ICD10 Worksheet Patient Problems: Problems Problem Status Onset CHF (congestive heart failure) Acute Chronic venous insufficiency Acute Contusion of leg, left Acute Fusion of spine of lumbar region Acute Hypoxemia Acute Laceration of knee, left Acute Skin tear of left lower leg without complication Acute Somnolence Acute
[2018-07-17] MEDS: METHOCARBAMOL 750 MG TAB PO PRN ×2 (17:36→20:09)
--- NOTE | 2018-07-17 18:14 | PCMIDPN ---
Assessment/Plan: Assessment/Plan: * Group A streptococcal bacteremia associated with chronic skin ulcerations of lower extremities/skin and soft tissue infection: Continue cefazolin for activity against both group A Streptococcus and previously cultures that have shown MSSA. Will need 10-14 day course of IV antibiotic therapy based on presence of bacteremia. Local wound care ongoing with bilateral lower extremity wound vacs in place. 07/17/18 18:11 Subjective: Patient complains of bilateral lower extremity pain. Underwent bilateral wound VAC changed earlier today. Dr. Lopes's notes reviewed. Objective: Vital Signs Temp Pulse Resp BP Pulse Ox 37.4 C 77 16 150/90 H 98 07/17/18 16:09 07/17/18 16:09 07/17/18 16:09 07/17/18 16:09 07/17/18 16:09 Laboratory Results 07/17/18 05:00 07/17/18 05:00 07/16/18 07/17/18 07/18/18 05:59 05:59 05:59 Intake Total 1488 Output Total 600 610 750 Balance -600 878 -750 C-Reactive Protein 161.6 mg/L (<10.0) H 07/13/18 17:04 Cefazolin # 3 Blood cultures 07/13/2018 1/2 sets group A Streptococcus - Physical Exam General Appearance: alert, no apparent distress, non-toxic EENT: No scleral icterus, No conjunctival petechiae Respiratory: lungs clear, No respiratory distress Cardiac/Chest: regular rate, rhythm, systolic murmur (2/6 left and right upper sternal border) Extremities: inflammation (Bilateral lower extremities with wound VAC in place and anterior page erythema with right greater than left; warmth and tenderness present) Abdomen: non-tender, No distended Skin: No embolic lesions ICD10 Worksheet Patient Problems: Problems Problem Status Onset CHF (congestive heart failure) Acute Chronic venous insufficiency Acute Contusion of leg, left Acute Fusion of spine of lumbar region Acute Hypoxemia Acute Laceration of knee, left Acute Skin tear of left lower leg without complication Acute Somnolence Acute
[2018-07-17] MEDS: ACETAMINOPHEN 325 MG TAB PO PRN (20:08)
[2018-07-17] MEDS: LISINOPRIL 40 MG TAB PO SCH (21:32)
[2018-07-17] MEDS: MELATONIN 3 MG TAB PO SCH (21:32)
[2018-07-17] MEDS: traZODone 50 MG TAB PO SCH (21:34)
[2018-07-18] MEDS: ceFAZolin 2 GM/DEXTROSE 100 ML IV SCH ×3 (01:25→18:17)
[2018-07-18] MEDS: oxyCODONE IR 5 MG TAB PO PRN ×7 (01:25→23:33)
[2018-07-18] MEDS: NS 1,000 ML IV SCH (04:19)
[2018-07-18 05:53] LABS: PLATELET COUNT 324 10^3/uL (150-400)
[2018-07-18] MEDS: LORazepam 2 MG/ML INJ IVP PRN (10:09)
[2018-07-18] MEDS: GABAPENTIN 300 MG CAP PO SCH ×3 (10:14→23:10)
[2018-07-18] MEDS: PANTOPRAZOLE SODIUM 40 MG TAB PO SCH ×2 (10:15→20:29)
[2018-07-18] MEDS: CHOLECALCIFEROL VIT D3 1,000 UNITS TAB PO SCH (10:15)
[2018-07-18] MEDS: SENNOSIDES/DOCUSATE SODIUM TAB PO SCH ×2 (10:15→20:29)
[2018-07-18] MEDS: BUDESONIDE 3 MG EC CAP PO SCH ×3 (10:16→23:10)
[2018-07-18] MEDS: amLODIPine BESYLATE 5 MG TAB PO SCH (10:16)
[2018-07-18] MEDS: ATENOLOL 50 MG TAB PO SCH ×2 (10:16→20:28)
--- NOTE | 2018-07-18 11:01 | PCMIDPN ---
Assessment/Plan: # B LE cellulitis and GAS bacteremia, source LE chronic wounds of unclear etiology, query pyoderma gangrenosum. Redness RLE minimal change from my first exam and still very painful but WBC has improved and AF. --discuss LE findings w surgery, query need for imaging --continue Ancef. will need 10 -14 day course # ANALISA, increasing: DC IVF, discussed w surgery micro 07/13 blood cx (07/12) : GAS Meds cefazolin 2gm IV q8h #4 Subjective: patient c/o edema. She was able to walk a couple days ago but now because of swelling cannot walk Objective: Vital Signs Temp Pulse Resp BP Pulse Ox 36.6 C 82 16 124/76 H 97 07/18/18 07:15 07/18/18 10:16 07/18/18 07:15 07/18/18 10:16 07/18/18 07:15 Laboratory Results 07/18/18 04:34 07/18/18 04:34 07/17/18 07/18/18 07/19/18 05:59 05:59 05:59 Intake Total 1488 1754 Output Total 610 800 Balance 878 954 C-Reactive Protein 161.6 mg/L (<10.0) H 07/13/18 17:04 - Physical Exam General Appearance: alert, apparent distress (due to pain) Respiratory: lungs clear, No accessory muscle use Neck: supple Cardiac/Chest: regular rate, rhythm Extremities: pedal edema (2-3+ soft pitting edema), erythema (stocking distribution R leg), other (Pain to palpation RLE, minimal erythema remains LLE , wound vac in place B LE) Peripheral Pulses: 2+: dorsalis-pedis (R), dorsalis-pedis (L) Abdomen: non-tender Pelvic Exam: No shankra Skin: pallor, No diaphoresis, No rash Neuro/Psych: alert, oriented x 3, other (somewhat angry) - Line/s PIV Lines: other (forearm R), No drainage, No erythema - Time Spent With Patient Time Spent with Patient: greater than 35 minutes Time Spent with Patient: Greater than 35 minutes spent on this patients care, greater than 50% of time spent counseling, educating, and coordinating care regarding the above mentioned plan. ICD10 Worksheet Patient Problems: Problems Problem Status Onset CHF (congestive heart failure) Acute Chronic venous insufficiency Acute Contusion of leg, left Acute Fusion of spine of lumbar region Acute Hypoxemia Acute Laceration of knee, left Acute Skin tear of left lower leg without complication Acute Somnolence Acute
[2018-07-18] MEDS: POLYETHYLENE GLYCOL 3350 17 GM PKT PO SCH (11:23)
--- NOTE | 2018-07-18 14:56 | HOSPPROG ---
Hospitalist Progress Note Assessment/Plan: 68 year old female with pmh of crohns, chronic lower extremity wounds, admitted for wound care. developed MSSA bacteremia, and then a GI bleed. Scoped with large non bleeding ulcer. ongoing chronic bilateral leg wounds nonhealing in the outpatient setting. question of possible pyoderma. \ 06/15 path consistent with but not diagnostic of pyoderma path to re review have these wounds gotten worse after biopsy? this is typcial of PG NOT VASCULAR elevated inflammatory markers but no + autyoimmune serolgies we should strongly consider biolgic agent Group A strep bacteremia- spiked fever on 07/13 and blood cultures grew out strep pyogenes. ID consulted and on ancef continue ancef Wound care to lower extremities ID following, Anemia- EGD twice for acute Hct drops. both times non bleeding large cratered ulceration, 2mm. High risk of rebleed. Hct continues to trend down but patient has a good reticulocyte count and is making RBCs, suspect she is oozing and will continue to need transfusions. follow H/H closely ppi uncontrolled hypertension Normotensive, monitor in setting of bleed. Hyponatremia- patient with poor solute intake. Consider adding salt tabs if it drops but seems to remain about 132. COPD currently stable Chronic CHF appears currently stable chronic Crohn's disease on budesonide- patient is allergic to humira. Was on prednisone but developed severe gi bleed, requiring transfusion. GI recommended no further treatment with systemic steroids due to bleeding risk. * history of uterine cancer PPX- No SCDs, restart heparin bid Subjective: case d/w oni mcdonough and soniya Objective: Vital Signs Temp Pulse Resp BP Pulse Ox 37.2 C 72 16 150/86 H 90 L 07/18/18 12:00 07/18/18 12:00 07/18/18 12:00 07/18/18 12:00 07/18/18 12:00 Laboratory Results 07/18/18 04:34 07/18/18 04:34 07/17/18 07/18/18 07/19/18 05:59 05:59 05:59 Intake Total 1488 1754 Output Total 610 800 875 Balance 878 954 -875 - Physical Exam Constitutional: no apparent distress, appears nourished Eyes: PERRL, anicteric sclera Ears, Nose, Mouth, Throat: moist mucous membranes, hearing normal Cardiovascular: regular rate and rhythym, no murmur, rub, or gallop Respiratory: no respiratory distress, no rales or rhonchi Gastrointestinal: normoactive bowel sounds, soft, non-tender abdomen Genitourinary: No shankar in urethra Skin: warm, normal color Musculoskeletal: full muscle strength, other (DP 2+ b/l) Neurologic: AAOx3 Psychiatric: interacting appropriately ICD10 Worksheet Patient Problems: Problems Problem Status Onset CHF (congestive heart failure) Acute Chronic venous insufficiency Acute Contusion of leg, left Acute Fusion of spine of lumbar region Acute Hypoxemia Acute Laceration of knee, left Acute Skin tear of left lower leg without complication Acute Somnolence Acute
[2018-07-18] MEDS: METHOCARBAMOL 750 MG TAB PO PRN (16:16)
[2018-07-18] MEDS: LISINOPRIL 40 MG TAB PO SCH (20:28)
[2018-07-18] MEDS: MELATONIN 3 MG TAB PO SCH (20:29)
[2018-07-18] MEDS: traZODone 50 MG TAB PO SCH (20:29)
--- NOTE | 2018-07-18 21:07 | SOAPPROG ---
SOAP Progress Note Assessment/Plan: Assessment: Plan: 07/18/18 21:07 A/P 1. Skin lesions- pyoderma gangrenosum? History of Crohns disease. Slow recovery. It appears that her Crohns has not been flaring clinically at this time and is overall under good control. Can consider immunosuppressant treatment to see if improves her pyoderma. She has allergic reaction to Humira. Can consider pulse methylprednsione therapy vs. inflixamab therapy versus topical corticosteroids for inpatient therapy. Would use it to only treat the possible pyoderma and not for her Crohns disease (stop once skin lesions improve ). If using methylprednisone, she cannot have any NSAIDs due to increased risks of bleeding (known gastric ulcer). Would consider dermatology consult. Subjective: cc: Follow up GI bleed No bloody stool. Complains of lower extremity swelling. Objective: Vital Signs Temp Pulse Resp BP Pulse Ox 37.2 C 78 16 159/86 H 95 07/18/18 19:26 07/18/18 20:28 07/18/18 19:26 07/18/18 20:28 07/18/18 19:26 Microbiology 07/13/18 17:04 Blood Culture - Final Blood Streptococcus Pyogenes Grp A Blood Panel (PCR) - Final Strep Pyogenes Group A 07/13/18 17:15 Blood Culture - Final Blood Laboratory Results 07/18/18 04:34 07/18/18 04:34 07/17/18 07/18/18 07/19/18 05:59 05:59 05:59 Intake Total 1488 1754 Output Total 610 800 875 Balance 878 954 -875 Physical Exam - Physical Exam General Appearance: alert, mild distress EENT: No scleral icterus (R), No scleral icterus (L) Respiratory: lungs clear, normal breath sounds Cardiac/Chest: regular rate, rhythm Abdomen: non-tender, soft, distended Extremities: other (erytematous, swelling.) Neuro/Psych: normal mood/affect, oriented x 3 ICD10 Worksheet Patient Problems: Problems Problem Status Onset CHF (congestive heart failure) Acute Chronic venous insufficiency Acute Contusion of leg, left Acute Fusion of spine of lumbar region Acute Hypoxemia Acute Laceration of knee, left Acute Skin tear of left lower leg without complication Acute Somnolence Acute
[2018-07-19] MEDS: ceFAZolin 2 GM/DEXTROSE 100 ML IV SCH ×3 (02:18→16:59)
[2018-07-19] MEDS: oxyCODONE IR 5 MG TAB PO PRN ×5 (04:50→20:32)
[2018-07-19 05:46] LABS: PLATELET COUNT 386 10^3/uL (150-400)
[2018-07-19] MEDS: traMADol 50 MG TAB PO PRN (07:20)
[2018-07-19] MEDS: GABAPENTIN 300 MG CAP PO SCH ×3 (07:20→20:31)
[2018-07-19] MEDS: METHOCARBAMOL 750 MG TAB PO PRN ×2 (07:21→13:40)
[2018-07-19] MEDS: ATENOLOL 50 MG TAB PO SCH ×2 (08:10→20:32)
[2018-07-19] MEDS: BUDESONIDE 3 MG EC CAP PO SCH ×3 (08:11→20:32)
[2018-07-19] MEDS: CHOLECALCIFEROL VIT D3 1,000 UNITS TAB PO SCH (08:11)
[2018-07-19] MEDS: amLODIPine BESYLATE 5 MG TAB PO SCH (08:11)
[2018-07-19] MEDS: PANTOPRAZOLE SODIUM 40 MG TAB PO SCH ×2 (08:11→20:31)
[2018-07-19] MEDS: SENNOSIDES/DOCUSATE SODIUM TAB PO SCH ×2 (09:19→20:31)
[2018-07-19] MEDS: POLYETHYLENE GLYCOL 3350 17 GM PKT PO SCH (09:36)
[2018-07-19] MEDS: HYDROmorphONE/DILAUDID 1 MG/ML INJ IVP PRN (12:01)
[2018-07-19] MEDS ORDERED: ALTEPLASE 2 MG VIAL IVP PRN (13:14)
--- NOTE | 2018-07-19 13:17 | PCMIDPN ---
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 Redness still RLE stable compared to yesterday, less tender today --continue Ancef. will need 10 -14 day course --place PICC, reviewed risk and benefits with patient and son. --start Rx for PG: methylpred 500mg IV daily x 3 days then Pred 60mg daily; start cyclosporin 100mg daily and Rheum (Dr. Tobar) to taper up as outpatient. Needs BMP in 1 week at minimum. Reviewed risks and benefits of steroids and cyclosporin with patient and son. --dc wound vacs, care coordinated with wound RN and floor RN micro 07/13 blood cx (07/12) : GAS Meds cefazolin 2gm IV q8h #5 Subjective: frustrated about non healing LE wounds Son present Objective: Vital Signs Temp Pulse Resp BP Pulse Ox 36.7 C 70 18 140/63 H 92 07/19/18 12:00 07/19/18 12:00 07/19/18 07:24 07/19/18 12:00 07/19/18 12:00 Microbiology 07/13/18 17:04 Blood Culture - Final Blood Streptococcus Pyogenes Grp A Blood Panel (PCR) - Final Strep Pyogenes Group A 07/13/18 17:15 Blood Culture - Final Blood Laboratory Results 07/19/18 05:27 07/19/18 05:26 07/18/18 07/19/18 07/20/18 05:59 05:59 05:59 Intake Total 1754 Output Total 800 875 Balance 954 -875 Laboratory Tests 07/13/18 07/19/18 17:04 05:26 C-Reactive Protein 161.6 H 61.0 H - Physical Exam General Appearance: alert, no apparent distress, non-toxic Respiratory: No accessory muscle use Extremities: pedal edema (R>L), erythema (RLE stocking distribution ), other ( Large wounds bilateral lower extremities with irregular borders) Peripheral Pulses: 2+: dorsalis-pedis (R), dorsalis-pedis (L) Skin: warm/dry, No diaphoresis, No rash Neuro/Psych: alert, normal mood/affect, oriented x 3 - Time Spent With Patient Time Spent with Patient: greater than 35 minutes Time Spent with Patient: Greater than 35 minutes spent on this patients care, greater than 50% of time spent counseling, educating, and coordinating care regarding the above mentioned plan. ICD10 Worksheet Patient Problems: Problems Problem Status Onset CHF (congestive heart failure) Acute Chronic venous insufficiency Acute Contusion of leg, left Acute Fusion of spine of lumbar region Acute Hypoxemia Acute Laceration of knee, left Acute Skin tear of left lower leg without complication Acute Somnolence Acute
[2018-07-19] MEDS: methylPREDNISolone SOD SUCC 500 MG in D5W 100 ML IV SCH (13:42)
--- NOTE | 2018-07-19 13:46 | HOSPPROG ---
Hospitalist Progress Note Assessment/Plan: 68 year old female with pmh of crohns, chronic lower extremity wounds, admitted for wound care. developed MSSA bacteremia, and then a GI bleed. Scoped with large non bleeding ulcer. ongoing chronic bilateral leg wounds nonhealing in the outpatient setting. question of possible pyoderma. 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 ID consulted and on ancef continue ancef Wound care to lower extremities ID following, Anemia- EGD twice for acute Hct drops. both times non bleeding large cratered ulceration, 2mm. High risk of rebleed. Hct continues to trend down but patient has a good reticulocyte count and is making RBCs, suspect she is oozing and will continue to need transfusions. follow H/H closely ppi uncontrolled hypertension Normotensive, monitor in setting of bleed. Hyponatremia- patient with poor solute intake. Consider adding salt tabs if it drops but seems to remain about 132. COPD currently stable Chronic CHF appears currently stable chronic Crohn's disease on budesonide- patient is allergic to humira. Was on prednisone but developed severe gi bleed, requiring transfusion. GI recommended no further treatment with systemic steroids due to bleeding risk. * history of uterine cancer PPX- No SCDs, restart heparin bid Subjective: case discussed at length w sharyn barnett, david and ceasar Objective: Vital Signs Temp Pulse Resp BP Pulse Ox 36.7 C 70 18 140/63 H 92 07/19/18 12:00 07/19/18 12:00 07/19/18 07:24 07/19/18 12:00 07/19/18 12:00 Microbiology 07/13/18 17:04 Blood Culture - Final Blood Streptococcus Pyogenes Grp A Blood Panel (PCR) - Final Strep Pyogenes Group A 07/13/18 17:15 Blood Culture - Final Blood Laboratory Results 07/19/18 05:27 07/19/18 05:26 07/18/18 07/19/18 07/20/18 05:59 05:59 05:59 Intake Total 1754 Output Total 800 875 Balance 954 -875 - Physical Exam Constitutional: no apparent distress, appears nourished Eyes: PERRL, anicteric sclera Ears, Nose, Mouth, Throat: moist mucous membranes, hearing normal Cardiovascular: regular rate and rhythym, no murmur, rub, or gallop Respiratory: no respiratory distress, no rales or rhonchi Gastrointestinal: normoactive bowel sounds, soft, non-tender abdomen Genitourinary: no bladder fullness, No shankar in urethra Skin: warm, other (L leg edematous, erythematous. more edematous today. ) Musculoskeletal: full muscle strength Neurologic: AAOx3 ICD10 Worksheet Patient Problems: Problems Problem Status Onset CHF (congestive heart failure) Acute Chronic venous insufficiency Acute Contusion of leg, left Acute Fusion of spine of lumbar region Acute Hypoxemia Acute Laceration of knee, left Acute Skin tear of left lower leg without complication Acute Somnolence Acute
--- NOTE | 2018-07-19 13:58 | ASMTCMCOM ---
CM Note CM Note Notes: Pt is not medically stable to d/c from the hospital at this time. Updates sent to [facility]. DC date is unclear at this time. CM to follow. Date Signed: 07/19/2018 01:58 PM Electronically Signed By:FELIPE Degroot
--- NOTE | 2018-07-19 15:22 | WOCRNPDOC ---
JOEL Advanced Assessment Note - Skin Integrity Problem, Advanced Assess Left Lower Lateral Leg Dressing Type: Black Vac Foam, Wound Vac Dressing Description: Clean/Dry, Intact Closure Description: Not Approximated Exudate Amount: Moderate Exudate Color: Reddish/Yellow Exudate Characteristic(s): Serosanguinous Integumentary Issue Intervention: Dressing Changed, Dressing Initialed & Dated Stacia Wound Tissue: Intact, Painful/Tender Stacia Wound Swelling: Moderate Wound Bed Color: Red Wound Bed Constitution: Granulation Tissue (10%), Adhered Slough (90%) Wound Edges: Attached, Well Defined Skin Integrity Problem Comment: Patient premedicated for pain by FLAVIO Bravo. Wound vac removed. Significant output in [place] cannister. Wound bed cleaned with NS and gauze. Skin prep applied to stacia-wound tissue. MD Baird in to see patient. Discussion at bedside included information that wound vacs not used in current treatment for this type of wound. Will stop wound vac. Will initiate iodoflex for debridement of this wound. Wound care will round again on Tuesday. Left Posterior Lower Leg Dressing Type: Adaptic Touch, Black Vac Foam, Wound Vac Dressing Description: Clean/Dry, Intact Closure Description: Not Approximated Exudate Amount: Moderate Exudate Color: Reddish/Yellow Exudate Characteristic(s): Serosanguinous Integumentary Issue Intervention: Dressing Changed, Dressing Initialed & Dated Stacia Wound Tissue: Intact, Painful/Tender Wound Bed Color: Yellow, White Wound Bed Constitution: Granulation Tissue (30%), Tendon (15%), Adhered Slough ( 60%) Wound Edges: Attached, Well Defined Skin Integrity Problem Comment: Patient premedicated for pain by FLAVIO Bravo. Wound vac removed. Significant output in W[place] cannister. Wound bed cleaned with NS and gauze. Skin prep applied to stacia-wound tissue. MD Baird in to see patient. Discussion at bedside included information that wound vacs not used in current treatment for this type of wound. Will stop wound vac. Will initiate iodoflex for debridement of this wound. Wound care will round again on Tuesday. Right Lower Medial Leg Dressing Type: Black Vac Foam, Wound Vac Dressing Description: Clean/Dry, Intact Closure Description: Not Approximated Exudate Amount: Scant Exudate Color: Reddish/Yellow Exudate Characteristic(s): Serosanguinous Integumentary Issue Intervention: Dressing Changed, Dressing Initialed & Dated Stacia Wound Tissue: Erythema, Swollen, Intact, Painful/Tender Stacia Wound Swelling: Moderate Wound Bed Constitution: Granulation Tissue (50%), Adhered Slough (50%) Wound Edges: Attached, Well Defined Skin Integrity Problem Comment: Patient premedicated for pain by FLAVIO Bravo. Wound vac removed. Minimal output in WV cannister. Wound bed cleaned with NS and gauze. Skin prep applied to stacia-wound tissue. MD Baird in to see patient. Discussion at bedside included information that wound vacs not used in current treatment for this type of wound. Will stop wound vac. Will initiate iodosorb for debridement of this wound. Wound care will round again on Tuesday.
[2018-07-19] MEDS: cycloSPORINE 100 MG CAP PO SCH (15:52)
[2018-07-19] MEDS: SUCRALFATE 1 GM TAB PO SCH ×2 (16:59→20:31)
[2018-07-19] MEDS: traZODone 50 MG TAB PO SCH (20:31)
[2018-07-19] MEDS: MELATONIN 3 MG TAB PO SCH (20:32)
[2018-07-19] MEDS: LISINOPRIL 40 MG TAB PO SCH (20:32)
[2018-07-19] MEDS: LORazepam 2 MG/ML INJ IVP PRN (23:15)
[2018-07-20] MEDS: ceFAZolin 2 GM/DEXTROSE 100 ML IV SCH ×3 (02:29→17:40)
[2018-07-20] MEDS: oxyCODONE IR 5 MG TAB PO PRN ×4 (05:21→20:56)
[2018-07-20 05:37] LABS: PLATELET COUNT 394 10^3/uL (150-400)
[2018-07-20] MEDS: ATENOLOL 50 MG TAB PO SCH ×2 (08:03→20:56)
[2018-07-20] MEDS: METHOCARBAMOL 750 MG TAB PO PRN ×2 (08:03→13:40)
[2018-07-20] MEDS: amLODIPine BESYLATE 5 MG TAB PO SCH (08:03)
[2018-07-20] MEDS: GABAPENTIN 300 MG CAP PO SCH ×3 (08:04→20:55)
[2018-07-20] MEDS: PANTOPRAZOLE SODIUM 40 MG TAB PO SCH ×2 (08:04→20:55)
[2018-07-20] MEDS: CHOLECALCIFEROL VIT D3 1,000 UNITS TAB PO SCH (08:04)
[2018-07-20] MEDS: SUCRALFATE 1 GM TAB PO SCH ×4 (08:04→20:55)
[2018-07-20] MEDS: traMADol 50 MG TAB PO PRN ×3 (08:04→22:42)
[2018-07-20] MEDS: BUDESONIDE 3 MG EC CAP PO SCH ×3 (08:04→20:55)
[2018-07-20] MEDS: SENNOSIDES/DOCUSATE SODIUM TAB PO SCH ×2 (08:25→20:57)
[2018-07-20] MEDS: POLYETHYLENE GLYCOL 3350 17 GM PKT PO SCH (08:25)
[2018-07-20] MEDS: methylPREDNISolone SOD SUCC 500 MG in D5W 100 ML IV SCH (08:41)
[2018-07-20] MEDS: cycloSPORINE 100 MG CAP PO SCH (08:41)
--- NOTE | 2018-07-20 11:19 | PCMIDPN ---
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 Less redness RLE and much less pain B LE today --continue Ancef till 07/28/18 --started empiric Rx for PG 07/19/18: methylpred 500mg IV daily x 3 days (last day 07/21/18) then Pred 60mg daily on 07/22/18; start cyclosporin 100mg daily. Rheum (Dr. Tobar) to taper up cyclosporin and taper down prednisone as outpatient. Needs BMP in 1 week at minimum (listed on [employer]). --wound vacs discontinued --trying to arrange f/u w me the week of Jul 24 in [facility] 07/13 blood cx (07/12) : GAS Meds cefazolin 2gm IV q8h #6 Subjective: Today, pt yells I feel marvelous! Noting that she ate really good, and is now able to ambulate which is an improvement as weight bearing used to cause her great pain. Admits that her pain is significantly decreased. Slept really well last night. I, Piper Taylor, am scribing for, and in the presence of, Roseline Baird MD. I, Roseline Baird MD, personally performed the services described in this documentation, as scribed by Piper Taylor in my presence, and it is both accurate and complete. Objective: Vital Signs Temp Pulse Resp BP Pulse Ox 36.7 C 63 16 155/94 H 95 07/20/18 08:00 07/20/18 08:03 07/20/18 08:00 07/20/18 08:03 07/20/18 08:00 Laboratory Results 07/20/18 05:20 07/20/18 05:20 07/19/18 07/20/18 07/21/18 05:59 05:59 05:59 Intake Total 200 Output Total 875 400 Balance -875 200 -400 C-Reactive Protein 61.0 mg/L (<10.0) H 07/19/18 05:26 - Physical Exam General Appearance: alert, no apparent distress EENT: pale conjunctiva, other (very hard of hearing ), No scleral icterus Respiratory: lungs clear, No accessory muscle use Cardiac/Chest: regular rate, rhythm Extremities: other (5 cm large wound right ankle, decreasing swelling and redness; large left anterior ankle wound wrapping around laterally to the posterior side ) Skin: warm/dry, No rash Neuro/Psych: alert, normal mood/affect, oriented x 3 - Line/s RUE PICC Lines: No drainage, No erythema - Time Spent With Patient Time Spent with Patient: greater than 35 minutes Time Spent with Patient: Greater than 35 minutes spent on this patients care, greater than 50% of time spent counseling, educating, and coordinating care regarding the above mentioned plan. ICD10 Worksheet Patient Problems: Problems Problem Status Onset CHF (congestive heart failure) Acute Chronic venous insufficiency Acute Contusion of leg, left Acute Fusion of spine of lumbar region Acute Hypoxemia Acute Laceration of knee, left Acute Skin tear of left lower leg without complication Acute Somnolence Acute
--- NOTE | 2018-07-20 11:27 | PDIAF ---
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 PICC Care - Routine: Yes - Orders Services needed: Home Care, Registered Nurse Home Care Face to Face: I certify that this patient was under my care and that I had the required [id number] encounter meeting the encounter requirements on the discharge day. My findings support the fact that the patient is homebound as defined in Home Care Face to Face Continued: CMS Chapter 7 Medicare Benefits Manual 30.1.1 , The condition of the patient is such that there exists a normal inability to leave home and consequently, leaving home would require a considerable and taxing effort. - Labs/Radiology CBC w/diff Date: 07/24/18 CMP Date: 07/24/18 Call or Fax Lab and Imaging Results to: Dr Baird at [facility] for infectious dz [phone] - Follow Up Care Current Providers and Referrals: Benita Redman PA [Primary Care Provider] -
--- NOTE | 2018-07-20 11:45 | ASMTCMCOM ---
CM Note CM Note Notes: Spoke w/MD, pt may be able to dc tomorrow to SNF. CM spoke with son Alex who is in agreement with plan. CM notified Kerline at [facility] who will check on bed availability. DC Plan: SNF/ [facility] Date Signed: 07/20/2018 11:44 AM Electronically Signed By:Anu Hawk RN
--- NOTE | 2018-07-20 11:46 | ASMTLACE ---
LACE Length of stay for Answers: 14 days or more current admission Acuity / Level of Answers: Yes Care: Did the patient have an inpatient admission? Comorbidities - select Answers: Chronic pulmonary disease all that apply Congestive heart failure Other Notes: Hypertension, Chronic l eg wounds # of Emergency department Answers: 1-2 visits in the last 6 months Score: 16 Date Signed: 07/20/2018 11:45 AM Electronically Signed By:Anu Hawk RN
[2018-07-20 13:49] LABS: HEPATITIS B CORE AB TOTAL NEGATIVE (NEGATIVE); HEPATITIS B SURFACE ANTIGEN NEGATIVE (NEGATIVE)
--- NOTE | 2018-07-20 16:34 | SOAPPROG ---
SOAP Progress Note Assessment/Plan: Assessment: 68yo F s/p BLE debridement, no on high dose steroids for likely pyoderma - Hb remains stable, drifting slowly but on high dose PPI - legs look about the same but per her report are much less painful. Has actually been walking today. VACs taken down, W-D BID. Will assess tomorrow - cont high dose methylpred, patient clinically improved. Will see how the wounds look tomorrow. Plan: 07/07/18 15:42 07/10/18 11:26 07/13/18 16:49 07/14/18 16:05 07/17/18 12:57 07/20/18 16:32 Subjective: feels great, has been walking. Eating voraciously. Objective: Vital Signs Temp Pulse Resp BP Pulse Ox 36.6 C 58 L 16 164/84 H 94 07/20/18 16:00 07/20/18 16:00 07/20/18 16:00 07/20/18 16:00 07/20/18 16:00 Laboratory Results 07/20/18 05:20 07/20/18 05:20 07/19/18 07/20/18 07/21/18 05:59 05:59 05:59 Intake Total 200 Output Total 875 400 Balance -875 200 -400 ICD10 Worksheet Patient Problems: Problems Problem Status Onset CHF (congestive heart failure) Acute Chronic venous insufficiency Acute Contusion of leg, left Acute Fusion of spine of lumbar region Acute Hypoxemia Acute Laceration of knee, left Acute Skin tear of left lower leg without complication Acute Somnolence Acute
--- NOTE | 2018-07-20 17:04 | HOSPPROG ---
Hospitalist Progress Note Assessment/Plan: 68 year old female with pmh of crohns, chronic lower extremity wounds, admitted for wound care. developed MSSA bacteremia, and then a GI bleed. Scoped with large non bleeding ulcer. ongoing chronic bilateral leg wounds nonhealing in the outpatient setting. question of possible pyoderma. 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 ID consulted and on ancef continue ancef Wound care to lower extremities ID following, Anemia- EGD twice for acute Hct drops. both times non bleeding large cratered ulceration, 2mm. High risk of rebleed. Hct continues to trend down but patient has a good reticulocyte count and is making RBCs, suspect she is oozing and will continue to need transfusions. follow H/H closely ppi uncontrolled hypertension Normotensive, monitor in setting of bleed. Hyponatremia- patient with poor solute intake. Consider adding salt tabs if it drops but seems to remain about 132. COPD currently stable Chronic CHF appears currently stable chronic Crohn's disease on budesonide- patient is allergic to humira. Was on prednisone but developed severe gi bleed, requiring transfusion. GI recommended no further treatment with systemic steroids due to bleeding risk. * history of uterine cancer PPX- No SCDs, restart heparin bid Subjective: much better today as well as hypomanic Objective: Vital Signs Temp Pulse Resp BP Pulse Ox 36.6 C 58 L 16 164/84 H 94 07/20/18 16:00 07/20/18 16:00 07/20/18 16:00 07/20/18 16:00 07/20/18 16:00 Laboratory Results 07/20/18 05:20 07/20/18 05:20 07/19/18 07/20/18 07/21/18 05:59 05:59 05:59 Intake Total 200 Output Total 875 400 Balance -875 200 -400 - Physical Exam Constitutional: no apparent distress, appears nourished Eyes: PERRL, anicteric sclera Ears, Nose, Mouth, Throat: moist mucous membranes, hearing normal Cardiovascular: regular rate and rhythym, no murmur, rub, or gallop Respiratory: no respiratory distress, no rales or rhonchi Gastrointestinal: normoactive bowel sounds, soft, non-tender abdomen Genitourinary: no bladder fullness, No shankar in urethra Skin: warm, normal color, other (legs bandaged) Musculoskeletal: full muscle strength ICD10 Worksheet Patient Problems: Problems Problem Status Onset CHF (congestive heart failure) Acute Chronic venous insufficiency Acute Contusion of leg, left Acute Fusion of spine of lumbar region Acute Hypoxemia Acute Laceration of knee, left Acute Skin tear of left lower leg without complication Acute Somnolence Acute
--- NOTE | 2018-07-20 17:50 | WOCRNPDOC ---
WOCRN Advanced Assessment Note - Skin Integrity Problem, Advanced Assess Left Lower Lateral Leg Dressing Type: Iodoflex Closure Description: Not Approximated Exudate Amount: Minimal Exudate Color: Clear Exudate Characteristic(s): Serous Integumentary Issue Intervention: Dressing Changed, Dressing Initialed & Dated Stacia Wound Tissue: Intact, Thin Wound Bed Color: Yellow Wound Bed Constitution: Adhered Slough (100%) Wound Edges: Attached, Well Defined Skin Integrity Problem Comment: Wound bed cleaned with NS and gauze. Wound with more slough today than yesterday but not nearly as tender. Wound vac drape removed. Will initiate BID wet-to-dry dressing changes with vashe. Wound care will round again tomorrow. Left Posterior Lower Leg Dressing Type: Iodoflex Closure Description: Not Approximated Exudate Amount: Minimal Exudate Color: Clear Exudate Characteristic(s): Serous Integumentary Issue Intervention: Dressing Changed, Dressing Initialed & Dated Stacia Wound Tissue: Intact Wound Bed Constitution: Tendon (15%), Adhered Slough (85%) Wound Edges: Attached, Well Defined Skin Integrity Problem Comment: Wound bed cleaned with NS and gauze. Wound with more slough today than yesterday but not nearly as tender. Wound vac drape removed. Will initiate BID wet-to-dry dressing changes with vashe. Wound care will round again tomorrow. Right Lower Medial Leg Dressing Type: Iodosorb Closure Description: Not Approximated Exudate Amount: Minimal Exudate Color: Clear Exudate Characteristic(s): Serous Integumentary Issue Intervention: Dressing Changed, Dressing Initialed & Dated Stacia Wound Tissue: Erythema, Swollen (improved since yesterday) Stacia Wound Swelling: Moderate Wound Bed Color: Yellow Wound Bed Constitution: Granulation Tissue (10%), Adhered Slough (90%) Wound Edges: Attached, Well Defined Skin Integrity Problem Comment: Wound more slough filled today than yesterday. Will initiate BID wet-to-dry with vashe. Patient reports much less pain today than yesterday and is even up walking. Will evaluate again tomorrow with MD.
[2018-07-20] MEDS: LISINOPRIL 40 MG TAB PO SCH (20:55)
[2018-07-20] MEDS: HEPARIN 5,000 UNIT/0.5 ML INJ SC SCH (20:55)
[2018-07-20] MEDS: traZODone 50 MG TAB PO SCH (20:56)
[2018-07-20] MEDS: MELATONIN 3 MG TAB PO SCH (20:57)
[2018-07-21] MEDS: ceFAZolin 2 GM/DEXTROSE 100 ML IV SCH ×3 (01:52→18:35)
[2018-07-21] MEDS: oxyCODONE IR 5 MG TAB PO PRN ×4 (02:04→20:28)
[2018-07-21] MEDS: SUCRALFATE 1 GM TAB PO SCH ×4 (07:23→20:27)
[2018-07-21] MEDS: GABAPENTIN 300 MG CAP PO SCH ×3 (08:20→22:46)
[2018-07-21] MEDS: BUDESONIDE 3 MG EC CAP PO SCH ×3 (08:20→22:46)
[2018-07-21] MEDS: ATENOLOL 50 MG TAB PO SCH ×2 (08:21→20:30)
[2018-07-21] MEDS: cycloSPORINE 100 MG CAP PO SCH (08:21)
[2018-07-21] MEDS: CHOLECALCIFEROL VIT D3 1,000 UNITS TAB PO SCH (08:22)
[2018-07-21] MEDS: PANTOPRAZOLE SODIUM 40 MG TAB PO SCH ×2 (08:22→20:28)
[2018-07-21] MEDS: amLODIPine BESYLATE 5 MG TAB PO SCH (08:22)
[2018-07-21] MEDS: HEPARIN 5,000 UNIT/0.5 ML INJ SC SCH ×2 (08:25→22:46)
[2018-07-21] MEDS: methylPREDNISolone SOD SUCC 500 MG in D5W 100 ML IV SCH (10:03)
[2018-07-21] MEDS: POLYETHYLENE GLYCOL 3350 17 GM PKT PO SCH (10:50)
[2018-07-21] MEDS: SENNOSIDES/DOCUSATE SODIUM TAB PO SCH ×2 (10:50→20:45)
[2018-07-21] MEDS: traMADol 50 MG TAB PO PRN (10:55)
--- NOTE | 2018-07-21 12:33 | PDDCSUM ---
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 Israel Baird PROCEDURES: Incision and drainage of multiple leg wounds, wound VAC placement Esophagogastric duodenoscopy on 2 occasions demonstrating gastric ulceration, not bleeding at the time of endoscopies HOSPITAL COURSE SUMMARY: This patient has had ongoing difficult to heal wounds in both legs after an injury in February of 2018. She comes in at this time with worsening pain and continued nonhealing of her wounds despite ongoing wound care. 1 of the issues seem to be compliance with wound care instructions at home. However despite excellent wound care in the hospital the patient did not have in much improvement. Following along this she did develop some infection while here. In addition it was felt from the appearance the wounds that she probably has pyoderma gangrenosum. She went to the operating room had the wounds debrided and drained. Wound vacs were applied. She was started on antibiotics when the strep infection was identified and was started on high-dose steroids with 500 mg Solu-Medrol for 3 days followed by prednisone 60 mg daily. At this point she will continue on with antibiotic and with steroid. The antibiotic cefazolin is to go through July 28. The prednisone at 60 mg will go until she follows up with Dr. Tobar in it rheumatology clinic. She has an appointment with him on July 31. Notably while here the patient did have some GI bleeding and was found to have a gastric ulcer. She was started on Carafate and Protonix and will continue on 40 twice daily Protonix to complete 8 weeks of therapy as she leaves the hospital. She did have some hyponatremia that appear to be due to poor intake at home and this resolved easily with conservative therapy. The patient does have chronic congestive heart failure, COPD, Crohn's disease, and history of endometrial cancer. These were all stable during her hospital stay here. PENDING TEST RESULTS: None MEDICATION CHANGES: Addition of IV cefazolin for management of streptococcal bacteremia and wound infection Addition of prednisone currently 60 mg daily and cyclosporine 100 mg daily for pyoderma gangrenosum felt to be cause of leg wounds Protonix 40 mg twice daily for 7 more weeks after bleeding gastric ulcer Melatonin and pre FOLLOW-UP PLAN: She will be transferred to half-way facility for ongoing wound care and rehabilitation today She will be seeing Dr. Israel Lopes or in his clinic for wound care than 1 week She will see Dr. Roseline Baird in Infectious Disease Clinic She will see Dr. Chris Tobar in Rheumatology Clinic on July 31 Greater than 35 minutes bedside and care coordination time today
--- NOTE | 2018-07-21 14:31 | WOCRNPDOC ---
WOCRN Advanced Assessment Note - Skin Integrity Problem, Advanced Assess Left Lower Lateral Leg Dressing Type: ABD Pad, Gauze, Kerlix Dressing Description: Intact, Shadowed Closure Description: Not Approximated Exudate Amount: Minimal Exudate Color: Clear Exudate Characteristic(s): Serous Integumentary Issue Intervention: Dressing Changed Stacia Wound Tissue: Erythema, Swollen (improved since earlier in the week), Intact Stacia Wound Swelling: Mild Wound Bed Color: [place], Yellow Wound Bed Constitution: Granulation Tissue (20%), Adhered Slough (80%) Wound Edges: Attached, Well Defined Site Measurement - Head-to-Toe Length X Width X Depth (cm): 5.9x6x0.3 Skin Integrity Problem Comment: Dressings taken down with assist from MD Lopes. All wounds with less slough today than yesterday. Will continue with BID wet-to-dry dressing changes. Patient tolerating dressing changes without premedication with IV medication and is able to ambulate. Will place her for follow-up with wound care next week but she will likely have DC'd and be following up outpatient. DC wound care orders placed. Left Posterior Lower Leg Dressing Type: ABD Pad, Gauze, Kerlix Dressing Description: Intact, Shadowed Closure Description: Not Approximated Exudate Amount: Minimal Exudate Color: Clear Exudate Characteristic(s): Serous Integumentary Issue Intervention: Dressing Changed Stacia Wound Tissue: Intact Wound Bed Color: [place], Yellow, White Wound Bed Constitution: Red/[place] - Non Granular Tissue (30%), Tendon (15%), Adhered Slough (50%) Wound Edges: Attached, Well Defined Site Measurement - Head-to-Toe Length X Width X Depth (cm): 6.4x6.5x0.4 Right Lower Medial Leg Dressing Type: ABD Pad, Gauze, Kerlix Dressing Description: Intact, Shadowed Closure Description: Not Approximated Exudate Amount: Minimal Exudate Color: Clear Exudate Characteristic(s): Serous Integumentary Issue Intervention: Dressing Changed Stacia Wound Tissue: Intact Stacia Wound Swelling: Mild Wound Bed Constitution: Granulation Tissue (30%), Adhered Slough (70%) Wound Edges: Attached, Well Defined Site Measurement - Head-to-Toe Length X Width X Depth (cm): 8x6.8x0.3
--- NOTE | 2018-07-21 14:39 | SOAPPROG ---
SOAP Progress Note Assessment/Plan: Assessment: 68yo F s/p BLE debridement, no on high dose steroids for likely pyoderma - Hb better than it has been. Pain is very well controlled - Dressing changes BID per WC - F/u c me next week at Wound Care, 10:30 AM Plan: 07/07/18 15:42 07/10/18 11:26 07/13/18 16:49 07/14/18 16:05 07/17/18 12:57 07/20/18 16:32 07/21/18 14:39 Subjective: feels great Objective: Vital Signs Temp Pulse Resp BP Pulse Ox 36.4 C 59 L 16 158/81 H 98 07/21/18 07:15 07/21/18 07:15 07/21/18 07:15 07/21/18 07:15 07/21/18 07:15 Laboratory Results 07/20/18 05:20 07/20/18 05:20 07/20/18 07/21/18 07/22/18 05:59 05:59 05:59 Intake Total 200 350 300 Output Total 400 Balance 200 -50 300 ICD10 Worksheet Patient Problems: Problems Problem Status Onset CHF (congestive heart failure) Acute Chronic venous insufficiency Acute Contusion of leg, left Acute Fusion of spine of lumbar region Acute Hypoxemia Acute Laceration of knee, left Acute Skin tear of left lower leg without complication Acute Somnolence Acute
--- NOTE | 2018-07-21 19:32 | HOSPPROG ---
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 * Pain in wound appearance are improving on steroid here so far * Ongoing wound care * uncontrolled hypertension * Improved with management of her wounds and the tendon decrease in pain * hyponatremia at near euvolemia by exam, resolved * Appears primarily due to poor intake * acute upper GI bleed in-hospital due to gastric ulcer * post hemorrhagic anemia due to above * ongoing intermittent tobacco abuse after formally quitting cigarettes * Cigarettes will clearly aggravate her difficulties healing these wounds and I have reviewed this with her in detail * Tobacco cessation counseling will need to be ongoing * COPD currently stable * Chronic CHF appears currently stable * chronic Crohn's disease on budesonide * history of uterine cancer PLANS: * Ongoing wound care * Follow blood pressures closely * Continue proton pump inhibitors * Continued tobacco counseling * Continue current dose of prednisone for suspected pyoderma gangrenosum * She has a appointment with Dr. Tobar of Rheumatology after discharge * Likely transfer to [facility] tomorrow I reviewed in detail today with patient's wound care nurse and reviewed her wounds in detail SUBJECTIVE: Patient with much less pain today Eating well No dyspnea, no fever symptoms OBJECTIVE Vitals reviewed: All stable without fever Exam: alert oriented skin warm dry color ok resps not labored lungs clear BSs heart regular abd soft nondistended nontender, bowel sounds present limbs warm, no edema I reviewed photographs of the wounds did taken today by the wound care nurse, which look good without evidence of any infection or necrosis iv site ok Objective: Vital Signs Temp Pulse Resp BP Pulse Ox 36.6 C 59 L 16 157/80 H 97 07/21/18 15:48 07/21/18 15:48 07/21/18 15:48 07/21/18 15:48 07/21/18 15:48 Laboratory Results 07/20/18 05:20 07/20/18 05:20 07/20/18 07/21/18 07/22/18 06:59 06:59 06:59 Intake Total 116 504 7160 Output Total 400 Balance 200 -50 1100 ICD10 Worksheet Patient Problems: Problems Problem Status Onset CHF (congestive heart failure) Acute Chronic venous insufficiency Acute Contusion of leg, left Acute Fusion of spine of lumbar region Acute Hypoxemia Acute Laceration of knee, left Acute Skin tear of left lower leg without complication Acute Somnolence Acute
[2018-07-21] MEDS: LISINOPRIL 40 MG TAB PO SCH (20:27)
[2018-07-21] MEDS: MELATONIN 3 MG TAB PO SCH (20:28)
[2018-07-21] MEDS: METHOCARBAMOL 750 MG TAB PO PRN (20:29)
[2018-07-21] MEDS: traZODone 50 MG TAB PO SCH (20:29)
[2018-07-21] MEDS: HYDROmorphONE/DILAUDID 1 MG/ML INJ IVP PRN (22:43)
[2018-07-22] MEDS: ceFAZolin 2 GM/DEXTROSE 100 ML IV SCH ×2 (02:34→11:26)
[2018-07-22] MEDS: oxyCODONE IR 5 MG TAB PO PRN ×2 (02:34→11:27)
[2018-07-22] MEDS ORDERED: amLODIPine BESYLATE 5 MG TAB PO SCH (08:04)
--- NOTE | 2018-07-22 08:17 | PDIAF ---
- Diagnosis Diagnosis: GI bleed ulcer, strep bacteremia, pyoderma gangrenosum legs Code Status: Full Code - Medication Management Penitentiary Antibiotics: cefazolin 6gm IV Penitentiary Antibiotic Stop Date: 07/28/18 Discharge Medications: electronically signed and located in the Home Medication List. PICC Care - Routine: Yes - Orders Services needed: Registered Nurse, Certified Adjustment Supervisor, Master Merchant Patroller , Physical Therapy, Occupational Therapy Diet Recommendation: sodium restricted Diet Texture: Regular Texture Diet Wound Care Instructions: Change dressings to left anterior lower leg BID and PRN. 1. Clean with NS and gauze. 2. Skin prep lucy wound. 3. Moisten 4x4 gauze with Vashe or Dakins and apply to wound bed. 4. Cover with ABD. 5. Wrap with Kerlix or Steve. Change dressings to left posterior lower leg BID and PRN. 1. Clean with NS and gauze. 2. Skin prep lucy wound. 3. Moisten 4x4 gauze with Vashe or Dakins and apply to wound bed. 4. Cover with ABD. 5. Wrap with Kerlix or Steve. Change dressings to right anterior lower leg BID and PRN. 1. Clean with NS and gauze. 2. Skin prep lucy wound. 3. Moisten 4x4 gauze with Vashe and apply to wound bed. 4. Cover with ABD. 5. Wrap with Kerlix or Steve. Change dressings to upper and lower sacrum/right ischium every 3 days and PRN. 1. Clean with NS and gauze. 2. Skin prep lucy wound. 3. Wound gel to wound beds. 4. Cover with bordered foam. Cover right ischial wound with another bordered foam dressing if the sacral dressing does not give appropriate coverage. Additional Instructions: follow up w Dr Erickson Tobar of rheumatology [phone]. [facility] Wound Care: Change dressings to left anterior lower leg BID and PRN. 1. Clean with NS and gauze 2. Skin prep lucy wound 3. Moisten 4x4 gauze with Vashe or Dakins and apply to wound bed. 4. Cover with ABD 5. Wrap with Kerlix or Steve Change dressings to left posterior lower leg BID and PRN. 1. Clean with NS and gauze 2. Skin prep lucy wound 3. Moisten 4x4 gauze with Vashe or Dakins and apply to wound bed. 4. Cover with ABD 5. Wrap with Kerlix or Steve Change dressings to right anterior lower leg BID and PRN. 1. Clean with NS and gauze 2. Skin prep lucy wound 3. Moisten 4x4 gauze with Vashe and apply to wound bed. 4. Cover with ABD 5. Wrap with Kerlix or Steve Change dressings to upper and lower sacrum/right ischium every 3 days and PRN. 1. Clean with NS and gauze 2. Skin prep lucy wound 3. Wound gel to wound beds 4. Cover with bordered foam. Cover right ischial wound with another bordered foam dressing if the sacral dressing does not give appropriate coverage. Sadie Salvador RN, Wound Care Team - Labs/Radiology CBC w/diff Date: 07/24/18 CMP Date: 07/24/18 Call or Fax Lab and Imaging Results to: Dr Baird at [facility] for infectious dz [phone] - Follow Up Care Current Providers and Referrals: Benita Redman PA [Primary Care Provider] - Israel Lopes MD [Medical Doctor] - 07/27/18 (You have an appointment at 10 :30AM [facility], not the surgery office. )
[2018-07-22] MEDS: ATENOLOL 50 MG TAB PO SCH (08:39)
[2018-07-22] MEDS: cycloSPORINE 100 MG CAP PO SCH (09:09)
[2018-07-22] MEDS: BUDESONIDE 3 MG EC CAP PO SCH ×2 (09:09→15:31)
[2018-07-22] MEDS: GABAPENTIN 300 MG CAP PO SCH ×2 (09:10→15:31)
[2018-07-22] MEDS: CHOLECALCIFEROL VIT D3 1,000 UNITS TAB PO SCH (09:10)
[2018-07-22] MEDS: HEPARIN 5,000 UNIT/0.5 ML INJ SC SCH (09:10)
[2018-07-22] MEDS: PANTOPRAZOLE SODIUM 40 MG TAB PO SCH (09:12)
[2018-07-22] MEDS: traMADol 50 MG TAB PO PRN (09:44)
[2018-07-22] MEDS: SENNOSIDES/DOCUSATE SODIUM TAB PO SCH (09:44)
[2018-07-22] MEDS: SUCRALFATE 1 GM TAB PO SCH (09:51)
[2018-07-22] MEDS: POLYETHYLENE GLYCOL 3350 17 GM PKT PO SCH (09:59)
[2018-07-22] MEDS ORDERED: predniSONE 20 MG TAB PO SCH ×2 (10:00→14:00)
[2018-07-22] MEDS: METHOCARBAMOL 750 MG TAB PO PRN (13:19)
[2018-07-22] MEDS: RALOXIFENE HCL 60 MG TAB PO SCH (15:31)
[2018-07-22 16:15] VITALS: BP 154/99
--- NOTE | 2018-07-22 16:45 | ASMTDCNOTE ---
Case Management Discharge Discharge Order Complete? Answers: Yes Patient to Obtain Answers: Other Notes: via [facility] Medications Transportation Arranged Answers: Other Notes: [employer] wheelchair van - transport arranged an d to be paid for by [facility] Transport will Pick (Date 07/22/2018 04:30 PM & Time) VERONICA Complete Answers: No Notes: N/A Case Management Transport Answers: Yes Notes: Facesheet printed for Form Complete [employer] Faxed Final Orders Answers: Yes Notes: Sent via [employer]; confirmed receipt with Becky at [facility] Agency/Facility Transfer Answers: Yes Notes: Sent via Report Printed & Faxed to [employer]; confirmed Receiving Agency receipt with Becky at [facility] Family Notified Answers: Yes Notes: Pt's son at bedside Discharge Comments Notes: Reviewed chart, spoke with Dr. Ghosh. Pt to transfer to [facility]F today. Call placed to [facility]. Per Becky able to accept; bed available. Transportation arranged and to be paid for by [facility]. [employer] wheelchair van scheduled for 16:30. Update provided to FLAVIO Gamez, Ministerio, KWAKU, pt and family. All discharge orders and paperwork sent via [employer]; confirmed receipt with Becky. Asked to see pt and pt's son, Eamon, regarding lost hearing aid. Met with pt. Per pt, "Eamon left hospital and went home." Pt requesting CM call son at home . Patient retail service representative business card provided to pt. Call placed to Eamon. Son reports pt's "hearing aid was lost several days ago and Arianna, the RN reported that CM was aware and said they would replace the missing hearing aid." Eamon instructed to contact the Patient Rep regarding the lost item. Eamon informed CM cannot authorize replacement of such items. Eamon verbalized understanding, and was appreciative of CM's phone call. Pt to follow up as directed. IM signed 07/21/18. CM available for any further issues or concerns. Date Signed: 07/22/2018 04:44 PM Electronically Signed By:Adnria Littlejohn RN
--- NOTE | 2018-07-22 16:45 | ASDISCHSUM ---
Discharge Information Plan Status:SNF Medically Cleared to Leave:07/21/2018 Discharge Date:07/22/2018 04:35 PM CM D/C Disposition:Residential Facility ADT D/C Disposition:Residential Facility Projected Discharge Date:07/15/2018 11:00 AM Transportation at D/C:Wheelchair Van Discharge Delay Reason: Follow-Up Date:07/15/2018 11:00 AM Discharge Slot:2 - 12:01 pm - 18:00 pm Final Diagnosis:Wound debridement, bacteremia, upper GIB, uncontrolled HTN, hyponatremia, COPD, anem ia, chronic CHF, hx uterine cancer Placement Information Referral Type:*Fdc/SNF Referral ID:-[id number] Provider Name:[facility] Address 1:[address] Address 2: City:[place] Selection Factors:Patient/Family Choice State:[place] Patient Contact Information Contact Name:NORASURI Relationship:Son [address] Pending [address] to [facility] City:[place] Alternate Phone: State/Zip Code:[place] [address] Email: Financial Information Financial Class:Medicare Primary Plan Desc:MEDICARE OUTPATIENT Primary Plan Number:[id number] Secondary Plan Desc: Secondary Plan Number: Assessment Information LACE LACE Length of stay for Answers: 14 days or more current admission Acuity / Level of Answers: Yes Care: Did the patient have an inpatient admission? Comorbidities - select Answers: Chronic pulmonary disease all that apply Congestive heart failure Other Notes: Hypertension, Chronic l eg wounds # of Emergency department Answers: 1-2 visits in the last 6 months Score: 16 Date Signed: 07/20/2018 11:45 AM Electronically Signed By:Anu Hawk RN [facility] CM Progress Note CM Note CM Note Notes: Pt admitted from wound clinic, she has bilateral leg wounds that are failing to heal. Sx will likely take her to OR for debridement. Dc needs unclear, CM w/f. DC Plan: TBD Date Signed: 07/06/2018 04:07 PM Electronically Signed By:Anu Hawk RN [facility] MARIELA Progress Note CM Note MARIELA Note Notes: Pt has had bilateral wound vacs placed on legs. DC needs unlcear, pt has been independent but unsure how long she will need the wound vacs. Next vac change is scheduled for 07/12/18. MARIELA w/f DC Plan: TBD Date Signed: 07/08/2018 04:55 PM Electronically Signed By:Anu Hawk RN [facility] Progress Note CM Note CM Note Notes: MARIELA met w/ pt and sister Thien (P#: [phone]) for dispo planning. Pt is confused today. PT is recommending SNF. CM provided Thien w/ the senior blue book. Thien reports that pt has been to a SNF in the past but could not recall the name. Thien would like a referral sent to [email or web address]. Thien reports that pts son Eamon (P#: [phone]) is very involved in pts care. CM called Eamon and he reports that she was previously at [facility] and had a good experience. Eamon would like a referral sent there. CM to follow. Plan: Date Signed: 07/11/2018 12:12 PM Electronically Signed By:FELIPE Degroot [facility] CM Progress Note CM Note CM Note Notes: Met with pt's son Alex, to discuss preference for SNF. Son states pt has been a [facility] before and they are leaning towards that facility, [facility] 2nd choice, CM sent updated notes, dc date still unclear. DC Plan: / [facility] Date Signed: 07/13/2018 04:25 PM Electronically Signed By:Anu Hawk RN [facility] CM Progress Note CM Note CM Note Notes: CM discussed with FLAVIO Bravo. Patient to have wound vac changed tomorrow. Patient underwent EGD today for evaluation of GI bleed. CM to follow. D/C Plan: /[facility] Date Signed: 07/16/2018 04:58 PM Electronically Signed By:Gracy Reeves [facility] CM Progress Note CM Note CM Note Notes: Pt is not medically stable to d/c from the hospital at this time. Updates sent to [facility]. DC date is unclear at this time. CM to follow. Date Signed: 07/19/2018 01:58 PM Electronically Signed By:FELIEP Degroot [facility] Progress Note CM Note CM Note Notes: Spoke w/MD, pt may be able to dc tomorrow to SNF. CM spoke with son Alex who is in agreement with plan. CM notified Kerline at [facility] who will check on bed availability. DC Plan: SNF/ [facility] Date Signed: 07/20/2018 11:44 AM Electronically Signed By:Anu Hawk RN Case Management Discharge Plan Note Case Management Discharge Discharge Order Complete? Answers: Yes Patient to Obtain Answers: Other Notes: via [facility] Transportation Arranged Answers: Other Notes: [employer] wheelchair van - transport arranged an d to be paid for by [facility] Transport will Pick (Date 07/22/2018 04:30 PM & Time) VERONICA Complete Answers: No Notes: N/A Case Management Transport Answers: Yes Notes: Facesheet printed for Form Complete [place] Faxed Final Orders Answers: Yes Notes: Sent via [employer]; confirmed receipt with Becky at [facility] Agency/Facility Transfer Answers: Yes Notes: Sent via Report Printed & Faxed to [employer]; confirmed Receiving Agency receipt with Becky at [facility] Family Notified Answers: Yes Notes: Pt's son at bedside Discharge Comments Notes: Reviewed chart, spoke with Dr. Ghosh. Pt to transfer to [facility] SNF today. Call placed to Becky at [facility]. Per Becky able to accept; bed available. Transportation arranged and to be paid for by [facility]. [employer] wheelchair van scheduled for 16:30. Update provided to FLAVIO Gamez, Ministerio, KWAKU, pt and family. All discharge orders and paperwork sent via [email or web address]; confirmed receipt with Becky. Asked to see pt and pt's son, Eamon, regarding lost hearing aid. Met with pt. Per pt, "Eamon left hospital and went home." Pt requesting CM call son at home . Patient outreach representative business card provided to pt. Call placed to Eamon. Son reports pt's "hearing aid was lost several days ago and Arianna, the RN reported that CM was aware and said they would replace the missing hearing aid." Eamon instructed to contact the Patient Rep regarding the lost item. Eamon informed CM cannot authorize replacement of such items. Eamon verbalized understanding, and was appreciative of CM's phone call. Pt to follow up as directed. IM signed 07/21/18. CM available for any further issues or concerns. Date Signed: 07/22/2018 04:44 PM Electronically Signed By:Andria Littlejohn RN Intervention Information Intervention Type:*Incorrect Registration Date of Service:07/06/2018 04:36 PM Patient Type:Inpatient Staff Member:Farrah Wynne Hours: Discipline: Severity: Comment: Intervention Type:*IM-Signed Date of Service:07/21/2018 03:07 PM Patient Type:Inpatient Staff Member:Yamila James Hours: Discipline: Severity: Comment:
--- NOTE | 2018-07-26 14:28 | PQFORM ---
PHYSICIAN QUERY FORM Needs Your Response This query form is being sent to you to assure this patient record is coded properly. Please respond to the question below: ASSEMBLER [employer] QUESTION: Dear Dr. Lopes, For coding purposes (there is a different code choice for excisional versus non excisional debridement)- please clarify if the debridement done on 06 Jul 2018 was: ___~ Excisional ___~ Non Excisional ___~ Other Thank you Beverly Meyer CUSTOMER CARE AGENT [facility]/Coding Dept. [phone] INSTRUCTIONS FOR RESPONSE: Answer question by clicking on the "Edit Document" button. Move cursor to area below the stars. When complete, hit "Save." Click on the "Sign" button, then click "Sign" again. Type in your PIN and hit "Enter." Debridement was excisional MTDD
== END 2018-07-22 16:35 | DRG 579 ==
LOC: F3E 10:56 → OBSVTOIN 11:08 → F3E 07-12 14:24
PROVIDERS: ADMIT Internal Medicine; ATTEND Internal Medicine
PROC: 0LBT0ZZ Excision of Left Ankle Tendon, Open Approach (ICD-10-PCS; principal; 2018-07-06 18:45)
PROC: 0QBG0ZZ Excision of Right Tibia, Open Approach (ICD-10-PCS; principal; 2018-07-06 18:45)
PROC: 0DB68ZX Excision of Stomach, Via Natural or Artificial Opening Endoscopic, Diagnostic (ICD-10-PCS; 2018-07-12)
PROC: 0DJ08ZZ Inspection of Upper Intestinal Tract, Via Natural or Artificial Opening Endoscopic (ICD-10-PCS; 2018-07-16)
PROC: 30233N1 Transfusion of Nonautologous Red Blood Cells into Peripheral Vein, Percutaneous Approach (ICD-10-PCS; 2018-07-18)
PROC: 02H633Z Insertion of Infusion Device into Right Atrium, Percutaneous Approach (ICD-10-PCS; 2018-07-19)
DX: L88 Pyoderma gangrenosum (principal); K28.0 Acute gastrojejunal ulcer with hemorrhage; L97.314 Non-pressure chronic ulcer of right ankle with necrosis of bone; K29.01 Acute gastritis with bleeding; D62 Acute posthemorrhagic anemia; R78.81 Bacteremia; L89.213 Pressure ulcer of right hip, stage 3; L97.323 Non-pressure chronic ulcer of left ankle with necrosis of muscle; L89.152 Pressure ulcer of sacral region, stage 2; I11.0 Hypertensive heart disease with heart failure; I50.9 Heart failure, unspecified; J44.9 Chronic obstructive pulmonary disease, unspecified; F17.200 Nicotine dependence, unspecified, uncomplicated; B95.5 Unspecified streptococcus as the cause of diseases classified elsewhere
CPT/HCPCS: 86704-90; 97116-GP; 97161-GP; 97165-GO; 97168-GO; 97530-GP; 97535-GO; C1751; G0472; G8978-GP-CJ; G8979-GP-CI; G8987-GO-CI; G8988-GO-CI; G8989-GO-CI; J0690; J1100; J1170; J1644; J1650; J1885; J2001; J2060; J2250; J2405; J2704; J2930; J3010; J7502; J7512; P9016